=== PATIENT | male | born 1935 | race Caucasian/White ===

== ENCOUNTER 2017-11-07 16:22 | Inpatient (IN) | payer OTHER ==
--- NOTE | 2017-11-07 13:38 | R.PREADM ---
SCREENING DATE AND TIME 11/06/2017 16:25 (CDT) ANTICIPATED REHAB ADMISSION DATE 11/08/2017 REFERRING FACILITY [facility] REFERRAL DATE AND TIME 11/06/2017 16:25 (CDT) ACUTE ADMIT DATE 10/13/2017 Previous Rehabilitation(s): No. REFERRING PHYSICIAN [facility] RE[facility] FACILITY [facility] CLINICAL LIAISON Carla Carpenter PHYSICIAN REVIEWER Dr. Alex Ribeiro M.D. [facility]# [id number] [facility] [id number] NAME MARCE BRAND ADDRESS [address] [place] [address] [place] ZIP [phone] DATE OF 1935 AGE 82 SSN# [id number] GENDER male MARITAL STATUS RACE white ADMIT FROM 02 - [facility] PRE-HOSPITAL LIVING SETTING 01 - Home (private home/apt. board/care, assisted living, longterm, transitional living) HOME TYPE AND DETAILS Type of home: single family house # of levels in the residence: 1 # of steps within the residence: 0 # of steps to enter the residence: 0 PRE-HOSPITAL LIVING WITH Family/Relatives FAMILY SUPPORT Yes PRIMARY FAMILY CONTACT NAME Marry Brand PRIMARY FAMILY CONTACT PHONE PHONE PRIMARY FAMILY CONTACT ON ADM.? no IS PRIMARY FAMILY CONTACT AUTH. REP.? no 1ST EMERGENCY CONTACT Marry Brand 1ST CONTACT PHONE PHONE 1ST CONTACT ON ADM. no IS 1ST CONTACT AUTH. REP.? no PHONE 2ND CONTACT ON ADM.? no PATIENT EMPLOYMENT STATUS Retired (for age) PATIENT EMPLOYER No Employer PAYOR INFORMATION: 1ST PAYOR NAME MEDICARE 1ST PAYOR PHONE 1ST PAYOR INJURY/ILLNESS DUE TO ACCIDENT? No ANOTHER [employer] RESPONSIBLE? No PRIMARY REHAB/ACUTE DIAGNOSIS: Left periprosthetic distal femur fracture ONSET DATE 10/11/2017 REHAB IMPAIRMENT CATEGORY (GENNARO): 07 Fracture of LE (FracLE) does NOT meet 60% rule AFFECTED EXTREMITIES: LLE PRIMARY DIAGNOSIS-RELATED SURGERIES: ORIF Left distal femur COMORBID REHAB/ACUTE DIAGNOSES: - N/A GERD PArkinson's Disease Essential Hypertension Chronic post traumatic stress disorder CKD stage 3 Hyperlipidemia Adjustment disorder with depressed mood INTERVENTIONS: - GERD Altered diet Elevation of head of bed Medications Nausea/vomiting Nighttime food/fluid restrictions Nutrition RISK FOR COMPLICATIONS: - GERD Alteration in sleep Aspiration Dehydration Malnutrition Pain SUMMARY OF ACUTE HOSPITALIZATION: Pt. is a 82 yo Right-handed white male. On 10/11/2017 he was admitted to [facility] with diagnosis Left periprosthetic distal femur fr priya. His impairment category is Orthopaedic Disorders 08 - Femur (Shaft) Fracture (08.2). Pre-morbidly, Pt. was independent/mod-I in Transfers Control, Communication, Social Cognition, Self-C are, Locomotion, and Sphincter Control; and he had good Sphincter Control. Currently, he has deficits of Safety Awareness, Transfers Control, Communication, Social Cognition, B alance, Self-Care, Endurance, and Locomotion. Pt. is now referred to [facility] for acute in-patient rehabilitation in order to maximize patient's functional independence in activities of daily living, strength, ROM, and mobi lity. Patient has realistic goal of being discharged at assistance level 6-Cathy to reside at Home with Fam samantha/Relatives. PAST MEDICAL HISTORY Adjustment disorder with depressed mood CKD stage 3 Chronic post traumatic stress disorder Essential Hypertension GERD Hyperlipidemia PArkinson's Disease PAST SURGICAL HISTORY: Left knee TKA (1993) MEDICATION ALLERGIES: Penicillin, Hydrocodone, Ibuprofen, Sinemet 25/100 tablet ENVIRONMENTAL ALLERGIES: None Known - Substance Allergies None Known - Other Allergies None Known CODE STATUS: Full code WEIGHT/HEIGHT/BMI: WEIGHT 234.6 lbs HEIGHT 5' 9" BMI 34.6 DIET: - Diet Type Regular - Diet - Solid Texture Regular - Diet - Liquid Texture Regular - Tube Feed N/A SKIN DIAGRAM: Incision on Left upper leg; extent - small; stage - NS(Not Stageable). Treatment - Per Physician's Or ders. REVIEW OF SYSTEMS: - Gen Alert and awake Lying in bed No apparent distress Oriented to: person, time, and place - Vital Signs Temperature: 98.5 F SBP/DBP: 108/61 Pulse: 104 Resp: 18 Vital signs stable, afebrile - Skin Left thigh with surgical incision - CVS RRR VITAL SIGNS Temperature: 98.5 F SBP/DBP: 108/61 Pulse: 104 Resp: 18 Vital signs stable, afebrile CURRENT SPHINCTER CONTROL: Pre-hospital bladder status: continent # of bladder accidents in the last 7 days prior to screenin Pre-hospital bowel status: continent # of bowel accidents in the last 7 days prior to screenin Last Bowel Movement Date: DETAILED CURRENT FUNCTIONAL STATUS: - Bladder accident frequency: Ind - No accidents in the past 7 days - Bowel accident frequency: Ind - No accidents in the past 7 days - Walking score based on distance walked: 0(N/A) - Wheelchair score based on distance traveled: 2(0429ft) FUNCTIONAL STATUS: - Self-Care A. Eating Ind sup B. Grooming Ind Mauri C. Bathing Ind maxA D. Dressing - Upper Ind Mauri E. Dressing - Lower Ind maxA F. Toileting Ind Dep - Sphincter Control G: Bladder control Ind Ind H: Bowel control Ind Ind - Transfers Control I. Bed/Chair/Wheelchair Ind Dep J. Toilet Ind Dep K. Tub/Shower Ind ADNO - Locomotion L. Walk/Wheelchair (C) Ind Ind L. Walk/Wheelchair (W) Ind Ind M. Stairs Ind ADNO - Communication N. Comprehension (B) Ind Mauri O. Expression (B) Ind sup - Social Cognition P. Social Interaction Ind sup Q. Problem Solving Ind Mauri R. Memory Ind Mauri - Endurance Poor - Balance Poor - Safety Awareness Fair CURRENT FUNC. DEFICITS: Safety Awareness, Transfers Control, Communication, Social Cognition, Balance, Self-Care, Endurance, and Locomotion THERAPY NOTES FROM ACUTE CARE: Attached. SPECIAL NEEDS: - Safety Concerns Skin breakdown precautions needed due to skin breakdown risk PRECAUTIONS: - Weight Bearing Precaution NWB left LE - Fall Precaution Bed and chair alarm PATIENT NEEDS ACTIVE AND ONGOING THERAPEUTIC INTERVENTION OF MULTIPLE THERAPY DISCIPLINES, INCLUDING: - Occupational Therapy Evaluate and Treat. - Physical Therapy Evaluate and Treat. PATIENT NEEDS CLOSE MEDICAL SUPERVISION BY A REHABILITATION PHYSICIAN FOR: Bowel and Bladder Management Coordination of Treatment Team Medical and Co-Morbidity Management Pain Management Wound Care DVT Management PATIENT REQUIRES 24X7 REHAB NURSING FOR MEDICAL AND FUNCTIONAL MGT. OF THE FOLLOWING DEFICITS: ADL's Bowel and Bladder Management Cognition Communication Disease Management Medication Management Patient/Family Education Providing Safe Environment Skin Integrity Transfers Pain Management Ambulation PATIENT REQUIRES INTENSIVE, COORDINATED INTERDISCIPLINARY APPROACH TO REHAB: Arranging Home Equipment/Services Discharge Planning Family Intervention/Training Tie Layer/Case Management PATIENT REHAB POTENTIAL: Expected level of measurable improvement will be of a practical value to patient's functional capacit y or adaptations to impairments Has a viable Discharge Plan Medically appropriate; condition is sufficiently stable to participate in intensive rehab program Patient is able and expected to receive 3 hours of individualized therapy daily on at least 5 of ever y 7 days Patient's prognosis for significant practical improvement within a reasonable period of time appears Good DISCHARGE PLAN: - Estimated Length of Stay (days) 14. - Consensus on plan Discharge plan has been discussed with primary caregiver. Patient/Family is in agreement with the jose n. Primary caregiver is in agreement with the plan. - Patient/Family Goals Return home with assistance. - Planned Living Setting Upon Discharge Home, to live with Family/Relatives. RECOMMENDED CARE LEVEL: IRF RECOMMENDATION DETAILS: Recommended Admission to Comprehensive Rehabilitation Program to Increase Functional Beadle SCREENER'S COMPLETENESS CONFIRMATION: - Screening Confirmation The patient data collection on this preadmission screening form is finished PHYSICIANS REVIEW AND ADMISSION DETERMINATION Admit - Based on my review of the Pre-Admission Screening results, in my medical judgment and experie nce, I concur with the findings and recommend admission to [facility], as this patient requires an IRF level of care. SIGNATURE PANEL: Clinical Liaison - [electronically] signed by Carla Carpenter on 11/06/2017 at 16:58 (CDT) Physician Reviewer - [electronically] signed by Dr. Alex Ribeiro M.D. on 11/07/2017 at 12:39 (CDT )
[2017-11-07] MEDS ORDERED: FLUTICASONE 50MCG NASAL SPRAY NAS PRN (22:17)
[2017-11-08] MEDS: METOPROLOL TAR 25 MG TAB PO SCH ×2 (05:07→17:08)
[2017-11-08 06:24] LABS: Absolute Lymphocytes (CBC) 1.8 K/uL (0.7-4.9); Absolute Monocytes 0.9 K/uL (0.1-1.3); Basophils % 0.8 % (0-1.3); Eosinophils % 2.7 % (0-4.4); Hematocrit 34.1 % (39.6-49.0); Lymphocytes % 30.4 % (15.3-44.8); MCH 27.6 pg (27.0-35.0); MCV 86.9 fL (80-100); MPV 9.1 fL (7.6-11.3); Monocytes % 15.3 % (3.3-12.3); RBC Red Blood Cell Count 3.92 M/uL (4.33-5.43)
[2017-11-08] MEDS: ACETAMINOPHEN 325 MG TABLET PO PRN ×2 (06:33→11:46)
[2017-11-08 07:12] LABS: Blood Morphology Comment NOT SEEN (NOT SEEN); Platelet Estimate ADEQ; Urine White Blood Cell Casts OK
[2017-11-08 07:17] LABS: Albumin 2.8 g/dL (3.2-5.5); Magnesium 1.9 mg/dL (1.8-2.5); Potassium 4.4 mEq/L (3.6-5.0); Prealbumin 18.2 mg/dl (18-38)
[2017-11-08] MEDS: RANITIDINE 150 MG TABLET PO SCH ×2 (08:27→20:37)
[2017-11-08] MEDS: buPROPion HCl 100 MG TAB PO SCH ×2 (08:27→12:22)
[2017-11-08] MEDS: guaiFENesin 100 MG/5 ML UCUP PO PRN ×2 (11:44→22:05)
[2017-11-08] MEDS ORDERED: buPROPion HCl 100 MG TAB PO SCH (13:00)
--- NOTE | 2017-11-08 19:31 | FAST ---
ENCOUNTER DATE AND TIME: 11/08/2017 08:00 (CDT) NAME MARCE BRAND DATE OF : 1935 DATE OF ADMISSION: 11/07/2017 19:54 (CDT) PHONE: AGE: 82 SSN# [id number] GENDER: Male ENCOUNTER PHYSICIAN: Dr. Alex Ribeiro M.D. ADMISSION DIAGNOSIS: - Orthopaedic Disorders 08 - Femur (Shaft) Fracture (08.2) Left periprosthetic distal femur fracture. EATING: Activity did not occur on this shift EATING - SCORE: 0-UNK GROOMING: Activity did not occur on this shift GROOMING - SCORE: 0-UNK BATHING: Activity did not occur on this shift BATHING - SCORE: 0-UNK DRESSING - UPPER BODY: Activity did not occur on this shift Patient is not dressing in public clothing ARTICLES SCORE Total number of steps: 0 DRESSING - UPPER BODY - SCORE: 0-UNK DRESSING - LOWER BODY: Activity did not occur on this shift Patient is not dressing in public clothing ARTICLES SCORE Total number of steps: 0 DRESSING - LOWER BODY - SCORE: 0-UNK TOILETING: Activity did not occur on this shift TOILETING - SCORE: 0-UNK BLADDER MANAGEMENT: Activity did not occur on this shift BLADDER MANAGEMENT - SCORE: 7-IND BOWEL MANAGEMENT: Activity did not occur on this shift BOWEL MANAGEMENT - SCORE: 7-IND TRANSFERS: BED, CHAIR, WHEELCHAIR: Patient requires more than one helper and/or the use of a mechanical lift is utilized TRANSFERS: BED, CHAIR, WHEELCHAIR - SCORE: 1-DEP TRANSFERS: TOILET: Activity did not occur on this shift TRANSFERS: TOILET - SCORE: 0-UNK TRANSFERS: SHOWER: Activity did not occur on this shift TRANSFERS: SHOWER - SCORE: 0-UNK TRANSFERS: TUB: Activity did not occur on this shift TRANSFERS: TUB - SCORE: 0-UNK LOCOMOTION: WALK: Activity did not occur on this shift LOCOMOTION: WALK - SCORE: 0-UNK LOCOMOTION: WHEELCHAIR: LOCOMOTION: WHEELCHAIR - STEP 1: Does the patient need help to go 150 feet in a wheelchair? Yes. LOCOMOTION: WHEELCHAIR - STEP 2: How much assistance does the patient need from the helper? Only supervision, cuing, or coaxing LOCOMOTION: WHEELCHAIR - SCORE: 5-SUP LOCOMOTION: STAIRS: Activity did not occur on this shift LOCOMOTION: STAIRS - SCORE: 0-UNK COMPREHENSION: COMPREHENSION - SCORE: 0-UNK EXPRESSION EXPRESSION - SCORE: 0-UNK SOCIAL INTERACTION: SOCIAL INTERACTION - SCORE: 0-UNK PROBLEM SOLVING: PROBLEM SOLVING - SCORE: 0-UNK MEMORY: MEMORY - SCORE: 0-UNK SIGNATURE PANEL: The following modified sections: Transfers: Bed, Chair, Wheelchair - Score, Transfers: Toilet - Score , Locomotion: Walk - Score, Locomotion: Wheelchair - Score, Locomotion: Stairs - Score were [electron [email or web address]] signed by Anderson Saba, PT on Sat Nov 08 2017 18:32:42 T-0500 (Central Daylight Time)
[2017-11-08] MEDS: POLYVINYL ALCOHOL 1.4% 15 ML EACH EYE PRN (20:35)
[2017-11-08] MEDS: MELATONIN 3 MG TABLET PO PRN (20:37)
[2017-11-08] MEDS: NYSTATIN PWDR 100000 UNIT/GM TOP SCH (20:37)
[2017-11-08] MEDS: MIRTAZAPINE 15 MG TAB PO SCH (20:37)
[2017-11-08] MEDS: ATORVASTATIN 20 MG TAB PO SCH (20:37)
[2017-11-08 21:34] LABS: Urine Appearance CLEAR; Urine Bilirubin NEGATIVE (NEG); Urine Blood 3+ (NEG); Urine Color YELLOW; Urine Glucose NEGATIVE (NEG); Urine Protein NEGATIVE (NEG); Urine Specific Gravity 1.025 (1.005-1.030); Urine Urobilinogen 0.2 mg/dL (0.2-1.0); Urine pH 5.5 (5.0-7.0)
[2017-11-08 21:45] LABS: Urine Bacteria <20 /HPF (NONE SEEN); Urine RBC >50 /HPF (NONE SEEN)
[2017-11-08 21:46] LABS: Urine Culture Reflex Order NOT NEEDED
--- NOTE | 2017-11-09 04:43 | FAST ---
SHIFT START DATE/TIME: 11/08/2017 19:00 (CDT) SHIFT END DATE/TIME: 11/09/2017 07:00 (CDT) NAME MARCE BRAND DATE OF : 1935 DATE OF ADMISSION: 11/07/2017 19:54 (CDT) PHONE: AGE: 82 N# [id number] GENDER: Male ENCOUNTER PHYSICIAN: Dr. Alex Ribeiro M.D. ADMISSION DIAGNOSIS: - Orthopaedic Disorders 08 - Femur (Shaft) Fracture (08.2) Left periprosthetic distal femur fracture. EATING: EATING - STEP 1: Does the patient require assistance when eating? Yes. EATING - STEP 2: Does the patient require the assistance of a helper? Yes. EATING - STEP 3: Does the patient perform half or more of the eating tasks? Yes. EATING - STEP 4: Does the patient need only supervision, cuing, coaxing OR help to apply an orthosis OR help to cut fo od, open containers, pour liquids, or butter bread? No. EATING - SCORE: 4-MIN GROOMING: Wash, rinse, and dry face Wash, rinse, and dry hands GROOMING - STEP 1: Does the patient require assistance when grooming? Yes. GROOMING - STEP 2: Does the patient require the assistance of a helper? Yes. GROOMING - STEP 3: How much assistance does the patient require from the helper? More than incidental help GROOMING - STEP 4: How many grooming tasks does the patient perform WITHOUT the assistance of the helper? Half or more o f the grooming tasks GROOMING - SCORE: 3-MOD BATHING: Activity did not occur on this shift BATHING - SCORE: 0-UNK DRESSING - UPPER BODY: Patient is not dressing in public clothing ARTICLES SCORE Total number of steps: 0 DRESSING - UPPER BODY - SCORE: 0-UNK DRESSING - LOWER BODY: Patient is not dressing in public clothing ARTICLES SCORE Total number of steps: 0 DRESSING - LOWER BODY - SCORE: 0-UNK TOILETING: Activity did not occur on this shift TOILETING - SCORE: 0-UNK BLADDER MANAGEMENT: Colton removes incontinent device (Depends, pull ups, etc.); cleans the patient after accident / inco ntinent episode; and, applies new incontinent device. BLADDER MANAGEMENT - SCORE: 1-DEP BLADDER MANAGEMENT - FREQUENCY OF ACCIDENTS: BLADDER MANAGEMENT(FA) - STEP 1: How many accidents has the patient had during the current shift? 3 BOWEL MANAGEMENT: Colton removes incontinent device (depends, pull ups, etc.); cleans the patient after accident / inco ntinent episode; and, applies new device (depends, pull-ups, padding, etc.). BOWEL MANAGEMENT - SCORE: 1-DEP BOWEL MANAGEMENT - FREQUENCY OF ACCIDENTS: BOWEL MANAGEMENT(FA) - STEP 1: How many accidents has the patient had during the current shift? 2 TRANSFERS: BED, CHAIR, WHEELCHAIR: Activity did not occur on this shift TRANSFERS: BED, CHAIR, WHEELCHAIR - SCORE: 0-UNK TRANSFERS: TOILET: Activity did not occur on this shift TRANSFERS: TOILET - SCORE: 0-UNK TRANSFERS: SHOWER: Activity did not occur on this shift TRANSFERS: SHOWER - SCORE: 0-UNK TRANSFERS: TUB: Activity did not occur on this shift TRANSFERS: TUB - SCORE: 0-UNK LOCOMOTION: WALK: Activity did not occur on this shift LOCOMOTION: WALK - SCORE: 0-UNK LOCOMOTION: WHEELCHAIR: Activity did not occur on this shift LOCOMOTION: WHEELCHAIR - SCORE: 0-UNK COMPREHENSION: COMPREHENSION: TYPE: Both COMPREHENSION - STEP 1: Does the patient require help to understand complex and abstract ideas (such as current events, finan panda, discharge planning, medical issues, relationships, etc)? No. COMPREHENSION - STEP 2: Does the patient need extra time, require an assistive device (such as glasses, hearing aids, or an a ugmentative communication system), OR does s/he have mild difficulty expressing complex and abstract ideas (including mild dysarthria or mild word-finding problems)? Yes. COMPREHENSION - SCORE: 6-JM EXPRESSION EXPRESSION: TYPE: Both EXPRESSION - STEP 1: Does the patient require help expressing complex and abstract ideas (such as current events, finances , discharge planning, medical issues, relationships, etc)? No. EXPRESSION - STEP 2: Does the patient need extra time, require an assistive device (such as augmentive communication syste m or a communication board), OR does s/he have mild difficulty expressing complex and abstract ideas (including mild dysarthria or mild word-find problems)? Yes. EXPRESSION - SCORE: 6-JM SOCIAL INTERACTION: SOCIAL INTERACTION - STEP 1: Does the patient require a helper to interact with others in social and therapeutic situations? No. SOCIAL INTERACTION - STEP 2: Does the patient need extra time in social situations, OR does s/he interact with staff, other patien ts, and family members ONLY in structured environments, OR does s/he require medication for social in teraction? Yes, patient needs extra time SOCIAL INTERACTION - SCORE: 6-JM PROBLEM SOLVING: PROBLEM SOLVING - STEP 1: Does the patient need help to solve complex problems such as managing a checking account or confronti ng interpersonal problems? No. PROBLEM SOLVING - STEP 2: Does the patient require extra time to make decisions or solve problems, OR does s/he have slight dif ficulty reading, initiating, or self-correcting in unfamiliar situations? Yes, patient needs extra ti me. PROBLEM SOLVING - SCORE: 6-JM MEMORY: MEMORY - STEP 1: Does the patient need help to remember frequently encountered people, daily routines, and executing r equests? No. MEMORY - STEP 2: Does the patient have slight difficulty recognizing frequently encountered people, daily routines, or executing requests without the need for repetition or using self-initiated or environmental cues to remember? Yes. MEMORY - SCORE: 6-JM SIGNATURE PANEL: The following modified sections: Eating - Score, Grooming - Score, Bathing - Score, Dressing - Upper Body - Score, Dressing - Lower Body - Score, Toileting - Score, Bladder Management - Score, Bowel Man agement - Score, Transfers: Bed, Chair, Wheelchair - Score, Transfers: Toilet - Score, Transfers: Merline wer - Score, Transfers: Tub - Score, Locomotion: Walk - Score, Locomotion: Wheelchair - Score, Compre hension - Score, Expression - Score, Social Interaction - Score, Problem Solving - Score, Memory - Sc ore were [electronically] signed by Lala Calzada C.N.Josie on FriNov 09 2017 03:45:26 GMT-0500 ( Central Daylight Time)
[2017-11-09] MEDS: METOPROLOL TAR 25 MG TAB PO SCH ×2 (05:17→17:20)
[2017-11-09] MEDS: guaiFENesin 100 MG/5 ML UCUP PO PRN ×2 (07:04→19:54)
[2017-11-09] MEDS: RANITIDINE 150 MG TABLET PO SCH ×2 (07:04→19:53)
[2017-11-09] MEDS: ACETAMINOPHEN 325 MG TABLET PO PRN (07:04)
[2017-11-09] MEDS: NYSTATIN PWDR 100000 UNIT/GM TOP SCH ×2 (07:04→19:53)
[2017-11-09] MEDS: buPROPion HCl 100 MG TAB PO SCH ×2 (07:04→13:19)
[2017-11-09] MEDS: PRIMIDONE 50 MG TAB PO SCH (13:19)
--- NOTE | 2017-11-09 16:26 | FAST ---
SHIFT START DATE/TIME: 11/08/2017 07:00 (CDT) SHIFT END DATE/TIME: 11/08/2017 19:00 (CDT) NAME MARCE BRAND DATE OF : 1935 DATE OF ADMISSION: 11/07/2017 19:54 (CDT) PHONE: AGE: 82 N# [id number] GENDER: Male ENCOUNTER PHYSICIAN: Dr. Alex Ribeiro M.D. ADMISSION DIAGNOSIS: - Orthopaedic Disorders 08 - Femur (Shaft) Fracture (08.2) Left periprosthetic distal femur fracture. EATING: EATING - STEP 1: Does the patient require assistance when eating? Yes. EATING - STEP 2: Does the patient require the assistance of a helper? Yes. EATING - STEP 3: Does the patient perform half or more of the eating tasks? Yes. EATING - STEP 4: Does the patient need only supervision, cuing, coaxing OR help to apply an orthosis OR help to cut fo od, open containers, pour liquids, or butter bread? Yes. EATING - SCORE: 5-SUP GROOMING: Comb/brush hair Wash, rinse, and dry face Wash, rinse, and dry hands GROOMING - STEP 1: Does the patient require assistance when grooming? Yes. GROOMING - STEP 2: Does the patient require the assistance of a helper? Yes. GROOMING - STEP 3: How much assistance does the patient require from the helper? More than incidental help GROOMING - STEP 4: How many grooming tasks does the patient perform WITHOUT the assistance of the helper? Half or more o f the grooming tasks GROOMING - SCORE: 3-MOD BATHING: Activity did not occur on this shift BATHING - SCORE: 0-UNK DRESSING - UPPER BODY: T-shirt/pullover shirt (four steps) ARTICLES SCORE Total number of steps: 4 DRESSING - UPPER BODY - STEP 1: Does the patient require help when dressing above the waist? Yes. DRESSING - UPPER BODY - STEP 2: Does the patient require the assistance of a helper? Yes. DRESSING - UPPER BODY - STEP 3: Does the helper touch the patient while dressing? Yes. DRESSING - UPPER BODY - STEP 4: How many of the total steps does the patient complete on his/her own? 0 DRESSING - UPPER BODY - STEP 5: Does Patient require total assistance for dressing above the waist such as the helper holding clothin g and performing basically all the activities? Yes. DRESSING - UPPER BODY - SCORE: 1-DEP DRESSING - LOWER BODY: Elastic waist pants (three steps) Sock - Left foot (one step) Sock - Right foot (one step) Underwear (three steps) ARTICLES SCORE Total number of steps: 8 DRESSING - LOWER BODY - STEP 1: Does the patient require help when dressing below the waist? Yes. DRESSING - LOWER BODY - STEP 2: Does the patient require the assistance of a helper? Yes. DRESSING - LOWER BODY - STEP 3: Does the helper touch the patient while dressing? Yes. DRESSING - LOWER BODY - STEP 4: How many of the total steps does the patient complete on his/her own? 0 DRESSING - LOWER BODY - STEP 5: Does patient require total assistance for dressing below the waist such as the helper holding clothin g and performing basically all the activities? Yes. DRESSING - LOWER BODY - SCORE: 1-DEP TOILETING: Activity did not occur on this shift TOILETING - SCORE: 0-UNK BLADDER MANAGEMENT: [place] removes incontinent device (Depends, pull ups, etc.); cleans the patient after accident / inco ntinent episode; and, applies new incontinent device. BLADDER MANAGEMENT - SCORE: 1-DEP BLADDER MANAGEMENT - FREQUENCY OF ACCIDENTS: BLADDER MANAGEMENT(FA) - STEP 1: How many accidents has the patient had during the current shift? 2 BOWEL MANAGEMENT: Activity did not occur on this shift BOWEL MANAGEMENT - SCORE: 7-IND BOWEL MANAGEMENT - FREQUENCY OF ACCIDENTS: BOWEL MANAGEMENT(FA) - STEP 1: How many accidents has the patient had during the current shift? 0 TRANSFERS: BED, CHAIR, WHEELCHAIR: Patient requires more than one helper and/or the use of a mechanical lift is utilized TRANSFERS: BED, CHAIR, WHEELCHAIR - SCORE: 1-DEP TRANSFERS: TOILET: Activity did not occur on this shift TRANSFERS: TOILET - SCORE: 0-UNK TRANSFERS: SHOWER: Activity did not occur on this shift TRANSFERS: SHOWER - SCORE: 0-UNK TRANSFERS: TUB: Activity did not occur on this shift TRANSFERS: TUB - SCORE: 0-UNK LOCOMOTION: WALK: Activity did not occur on this shift LOCOMOTION: WALK - SCORE: 0-UNK LOCOMOTION: WHEELCHAIR: Activity did not occur on this shift LOCOMOTION: WHEELCHAIR - SCORE: 0-UNK COMPREHENSION: COMPREHENSION: TYPE: Both COMPREHENSION - STEP 1: Does the patient require help to understand complex and abstract ideas (such as current events, finan panda, discharge planning, medical issues, relationships, etc)? No. COMPREHENSION - STEP 2: Does the patient need extra time, require an assistive device (such as glasses, hearing aids, or an a ugmentative communication system), OR does s/he have mild difficulty expressing complex and abstract ideas (including mild dysarthria or mild word-finding problems)? Yes. COMPREHENSION - SCORE: 6-JM EXPRESSION EXPRESSION: TYPE: Both EXPRESSION - STEP 1: Does the patient require help expressing complex and abstract ideas (such as current events, finances , discharge planning, medical issues, relationships, etc)? No. EXPRESSION - STEP 2: Does the patient need extra time, require an assistive device (such as augmentive communication syste m or a communication board), OR does s/he have mild difficulty expressing complex and abstract ideas (including mild dysarthria or mild word-find problems)? Yes. EXPRESSION - SCORE: 6-JM SOCIAL INTERACTION: SOCIAL INTERACTION - STEP 1: Does the patient require a helper to interact with others in social and therapeutic situations? No. SOCIAL INTERACTION - STEP 2: Does the patient need extra time in social situations, OR does s/he interact with staff, other patien ts, and family members ONLY in structured environments, OR does s/he require medication for social in teraction? Yes, patient needs extra time SOCIAL INTERACTION - SCORE: 6-JM PROBLEM SOLVING: PROBLEM SOLVING - STEP 1: Does the patient need help to solve complex problems such as managing a checking account or confronti ng interpersonal problems? No. PROBLEM SOLVING - STEP 2: Does the patient require extra time to make decisions or solve problems, OR does s/he have slight dif ficulty reading, initiating, or self-correcting in unfamiliar situations? Yes, patient needs extra ti me. PROBLEM SOLVING - SCORE: 6-JM MEMORY: MEMORY - STEP 1: Does the patient need help to remember frequently encountered people, daily routines, and executing r equests? No. MEMORY - STEP 2: Does the patient have slight difficulty recognizing frequently encountered people, daily routines, or executing requests without the need for repetition or using self-initiated or environmental cues to remember? Yes. MEMORY - SCORE: 6-JM SIGNATURE PANEL: The following modified sections: Eating - Score, Grooming - Score, Bathing - Score, Dressing - Upper Body - Score, Dressing - Lower Body - Score, Toileting - Score, Bladder Management - Score, Bowel Man agement - Score, Transfers: Bed, Chair, Wheelchair - Score, Transfers: Toilet - Score, Transfers: Merline wer - Score, Transfers: Tub - Score, Locomotion: Walk - Score, Locomotion: Wheelchair - Score, Compre hension - Score, Expression - Score, Social Interaction - Score, Problem Solving - Score, Memory - Sc ore were [electronically] signed by Marysol Crocker C.N.A. on FriNov 09 2017 15:27:30 T-0500 (Cent[facility] [place] Daylight Time)
--- NOTE | 2017-11-09 16:40 | FAST ---
SHIFT START DATE/TIME: 11/09/2017 07:00 (CDT) SHIFT END DATE/TIME: 11/09/2017 19:00 (CDT) NAME MARCE BRAND DATE OF : 1935 DATE OF ADMISSION: 11/07/2017 19:54 (CDT) PHONE: AGE: 82 N# [id number] GENDER: Male ENCOUNTER PHYSICIAN: Dr. Alex Ribeiro M.D. ADMISSION DIAGNOSIS: - Orthopaedic Disorders 08 - Femur (Shaft) Fracture (08.2) Left periprosthetic distal femur fracture. EATING: EATING - STEP 1: Does the patient require assistance when eating? Yes. EATING - STEP 2: Does the patient require the assistance of a helper? Yes. EATING - STEP 3: Does the patient perform half or more of the eating tasks? Yes. EATING - STEP 4: Does the patient need only supervision, cuing, coaxing OR help to apply an orthosis OR help to cut fo od, open containers, pour liquids, or butter bread? Yes. EATING - SCORE: 5-SUP GROOMING: Comb/brush hair Wash, rinse, and dry hands GROOMING - STEP 1: Does the patient require assistance when grooming? Yes. GROOMING - STEP 2: Does the patient require the assistance of a helper? Yes. GROOMING - STEP 3: How much assistance does the patient require from the helper? More than incidental help GROOMING - STEP 4: How many grooming tasks does the patient perform WITHOUT the assistance of the helper? Half or more o f the grooming tasks GROOMING - SCORE: 3-MOD BATHING: Activity did not occur on this shift BATHING - SCORE: 0-UNK DRESSING - UPPER BODY: T-shirt/pullover shirt (four steps) ARTICLES SCORE Total number of steps: 4 DRESSING - UPPER BODY - STEP 1: Does the patient require help when dressing above the waist? Yes. DRESSING - UPPER BODY - STEP 2: Does the patient require the assistance of a helper? Yes. DRESSING - UPPER BODY - STEP 3: Does the helper touch the patient while dressing? Yes. DRESSING - UPPER BODY - STEP 4: How many of the total steps does the patient complete on his/her own? 0 DRESSING - UPPER BODY - STEP 5: Does Patient require total assistance for dressing above the waist such as the helper holding clothin g and performing basically all the activities? Yes. DRESSING - UPPER BODY - SCORE: 1-DEP DRESSING - LOWER BODY: Elastic waist pants (three steps) Sock - Left foot (one step) Sock - Right foot (one step) Underwear (three steps) ARTICLES SCORE Total number of steps: 8 DRESSING - LOWER BODY - STEP 1: Does the patient require help when dressing below the waist? Yes. DRESSING - LOWER BODY - STEP 2: Does the patient require the assistance of a helper? Yes. DRESSING - LOWER BODY - STEP 3: Does the helper touch the patient while dressing? Yes. DRESSING - LOWER BODY - STEP 4: How many of the total steps does the patient complete on his/her own? 0 DRESSING - LOWER BODY - STEP 5: Does patient require total assistance for dressing below the waist such as the helper holding clothin g and performing basically all the activities? Yes. DRESSING - LOWER BODY - SCORE: 1-DEP TOILETING: TOILETING - STEP 1: Does the patient require assistance with toileting? Yes. TOILETING - STEP 2: Does the patient require the assistance of a helper? Yes. TOILETING - STEP 3: How much assistance does the patient require from the helper? Hands-on assistance from the helper TOILETING - STEP 4: Of the 3 tasks: 1) Adjusting clothing prior to use, 2) Cleansing of perineal area, 3) Adjusting clot ezio after use; How many tasks does the patient perform WITHOUT assistance of the helper? No tasks; h elper performs all three tasks TOILETING - SCORE: 1-DEP BLADDER MANAGEMENT: [place] removes incontinent device (Depends, pull ups, etc.); cleans the patient after accident / inco ntinent episode; and, applies new incontinent device. BLADDER MANAGEMENT - SCORE: 1-DEP BLADDER MANAGEMENT - FREQUENCY OF ACCIDENTS: BLADDER MANAGEMENT(FA) - STEP 1: How many accidents has the patient had during the current shift? 3 BOWEL MANAGEMENT: [place] removes incontinent device (depends, pull ups, etc.); cleans the patient after accident / inco ntinent episode; and, applies new device (depends, pull-ups, padding, etc.). BOWEL MANAGEMENT - SCORE: 1-DEP BOWEL MANAGEMENT - FREQUENCY OF ACCIDENTS: BOWEL MANAGEMENT(FA) - STEP 1: How many accidents has the patient had during the current shift? 2 TRANSFERS: BED, CHAIR, WHEELCHAIR: Patient requires more than one helper and/or the use of a mechanical lift is utilized TRANSFERS: BED, CHAIR, WHEELCHAIR - SCORE: 1-DEP TRANSFERS: TOILET: Patient requires more than one helper and/or the use of a mechanical lift is utilized TRANSFERS: TOILET - SCORE: 1-DEP TRANSFERS: SHOWER: Activity did not occur on this shift TRANSFERS: SHOWER - SCORE: 0-UNK TRANSFERS: TUB: Activity did not occur on this shift TRANSFERS: TUB - SCORE: 0-UNK LOCOMOTION: WALK: Activity did not occur on this shift LOCOMOTION: WALK - SCORE: 0-UNK LOCOMOTION: WHEELCHAIR: LOCOMOTION: WHEELCHAIR - STEP 1: Does the patient need help to go 150 feet in a wheelchair? Yes. LOCOMOTION: WHEELCHAIR - STEP 2: How much assistance does the patient need from the helper? Only supervision, cuing, or coaxing LOCOMOTION: WHEELCHAIR - SCORE: 5-SUP COMPREHENSION: COMPREHENSION: TYPE: Both COMPREHENSION - STEP 1: Does the patient require help to understand complex and abstract ideas (such as current events, finan panda, discharge planning, medical issues, relationships, etc)? No. COMPREHENSION - STEP 2: Does the patient need extra time, require an assistive device (such as glasses, hearing aids, or an a ugmentative communication system), OR does s/he have mild difficulty expressing complex and abstract ideas (including mild dysarthria or mild word-finding problems)? Yes. COMPREHENSION - SCORE: 6-JM EXPRESSION EXPRESSION - STEP 1: Does the patient require help expressing complex and abstract ideas (such as current events, finances , discharge planning, medical issues, relationships, etc)? No. EXPRESSION - STEP 2: Does the patient need extra time, require an assistive device (such as augmentive communication syste m or a communication board), OR does s/he have mild difficulty expressing complex and abstract ideas (including mild dysarthria or mild word-find problems)? Yes. EXPRESSION - SCORE: 6-JM SOCIAL INTERACTION: SOCIAL INTERACTION - STEP 1: Does the patient require a helper to interact with others in social and therapeutic situations? No. SOCIAL INTERACTION - STEP 2: Does the patient need extra time in social situations, OR does s/he interact with staff, other patien ts, and family members ONLY in structured environments, OR does s/he require medication for social in teraction? No. SOCIAL INTERACTION - SCORE: 7-IND PROBLEM SOLVING: PROBLEM SOLVING - STEP 1: Does the patient need help to solve complex problems such as managing a checking account or confronti ng interpersonal problems? No. PROBLEM SOLVING - STEP 2: Does the patient require extra time to make decisions or solve problems, OR does s/he have slight dif ficulty reading, initiating, or self-correcting in unfamiliar situations? Yes, patient needs extra ti me. PROBLEM SOLVING - SCORE: 6-JM MEMORY: MEMORY - STEP 1: Does the patient need help to remember frequently encountered people, daily routines, and executing r equests? No. MEMORY - STEP 2: Does the patient have slight difficulty recognizing frequently encountered people, daily routines, or executing requests without the need for repetition or using self-initiated or environmental cues to remember? Yes. MEMORY - SCORE: 6-JM SIGNATURE PANEL: The following modified sections: Eating - Score, Grooming - Score, Bathing - Score, Dressing - Upper Body - Score, Dressing - Lower Body - Score, Toileting - Score, Bladder Management - Score, Bowel Man agement - Score, Transfers: Bed, Chair, Wheelchair - Score, Transfers: Toilet - Score, Transfers: Merline wer - Score, Transfers: Tub - Score, Locomotion: Walk - Score, Locomotion: Wheelchair - Score, Compre hension - Score, Expression - Score, Social Interaction - Score, Problem Solving - Score, Memory - Sc ore were [electronically] signed by Marysol Crocker C.N.A. on FriNov 09 2017 15:42:30 T-0500 (Cent[facility] Daylight Time)
[2017-11-09] MEDS: MELATONIN 3 MG TABLET PO PRN (19:54)
[2017-11-09] MEDS: MIRTAZAPINE 15 MG TAB PO SCH (20:00)
[2017-11-09] MEDS: ATORVASTATIN 20 MG TAB PO SCH (20:00)
--- NOTE | 2017-11-10 02:53 | FAST ---
SHIFT START DATE/TIME: 11/09/2017 19:00 (CDT) SHIFT END DATE/TIME: 11/10/2017 07:00 (CDT) NAME MARCE BRAND DATE OF : 1935 DATE OF ADMISSION: 11/07/2017 19:54 (CDT) PHONE: AGE: 82 N# [id number] GENDER: Male ENCOUNTER PHYSICIAN: Dr. Alex Ribeiro M.D. ADMISSION DIAGNOSIS: - Orthopaedic Disorders 08 - Femur (Shaft) Fracture (08.2) Left periprosthetic distal femur fracture. EATING: Activity did not occur on this shift EATING - SCORE: 0-UNK GROOMING: Activity did not occur on this shift GROOMING - SCORE: 0-UNK BATHING: Activity did not occur on this shift BATHING - SCORE: 0-UNK DRESSING - UPPER BODY: Patient is not dressing in public clothing ARTICLES SCORE Total number of steps: 0 DRESSING - UPPER BODY - SCORE: 0-UNK DRESSING - LOWER BODY: Patient is not dressing in public clothing ARTICLES SCORE Total number of steps: 0 DRESSING - LOWER BODY - SCORE: 0-UNK TOILETING: Activity did not occur on this shift TOILETING - SCORE: 0-UNK BLADDER MANAGEMENT: [place] removes incontinent device (Depends, pull ups, etc.); cleans the patient after accident / inco ntinent episode; and, applies new incontinent device. BLADDER MANAGEMENT - SCORE: 1-DEP BOWEL MANAGEMENT: [place] removes incontinent device (depends, pull ups, etc.); cleans the patient after accident / inco ntinent episode; and, applies new device (depends, pull-ups, padding, etc.). BOWEL MANAGEMENT - SCORE: 1-DEP TRANSFERS: BED, CHAIR, WHEELCHAIR: Activity did not occur on this shift TRANSFERS: BED, CHAIR, WHEELCHAIR - SCORE: 0-UNK TRANSFERS: TOILET: Activity did not occur on this shift TRANSFERS: TOILET - SCORE: 0-UNK TRANSFERS: SHOWER: Activity did not occur on this shift TRANSFERS: SHOWER - SCORE: 0-UNK TRANSFERS: TUB: Activity did not occur on this shift TRANSFERS: TUB - SCORE: 0-UNK LOCOMOTION: WALK: Activity did not occur on this shift LOCOMOTION: WALK - SCORE: 0-UNK LOCOMOTION: WHEELCHAIR: Activity did not occur on this shift LOCOMOTION: WHEELCHAIR - SCORE: 0-UNK COMPREHENSION: COMPREHENSION - STEP 1: Does the patient require help to understand complex and abstract ideas (such as current events, finan panda, discharge planning, medical issues, relationships, etc)? Yes. COMPREHENSION - STEP 2: Does the patient require help to understand questions or statements about basic needs or ideas (such as hunger, thirst, sleep, safety, daily schedule, room location, or discomfort) half or more of the t reena? No. COMPREHENSION - STEP 3: How often does the patient need help to understand directions and conversation about basic needs? Les s than 10% of the time COMPREHENSION - SCORE: 5-SUP EXPRESSION EXPRESSION - STEP 1: Does the patient require help expressing complex and abstract ideas (such as current events, finances , discharge planning, medical issues, relationships, etc)? No. EXPRESSION - STEP 2: Does the patient need extra time, require an assistive device (such as augmentive communication syste m or a communication board), OR does s/he have mild difficulty expressing complex and abstract ideas (including mild dysarthria or mild word-find problems)? Yes. EXPRESSION - SCORE: 6-JM SOCIAL INTERACTION: SOCIAL INTERACTION - STEP 1: Does the patient require a helper to interact with others in social and therapeutic situations? No. SOCIAL INTERACTION - STEP 2: Does the patient need extra time in social situations, OR does s/he interact with staff, other patien ts, and family members ONLY in structured environments, OR does s/he require medication for social in teraction? Yes, patient needs extra time SOCIAL INTERACTION - SCORE: 6-JM PROBLEM SOLVING: PROBLEM SOLVING - STEP 1: Does the patient need help to solve complex problems such as managing a checking account or confronti ng interpersonal problems? Yes. PROBLEM SOLVING - STEP 2: Does the patient solve basic routine problems half or more of the time? Yes. PROBLEM SOLVING - STEP 3: How often does the patient need help to solve basic routine problems? 10%-24% of the time PROBLEM SOLVING - SCORE: 4-MIN MEMORY: MEMORY - STEP 1: Does the patient need help to remember frequently encountered people, daily routines, and executing r equests? No. MEMORY - STEP 2: Does the patient have slight difficulty recognizing frequently encountered people, daily routines, or executing requests without the need for repetition or using self-initiated or environmental cues to remember? Yes. MEMORY - SCORE: 6-JM SIGNATURE PANEL: The following modified sections: Eating - Score, Grooming - Score, Dressing - Upper Body - Score, Jani ssing - Lower Body - Score, Toileting - Score, Bladder Management - Score, Bowel Management - Score, Transfers: Bed, Chair, Wheelchair - Score, Transfers: Toilet - Score, Transfers: Shower - Score, Hernandez sfers: Tub - Score, Locomotion: Walk - Score, Locomotion: Wheelchair - Score, Comprehension - Score, Expression - Score, Social Interaction - Score, Problem Solving - Score, Memory - Score were [electro nically] signed by Gretchen Velasco CNA on FriNov 10 2017 01:55:00 GMT-0500 (Central Daylight Time)
[2017-11-10] MEDS: METOPROLOL TAR 25 MG TAB PO SCH ×3 (05:01→17:22)
[2017-11-10] MEDS: RANITIDINE 150 MG TABLET PO SCH ×2 (08:22→21:22)
[2017-11-10] MEDS: PRIMIDONE 50 MG TAB PO SCH (08:22)
[2017-11-10] MEDS: buPROPion HCl 100 MG TAB PO SCH ×2 (08:23→14:00)
[2017-11-10] MEDS: NYSTATIN PWDR 100000 UNIT/GM TOP SCH ×2 (08:25→21:21)
--- NOTE | 2017-11-10 11:11 | PAPE ---
PATIENT: [facility] MR# [id number] REFERRING DOCTOR LORENZO MOLINA EVALUATION DATE AND TIME 11/10/2017 10:10 (CDT) NAME MARCE BRAND DATE OF 1935 AGE 82 PHONE N# [id number] GENDER male EVALUATING PHYSICIAN Dr. Alex Ribeiro M.D. ADMISSION DIAGNOSIS: Left periprosthetic distal femur fracture ONSET DATE 10/11/2017 SECONDARY/COMORBID DIAGNOSES TIERED: - N/A GERD PArkinson's Disease Essential Hypertension Chronic post traumatic stress disorder CKD stage 3 Hyperlipidemia Adjustment disorder with depressed mood POST-ADMISSION FUNCTIONAL/MEDICAL STATUS: - Bladder Same accident frequency: Ind - No accidents in the past 7 days - Bowel Same accident frequency: Ind - No accidents in the past 7 days - Walking Same score based on distance walked: 0(N/A) - Wheelchair Same score based on distance traveled: 2(9862ft) STATUS CHANGE EVALUATION: No change in Functional or Medical Status is identified compared with Pre-Admission screening. PATIENT NEEDS CLOSE MEDICAL SUPERVISION BY A REHABILITATION PHYSICIAN FOR: Bowel and Bladder Management Coordination of Treatment Team Medical and Co-Morbidity Management Pain Management Wound Care DVT Management PATIENT REQUIRES 24X7 REHAB NURSING FOR MEDICAL AND FUNCTIONAL MGT. OF THE FOLLOWING DEFICITS: ADL's Bowel and Bladder Management Cognition Communication Disease Management Medication Management Patient/Family Education Providing Safe Environment Skin Integrity Transfers Pain Management Ambulation PATIENT REQUIRES INTENSIVE, COORDINATED INTERDISCIPLINARY APPROACH TO REHAB: Arranging Home Equipment/Services Discharge Planning Family Intervention/Training Motor Assembler/Case Management LIST OF IDENTIFIED AND POTENTIAL PROBLEMS: Alteration in leisure activities Bladder, Incontinence Blood Pressure, Hypertension/hypotension Issues Bowel, Incontinence Infection, Actual or Potential Mobility Impaired Pain, Alteration in Comfort Self Care Deficit Skin Integrity, Actual or Potential Urinary Tract Infection (UTI), Actual or Potential RISK FOR COMPLICATIONS - GERD Alteration in sleep. Aspiration. Dehydration. Malnutrition. Pain. INTERVENTIONS - GERD Altered diet. Elevation of head of bed. Medications. Nausea/vomiting. Nighttime food/fluid restrictio ns. Nutrition. PATIENT COULD BE AT RISK FOR COMPLICATIONS FROM ADVERSE MEDICAL CONDITIONS DUE TO HIS/HER COMORBIDITI ES AND THE RIGORS OF THE INTENSIVE REHABILLITATION PROGRAM. METHODS OR INTERVENTIONS TO AVOID COMPLIC ATIONS INCLUDE: - Deep Vein Thrombosis (DVT) Prophylaxis therapy for prevention . Sequential Compression Device (SCD). TE D Hose. - Bleeding Assess lab values and manage abnormalities. Nursing to teach precautions for anti-coagulation therapy . Wound to be assessed every shift. - Infection Clinical staff to assess and manage the signs and symptoms of infection including fever, redness, war mth, etc. - Urinary Tract Infection - Falls Patient will be evaluated for Fall Precautions and will be placed on Fall Precautions as indicated pe r protocol. - Skin Breakdown Nursing will assess skin daily using assessment tool and will place on Skin Breakdown Precautions as indicated per protocol. - Pain Clinical staff may employ non-medication methods such as massage, distraction, decrease stimulus, etc . as needed. Clinical staff will assess patient's pain level every shift per protocol to assess and e nsure pain management effectiveness. Medications will be given and the pain level re-assessed. PRELIMINARY PLAN OF CARE: - Physical Therapy Patient needs Physical Therapy for a daily minimum of 1.5 hours at least 5 out of 7 days, to improve: Mobility, Strengthening, Transfers, Stretching, ROM, Endurance, Ability to manage stairs, Gait, and Balance. - Rehabilitation Nursing Patient requires 24x7 Rehabilitation Nursing for: Pain Issues, Identifying and preventing risk factor s, Monitoring and reporting current medical conditions, Assisting with ambulation and transfer, Rick ting with all ADL-s, Teaching patients about disease process and medications, Family teaching, Provid ing safe environment, Bowel and Bladder Issues, Skin Integrity, and Medication Management. Patient needs Motor Assembler and/or Case Management for: Discharge Planning, Arranging Home Equipmen t or Services, and Family Interventions. - Dietary and Nutrition Services Patient needs Dietary and Nutrition Services for: Adequate Nutrition, Nutritional Supplements, and Nu tritional Education. - Occupational Therapy Patient needs Occupational Therapy for a daily minimum of 1.5 hours at least 5 out of 7 days, to impr ove Activities of Daily Living, including: Eating, Grooming, Bathing, Dressing, Toileting, Toilet Tra nsfers, Community Reintegration, Higher functional activities, Adaptive Equipment, Splinting, Househo ld Tasks, and Other activities as determined. POTENTIAL FUNCTIONAL GOALS FOR PATIENT TO ACHIEVE BY DISCHARGE: - Safety Precaution Patient will remain free from falls or injury at time of discharge. - Bed Mobility Patient will perform bed mobility at 4-Mauri level of assistance. - Transfers Patient will complete transfers from bed to chair at 4-Mauri level of assistance. - Mobility Patient will ambulate 150 ft with 4-Mauri level of assistance with RW. PATIENT REHAB POTENTIAL Expected level of measurable improvement will be of a practical value to patient's functional capacit y or adaptations to impairments Has a viable Discharge Plan Medically appropriate; condition is sufficiently stable to participate in intensive rehab program Patient is able and expected to receive 3 hours of individualized therapy daily on at least 5 of ever y 7 days Patient's prognosis for significant practical improvement within a reasonable period of time appears Good DISCHARGE PLAN: - Estimated Length of Stay (days) 14. - Consensus on plan Discharge plan has been discussed with primary caregiver. Patient/Family is in agreement with the jose n. Primary caregiver is in agreement with the plan. - Patient/Family Goals Return home with assistance. - Planned Living Setting Upon Discharge Home, to live with Family/Relatives. CONCLUSION ON REHABILITATION NECESSITY: I have evaluated patient's pre-admission functional status and, comparing it to the patient's post-ad mission functional status now, I conclude that the pre-admission assessment was accurate. Patient's c ondition on admission supports the medical necessity of admission to IRF. It is safe to proceed with patient's therapy program. SIGNATURE PANEL: (CDT)
--- NOTE | 2017-11-10 11:11 | R.HP ---
FACILITY: [facility] ENCOUNTER DATE AND TIME: 11/10/2017 10:07 (CDT) MR#: [id number] NAME MARCE BRAND ADDRESS: [address] [place] [address] CITY: [place] [address] [id number] PHONE: DATE OF : 1935 AGE: 82 SSN# [id number] GENDER: Male DEXTERITY Right-handed MARITAL STATUS RACE White PRE-HOSPITAL LIVING SETTING 01 - Home (private home/apt. board/care, assisted living, alf, transitional living) PRE-HOSPITAL LIVING WITH Family/Relatives ENCOUNTER PHYSICIAN: Dr. Alex Ribeiro M.D. REFERRING DOCTOR: LORENZO MOLINA DATE OF ADMISSION: 11/07/2017 19:54 (CDT) REFERRING FACILITY [facility] HOME TYPE AND DETAILS: Type of home: single family house # of levels in the residence: 1 # of steps within the residence: 0 # of steps to enter the residence: 0 ADMISSION DIAGNOSIS: Left periprosthetic distal femur fracture ONSET DATE: 10/11/2017 PRIMARY DIAGNOSIS-RELATED SURGERIES: ORIF Left distal femur SECONDARY/COMORBID DIAGNOSES (TIERED): - N/A GERD PArkinson's Disease Essential Hypertension Chronic post traumatic stress disorder CKD stage 3 Hyperlipidemia Adjustment disorder with depressed mood HISTORY OF PRESENT ILLNESS (HPI): Pt. is a 82 yo Right-handed white male. On 10/11/2017 he was admitted to [facility] with diagnosis Left periprosthetic distal femur fr acture. His impairment category is Orthopaedic Disorders 08 - Femur (Shaft) Fracture (08.2). Pre-morbidly, Pt. was independent/mod-I in Transfers Control, Communication, Social Cognition, Self-C are, Locomotion, and Sphincter Control; and he had good Sphincter Control. Currently, he has deficits of Safety Awareness, Transfers Control, Communication, Social Cognition, B alance, Self-Care, Endurance, and Locomotion. Pt. is now referred to [facility] for acute in-patient rehabilitation in order to maximize patient's functional independence in activities of daily living, strength, ROM, and mobi lity. Patient has realistic goal of being discharged at assistance level 6-Cathy to reside at Home with Fam samantha/Relatives. MEDICATION ALLERGIES: Penicillin, Hydrocodone, Ibuprofen, Sinemet 25/100 tablet ENVIRONMENTAL ALLERGIES: None Known - Substance Allergies None Known - Other Allergies None Known PAST MEDICAL HISTORY: Adjustment disorder with depressed mood CKD stage 3 Chronic post traumatic stress disorder Essential Hypertension GERD Hyperlipidemia PArkinson's Disease PAST SURGICAL HISTORY: Left knee TKA (1993) FAMILY HISTORY: Family history is not contributory. SOCIAL HISTORY: - Home Living Family/Relatives REVIEW OF SYSTEMS: - Gen No Chills No Fatigue No Fever - Eyes No Double Vision No itchiness - ENMT No Difficulty Swallowing - CVS No Chest Discomfort No Chest Pain No Fatigue No Weight Gain - Resp No Cough No Shortness of Breath - GI Continent No Abdominal Pain No Constipation No Diarrhea - Continent No Kidney Pain No Painful Urination No Urinary Urgency - MSK No Joint Pain No Muscle Cramps No Stiffness - Skin No Itching No Rash No Suspicious Lesions - Neuro No Coordination Difficulty No Difficulty with Concentration No Memory Loss No Seizures No Weakness - Psych No Anxiety No Depression No HIV Exposure No Persistent Infections No Seasonal Allergies - Endo No Cold/Heat Intolerance No Excessive Hunger No Excessive Thirst No Excessive Urination PHYSICAL EXAM - Gen Alert and awake Lying in bed No apparent distress Oriented to: person, time, and place - Skin Left thigh with surgical incision Normacephalic - Eyes No abnormalities - ENMT No abnormalities - Neck No abnormalities - CVS RRR - Chest No abnormalities - Abd Soft - GI Non distended Deferred - No abnormalities - Ext Mild postoperative edema in the left lower extremity - MSK 4+/5 weakness in left lower extremity - Psych No abnormalities VITAL SIGNS Temperature: 98.5 F SBP/DBP: 120/75 Pulse: 84 Resp: 16 Vital signs stable, afebrile NURSING: - Shower allowing shower - Skin care per protocol PRECAUTIONS: - Weight Bearing Precaution NWB left LE - Fall Precaution Bed and chair alarm ACTIVITIES OOB only with supervision FUNCTIONAL STATUS: - Self-Care A. Eating Ind sup B. Grooming Ind Mauri C. Bathing Ind maxA D. Dressing - Upper Ind Mauri E. Dressing - Lower Ind maxA F. Toileting Ind Dep - Sphincter Control G: Bladder control Ind Ind H: Bowel control Ind Ind - Transfers Control I. Bed/Chair/Wheelchair Ind Dep J. Toilet Ind Dep K. Tub/Shower Ind ADNO - Locomotion L. Walk/Wheelchair (C) Ind Ind L. Walk/Wheelchair (W) Ind Ind M. Stairs Ind ADNO - Communication N. Comprehension (B) Ind Mauri O. Expression (B) Ind sup - Social Cognition P. Social Interaction Ind sup Q. Problem Solving Ind Mauri R. Memory Ind Mauri - Endurance Poor - Balance Poor - Safety Awareness Fair CURRENT FUNC. DEFICITS: Safety Awareness, Transfers Control, Communication, Social Cognition, Balance, Self-Care, Endurance, and Locomotion ASSESSMENT: Pt. is a 82 yo Right-handed white male.On 10/11/2017 he was admitted to [facility] with diagno sis Left periprosthetic distal femur fracture.His impairment category is Orthopaedic Disorders 08 - Femur (Shaft) Fracture (08.2).Pre-morbidly, Pt. was independent/mod-I in Transfers Control, Communica tion, Social Cognition, Self-Care, Locomotion, and Sphincter Control; and he had good Sphincter Contr ol.Currently, he has deficits of Safety Awareness, Transfers Control, Communication, Social Cognition , Balance, Self-Care, Endurance, and Locomotion.Pt. is now referred to [facility] for acute in-patient rehabilitation in order to maximize patient's functional independence in act ivities of daily living, strength, ROM, and mobility.- Rehab Goal Patient has realistic goal of being discharged at assistance level 6-Cathy to reside at Home with Fam samantha/Relatives. REHAB PLAN: - Physical Therapy Decreased range of motion - to improve, our physical therapists will perform initial evaluation of pt 's status upon admission and devise an individualized program for increasing patient's Range of Motio n. Gait dysfunction - to improve, our physical therapists will perform initial evaluation of pt's status upon admission and devise an individualized program for Gait Training, and Wheel Chair mobility Inability to transfer - to improve, our physical therapists will perform initial evaluation of pt's s tatus upon admission and devise an individualized program for Bed mobility Need for home safety evaluation - to improve, our physical therapists will perform initial evaluation of pt's status upon admission and devise an individualized program for Home Evaluation Need in caregiver upon discharge - to improve, our physical therapists will perform initial evaluatio n of pt's status upon admission and devise an individualized program for Caregiver Training New precaution - to improve, our physical therapists will perform initial evaluation of pt's status u reina admission and devise an individualized program for Patient precaution education Edema - to improve, our physical therapists will perform initial evaluation of pt's status upon admi ssion and devise an individualized program for Elevation Training, and Lymphedema Therapy Poor balance - to improve, our physical therapists will perform initial evaluation of pt's status upo n admission and devise an individualized program for Balance Training Poor endurance - to improve, our physical therapists will perform initial evaluation of pt's status u reina admission and devise an individualized program for Endurance Training Weakness - to improve, our physical therapists will perform initial evaluation of pt's status upon ad mission and devise an individualized program for Aquatic Therapy, Neuromuscular Reeducation, and Stre ngthening Achieving independence - to improve, our physical therapists will perform initial evaluation of pt's status upon admission and devise an individualized program for Community Reintegration Activities - Occupational Therapy ADL deficits - to improve, our occupation therapists will perform initial evaluation of pt's status u reina admission and devise an individualized program for Bathing, Bed mobility, Community Reintegration , Cooking, Dressing, Eating, Fine Motor Skills, Grooming, Homemaking, Kitchen Mobility, Laundry, Tammy ent Education, Safety Awareness, Splinting - Positioning, Transfers(Toilet, Tub, Shower), and Wheel C hair Management Cognitive deficits - to improve, our occupation therapists will perform initial evaluation of pt's st atus upon admission and devise an individualized program for Cognition - orientation Need for healthcare financial analyst - to improve, our occupation therapists will perform initial evaluation of pt's s tatus upon admission and devise an individualized program for Caregiver Training Weakness - to improve, our occupation therapists will perform initial evaluation of pt's status upon admission and devise an individualized program for Aquatic Therapy, Balance, Endurance, UE ROM, and U E strengthening MEDICAL PLAN: - Diet Type Start Regular - Diet - Liquid Texture Start Regular - Tube Feed Start N/A - Weight Bearing Precaution NWB left LE - Fall Precaution Bed and chair alarm - Skin care per protocol - Diet - Solid Texture Regular - Shower shower DISCHARGE PLAN: - Estimated Length of Stay (days) 14. - Consensus on plan Discharge plan has been discussed with primary caregiver. Patient/Family is in agreement with the jose n. Primary caregiver is in agreement with the plan. - Patient/Family Goals Return home with assistance. - Planned Living Setting Upon Discharge Home, to live with Family/Relatives. SIGNATURE PANEL: (CDT)
--- NOTE | 2017-11-10 11:18 | FAST ---
ENCOUNTER DATE AND TIME: 11/10/2017 08:00 (CDT) NAME MARCE BRAND DATE OF : 1935 DATE OF ADMISSION: 11/07/2017 19:54 (CDT) PHONE: AGE: 82 SSN# [id number] GENDER: Male ENCOUNTER PHYSICIAN: Dr. Alex Ribeiro M.D. ADMISSION DIAGNOSIS: - Orthopaedic Disorders 08 - Femur (Shaft) Fracture (08.2) Left periprosthetic distal femur fracture. EATING: Activity did not occur on this shift EATING - SCORE: 0-UNK GROOMING: Activity did not occur on this shift GROOMING - SCORE: 0-UNK BATHING: Activity did not occur on this shift BATHING - SCORE: 0-UNK DRESSING - UPPER BODY: Activity did not occur on this shift Patient is not dressing in public clothing ARTICLES SCORE Total number of steps: 0 DRESSING - UPPER BODY - SCORE: 0-UNK DRESSING - LOWER BODY: Activity did not occur on this shift Patient is not dressing in public clothing ARTICLES SCORE Total number of steps: 0 DRESSING - LOWER BODY - SCORE: 0-UNK TOILETING: Activity did not occur on this shift TOILETING - SCORE: 0-UNK BLADDER MANAGEMENT: Activity did not occur on this shift BLADDER MANAGEMENT - SCORE: 7-IND BOWEL MANAGEMENT: Activity did not occur on this shift BOWEL MANAGEMENT - SCORE: 7-IND TRANSFERS: BED, CHAIR, WHEELCHAIR: Patient requires more than one helper and/or the use of a mechanical lift is utilized TRANSFERS: BED, CHAIR, WHEELCHAIR - SCORE: 1-DEP TRANSFERS: TOILET: Activity did not occur on this shift TRANSFERS: TOILET - SCORE: 0-UNK TRANSFERS: SHOWER: Activity did not occur on this shift TRANSFERS: SHOWER - SCORE: 0-UNK TRANSFERS: TUB: Activity did not occur on this shift TRANSFERS: TUB - SCORE: 0-UNK LOCOMOTION: WALK: Activity did not occur on this shift LOCOMOTION: WALK - SCORE: 0-UNK LOCOMOTION: WHEELCHAIR: LOCOMOTION: WHEELCHAIR - STEP 1: Does the patient need help to go 150 feet in a wheelchair? Yes. LOCOMOTION: WHEELCHAIR - STEP 2: How much assistance does the patient need from the helper? Only supervision, cuing, or coaxing LOCOMOTION: WHEELCHAIR - SCORE: 5-SUP LOCOMOTION: STAIRS: Activity did not occur on this shift LOCOMOTION: STAIRS - SCORE: 0-UNK COMPREHENSION: COMPREHENSION - SCORE: 0-UNK EXPRESSION EXPRESSION - SCORE: 0-UNK SOCIAL INTERACTION: SOCIAL INTERACTION - SCORE: 0-UNK PROBLEM SOLVING: PROBLEM SOLVING - SCORE: 0-UNK MEMORY: MEMORY - SCORE: 0-UNK SIGNATURE PANEL: The following modified sections: Transfers: Bed, Chair, Wheelchair - Score, Transfers: Toilet - Score , Locomotion: Walk - Score, Locomotion: Wheelchair - Score, Locomotion: Stairs - Score were [electron [email or web address]] signed by Anderson Saba, PT on FriNov 10 2017 10:20:13 T-0500 (Central Daylight Time)
[2017-11-10] MEDS: ACETAMINOPHEN 325 MG TABLET PO PRN (11:42)
[2017-11-10] MEDS ORDERED: TRAMADOL HCL 50 MG TAB PO PRN (13:37)
--- NOTE | 2017-11-10 14:57 | RAD REPORT ---
EXAM DESCRIPTION: RAD - Chest Pa And Lat (2 Views) - 11/10/2017 2:50 pm CLINICAL HISTORY: Possible pneumonia. COMPARISON: None. FINDINGS: Mild infiltrate may be present in the far posterior left lung base which could be related to aspiration/developing pneumonia. Linear atelectasis is present in the left mid lung. The right heather g is grossly clear. The heart is normal in size.
--- NOTE | 2017-11-10 14:58 | RAD REPORT ---
EXAM DESCRIPTION: RAD - Barium Swallow Modified - 11/10/2017 2:50 pm CLINICAL HISTORY: Dysphagia COMPARISON: None. TECHNIQUE: The patient was given liquid, semi-solid and solid forms of barium. Lateral view fluorosc opic imaging was performed in conjunction with speech pathology service. FINDINGS: Laryngeal penetration cleared with thin via straw Mild to Moderate Pharyngeal residue on vallecular and pyriform w/ all consistencies Reduced Hyolaryngeal excursion Stasis in the esophagus
--- NOTE | 2017-11-10 16:39 | FAST ---
SHIFT START DATE/TIME: 11/10/2017 07:00 (CDT) SHIFT END DATE/TIME: 11/10/2017 19:00 (CDT) NAME MARCE BRAND DATE OF : 1935 DATE OF ADMISSION: 11/07/2017 19:54 (CDT) PHONE: AGE: 82 N# [id number] GENDER: Male ENCOUNTER PHYSICIAN: Dr. Alex Ribeiro M.D. ADMISSION DIAGNOSIS: - Orthopaedic Disorders 08 - Femur (Shaft) Fracture (08.2) Left periprosthetic distal femur fracture. EATING: EATING - STEP 1: Does the patient require assistance when eating? Yes. EATING - STEP 2: Does the patient require the assistance of a helper? No, patient only requires an assistive device, O R s/he takes more than reasonable time to eat, OR there is a safety concern, OR s/he requires modifie d food consistency EATING - SCORE: 6-JM GROOMING: Activity did not occur on this shift GROOMING - SCORE: 0-UNK BATHING: Activity did not occur on this shift BATHING - SCORE: 0-UNK DRESSING - UPPER BODY: Button down shirt or blouse - NOT tucked in (four steps) ARTICLES SCORE Total number of steps: 4 DRESSING - UPPER BODY - STEP 1: Does the patient require help when dressing above the waist? Yes. DRESSING - UPPER BODY - STEP 2: Does the patient require the assistance of a helper? Yes. DRESSING - UPPER BODY - STEP 3: Does the helper touch the patient while dressing? Yes. DRESSING - UPPER BODY - STEP 4: How many of the total steps does the patient complete on his/her own? 1 DRESSING - UPPER BODY - STEP 5: Does Patient require total assistance for dressing above the waist such as the helper holding clothin g and performing basically all the activities? Yes. DRESSING - UPPER BODY - SCORE: 1-DEP DRESSING - LOWER BODY: Sock - Left foot (one step) Sock - Right foot (one step) Underwear (three steps) Zippered pants (four steps) ARTICLES SCORE Total number of steps: 9 DRESSING - LOWER BODY - STEP 1: Does the patient require help when dressing below the waist? Yes. DRESSING - LOWER BODY - STEP 2: Does the patient require the assistance of a helper? Yes. DRESSING - LOWER BODY - STEP 3: Does the helper touch the patient while dressing? Yes. DRESSING - LOWER BODY - STEP 4: How many of the total steps does the patient complete on his/her own? 0 DRESSING - LOWER BODY - STEP 5: Does patient require total assistance for dressing below the waist such as the helper holding clothin g and performing basically all the activities? Yes. DRESSING - LOWER BODY - SCORE: 1-DEP TOILETING: TOILETING - STEP 1: Does the patient require assistance with toileting? Yes. TOILETING - STEP 2: Does the patient require the assistance of a helper? Yes. TOILETING - STEP 3: How much assistance does the patient require from the helper? Hands-on assistance from the helper TOILETING - STEP 4: Of the 3 tasks: 1) Adjusting clothing prior to use, 2) Cleansing of perineal area, 3) Adjusting clot ezio after use; How many tasks does the patient perform WITHOUT assistance of the helper? No tasks; h elper performs all three tasks TOILETING - SCORE: 1-DEP BLADDER MANAGEMENT: Patient requires assistance from two helpers when using bedpan. BLADDER MANAGEMENT - SCORE: 1-DEP BLADDER MANAGEMENT - FREQUENCY OF ACCIDENTS: BLADDER MANAGEMENT(FA) - STEP 1: How many accidents has the patient had during the current shift? 1 BOWEL MANAGEMENT: [place] removes incontinent device (depends, pull ups, etc.); cleans the patient after accident / inco ntinent episode; and, applies new device (depends, pull-ups, padding, etc.). BOWEL MANAGEMENT - SCORE: 1-DEP BOWEL MANAGEMENT - FREQUENCY OF ACCIDENTS: BOWEL MANAGEMENT(FA) - STEP 1: How many accidents has the patient had during the current shift? 2 TRANSFERS: BED, CHAIR, WHEELCHAIR: Patient requires more than one helper and/or the use of a mechanical lift is utilized TRANSFERS: BED, CHAIR, WHEELCHAIR - SCORE: 1-DEP TRANSFERS: TOILET: Patient requires more than one helper and/or the use of a mechanical lift is utilized TRANSFERS: TOILET - SCORE: 1-DEP TRANSFERS: SHOWER: Activity did not occur on this shift TRANSFERS: SHOWER - SCORE: 0-UNK TRANSFERS: TUB: Activity did not occur on this shift TRANSFERS: TUB - SCORE: 0-UNK LOCOMOTION: WALK: Activity did not occur on this shift LOCOMOTION: WALK - SCORE: 0-UNK LOCOMOTION: WHEELCHAIR: LOCOMOTION: WHEELCHAIR - STEP 1: Does the patient need help to go 150 feet in a wheelchair? Yes. LOCOMOTION: WHEELCHAIR - STEP 2: How much assistance does the patient need from the helper? Only incidental help such as around corner s or over thresholds LOCOMOTION: WHEELCHAIR - SCORE: 4-MIN COMPREHENSION: COMPREHENSION: TYPE: Both COMPREHENSION - STEP 1: Does the patient require help to understand complex and abstract ideas (such as current events, finan panda, discharge planning, medical issues, relationships, etc)? No. COMPREHENSION - STEP 2: Does the patient need extra time, require an assistive device (such as glasses, hearing aids, or an a ugmentative communication system), OR does s/he have mild difficulty expressing complex and abstract ideas (including mild dysarthria or mild word-finding problems)? Yes. COMPREHENSION - SCORE: 6-JM EXPRESSION EXPRESSION: TYPE: Both EXPRESSION - STEP 1: Does the patient require help expressing complex and abstract ideas (such as current events, finances , discharge planning, medical issues, relationships, etc)? No. EXPRESSION - STEP 2: Does the patient need extra time, require an assistive device (such as augmentive communication syste m or a communication board), OR does s/he have mild difficulty expressing complex and abstract ideas (including mild dysarthria or mild word-find problems)? Yes. EXPRESSION - SCORE: 6-JM SOCIAL INTERACTION: SOCIAL INTERACTION - STEP 1: Does the patient require a helper to interact with others in social and therapeutic situations? No. SOCIAL INTERACTION - STEP 2: Does the patient need extra time in social situations, OR does s/he interact with staff, other patien ts, and family members ONLY in structured environments, OR does s/he require medication for social in teraction? Yes, patient needs extra time SOCIAL INTERACTION - SCORE: 6-JM PROBLEM SOLVING: PROBLEM SOLVING - STEP 1: Does the patient need help to solve complex problems such as managing a checking account or confronti ng interpersonal problems? No. PROBLEM SOLVING - STEP 2: Does the patient require extra time to make decisions or solve problems, OR does s/he have slight dif ficulty reading, initiating, or self-correcting in unfamiliar situations? Yes, patient needs extra ti me. PROBLEM SOLVING - SCORE: 6-JM MEMORY: MEMORY - STEP 1: Does the patient need help to remember frequently encountered people, daily routines, and executing r equests? No. MEMORY - STEP 2: Does the patient have slight difficulty recognizing frequently encountered people, daily routines, or executing requests without the need for repetition or using self-initiated or environmental cues to remember? Yes. MEMORY - SCORE: 6-JM SIGNATURE PANEL: The following modified sections: Eating - Score, Grooming - Score, Bathing - Score, Dressing - Upper Body - Score, Dressing - Lower Body - Score, Toileting - Score, Bladder Management - Score, Bowel Man agement - Score, Transfers: Bed, Chair, Wheelchair - Score, Transfers: Toilet - Score, Transfers: Merline wer - Score, Transfers: Tub - Score, Locomotion: Walk - Score, Locomotion: Wheelchair - Score, Compre hension - Score, Expression - Score, Social Interaction - Score, Problem Solving - Score, Memory - Sc ore were [electronically] signed by Marysol Crocker C.N.A. on FriNov 10 2017 15:40:38 T-0500 (Centra l Daylight Time)
--- NOTE | 2017-11-10 17:22 | FAST ---
ENCOUNTER DATE AND TIME: 11/10/2017 08:00 (CDT) NAME MARCE BRAND DATE OF : 1935 DATE OF ADMISSION: 11/07/2017 19:54 (CDT) PHONE: AGE: 82 SSN# [id number] GENDER: Male ENCOUNTER PHYSICIAN: Dr. Alex Ribeiro M.D. ADMISSION DIAGNOSIS: - Orthopaedic Disorders 08 - Femur (Shaft) Fracture (08.2) Left periprosthetic distal femur fracture. EATING: Activity did not occur on this shift EATING - SCORE: 0-UNK GROOMING: Activity did not occur on this shift GROOMING - SCORE: 0-UNK BATHING: Activity did not occur on this shift BATHING - SCORE: 0-UNK DRESSING - UPPER BODY: Activity did not occur on this shift Patient is not dressing in public clothing ARTICLES SCORE Total number of steps: 0 DRESSING - UPPER BODY - SCORE: 0-UNK DRESSING - LOWER BODY: Activity did not occur on this shift Patient is not dressing in public clothing ARTICLES SCORE Total number of steps: 0 DRESSING - LOWER BODY - SCORE: 0-UNK TOILETING: Activity did not occur on this shift TOILETING - SCORE: 0-UNK BLADDER MANAGEMENT: Activity did not occur on this shift BLADDER MANAGEMENT - SCORE: 7-IND BOWEL MANAGEMENT: Activity did not occur on this shift BOWEL MANAGEMENT - SCORE: 7-IND TRANSFERS: BED, CHAIR, WHEELCHAIR: Activity did not occur on this shift TRANSFERS: BED, CHAIR, WHEELCHAIR - SCORE: 0-UNK TRANSFERS: TOILET: Activity did not occur on this shift TRANSFERS: TOILET - SCORE: 0-UNK TRANSFERS: SHOWER: Activity did not occur on this shift TRANSFERS: SHOWER - SCORE: 0-UNK TRANSFERS: TUB: Activity did not occur on this shift TRANSFERS: TUB - SCORE: 0-UNK LOCOMOTION: WALK: Activity did not occur on this shift LOCOMOTION: WALK - SCORE: 0-UNK LOCOMOTION: WHEELCHAIR: Activity did not occur on this shift LOCOMOTION: WHEELCHAIR - SCORE: 0-UNK LOCOMOTION: STAIRS: Activity did not occur on this shift LOCOMOTION: STAIRS - SCORE: 0-UNK COMPREHENSION: COMPREHENSION - STEP 1: Does the patient require help to understand complex and abstract ideas (such as current events, finan panda, discharge planning, medical issues, relationships, etc)? Yes. COMPREHENSION - STEP 2: Does the patient require help to understand questions or statements about basic needs or ideas (such as hunger, thirst, sleep, safety, daily schedule, room location, or discomfort) half or more of the t reena? No. COMPREHENSION - STEP 3: How often does the patient need help to understand directions and conversation about basic needs? Les s than 10% of the time COMPREHENSION - SCORE: 5-SUP EXPRESSION EXPRESSION - STEP 1: Does the patient require help expressing complex and abstract ideas (such as current events, finances , discharge planning, medical issues, relationships, etc)? Yes. EXPRESSION - STEP 2: Does the patient require help to express basic necessities or ideas (such as hunger, thirst, sleep, s afety, daily schedule, room location, or discomfort) half or more of the time? No. EXPRESSION - STEP 3: How often does the patient need help to express directions and conversation about basic needs? 10-24% of the time EXPRESSION - SCORE: 4-MIN SOCIAL INTERACTION: SOCIAL INTERACTION - STEP 1: Does the patient require a helper to interact with others in social and therapeutic situations? No. SOCIAL INTERACTION - STEP 2: Does the patient need extra time in social situations, OR does s/he interact with staff, other patien ts, and family members ONLY in structured environments, OR does s/he require medication for social in teraction? Yes, patient needs extra time SOCIAL INTERACTION - SCORE: 6-JM PROBLEM SOLVING: PROBLEM SOLVING - STEP 1: Does the patient need help to solve complex problems such as managing a checking account or confronti ng interpersonal problems? Yes. PROBLEM SOLVING - STEP 2: Does the patient solve basic routine problems half or more of the time? Yes. PROBLEM SOLVING - STEP 3: How often does the patient need help to solve basic routine problems? 10%-24% of the time PROBLEM SOLVING - SCORE: 4-MIN MEMORY: MEMORY - STEP 1: Does the patient need help to remember frequently encountered people, daily routines, and executing r equests? Yes. MEMORY - STEP 2: How often does the patient need help to remember frequently encountered people, daily routines, and e xecuting requests? More than 50% of the time MEMORY - STEP 3: Does the patient need help to remember all of the time OR does s/he not effectively recognize and rem ember? No. Patient does not need help all the time MEMORY - SCORE: 2-MAX SIGNATURE PANEL: The following modified sections: Comprehension - Score, Expression - Score, Social Interaction - Scor e, Problem Solving - Score, Memory - Score were [electronically] signed by ROBBIE Alfaro on Fri 16:23:59 GMT-0500 (Central Daylight Time)
[2017-11-10] MEDS ORDERED: GABAPENTIN 100 MG CAP PO SCH (20:00)
[2017-11-10] MEDS: APIXABAN 2.5 MG TABLET PO SCH (21:22)
[2017-11-10] MEDS: MELATONIN 3 MG TABLET PO PRN (21:22)
[2017-11-10] MEDS: MIRTAZAPINE 15 MG TAB PO SCH (21:22)
[2017-11-10] MEDS: ATORVASTATIN 20 MG TAB PO SCH (21:22)
--- NOTE | 2017-11-11 02:55 | FAST ---
SHIFT START DATE/TIME: 11/10/2017 19:00 (CDT) SHIFT END DATE/TIME: 11/11/2017 07:00 (CDT) NAME MARCE BRAND DATE OF : 1935 DATE OF ADMISSION: 11/07/2017 19:54 (CDT) PHONE: AGE: 82 SSN# [id number] GENDER: Male ENCOUNTER PHYSICIAN: Dr. Alex Ribeiro M.D. ADMISSION DIAGNOSIS: - Orthopaedic Disorders 08 - Femur (Shaft) Fracture (08.2) Left periprosthetic distal femur fracture. EATING: Activity did not occur on this shift EATING - SCORE: 0-UNK GROOMING: Activity did not occur on this shift GROOMING - SCORE: 0-UNK BATHING: Activity did not occur on this shift BATHING - SCORE: 0-UNK DRESSING - UPPER BODY: Patient is not dressing in public clothing ARTICLES SCORE Total number of steps: 0 DRESSING - UPPER BODY - SCORE: 0-UNK DRESSING - LOWER BODY: Patient is not dressing in public clothing ARTICLES SCORE Total number of steps: 0 DRESSING - LOWER BODY - SCORE: 0-UNK TOILETING: Activity did not occur on this shift TOILETING - SCORE: 0-UNK BLADDER MANAGEMENT: [place] removes incontinent device (Depends, pull ups, etc.); cleans the patient after accident / inco ntinent episode; and, applies new incontinent device. BLADDER MANAGEMENT - SCORE: 1-DEP BOWEL MANAGEMENT: Activity did not occur on this shift BOWEL MANAGEMENT - SCORE: 7-IND TRANSFERS: BED, CHAIR, WHEELCHAIR: Activity did not occur on this shift TRANSFERS: BED, CHAIR, WHEELCHAIR - SCORE: 0-UNK TRANSFERS: TOILET: Activity did not occur on this shift TRANSFERS: TOILET - SCORE: 0-UNK TRANSFERS: SHOWER: Activity did not occur on this shift TRANSFERS: SHOWER - SCORE: 0-UNK TRANSFERS: TUB: Activity did not occur on this shift TRANSFERS: TUB - SCORE: 0-UNK LOCOMOTION: WALK: Activity did not occur on this shift LOCOMOTION: WALK - SCORE: 0-UNK LOCOMOTION: WHEELCHAIR: Activity did not occur on this shift LOCOMOTION: WHEELCHAIR - SCORE: 0-UNK COMPREHENSION: COMPREHENSION - STEP 1: Does the patient require help to understand complex and abstract ideas (such as current events, finan panda, discharge planning, medical issues, relationships, etc)? Yes. COMPREHENSION - STEP 2: Does the patient require help to understand questions or statements about basic needs or ideas (such as hunger, thirst, sleep, safety, daily schedule, room location, or discomfort) half or more of the t reena? No. COMPREHENSION - STEP 3: How often does the patient need help to understand directions and conversation about basic needs? 10% - 24% of the time COMPREHENSION - SCORE: 4-MIN EXPRESSION EXPRESSION - STEP 1: Does the patient require help expressing complex and abstract ideas (such as current events, finances , discharge planning, medical issues, relationships, etc)? Yes. EXPRESSION - STEP 2: Does the patient require help to express basic necessities or ideas (such as hunger, thirst, sleep, s afety, daily schedule, room location, or discomfort) half or more of the time? No. EXPRESSION - STEP 3: How often does the patient need help to express directions and conversation about basic needs? 10-24% of the time EXPRESSION - SCORE: 4-MIN SOCIAL INTERACTION: SOCIAL INTERACTION - STEP 1: Does the patient require a helper to interact with others in social and therapeutic situations? No. SOCIAL INTERACTION - STEP 2: Does the patient need extra time in social situations, OR does s/he interact with staff, other patien ts, and family members ONLY in structured environments, OR does s/he require medication for social in teraction? Yes, patient needs extra time SOCIAL INTERACTION - SCORE: 6-JM PROBLEM SOLVING: PROBLEM SOLVING - STEP 1: Does the patient need help to solve complex problems such as managing a checking account or confronti ng interpersonal problems? Yes. PROBLEM SOLVING - STEP 2: Does the patient solve basic routine problems half or more of the time? Yes. PROBLEM SOLVING - STEP 3: How often does the patient need help to solve basic routine problems? 25%-49% of the time PROBLEM SOLVING - SCORE: 3-MOD MEMORY: MEMORY - STEP 1: Does the patient need help to remember frequently encountered people, daily routines, and executing r equests? Yes. MEMORY - STEP 2: How often does the patient need help to remember frequently encountered people, daily routines, and e xecuting requests? 25% - 49% of the time MEMORY - SCORE: 3-MOD SIGNATURE PANEL: The following modified sections: Eating - Score, Grooming - Score, Dressing - Upper Body - Score, Jani ssing - Lower Body - Score, Toileting - Score, Bladder Management - Score, Bowel Management - Score, Transfers: Bed, Chair, Wheelchair - Score, Transfers: Toilet - Score, Transfers: Shower - Score, Hernandez sfers: Tub - Score, Locomotion: Walk - Score, Locomotion: Wheelchair - Score, Comprehension - Score, Expression - Score, Social Interaction - Score, Problem Solving - Score, Memory - Score were [electro nically] signed by Gretchen Velasco CNA on FriNov 11 2017 01:57:00 GMT-0500 (Central Daylight Time)
[2017-11-11] MEDS: METOPROLOL TAR 25 MG TAB PO SCH ×2 (05:35→17:14)
[2017-11-11] MEDS: NYSTATIN PWDR 100000 UNIT/GM TOP SCH ×2 (08:00→21:09)
[2017-11-11] MEDS: VITAMIN D 5,000 UNIT CAP PO SCH (08:34)
[2017-11-11] MEDS: APIXABAN 2.5 MG TABLET PO SCH ×2 (08:34→21:08)
[2017-11-11] MEDS: RANITIDINE 150 MG TABLET PO SCH ×2 (08:35→21:08)
[2017-11-11] MEDS: PRIMIDONE 50 MG TAB PO SCH (08:35)
[2017-11-11] MEDS: buPROPion HCl 100 MG TAB PO SCH ×2 (08:35→14:13)
[2017-11-11] MEDS: CYANOCOBALAMIN 1,000 MCG TAB PO SCH (08:35)
[2017-11-11] MEDS: ACETAMINOPHEN 325 MG TABLET PO PRN ×2 (08:36→14:13)
--- NOTE | 2017-11-11 16:27 | FAST ---
ENCOUNTER DATE AND TIME: 11/11/2017 08:00 (CDT) NAME MARCE BRAND DATE OF : 1935 DATE OF ADMISSION: 11/07/2017 19:54 (CDT) PHONE: AGE: 82 SSN# [id number] GENDER: Male ENCOUNTER PHYSICIAN: Dr. Alex Ribeiro M.D. ADMISSION DIAGNOSIS: - Orthopaedic Disorders 08 - Femur (Shaft) Fracture (08.2) Left periprosthetic distal femur fracture. EATING: Activity did not occur on this shift EATING - SCORE: 0-UNK GROOMING: Activity did not occur on this shift GROOMING - SCORE: 0-UNK BATHING: Activity did not occur on this shift BATHING - SCORE: 0-UNK DRESSING - UPPER BODY: Activity did not occur on this shift Patient is not dressing in public clothing ARTICLES SCORE Total number of steps: 0 DRESSING - UPPER BODY - SCORE: 0-UNK DRESSING - LOWER BODY: Activity did not occur on this shift Patient is not dressing in public clothing ARTICLES SCORE Total number of steps: 0 DRESSING - LOWER BODY - SCORE: 0-UNK TOILETING: Activity did not occur on this shift TOILETING - SCORE: 0-UNK BLADDER MANAGEMENT: Activity did not occur on this shift BLADDER MANAGEMENT - SCORE: 7-IND BOWEL MANAGEMENT: Activity did not occur on this shift BOWEL MANAGEMENT - SCORE: 7-IND TRANSFERS: BED, CHAIR, WHEELCHAIR: Activity did not occur on this shift TRANSFERS: BED, CHAIR, WHEELCHAIR - SCORE: 0-UNK TRANSFERS: TOILET: Activity did not occur on this shift TRANSFERS: TOILET - SCORE: 0-UNK TRANSFERS: SHOWER: Activity did not occur on this shift TRANSFERS: SHOWER - SCORE: 0-UNK TRANSFERS: TUB: Activity did not occur on this shift TRANSFERS: TUB - SCORE: 0-UNK LOCOMOTION: WALK: Activity did not occur on this shift LOCOMOTION: WALK - SCORE: 0-UNK LOCOMOTION: WHEELCHAIR: Activity did not occur on this shift LOCOMOTION: WHEELCHAIR - SCORE: 0-UNK LOCOMOTION: STAIRS: Activity did not occur on this shift LOCOMOTION: STAIRS - SCORE: 0-UNK COMPREHENSION: COMPREHENSION - STEP 1: Does the patient require help to understand complex and abstract ideas (such as current events, finan panda, discharge planning, medical issues, relationships, etc)? Yes. COMPREHENSION - STEP 2: Does the patient require help to understand questions or statements about basic needs or ideas (such as hunger, thirst, sleep, safety, daily schedule, room location, or discomfort) half or more of the t reena? No. COMPREHENSION - STEP 3: How often does the patient need help to understand directions and conversation about basic needs? Les s than 10% of the time COMPREHENSION - SCORE: 5-SUP EXPRESSION EXPRESSION - STEP 1: Does the patient require help expressing complex and abstract ideas (such as current events, finances , discharge planning, medical issues, relationships, etc)? Yes. EXPRESSION - STEP 2: Does the patient require help to express basic necessities or ideas (such as hunger, thirst, sleep, s afety, daily schedule, room location, or discomfort) half or more of the time? No. EXPRESSION - STEP 3: How often does the patient need help to express directions and conversation about basic needs? Less t [place] 10% of the time EXPRESSION - SCORE: 5-SUP SOCIAL INTERACTION: SOCIAL INTERACTION - STEP 1: Does the patient require a helper to interact with others in social and therapeutic situations? No. SOCIAL INTERACTION - STEP 2: Does the patient need extra time in social situations, OR does s/he interact with staff, other patien ts, and family members ONLY in structured environments, OR does s/he require medication for social in teraction? Yes, patient needs extra time SOCIAL INTERACTION - SCORE: 6-JM PROBLEM SOLVING: PROBLEM SOLVING - STEP 1: Does the patient need help to solve complex problems such as managing a checking account or confronti ng interpersonal problems? Yes. PROBLEM SOLVING - STEP 2: Does the patient solve basic routine problems half or more of the time? Yes. PROBLEM SOLVING - STEP 3: How often does the patient need help to solve basic routine problems? 10%-24% of the time PROBLEM SOLVING - SCORE: 4-MIN MEMORY: MEMORY - STEP 1: Does the patient need help to remember frequently encountered people, daily routines, and executing r equests? Yes. MEMORY - STEP 2: How often does the patient need help to remember frequently encountered people, daily routines, and e xecuting requests? 25% - 49% of the time MEMORY - SCORE: 3-MOD SIGNATURE PANEL: The following modified sections: Comprehension - Score, Expression - Score, Social Interaction - Scor e, Problem Solving - Score, Memory - Score were [electronically] signed by ROBBIE Alfaro on Fri 15:28:29 GMT-0500 (Central Daylight Time)
--- NOTE | 2017-11-11 17:04 | FAST ---
ENCOUNTER DATE AND TIME: 11/11/2017 08:00 (CDT) NAME MARCE BRAND DATE OF : 1935 DATE OF ADMISSION: 11/07/2017 19:54 (CDT) PHONE: AGE: 82 SSN# [id number] GENDER: Male ENCOUNTER PHYSICIAN: Dr. Alex Ribeiro M.D. ADMISSION DIAGNOSIS: - Orthopaedic Disorders 08 - Femur (Shaft) Fracture (08.2) Left periprosthetic distal femur fracture. EATING: Activity did not occur on this shift EATING - SCORE: 0-UNK GROOMING: Activity did not occur on this shift GROOMING - SCORE: 0-UNK BATHING: Activity did not occur on this shift BATHING - SCORE: 0-UNK DRESSING - UPPER BODY: Activity did not occur on this shift Patient is not dressing in public clothing ARTICLES SCORE Total number of steps: 0 DRESSING - UPPER BODY - SCORE: 0-UNK DRESSING - LOWER BODY: Activity did not occur on this shift Patient is not dressing in public clothing ARTICLES SCORE Total number of steps: 0 DRESSING - LOWER BODY - SCORE: 0-UNK TOILETING: Activity did not occur on this shift TOILETING - SCORE: 0-UNK BLADDER MANAGEMENT: Activity did not occur on this shift BLADDER MANAGEMENT - SCORE: 7-IND BOWEL MANAGEMENT: Activity did not occur on this shift BOWEL MANAGEMENT - SCORE: 7-IND TRANSFERS: BED, CHAIR, WHEELCHAIR: Patient requires more than one helper and/or the use of a mechanical lift is utilized TRANSFERS: BED, CHAIR, WHEELCHAIR - SCORE: 1-DEP TRANSFERS: TOILET: Activity did not occur on this shift TRANSFERS: TOILET - SCORE: 0-UNK TRANSFERS: SHOWER: Activity did not occur on this shift TRANSFERS: SHOWER - SCORE: 0-UNK TRANSFERS: TUB: Activity did not occur on this shift TRANSFERS: TUB - SCORE: 0-UNK LOCOMOTION: WALK: Activity did not occur on this shift LOCOMOTION: WALK - SCORE: 0-UNK LOCOMOTION: WHEELCHAIR: LOCOMOTION: WHEELCHAIR - STEP 1: Does the patient need help to go 150 feet in a wheelchair? Yes. LOCOMOTION: WHEELCHAIR - STEP 2: How much assistance does the patient need from the helper? Only supervision, cuing, or coaxing LOCOMOTION: WHEELCHAIR - SCORE: 5-SUP LOCOMOTION: STAIRS: Activity did not occur on this shift LOCOMOTION: STAIRS - SCORE: 0-UNK COMPREHENSION: COMPREHENSION - SCORE: 0-UNK EXPRESSION EXPRESSION - SCORE: 0-UNK SOCIAL INTERACTION: SOCIAL INTERACTION - SCORE: 0-UNK PROBLEM SOLVING: PROBLEM SOLVING - SCORE: 0-UNK MEMORY: MEMORY - SCORE: 0-UNK SIGNATURE PANEL: The following modified sections: Transfers: Bed, Chair, Wheelchair - Score, Transfers: Toilet - Score , Locomotion: Walk - Score, Locomotion: Wheelchair - Score, Locomotion: Stairs - Score were [electron fabiano] signed by Anderson Saba, PT on FriNov 11 2017 16:06:27 T-0500 (Central Daylight Time)
--- NOTE | 2017-11-11 17:09 | FAST ---
SHIFT START DATE/TIME: 11/11/2017 07:00 (CDT) SHIFT END DATE/TIME: 11/11/2017 19:00 (CDT) NAME MARCE BRAND DATE OF : 1935 DATE OF ADMISSION: 11/07/2017 19:54 (CDT) PHONE: AGE: 82 N# [id number] GENDER: Male ENCOUNTER PHYSICIAN: Dr. Alex Ribeiro M.D. ADMISSION DIAGNOSIS: - Orthopaedic Disorders 08 - Femur (Shaft) Fracture (08.2) Left periprosthetic distal femur fracture. EATING: EATING - STEP 1: Does the patient require assistance when eating? Yes. EATING - STEP 2: Does the patient require the assistance of a helper? Yes. EATING - STEP 3: Does the patient perform half or more of the eating tasks? Yes. EATING - STEP 4: Does the patient need only supervision, cuing, coaxing OR help to apply an orthosis OR help to cut fo od, open containers, pour liquids, or butter bread? Yes. EATING - SCORE: 5-SUP GROOMING: Comb/brush hair Wash, rinse, and dry face Wash, rinse, and dry hands GROOMING - STEP 1: Does the patient require assistance when grooming? Yes. GROOMING - STEP 2: Does the patient require the assistance of a helper? Yes. GROOMING - STEP 3: How much assistance does the patient require from the helper? Only prior equipment preparation/set up from the helper GROOMING - SCORE: 5-SUP BATHING: Activity did not occur on this shift BATHING - SCORE: 0-UNK DRESSING - UPPER BODY: T-shirt/pullover shirt (four steps) ARTICLES SCORE Total number of steps: 4 DRESSING - UPPER BODY - STEP 1: Does the patient require help when dressing above the waist? Yes. DRESSING - UPPER BODY - STEP 2: Does the patient require the assistance of a helper? Yes. DRESSING - UPPER BODY - STEP 3: Does the helper touch the patient while dressing? Yes. DRESSING - UPPER BODY - STEP 4: How many of the total steps does the patient complete on his/her own? 2 DRESSING - UPPER BODY - SCORE: 3-MOD DRESSING - LOWER BODY: Elastic waist pants (three steps) Sock - Left foot (one step) Sock - Right foot (one step) Tied or buckled shoe - Right foot (two steps) Underwear (three steps) ARTICLES SCORE Total number of steps: 10 DRESSING - LOWER BODY - STEP 1: Does the patient require help when dressing below the waist? Yes. DRESSING - LOWER BODY - STEP 2: Does the patient require the assistance of a helper? Yes. DRESSING - LOWER BODY - STEP 3: Does the helper touch the patient while dressing? Yes. DRESSING - LOWER BODY - STEP 4: How many of the total steps does the patient complete on his/her own? 0 DRESSING - LOWER BODY - STEP 5: Does patient require total assistance for dressing below the waist such as the helper holding clothin g and performing basically all the activities? Yes. DRESSING - LOWER BODY - SCORE: 1-DEP TOILETING: TOILETING - STEP 1: Does the patient require assistance with toileting? Yes. TOILETING - STEP 2: Does the patient require the assistance of a helper? Yes. TOILETING - STEP 3: How much assistance does the patient require from the helper? Hands-on assistance from the helper TOILETING - STEP 4: Of the 3 tasks: 1) Adjusting clothing prior to use, 2) Cleansing of perineal area, 3) Adjusting clot ezio after use; How many tasks does the patient perform WITHOUT assistance of the helper? No tasks; h elper performs all three tasks TOILETING - SCORE: 1-DEP BLADDER MANAGEMENT: Patient requires assistance from two helpers when using bedpan. BLADDER MANAGEMENT - SCORE: 1-DEP BLADDER MANAGEMENT - FREQUENCY OF ACCIDENTS: BLADDER MANAGEMENT(FA) - STEP 1: How many accidents has the patient had during the current shift? 0 BOWEL MANAGEMENT: Patient requires assistance from two helpers when using bedpan for BM. BOWEL MANAGEMENT - SCORE: 1-DEP BOWEL MANAGEMENT - FREQUENCY OF ACCIDENTS: BOWEL MANAGEMENT(FA) - STEP 1: How many accidents has the patient had during the current shift? 0 TRANSFERS: BED, CHAIR, WHEELCHAIR: Patient requires more than one helper and/or the use of a mechanical lift is utilized TRANSFERS: BED, CHAIR, WHEELCHAIR - SCORE: 1-DEP TRANSFERS: TOILET: Patient requires more than one helper and/or the use of a mechanical lift is utilized TRANSFERS: TOILET - SCORE: 1-DEP TRANSFERS: SHOWER: Activity did not occur on this shift TRANSFERS: SHOWER - SCORE: 0-UNK TRANSFERS: TUB: Activity did not occur on this shift TRANSFERS: TUB - SCORE: 0-UNK LOCOMOTION: WALK: Activity did not occur on this shift LOCOMOTION: WALK - SCORE: 0-UNK LOCOMOTION: WHEELCHAIR: LOCOMOTION: WHEELCHAIR - STEP 1: Does the patient need help to go 150 feet in a wheelchair? Yes. LOCOMOTION: WHEELCHAIR - STEP 2: How much assistance does the patient need from the helper? Only supervision, cuing, or coaxing LOCOMOTION: WHEELCHAIR - SCORE: 5-SUP COMPREHENSION: COMPREHENSION: TYPE: Both COMPREHENSION - STEP 1: Does the patient require help to understand complex and abstract ideas (such as current events, finan panda, discharge planning, medical issues, relationships, etc)? No. COMPREHENSION - STEP 2: Does the patient need extra time, require an assistive device (such as glasses, hearing aids, or an a ugmentative communication system), OR does s/he have mild difficulty expressing complex and abstract ideas (including mild dysarthria or mild word-finding problems)? Yes. COMPREHENSION - SCORE: 6-JM EXPRESSION EXPRESSION: TYPE: Both EXPRESSION - STEP 1: Does the patient require help expressing complex and abstract ideas (such as current events, finances , discharge planning, medical issues, relationships, etc)? No. EXPRESSION - STEP 2: Does the patient need extra time, require an assistive device (such as augmentive communication syste m or a communication board), OR does s/he have mild difficulty expressing complex and abstract ideas (including mild dysarthria or mild word-find problems)? Yes. EXPRESSION - SCORE: 6-JM SOCIAL INTERACTION: SOCIAL INTERACTION - STEP 1: Does the patient require a helper to interact with others in social and therapeutic situations? No. SOCIAL INTERACTION - STEP 2: Does the patient need extra time in social situations, OR does s/he interact with staff, other patien ts, and family members ONLY in structured environments, OR does s/he require medication for social in teraction? Yes, patient needs extra time SOCIAL INTERACTION - SCORE: 6-JM PROBLEM SOLVING: PROBLEM SOLVING - STEP 1: Does the patient need help to solve complex problems such as managing a checking account or confronti ng interpersonal problems? No. PROBLEM SOLVING - STEP 2: Does the patient require extra time to make decisions or solve problems, OR does s/he have slight dif ficulty reading, initiating, or self-correcting in unfamiliar situations? Yes, patient needs extra ti me. PROBLEM SOLVING - SCORE: 6-JM MEMORY: MEMORY - STEP 1: Does the patient need help to remember frequently encountered people, daily routines, and executing r equests? No. MEMORY - STEP 2: Does the patient have slight difficulty recognizing frequently encountered people, daily routines, or executing requests without the need for repetition or using self-initiated or environmental cues to remember? Yes. MEMORY - SCORE: 6-JM SIGNATURE PANEL: The following modified sections: Eating - Score, Grooming - Score, Bathing - Score, Dressing - Upper Body - Score, Dressing - Lower Body - Score, Toileting - Score, Bladder Management - Score, Bowel Man agement - Score, Transfers: Bed, Chair, Wheelchair - Score, Transfers: Toilet - Score, Transfers: Merline wer - Score, Transfers: Tub - Score, Locomotion: Walk - Score, Locomotion: Wheelchair - Score, Compre hension - Score, Expression - Score, Social Interaction - Score, Problem Solving - Score, Memory - Sc ore were [electronically] signed by Rose Marie [email or web address] on FriNov 11 2017 16:11:10 T-0500 (Centra l Daylight Time)
--- NOTE | 2017-11-11 18:57 | R.PN ---
ENCOUNTER DATE AND TIME: 11/11/2017 17:56 (CDT) NAME MARCE BRAND DATE OF : 1935 DATE OF ADMISSION: 11/07/2017 19:54 (CDT) Left periprosthetic distal femur fractureCHIEF COMPLAINT: Left hip fracture SUBJECTIVE: Pt denied any Shortness of Breath. Pt denied any depression. Posterior propelled wheelchair 150' with physical therapist in tow. VITAL SIGNS Temperature: 97.2 F SBP/DBP: 127/70 Pulse: 87 Resp: 16 MEDICATION ALLERGIES: Penicillin, Hydrocodone, Ibuprofen, Sinemet 25/100 tablet ENVIRONMENTAL ALLERGIES: None Known - Substance Allergies None Known - Other Allergies None Known NURSING: - Shower allowing shower - Skin care per protocol PRECAUTIONS: - Weight Bearing Precaution NWB left LE - Fall Precaution Bed and chair alarm ACTIVITIES OOB only with supervision THERAPIES: - Occupational Therapy Evaluate and Treat. - Physical Therapy Evaluate and Treat. PHYSICAL EXAM - Gen Alert and awake Lying in bed No apparent distress Oriented to: person, time, and place - Skin Left thigh with surgical incision Normacephalic - Eyes No abnormalities - ENMT No abnormalities - Neck No abnormalities - CVS RRR - Chest No abnormalities - Abd Soft - GI Non distended Deferred - No abnormalities - Ext Mild postoperative edema in the left lower extremity - MSK 4+/5 weakness in left lower extremity - Psych No abnormalities ASSESSMENT: Pt. is a 82 yo Right-handed white male.On 10/11/2017 he was admitted to [facility] with diagno sis Left periprosthetic distal femur fracture.His impairment category is Orthopaedic Disorders 08 - Femur (Shaft) Fracture (08.2).Pre-morbidly, Pt. was independent/mod-I in Transfers Control, Communica tion, Social Cognition, Self-Care, Locomotion, and Sphincter Control; and he had good Sphincter Contr ol.Currently, he has deficits of Safety Awareness, Transfers Control, Communication, Social Cognition , Balance, Self-Care, Endurance, and Locomotion.Pt. is now referred to [facility] for acute in-patient rehabilitation in order to maximize patient's functional independence in act ivities of daily living, strength, ROM, and mobility.- Rehab Goal Patient has realistic goal of being discharged at assistance level 6-Cathy to reside at Home with Fam samantha/Relatives. MDM/PLAN: - Physical Therapy Decreased range of motion - to improve, our physical therapists will perform initial evaluation of p t's status upon admission and devise an individualized program for increasing patient's Range of Kenn on. Gait dysfunction - to improve, our physical therapists will perform initial evaluation of pt's statu s upon admission and devise an individualized program for Gait Training, and Wheel Chair mobility Inability to transfer - to improve, our physical therapists will perform initial evaluation of pt's status upon admission and devise an individualized program for Bed mobility Need for home safety evaluation - to improve, our physical therapists will perform initial evaluatio n of pt's status upon admission and devise an individualized program for Home Evaluation Need in caregiver upon discharge - to improve, our physical therapists will perform initial evaluati on of pt's status upon admission and devise an individualized program for Caregiver Training Edema - to improve, our physical therapists will perform initial evaluation of pt's status upon admis isidra and devise an individualized program for Elevation Training, and Lymphedema Therapy New precaution - to improve, our physical therapists will perform initial evaluation of pt's status upon admission and devise an individualized program for Patient precaution education Poor balance - to improve, our physical therapists will perform initial evaluation of pt's status up on admission and devise an individualized program for Balance Training Poor endurance - to improve, our physical therapists will perform initial evaluation of pt's status upon admission and devise an individualized program for Endurance Training Weakness - to improve, our physical therapists will perform initial evaluation of pt's status upon a dmission and devise an individualized program for Aquatic Therapy, Neuromuscular Reeducation, and Str engthening Achieving independence - to improve, our physical therapists will perform initial evaluation of pt's status upon admission and devise an individualized program for Community Reintegration Activities - Diet Type Continue Regular - Diet - Liquid Texture Continue Regular - Tube Feed Continue N/A - Weight Bearing Precaution NWB left LE - Fall Precaution Bed and chair alarm - Skin care per protocol - Diet - Solid Texture Continue Regular - Shower allowing shower - Occupational Therapy ADL deficits - to improve, our occupation therapists will perform initial evaluation of pt's status upon admission and devise an individualized program for Bathing, Bed mobility, Community Reintegratio n, Cooking, Dressing, Eating, Fine Motor Skills, Grooming, Homemaking, Kitchen Mobility, Laundry, Pat ient Education, Safety Awareness, Splinting - Positioning, Transfers(Toilet, Tub, Shower), and Wheel Chair Management Cognitive deficits - to improve, our occupation therapists will perform initial evaluation of pt's s tatus upon admission and devise an individualized program for Cognition - orientation Need for manager managed care - to improve, our occupation therapists will perform initial evaluation of pt's status upon admission and devise an individualized program for Caregiver Training Weakness - to improve, our occupation therapists will perform initial evaluation of pt's status upon admission and devise an individualized program for Aquatic Therapy, Balance, Endurance, UE ROM, and UE strengthening FUNCTIONAL STATUS: UPDATED AT WEEKLY TEAM CONFERENCE - Bladder Same accident frequency: 7-Ind - No accidents in the past 7 days - Bowel Same accident frequency: 7-Ind - No accidents in the past 7 days - Walking Same score based on distance walked: 0(N/A) - Wheelchair Same score based on distance traveled: 2(50-149ft) FUNCTIONAL STATUS: - Self-Care A. Eating sup B. Grooming Muari C. Bathing maxA D. Dressing - Upper Mauri E. Dressing - Lower maxA F. Toileting Dep - Sphincter Control G: Bladder control Ind H: Bowel control Ind - Transfers Control I. Bed/Chair/Wheelchair Dep J. Toilet Dep K. Tub/Shower ADNO - Locomotion L. Walk/Wheelchair (C) Ind L. Walk/Wheelchair (W) Ind M. Stairs ADNO - Communication N. Comprehension (B) Mauri O. Expression (B) sup - Social Cognition P. Social Interaction sup Q. Problem Solving Mauri R. Memory Mauri - Endurance Poor - Balance Poor - Safety Awareness Fair CURRENT FUNC. DEFICITS: Safety Awareness, Transfers Control, Communication, Social Cognition, Balance, Self-Care, Endurance, and Locomotion SIGNATURE PANEL: (CDT)
[2017-11-11] MEDS: MELATONIN 3 MG TABLET PO PRN (21:08)
[2017-11-11] MEDS: ATORVASTATIN 20 MG TAB PO SCH (21:08)
[2017-11-11] MEDS: MIRTAZAPINE 15 MG TAB PO SCH (21:08)
[2017-11-11] MEDS: ENSURE HIGH PROTEIN 237 ML CAN PO SCH (21:09)
[2017-11-11] MEDS: guaiFENesin 100 MG/5 ML UCUP PO PRN (21:26)
--- NOTE | 2017-11-12 04:46 | FAST ---
SHIFT START DATE/TIME: 11/11/2017 19:00 (CDT) SHIFT END DATE/TIME: 11/12/2017 07:00 (CDT) NAME MARCE BRAND DATE OF : 1935 DATE OF ADMISSION: 11/07/2017 19:54 (CDT) PHONE: AGE: 82 N# [id number] GENDER: Male ENCOUNTER PHYSICIAN: Dr. Alex Ribeiro M.D. ADMISSION DIAGNOSIS: - Orthopaedic Disorders 08 - Femur (Shaft) Fracture (08.2) Left periprosthetic distal femur fracture. EATING: EATING - STEP 1: Does the patient require assistance when eating? Yes. EATING - STEP 2: Does the patient require the assistance of a helper? Yes. EATING - STEP 3: Does the patient perform half or more of the eating tasks? Yes. EATING - STEP 4: Does the patient need only supervision, cuing, coaxing OR help to apply an orthosis OR help to cut fo od, open containers, pour liquids, or butter bread? Yes. EATING - SCORE: 5-SUP GROOMING: Activity did not occur on this shift GROOMING - SCORE: 0-UNK BATHING: Activity did not occur on this shift BATHING - SCORE: 0-UNK DRESSING - UPPER BODY: Patient is not dressing in public clothing ARTICLES SCORE Total number of steps: 0 DRESSING - UPPER BODY - SCORE: 0-UNK DRESSING - LOWER BODY: Patient is not dressing in public clothing ARTICLES SCORE Total number of steps: 0 DRESSING - LOWER BODY - SCORE: 0-UNK TOILETING: TOILETING - STEP 1: Does the patient require assistance with toileting? Yes. TOILETING - STEP 2: Does the patient require the assistance of a helper? Yes. TOILETING - STEP 3: How much assistance does the patient require from the helper? Hands-on assistance from the helper TOILETING - STEP 4: Of the 3 tasks: 1) Adjusting clothing prior to use, 2) Cleansing of perineal area, 3) Adjusting clot ezio after use; How many tasks does the patient perform WITHOUT assistance of the helper? No tasks; h elper performs all three tasks TOILETING - SCORE: 1-DEP BLADDER MANAGEMENT: BLADDER MANAGEMENT - STEP 1: Does the patient control the bladder completely and intentionally without equipment or devices or med ications, and is always continent? No. BLADDER MANAGEMENT - STEP 2: Does the patient require the assistance of a helper? Yes. BLADDER MANAGEMENT - STEP 3: How much assistance does the patient require from the helper? Patient requires contact assistance fro m the helper BLADDER MANAGEMENT - STEP 4: How much contact assistance does the patient require from the helper? Patient requires maximal assist ance, and only performs 25% to 49% of bladder management tasks BLADDER MANAGEMENT - SCORE: 2-MAX BLADDER MANAGEMENT - FREQUENCY OF ACCIDENTS: BLADDER MANAGEMENT(FA) - STEP 1: How many accidents has the patient had during the current shift? 2 BOWEL MANAGEMENT: [place] removes incontinent device (depends, pull ups, etc.); cleans the patient after accident / inco ntinent episode; and, applies new device (depends, pull-ups, padding, etc.). BOWEL MANAGEMENT - SCORE: 1-DEP BOWEL MANAGEMENT - FREQUENCY OF ACCIDENTS: BOWEL MANAGEMENT(FA) - STEP 1: How many accidents has the patient had during the current shift? 1 TRANSFERS: BED, CHAIR, WHEELCHAIR: Activity did not occur on this shift TRANSFERS: BED, CHAIR, WHEELCHAIR - SCORE: 0-UNK TRANSFERS: TOILET: Activity did not occur on this shift TRANSFERS: TOILET - SCORE: 0-UNK TRANSFERS: SHOWER: Activity did not occur on this shift TRANSFERS: SHOWER - SCORE: 0-UNK TRANSFERS: TUB: Activity did not occur on this shift TRANSFERS: TUB - SCORE: 0-UNK LOCOMOTION: WALK: Activity did not occur on this shift LOCOMOTION: WALK - SCORE: 0-UNK LOCOMOTION: WHEELCHAIR: Activity did not occur on this shift LOCOMOTION: WHEELCHAIR - SCORE: 0-UNK COMPREHENSION: COMPREHENSION: TYPE: Both COMPREHENSION - STEP 1: Does the patient require help to understand complex and abstract ideas (such as current events, finan panda, discharge planning, medical issues, relationships, etc)? No. COMPREHENSION - STEP 2: Does the patient need extra time, require an assistive device (such as glasses, hearing aids, or an a ugmentative communication system), OR does s/he have mild difficulty expressing complex and abstract ideas (including mild dysarthria or mild word-finding problems)? Yes. COMPREHENSION - SCORE: 6-JM EXPRESSION EXPRESSION: TYPE: Both EXPRESSION - STEP 1: Does the patient require help expressing complex and abstract ideas (such as current events, finances , discharge planning, medical issues, relationships, etc)? No. EXPRESSION - STEP 2: Does the patient need extra time, require an assistive device (such as augmentive communication syste m or a communication board), OR does s/he have mild difficulty expressing complex and abstract ideas (including mild dysarthria or mild word-find problems)? Yes. EXPRESSION - SCORE: 6-JM SOCIAL INTERACTION: SOCIAL INTERACTION - STEP 1: Does the patient require a helper to interact with others in social and therapeutic situations? No. SOCIAL INTERACTION - STEP 2: Does the patient need extra time in social situations, OR does s/he interact with staff, other patien ts, and family members ONLY in structured environments, OR does s/he require medication for social in teraction? Yes, patient needs extra time SOCIAL INTERACTION - SCORE: 6-JM PROBLEM SOLVING: PROBLEM SOLVING - STEP 1: Does the patient need help to solve complex problems such as managing a checking account or confronti ng interpersonal problems? No. PROBLEM SOLVING - STEP 2: Does the patient require extra time to make decisions or solve problems, OR does s/he have slight dif ficulty reading, initiating, or self-correcting in unfamiliar situations? Yes, patient needs extra ti me. PROBLEM SOLVING - SCORE: 6-JM MEMORY: MEMORY - STEP 1: Does the patient need help to remember frequently encountered people, daily routines, and executing r equests? No. MEMORY - STEP 2: Does the patient have slight difficulty recognizing frequently encountered people, daily routines, or executing requests without the need for repetition or using self-initiated or environmental cues to remember? Yes. MEMORY - SCORE: 6-JM SIGNATURE PANEL: The following modified sections: Eating - Score, Grooming - Score, Bathing - Score, Dressing - Upper Body - Score, Dressing - Lower Body - Score, Toileting - Score, Bladder Management - Score, Bowel Man agement - Score, Transfers: Bed, Chair, Wheelchair - Score, Transfers: Toilet - Score, Transfers: Merline wer - Score, Transfers: Tub - Score, Locomotion: Walk - Score, Locomotion: Wheelchair - Score, Compre hension - Score, Expression - Score, Social Interaction - Score, Problem Solving - Score, Memory - Sc ore were [electronically] signed by Lala Calzada [email or web address] on FriNov 12 2017 03:48:17 GMT-0500 ( Central Daylight Time)
[2017-11-12] MEDS: METOPROLOL TAR 25 MG TAB PO SCH ×2 (05:16→17:17)
[2017-11-12] MEDS: APIXABAN 2.5 MG TABLET PO SCH ×2 (08:00→19:39)
[2017-11-12] MEDS: ENSURE HIGH PROTEIN 237 ML CAN PO SCH ×2 (08:00→19:40)
[2017-11-12] MEDS: NYSTATIN PWDR 100000 UNIT/GM TOP SCH ×2 (08:00→19:40)
[2017-11-12] MEDS: buPROPion HCl 100 MG TAB PO SCH ×2 (09:16→13:04)
[2017-11-12] MEDS: PRIMIDONE 50 MG TAB PO SCH (09:16)
[2017-11-12] MEDS: CYANOCOBALAMIN 1,000 MCG TAB PO SCH (09:17)
[2017-11-12] MEDS: VITAMIN D 5,000 UNIT CAP PO SCH (09:17)
[2017-11-12] MEDS: RANITIDINE 150 MG TABLET PO SCH ×2 (09:17→19:39)
[2017-11-12] MEDS: CODEINE 30MG/APAP 300MG TAB PO PRN (09:17)
--- NOTE | 2017-11-12 15:34 | FAST ---
SHIFT START DATE/TIME: 11/12/2017 07:00 (CDT) SHIFT END DATE/TIME: 11/12/2017 19:00 (CDT) NAME MARCE BRAND DATE OF : 1935 DATE OF ADMISSION: 11/07/2017 19:54 (CDT) PHONE: AGE: 82 N# [id number] GENDER: Male ENCOUNTER PHYSICIAN: Dr. Alex Ribeiro M.D. ADMISSION DIAGNOSIS: - Orthopaedic Disorders 08 - Femur (Shaft) Fracture (08.2) Left periprosthetic distal femur fracture. EATING: EATING - STEP 1: Does the patient require assistance when eating? Yes. EATING - STEP 2: Does the patient require the assistance of a helper? Yes. EATING - STEP 3: Does the patient perform half or more of the eating tasks? Yes. EATING - STEP 4: Does the patient need only supervision, cuing, coaxing OR help to apply an orthosis OR help to cut fo od, open containers, pour liquids, or butter bread? Yes. EATING - SCORE: 5-SUP GROOMING: Activity did not occur on this shift GROOMING - SCORE: 0-UNK BATHING: Activity did not occur on this shift BATHING - SCORE: 0-UNK DRESSING - UPPER BODY: Button down shirt or blouse - NOT tucked in (four steps) ARTICLES SCORE Total number of steps: 4 DRESSING - UPPER BODY - STEP 1: Does the patient require help when dressing above the waist? Yes. DRESSING - UPPER BODY - STEP 2: Does the patient require the assistance of a helper? Yes. DRESSING - UPPER BODY - STEP 3: Does the helper touch the patient while dressing? Yes. DRESSING - UPPER BODY - STEP 4: How many of the total steps does the patient complete on his/her own? 2 DRESSING - UPPER BODY - SCORE: 3-MOD DRESSING - LOWER BODY: Elastic waist pants (three steps) Slip-on shoe - Left foot (one step) Slip-on shoe - Right foot (one step) Underwear (three steps) ARTICLES SCORE Total number of steps: 8 DRESSING - LOWER BODY - STEP 1: Does the patient require help when dressing below the waist? Yes. DRESSING - LOWER BODY - STEP 2: Does the patient require the assistance of a helper? Yes. DRESSING - LOWER BODY - STEP 3: Does the helper touch the patient while dressing? Yes. DRESSING - LOWER BODY - STEP 4: How many of the total steps does the patient complete on his/her own? 0 DRESSING - LOWER BODY - STEP 5: Does patient require total assistance for dressing below the waist such as the helper holding clothin g and performing basically all the activities? No. DRESSING - LOWER BODY - SCORE: 2-MAX TOILETING: TOILETING - STEP 1: Does the patient require assistance with toileting? Yes. TOILETING - STEP 2: Does the patient require the assistance of a helper? Yes. TOILETING - STEP 3: How much assistance does the patient require from the helper? Hands-on assistance from the helper TOILETING - STEP 4: Of the 3 tasks: 1) Adjusting clothing prior to use, 2) Cleansing of perineal area, 3) Adjusting clot ezio after use; How many tasks does the patient perform WITHOUT assistance of the helper? No tasks; h elper performs all three tasks TOILETING - SCORE: 1-DEP BLADDER MANAGEMENT: BLADDER MANAGEMENT - STEP 1: Does the patient control the bladder completely and intentionally without equipment or devices or med ications, and is always continent? No. BLADDER MANAGEMENT - STEP 2: Does the patient require the assistance of a helper? No, patient requires and independently uses an a ssistive device, such as a urinal, bedpan, bedside commode, catheter, absorbent pad, or collecting de vice BLADDER MANAGEMENT - SCORE: 6-JM BOWEL MANAGEMENT: Activity did not occur on this shift BOWEL MANAGEMENT - SCORE: 7-IND TRANSFERS: BED, CHAIR, WHEELCHAIR: Patient requires more than one helper and/or the use of a mechanical lift is utilized TRANSFERS: BED, CHAIR, WHEELCHAIR - SCORE: 1-DEP TRANSFERS: TOILET: Patient requires more than one helper and/or the use of a mechanical lift is utilized TRANSFERS: TOILET - SCORE: 1-DEP TRANSFERS: SHOWER: Activity did not occur on this shift TRANSFERS: SHOWER - SCORE: 0-UNK TRANSFERS: TUB: Activity did not occur on this shift TRANSFERS: TUB - SCORE: 0-UNK LOCOMOTION: WALK: Activity did not occur on this shift LOCOMOTION: WALK - SCORE: 0-UNK LOCOMOTION: WHEELCHAIR: Activity did not occur on this shift LOCOMOTION: WHEELCHAIR - SCORE: 0-UNK COMPREHENSION: COMPREHENSION - SCORE: 0-UNK EXPRESSION EXPRESSION - SCORE: 0-UNK SOCIAL INTERACTION: SOCIAL INTERACTION - SCORE: 0-UNK PROBLEM SOLVING: PROBLEM SOLVING - SCORE: 0-UNK MEMORY: MEMORY - SCORE: 0-UNK SIGNATURE PANEL: The following modified sections: Eating - Score, Grooming - Score, Bathing - Score, Dressing - Upper Body - Score, Toileting - Score, Bladder Management - Score, Bowel Management - Score, Transfers: Bed , Chair, Wheelchair - Score, Dressing - Lower Body - Score, Transfers: Toilet - Score, Transfers: Merline wer - Score, Transfers: Tub - Score, Locomotion: Walk - Score, Locomotion: Wheelchair - Score, Compre hension - Score, Expression - Score, Social Interaction - Score, Problem Solving - Score, Memory - Sc ore were [electronically] signed by Herman Mendes on FriNov 12 2017 14:35:38 [id number] (Central Daylight Time)
--- NOTE | 2017-11-12 15:58 | FAST ---
ENCOUNTER DATE AND TIME: 11/12/2017 08:00 (CDT) NAME MARCE BRAND DATE OF : 1935 DATE OF ADMISSION: 11/07/2017 19:54 (CDT) PHONE: AGE: 82 SSN# [id number] GENDER: Male ENCOUNTER PHYSICIAN: Dr. Alex Ribeiro M.D. ADMISSION DIAGNOSIS: - Orthopaedic Disorders 08 - Femur (Shaft) Fracture (08.2) Left periprosthetic distal femur fracture. EATING: Activity did not occur on this shift EATING - SCORE: 0-UNK GROOMING: Activity did not occur on this shift GROOMING - SCORE: 0-UNK BATHING: Activity did not occur on this shift BATHING - SCORE: 0-UNK DRESSING - UPPER BODY: Activity did not occur on this shift Patient is not dressing in public clothing ARTICLES SCORE Total number of steps: 0 DRESSING - UPPER BODY - SCORE: 0-UNK DRESSING - LOWER BODY: Activity did not occur on this shift Patient is not dressing in public clothing ARTICLES SCORE Total number of steps: 0 DRESSING - LOWER BODY - SCORE: 0-UNK TOILETING: Activity did not occur on this shift TOILETING - SCORE: 0-UNK BLADDER MANAGEMENT: Activity did not occur on this shift BLADDER MANAGEMENT - SCORE: 7-IND BOWEL MANAGEMENT: Activity did not occur on this shift BOWEL MANAGEMENT - SCORE: 7-IND TRANSFERS: BED, CHAIR, WHEELCHAIR: Activity did not occur on this shift TRANSFERS: BED, CHAIR, WHEELCHAIR - SCORE: 0-UNK TRANSFERS: TOILET: Activity did not occur on this shift TRANSFERS: TOILET - SCORE: 0-UNK TRANSFERS: SHOWER: Activity did not occur on this shift TRANSFERS: SHOWER - SCORE: 0-UNK TRANSFERS: TUB: Activity did not occur on this shift TRANSFERS: TUB - SCORE: 0-UNK LOCOMOTION: WALK: Activity did not occur on this shift LOCOMOTION: WALK - SCORE: 0-UNK LOCOMOTION: WHEELCHAIR: Activity did not occur on this shift LOCOMOTION: WHEELCHAIR - SCORE: 0-UNK LOCOMOTION: STAIRS: Activity did not occur on this shift LOCOMOTION: STAIRS - SCORE: 0-UNK COMPREHENSION: COMPREHENSION - STEP 1: Does the patient require help to understand complex and abstract ideas (such as current events, finan panda, discharge planning, medical issues, relationships, etc)? Yes. COMPREHENSION - STEP 2: Does the patient require help to understand questions or statements about basic needs or ideas (such as hunger, thirst, sleep, safety, daily schedule, room location, or discomfort) half or more of the t reena? No. COMPREHENSION - STEP 3: How often does the patient need help to understand directions and conversation about basic needs? Les s than 10% of the time COMPREHENSION - SCORE: 5-SUP EXPRESSION EXPRESSION - STEP 1: Does the patient require help expressing complex and abstract ideas (such as current events, finances , discharge planning, medical issues, relationships, etc)? No. EXPRESSION - STEP 2: Does the patient need extra time, require an assistive device (such as augmentive communication syste m or a communication board), OR does s/he have mild difficulty expressing complex and abstract ideas (including mild dysarthria or mild word-find problems)? Yes. EXPRESSION - SCORE: 6-JM SOCIAL INTERACTION: SOCIAL INTERACTION - STEP 1: Does the patient require a helper to interact with others in social and therapeutic situations? No. SOCIAL INTERACTION - STEP 2: Does the patient need extra time in social situations, OR does s/he interact with staff, other patien ts, and family members ONLY in structured environments, OR does s/he require medication for social in teraction? Yes, patient needs extra time SOCIAL INTERACTION - SCORE: 6-JM PROBLEM SOLVING: PROBLEM SOLVING - STEP 1: Does the patient need help to solve complex problems such as managing a checking account or confronti ng interpersonal problems? Yes. PROBLEM SOLVING - STEP 2: Does the patient solve basic routine problems half or more of the time? Yes. PROBLEM SOLVING - STEP 3: How often does the patient need help to solve basic routine problems? 10%-24% of the time PROBLEM SOLVING - SCORE: 4-MIN MEMORY: MEMORY - STEP 1: Does the patient need help to remember frequently encountered people, daily routines, and executing r equests? Yes. MEMORY - STEP 2: How often does the patient need help to remember frequently encountered people, daily routines, and e xecuting requests? 25% - 49% of the time MEMORY - SCORE: 3-MOD SIGNATURE PANEL: The following modified sections: Comprehension - Score, Expression - Score, Social Interaction - Scor e, Problem Solving - Score, Memory - Score were [electronically] signed by ST Brigette fri 14:59:31 [id number] (Central Daylight Time)
--- NOTE | 2017-11-12 17:53 | R.PN ---
ENCOUNTER DATE AND TIME: 11/12/2017 16:48 (CDT) NAME MARCE BRAND DATE OF : 1935 DATE OF ADMISSION: 11/07/2017 19:54 (CDT) Left periprosthetic distal femur fractureCHIEF COMPLAINT: Left hip fracture SUBJECTIVE: Pt denied any Shortness of Breath. Pt denied any depression. Posterior propelled wheelchair 150' with physical therapist in tow. VITAL SIGNS Temperature: 97.4 F SBP/DBP: 109/59 Pulse: 77 Resp: 16 MEDICATION ALLERGIES: Penicillin, Hydrocodone, Ibuprofen, Sinemet 25/100 tablet ENVIRONMENTAL ALLERGIES: None Known - Substance Allergies None Known - Other Allergies None Known NURSING: - Shower allowing shower - Skin care per protocol PRECAUTIONS: - Weight Bearing Precaution NWB left LE - Fall Precaution Bed and chair alarm ACTIVITIES OOB only with supervision THERAPIES: - Occupational Therapy Evaluate and Treat. - Physical Therapy Evaluate and Treat. PHYSICAL EXAM - Gen Alert and awake Lying in bed No apparent distress Oriented to: person, time, and place - Skin Left thigh with surgical incision Normacephalic - Eyes No abnormalities - ENMT No abnormalities - Neck No abnormalities - CVS RRR - Chest No abnormalities - Abd Soft - GI Non distended Deferred - No abnormalities - Ext Mild postoperative edema in the left lower extremity - MSK 4+/5 weakness in left lower extremity - Psych No abnormalities ASSESSMENT: Pt. is a 82 yo Right-handed white male.On 10/11/2017 he was admitted to [facility] with diagno sis Left periprosthetic distal femur fracture.His impairment category is Orthopaedic Disorders 08 - Femur (Shaft) Fracture (08.2).Pre-morbidly, Pt. was independent/mod-I in Transfers Control, Communica tion, Social Cognition, Self-Care, Locomotion, and Sphincter Control; and he had good Sphincter Contr ol.Currently, he has deficits of Safety Awareness, Transfers Control, Communication, Social Cognition , Balance, Self-Care, Endurance, and Locomotion.Pt. is now referred to [facility] for acute in-patient rehabilitation in order to maximize patient's functional independence in act ivities of daily living, strength, ROM, and mobility.- Rehab Goal Patient has realistic goal of being discharged at assistance level 6-Cathy to reside at Home with Fam samantha/Relatives. MDM/PLAN: - Physical Therapy Decreased range of motion - to improve, our physical therapists will perform initial evaluation of p t's status upon admission and devise an individualized program for increasing patient's Range of Kenn on. Gait dysfunction - to improve, our physical therapists will perform initial evaluation of pt's statu s upon admission and devise an individualized program for Gait Training, and Wheel Chair mobility Inability to transfer - to improve, our physical therapists will perform initial evaluation of pt's status upon admission and devise an individualized program for Bed mobility Need for home safety evaluation - to improve, our physical therapists will perform initial evaluatio n of pt's status upon admission and devise an individualized program for Home Evaluation Need in caregiver upon discharge - to improve, our physical therapists will perform initial evaluati on of pt's status upon admission and devise an individualized program for Caregiver Training Edema - to improve, our physical therapists will perform initial evaluation of pt's status upon admi ssion and devise an individualized program for Elevation Training, and Lymphedema Therapy New precaution - to improve, our physical therapists will perform initial evaluation of pt's status upon admission and devise an individualized program for Patient precaution education Poor balance - to improve, our physical therapists will perform initial evaluation of pt's status up on admission and devise an individualized program for Balance Training Poor endurance - to improve, our physical therapists will perform initial evaluation of pt's status upon admission and devise an individualized program for Endurance Training Weakness - to improve, our physical therapists will perform initial evaluation of pt's status upon a dmission and devise an individualized program for Aquatic Therapy, Neuromuscular Reeducation, and Str engthening Achieving independence - to improve, our physical therapists will perform initial evaluation of pt's status upon admission and devise an individualized program for Community Reintegration Activities - Diet Type Continue Regular - Diet - Liquid Texture Continue Regular - Tube Feed Continue N/A - Weight Bearing Precaution NWB left LE - Fall Precaution Bed and chair alarm - Skin care per protocol - Diet - Solid Texture Continue Regular - Shower allowing shower - Occupational Therapy ADL deficits - to improve, our occupation therapists will perform initial evaluation of pt's status upon admission and devise an individualized program for Bathing, Bed mobility, Community Reintegratio n, Cooking, Dressing, Eating, Fine Motor Skills, Grooming, Homemaking, Kitchen Mobility, Laundry, Pat ient Education, Safety Awareness, Splinting - Positioning, Transfers(Toilet, Tub, Shower), and Wheel Chair Management Cognitive deficits - to improve, our occupation therapists will perform initial evaluation of pt's s tatus upon admission and devise an individualized program for Cognition - orientation Need for career technical counselor - to improve, our occupation therapists will perform initial evaluation of pt's status upon admission and devise an individualized program for Caregiver Training Weakness - to improve, our occupation therapists will perform initial evaluation of pt's status upon admission and devise an individualized program for Aquatic Therapy, Balance, Endurance, UE ROM, and UE strengthening FUNCTIONAL STATUS: UPDATED AT WEEKLY TEAM CONFERENCE - Bladder Same accident frequency: 7-Ind - No accidents in the past 7 days - Bowel Same accident frequency: 7-Ind - No accidents in the past 7 days - Walking Same score based on distance walked: 0(N/A) - Wheelchair Same score based on distance traveled: 2(50-149ft) FUNCTIONAL STATUS: - Self-Care A. Eating sup B. Grooming Mauri C. Bathing maxA D. Dressing - Upper Mauri E. Dressing - Lower maxA F. Toileting Dep - Sphincter Control G: Bladder control Ind H: Bowel control Ind - Transfers Control I. Bed/Chair/Wheelchair Dep J. Toilet Dep K. Tub/Shower ADNO - Locomotion L. Walk/Wheelchair (C) Ind L. Walk/Wheelchair (W) Ind M. Stairs ADNO - Communication N. Comprehension (B) Mauri O. Expression (B) sup - Social Cognition P. Social Interaction sup Q. Problem Solving Mauri R. Memory Mauri - Endurance Poor - Balance Poor - Safety Awareness Fair CURRENT FUNC. DEFICITS: Safety Awareness, Transfers Control, Communication, Social Cognition, Balance, Self-Care, Endurance, and Locomotion SIGNATURE PANEL: (CDT)
--- NOTE | 2017-11-12 17:57 | FAST ---
ENCOUNTER DATE AND TIME: 11/12/2017 08:00 (CDT) NAME MARCE BRAND DATE OF : 1935 DATE OF ADMISSION: 11/07/2017 19:54 (CDT) PHONE: AGE: 82 SSN# [id number] GENDER: Male ENCOUNTER PHYSICIAN: Dr. Alex Ribeiro M.D. ADMISSION DIAGNOSIS: - Orthopaedic Disorders 08 - Femur (Shaft) Fracture (08.2) Left periprosthetic distal femur fracture. EATING: Activity did not occur on this shift EATING - SCORE: 0-UNK GROOMING: Activity did not occur on this shift GROOMING - SCORE: 0-UNK BATHING: Activity did not occur on this shift BATHING - SCORE: 0-UNK DRESSING - UPPER BODY: Activity did not occur on this shift Patient is not dressing in public clothing ARTICLES SCORE Total number of steps: 0 DRESSING - UPPER BODY - SCORE: 0-UNK DRESSING - LOWER BODY: Activity did not occur on this shift Patient is not dressing in public clothing ARTICLES SCORE Total number of steps: 0 DRESSING - LOWER BODY - SCORE: 0-UNK TOILETING: Activity did not occur on this shift TOILETING - SCORE: 0-UNK BLADDER MANAGEMENT: Activity did not occur on this shift BLADDER MANAGEMENT - SCORE: 7-IND BOWEL MANAGEMENT: Activity did not occur on this shift BOWEL MANAGEMENT - SCORE: 7-IND TRANSFERS: BED, CHAIR, WHEELCHAIR: TRANSFERS: BED, CHAIR, WHEELCHAIR - STEP 1: Does the patient require assistance with bed, chair, or wheelchair transfers? Yes. TRANSFERS: BED, CHAIR, WHEELCHAIR - STEP 2: Does the patient require the assistance of a helper? Yes. TRANSFERS: BED, CHAIR, WHEELCHAIR - STEP 3: How much assistance does the patient require from the helper? Lifting of the patient TRANSFERS: BED, CHAIR, WHEELCHAIR - STEP 4: Does the helper lift the patient ONLY up? ONLY down? Up AND Down? Up AND Down. TRANSFERS: BED, CHAIR, WHEELCHAIR - SCORE: 2-MAX TRANSFERS: TOILET: Activity did not occur on this shift TRANSFERS: TOILET - SCORE: 0-UNK TRANSFERS: SHOWER: Activity did not occur on this shift TRANSFERS: SHOWER - SCORE: 0-UNK TRANSFERS: TUB: Activity did not occur on this shift TRANSFERS: TUB - SCORE: 0-UNK LOCOMOTION: WALK: Activity did not occur on this shift LOCOMOTION: WALK - SCORE: 0-UNK LOCOMOTION: WHEELCHAIR: LOCOMOTION: WHEELCHAIR - STEP 1: Does the patient need help to go 150 feet in a wheelchair? Yes. LOCOMOTION: WHEELCHAIR - STEP 2: How much assistance does the patient need from the helper? Only supervision, cuing, or coaxing LOCOMOTION: WHEELCHAIR - SCORE: 5-SUP LOCOMOTION: STAIRS: Activity did not occur on this shift LOCOMOTION: STAIRS - SCORE: 0-UNK COMPREHENSION: COMPREHENSION - SCORE: 0-UNK EXPRESSION EXPRESSION - SCORE: 0-UNK SOCIAL INTERACTION: SOCIAL INTERACTION - SCORE: 0-UNK PROBLEM SOLVING: PROBLEM SOLVING - SCORE: 0-UNK MEMORY: MEMORY - SCORE: 0-UNK SIGNATURE PANEL: The following modified sections: Transfers: Bed, Chair, Wheelchair - Score, Transfers: Toilet - Score , Locomotion: Walk - Score, Locomotion: Wheelchair - Score, Locomotion: Stairs - Score were [electron icacatrina] signed by Anderson Saba PT on FriNov 12 2017 16:58:40 T-0500 (Central Daylight Time)
[2017-11-12] MEDS: CRANBERRY FRUIT EXTRACT 200 MG CAP PO SCH (19:39)
[2017-11-12] MEDS: MIRTAZAPINE 15 MG TAB PO SCH (20:06)
[2017-11-12] MEDS: ATORVASTATIN 20 MG TAB PO SCH (20:06)
[2017-11-12] MEDS: guaiFENesin 100 MG/5 ML UCUP PO PRN (20:06)
[2017-11-12] MEDS: MELATONIN 3 MG TABLET PO PRN (20:06)
--- NOTE | 2017-11-13 03:33 | FAST ---
SHIFT START DATE/TIME: 11/12/2017 19:00 (CDT) SHIFT END DATE/TIME: 11/13/2017 07:00 (CDT) NAME MARCE BRAND DATE OF : 1935 DATE OF ADMISSION: 11/07/2017 19:54 (CDT) PHONE: AGE: 82 N# [id number] GENDER: Male ENCOUNTER PHYSICIAN: Dr. Alex Ribeiro M.D. ADMISSION DIAGNOSIS: - Orthopaedic Disorders 08 - Femur (Shaft) Fracture (08.2) Left periprosthetic distal femur fracture. EATING: Activity did not occur on this shift EATING - SCORE: 0-UNK GROOMING: Activity did not occur on this shift GROOMING - SCORE: 0-UNK BATHING: Activity did not occur on this shift BATHING - SCORE: 0-UNK DRESSING - UPPER BODY: Patient is not dressing in public clothing ARTICLES SCORE Total number of steps: 0 DRESSING - UPPER BODY - SCORE: 0-UNK DRESSING - LOWER BODY: Patient is not dressing in public clothing ARTICLES SCORE Total number of steps: 0 DRESSING - LOWER BODY - SCORE: 0-UNK TOILETING: TOILETING - STEP 1: Does the patient require assistance with toileting? Yes. TOILETING - STEP 2: Does the patient require the assistance of a helper? Yes. TOILETING - STEP 3: How much assistance does the patient require from the helper? Hands-on assistance from the helper TOILETING - STEP 4: Of the 3 tasks: 1) Adjusting clothing prior to use, 2) Cleansing of perineal area, 3) Adjusting clot ezio after use; How many tasks does the patient perform WITHOUT assistance of the helper? No tasks; h gala performs all three tasks TOILETING - SCORE: 1-DEP BLADDER MANAGEMENT: BLADDER MANAGEMENT - STEP 1: Does the patient control the bladder completely and intentionally without equipment or devices or med ications, and is always continent? No. BLADDER MANAGEMENT - STEP 2: Does the patient require the assistance of a helper? Yes. BLADDER MANAGEMENT - STEP 3: How much assistance does the patient require from the helper? Patient requires contact assistance fro m the helper BLADDER MANAGEMENT - STEP 4: How much contact assistance does the patient require from the helper? Patient requires maximal assist ance, and only performs 25% to 49% of bladder management tasks BLADDER MANAGEMENT - SCORE: 2-MAX BLADDER MANAGEMENT - FREQUENCY OF ACCIDENTS: BLADDER MANAGEMENT(FA) - STEP 1: How many accidents has the patient had during the current shift? 1 BOWEL MANAGEMENT: Activity did not occur on this shift BOWEL MANAGEMENT - SCORE: 7-IND TRANSFERS: BED, CHAIR, WHEELCHAIR: Activity did not occur on this shift TRANSFERS: BED, CHAIR, WHEELCHAIR - SCORE: 0-UNK TRANSFERS: TOILET: Activity did not occur on this shift TRANSFERS: TOILET - SCORE: 0-UNK TRANSFERS: SHOWER: Activity did not occur on this shift TRANSFERS: SHOWER - SCORE: 0-UNK TRANSFERS: TUB: Activity did not occur on this shift TRANSFERS: TUB - SCORE: 0-UNK LOCOMOTION: WALK: Activity did not occur on this shift LOCOMOTION: WALK - SCORE: 0-UNK LOCOMOTION: WHEELCHAIR: Activity did not occur on this shift LOCOMOTION: WHEELCHAIR - SCORE: 0-UNK COMPREHENSION: COMPREHENSION: TYPE: Both COMPREHENSION - STEP 1: Does the patient require help to understand complex and abstract ideas (such as current events, finan panda, discharge planning, medical issues, relationships, etc)? No. COMPREHENSION - STEP 2: Does the patient need extra time, require an assistive device (such as glasses, hearing aids, or an a ugmentative communication system), OR does s/he have mild difficulty expressing complex and abstract ideas (including mild dysarthria or mild word-finding problems)? Yes. COMPREHENSION - SCORE: 6-JM EXPRESSION EXPRESSION: TYPE: Both EXPRESSION - STEP 1: Does the patient require help expressing complex and abstract ideas (such as current events, finances , discharge planning, medical issues, relationships, etc)? No. EXPRESSION - STEP 2: Does the patient need extra time, require an assistive device (such as augmentive communication syste m or a communication board), OR does s/he have mild difficulty expressing complex and abstract ideas (including mild dysarthria or mild word-find problems)? Yes. EXPRESSION - SCORE: 6-JM SOCIAL INTERACTION: SOCIAL INTERACTION - STEP 1: Does the patient require a helper to interact with others in social and therapeutic situations? No. SOCIAL INTERACTION - STEP 2: Does the patient need extra time in social situations, OR does s/he interact with staff, other patien ts, and family members ONLY in structured environments, OR does s/he require medication for social in teraction? Yes, patient needs extra time SOCIAL INTERACTION - SCORE: 6-JM PROBLEM SOLVING: PROBLEM SOLVING - STEP 1: Does the patient need help to solve complex problems such as managing a checking account or confronti ng interpersonal problems? No. PROBLEM SOLVING - STEP 2: Does the patient require extra time to make decisions or solve problems, OR does s/he have slight dif ficulty reading, initiating, or self-correcting in unfamiliar situations? Yes, patient needs extra ti me. PROBLEM SOLVING - SCORE: 6-MJ MEMORY: MEMORY - STEP 1: Does the patient need help to remember frequently encountered people, daily routines, and executing r equests? No. MEMORY - STEP 2: Does the patient have slight difficulty recognizing frequently encountered people, daily routines, or executing requests without the need for repetition or using self-initiated or environmental cues to remember? Yes. MEMORY - SCORE: 6-JM
[2017-11-13] MEDS: METOPROLOL TAR 25 MG TAB PO SCH ×2 (05:08→17:08)
[2017-11-13 06:29] LABS: Absolute Lymphocytes (CBC) 1.8 K/uL (0.7-4.9); Absolute Monocytes 0.9 K/uL (0.1-1.3); Absolute Neutrophil 2.3 K/uL (1.8-8.0); Basophils % 0.8 % (0-1.3); Eosinophils % 2.5 % (0-4.4); Hematocrit 32.5 % (39.6-49.0); Lymphocytes % 34.3 % (15.3-44.8); MCH 27.7 pg (27.0-35.0); MCV 86.8 fL (80-100); MPV 9.2 fL (7.6-11.3); Monocytes % 17.3 % (3.3-12.3); RBC Red Blood Cell Count 3.74 M/uL (4.33-5.43)
[2017-11-13 06:47] LABS: Albumin 2.7 g/dL (3.2-5.5); Potassium 4.2 mEq/L (3.6-5.0); Prealbumin 17.3 mg/dl (18-38)
[2017-11-13] MEDS: NYSTATIN PWDR 100000 UNIT/GM TOP SCH ×2 (08:00→20:05)
[2017-11-13] MEDS: ACETAMINOPHEN 325 MG TABLET PO PRN (08:48)
[2017-11-13] MEDS: APIXABAN 2.5 MG TABLET PO SCH ×2 (08:49→19:58)
[2017-11-13] MEDS: VITAMIN D 5,000 UNIT CAP PO SCH (08:49)
[2017-11-13] MEDS: CRANBERRY FRUIT EXTRACT 200 MG CAP PO SCH ×2 (08:49→19:58)
[2017-11-13] MEDS: buPROPion HCl 100 MG TAB PO SCH ×2 (08:49→12:46)
[2017-11-13] MEDS: CYANOCOBALAMIN 1,000 MCG TAB PO SCH (08:50)
[2017-11-13] MEDS: PRIMIDONE 50 MG TAB PO SCH (08:50)
[2017-11-13] MEDS: RANITIDINE 150 MG TABLET PO SCH ×2 (08:50→19:59)
[2017-11-13] MEDS: ENSURE HIGH PROTEIN 237 ML CAN PO SCH ×2 (08:51→19:58)
--- NOTE | 2017-11-13 11:37 | FAST ---
SHIFT START DATE/TIME: 11/13/2017 07:00 (CDT) SHIFT END DATE/TIME: 11/13/2017 19:00 (CDT) NAME MARCE BRAND DATE OF : 1935 DATE OF ADMISSION: 11/07/2017 19:54 (CDT) PHONE: AGE: 82 N# [id number] GENDER: Male ENCOUNTER PHYSICIAN: Dr. Alex Ribeiro M.D. ADMISSION DIAGNOSIS: - Orthopaedic Disorders 08 - Femur (Shaft) Fracture (08.2) Left periprosthetic distal femur fracture. EATING: EATING - STEP 1: Does the patient require assistance when eating? Yes. EATING - STEP 2: Does the patient require the assistance of a helper? Yes. EATING - STEP 3: Does the patient perform half or more of the eating tasks? Yes. EATING - STEP 4: Does the patient need only supervision, cuing, coaxing OR help to apply an orthosis OR help to cut fo od, open containers, pour liquids, or butter bread? Yes. EATING - SCORE: 5-SUP GROOMING: Activity did not occur on this shift GROOMING - SCORE: 0-UNK BATHING: Activity did not occur on this shift BATHING - SCORE: 0-UNK DRESSING - UPPER BODY: Button down shirt or blouse - NOT tucked in (four steps) ARTICLES SCORE Total number of steps: 4 DRESSING - UPPER BODY - STEP 1: Does the patient require help when dressing above the waist? Yes. DRESSING - UPPER BODY - STEP 2: Does the patient require the assistance of a helper? Yes. DRESSING - UPPER BODY - STEP 3: Does the helper touch the patient while dressing? Yes. DRESSING - UPPER BODY - STEP 4: How many of the total steps does the patient complete on his/her own? 0 DRESSING - UPPER BODY - STEP 5: Does Patient require total assistance for dressing above the waist such as the helper holding clothin g and performing basically all the activities? No. DRESSING - UPPER BODY - SCORE: 2-MAX DRESSING - LOWER BODY: Elastic waist pants (three steps) ARTICLES SCORE Total number of steps: 3 DRESSING - LOWER BODY - STEP 1: Does the patient require help when dressing below the waist? Yes. DRESSING - LOWER BODY - STEP 2: Does the patient require the assistance of a helper? Yes. DRESSING - LOWER BODY - STEP 3: Does the helper touch the patient while dressing? Yes. DRESSING - LOWER BODY - STEP 4: How many of the total steps does the patient complete on his/her own? 0 DRESSING - LOWER BODY - STEP 5: Does patient require total assistance for dressing below the waist such as the helper holding clothin g and performing basically all the activities? No. DRESSING - LOWER BODY - SCORE: 2-MAX TOILETING: TOILETING - STEP 1: Does the patient require assistance with toileting? Yes. TOILETING - STEP 2: Does the patient require the assistance of a helper? Yes. TOILETING - STEP 3: How much assistance does the patient require from the helper? Hands-on assistance from the helper TOILETING - STEP 4: Of the 3 tasks: 1) Adjusting clothing prior to use, 2) Cleansing of perineal area, 3) Adjusting clot ezio after use; How many tasks does the patient perform WITHOUT assistance of the helper? No tasks; h elper performs all three tasks TOILETING - SCORE: 1-DEP BLADDER MANAGEMENT: BLADDER MANAGEMENT - STEP 1: Does the patient control the bladder completely and intentionally without equipment or devices or med ications, and is always continent? No. BLADDER MANAGEMENT - STEP 2: Does the patient require the assistance of a helper? Yes. BLADDER MANAGEMENT - STEP 3: How much assistance does the patient require from the helper? Only set-up of equipment - such as plac ing it within reach of the patient or emptying a device - to maintain either satisfactory voiding pat tern or managing an external device, such as an absorbent pad, ileal device, or catheter BLADDER MANAGEMENT - SCORE: 5-SUP BOWEL MANAGEMENT: Activity did not occur on this shift BOWEL MANAGEMENT - SCORE: 7-IND TRANSFERS: BED, CHAIR, WHEELCHAIR: Patient requires more than one helper and/or the use of a mechanical lift is utilized TRANSFERS: BED, CHAIR, WHEELCHAIR - SCORE: 1-DEP TRANSFERS: TOILET: Patient requires more than one helper and/or the use of a mechanical lift is utilized TRANSFERS: TOILET - SCORE: 1-DEP TRANSFERS: SHOWER: Activity did not occur on this shift TRANSFERS: SHOWER - SCORE: 0-UNK TRANSFERS: TUB: Activity did not occur on this shift TRANSFERS: TUB - SCORE: 0-UNK LOCOMOTION: WALK: Activity did not occur on this shift LOCOMOTION: WALK - SCORE: 0-UNK LOCOMOTION: WHEELCHAIR: Activity did not occur on this shift LOCOMOTION: WHEELCHAIR - SCORE: 0-UNK COMPREHENSION: COMPREHENSION - SCORE: 0-UNK EXPRESSION EXPRESSION - SCORE: 0-UNK SOCIAL INTERACTION: SOCIAL INTERACTION - SCORE: 0-UNK PROBLEM SOLVING: PROBLEM SOLVING - SCORE: 0-UNK MEMORY: MEMORY - SCORE: 0-UNK SIGNATURE PANEL: The following modified sections: Eating - Score, Grooming - Score, Bathing - Score, Dressing - Upper Body - Score, Dressing - Lower Body - Score, Toileting - Score, Bladder Management - Score, Bowel Man agement - Score, Transfers: Bed, Chair, Wheelchair - Score, Transfers: Toilet - Score, Transfers: Merline wer - Score, Transfers: Tub - Score, Locomotion: Walk - Score, Locomotion: Wheelchair - Score, Compre hension - Score, Expression - Score, Social Interaction - Score, Problem Solving - Score, Memory - Sc ore were [electronically] signed by Herman Mendes on FriNov 13 2017 10:38:49 T-0500 (Central Daylight Time)
--- NOTE | 2017-11-13 16:38 | FAST ---
ENCOUNTER DATE AND TIME: 11/12/2017 08:00 (CDT) NAME MARCE BRAND DATE OF : 1935 DATE OF ADMISSION: 11/07/2017 19:54 (CDT) PHONE: AGE: 82 N# [id number] GENDER: Male ENCOUNTER PHYSICIAN: Dr. Alex Ribeiro M.D. ADMISSION DIAGNOSIS: - Orthopaedic Disorders 08 - Femur (Shaft) Fracture (08.2) Left periprosthetic distal femur fracture. EATING: Activity did not occur on this shift EATING - SCORE: 0-UNK GROOMING: Comb/brush hair Oral care Patient shaved Wash, rinse, and dry face Wash, rinse, and dry hands GROOMING - STEP 1: Does the patient require assistance when grooming? Yes. GROOMING - STEP 2: Does the patient require the assistance of a helper? Yes. GROOMING - STEP 3: How much assistance does the patient require from the helper? Incidental touching assistance from the helper while grooming GROOMING - SCORE: 4-MIN BATHING: Abdomen Buttocks Chest Left arm Left lower leg and foot Left upper leg Perineal area Right arm Right lower leg and foot Right upper leg BATHING - STEP 1: Does the patient require assistance when bathing? Yes. BATHING - STEP 2: Does the patient require the assistance of a helper? Yes. BATHING - STEP 3: How much assistance does the patient require from the helper? More than just incidental help BATHING - STEP 4: What percent of the body parts did the patient bathe WITHOUT the helper? None. All work was performed by the helper BATHING - SCORE: 1-DEP BATHING - COMMENTS: TWO PEOPLE NECESSARY TO ASSIST WITH DRYING BACK PERINEAL. PATIENT ABLE TO SCRUB X8 PARTS. DRESSING - UPPER BODY: Button down shirt or blouse - NOT tucked in (four steps) ARTICLES SCORE Total number of steps: 4 DRESSING - UPPER BODY - STEP 1: Does the patient require help when dressing above the waist? Yes. DRESSING - UPPER BODY - STEP 2: Does the patient require the assistance of a helper? Yes. DRESSING - UPPER BODY - STEP 3: Does the helper touch the patient while dressing? Yes. DRESSING - UPPER BODY - STEP 4: How many of the total steps does the patient complete on his/her own? 3 DRESSING - UPPER BODY - SCORE: 4-MIN DRESSING - LOWER BODY: Elastic waist pants (three steps) Sock - Left foot (one step) Sock - Right foot (one step) Underwear (three steps) ARTICLES SCORE Total number of steps: 8 DRESSING - LOWER BODY - STEP 1: Does the patient require help when dressing below the waist? Yes. DRESSING - LOWER BODY - STEP 2: Does the patient require the assistance of a helper? Yes. DRESSING - LOWER BODY - STEP 3: Does the helper touch the patient while dressing? Yes. DRESSING - LOWER BODY - STEP 4: How many of the total steps does the patient complete on his/her own? 3 DRESSING - LOWER BODY - STEP 5: Does patient require total assistance for dressing below the waist such as the helper holding clothin g and performing basically all the activities? Yes. DRESSING - LOWER BODY - SCORE: 1-DEP TOILETING: Activity did not occur on this shift TOILETING - SCORE: 0-UNK BLADDER MANAGEMENT: Activity did not occur on this shift BLADDER MANAGEMENT - SCORE: 7-IND BOWEL MANAGEMENT: Activity did not occur on this shift BOWEL MANAGEMENT - SCORE: 7-IND TRANSFERS: BED, CHAIR, WHEELCHAIR: Activity did not occur on this shift TRANSFERS: BED, CHAIR, WHEELCHAIR - SCORE: 0-UNK TRANSFERS: TOILET: Activity did not occur on this shift TRANSFERS: TOILET - SCORE: 0-UNK TRANSFERS: SHOWER: More than one helper is required for shower transfer TRANSFERS: SHOWER - SCORE: 1-DEP TRANSFERS: TUB: Activity did not occur on this shift TRANSFERS: TUB - SCORE: 0-UNK LOCOMOTION: WALK: Activity did not occur on this shift LOCOMOTION: WALK - SCORE: 0-UNK LOCOMOTION: WHEELCHAIR: Activity did not occur on this shift LOCOMOTION: WHEELCHAIR - SCORE: 0-UNK LOCOMOTION: STAIRS: Activity did not occur on this shift LOCOMOTION: STAIRS - SCORE: 0-UNK COMPREHENSION: COMPREHENSION: TYPE: Both COMPREHENSION - STEP 1: Does the patient require help to understand complex and abstract ideas (such as current events, finan panda, discharge planning, medical issues, relationships, etc)? No. COMPREHENSION - STEP 2: Does the patient need extra time, require an assistive device (such as glasses, hearing aids, or an a ugmentative communication system), OR does s/he have mild difficulty expressing complex and abstract ideas (including mild dysarthria or mild word-finding problems)? Yes. COMPREHENSION - SCORE: 6-JM EXPRESSION EXPRESSION: TYPE: Both EXPRESSION - STEP 1: Does the patient require help expressing complex and abstract ideas (such as current events, finances , discharge planning, medical issues, relationships, etc)? No. EXPRESSION - STEP 2: Does the patient need extra time, require an assistive device (such as augmentive communication syste m or a communication board), OR does s/he have mild difficulty expressing complex and abstract ideas (including mild dysarthria or mild word-find problems)? Yes. EXPRESSION - SCORE: 6-JM SOCIAL INTERACTION: SOCIAL INTERACTION - STEP 1: Does the patient require a helper to interact with others in social and therapeutic situations? No. SOCIAL INTERACTION - STEP 2: Does the patient need extra time in social situations, OR does s/he interact with staff, other patien ts, and family members ONLY in structured environments, OR does s/he require medication for social in teraction? Yes, patient needs extra time SOCIAL INTERACTION - SCORE: 6-JM PROBLEM SOLVING: PROBLEM SOLVING - STEP 1: Does the patient need help to solve complex problems such as managing a checking account or confronti ng interpersonal problems? Yes. PROBLEM SOLVING - STEP 2: Does the patient solve basic routine problems half or more of the time? Yes. PROBLEM SOLVING - STEP 3: How often does the patient need help to solve basic routine problems? 10%-24% of the time PROBLEM SOLVING - SCORE: 4-MIN MEMORY: MEMORY - STEP 1: Does the patient need help to remember frequently encountered people, daily routines, and executing r equests? Yes. MEMORY - STEP 2: How often does the patient need help to remember frequently encountered people, daily routines, and e xecuting requests? 10% - 24% of the time MEMORY - SCORE: 4-MIN SIGNATURE PANEL: The following modified sections: Eating - Score, Grooming - Score, Bathing - Score, Bathing - Comment s:, Dressing - Upper Body - Score, Dressing - Lower Body - Score, Toileting - Score, Transfers: Bed, Chair, Wheelchair - Score, Transfers: Toilet - Score, Transfers: Tub - Score, Transfers: Shower - Sco re, Comprehension - Score, Expression - Score, Social Interaction - Score, Problem Solving - Score, M becka - Score were [electronically] signed by Ruby Monroe OT on FriNov 13 2017 15:40:10 [id number] 0 (Central Daylight Time)
--- NOTE | 2017-11-13 18:28 | FAST ---
ENCOUNTER DATE AND TIME: 11/13/2017 08:00 (CDT) NAME MARCE BRAND DATE OF : 1935 DATE OF ADMISSION: 11/07/2017 19:54 (CDT) PHONE: AGE: 82 SSN# [id number] GENDER: Male ENCOUNTER PHYSICIAN: Dr. Alex Ribeiro M.D. ADMISSION DIAGNOSIS: - Orthopaedic Disorders 08 - Femur (Shaft) Fracture (08.2) Left periprosthetic distal femur fracture. EATING: Activity did not occur on this shift EATING - SCORE: 0-UNK GROOMING: Activity did not occur on this shift GROOMING - SCORE: 0-UNK BATHING: Activity did not occur on this shift BATHING - SCORE: 0-UNK DRESSING - UPPER BODY: Activity did not occur on this shift Patient is not dressing in public clothing ARTICLES SCORE Total number of steps: 0 DRESSING - UPPER BODY - SCORE: 0-UNK DRESSING - LOWER BODY: Activity did not occur on this shift Patient is not dressing in public clothing ARTICLES SCORE Total number of steps: 0 DRESSING - LOWER BODY - SCORE: 0-UNK TOILETING: Activity did not occur on this shift TOILETING - SCORE: 0-UNK BLADDER MANAGEMENT: Activity did not occur on this shift BLADDER MANAGEMENT - SCORE: 7-IND BOWEL MANAGEMENT: Activity did not occur on this shift BOWEL MANAGEMENT - SCORE: 7-IND TRANSFERS: BED, CHAIR, WHEELCHAIR: TRANSFERS: BED, CHAIR, WHEELCHAIR - STEP 1: Does the patient require assistance with bed, chair, or wheelchair transfers? Yes. TRANSFERS: BED, CHAIR, WHEELCHAIR - STEP 2: Does the patient require the assistance of a helper? Yes. TRANSFERS: BED, CHAIR, WHEELCHAIR - STEP 3: How much assistance does the patient require from the helper? Lifting of the patient TRANSFERS: BED, CHAIR, WHEELCHAIR - STEP 4: Does the helper lift the patient ONLY up? ONLY down? Up AND Down? ONLY up. TRANSFERS: BED, CHAIR, WHEELCHAIR - SCORE: 3-MOD TRANSFERS: TOILET: Activity did not occur on this shift TRANSFERS: TOILET - SCORE: 0-UNK TRANSFERS: SHOWER: Activity did not occur on this shift TRANSFERS: SHOWER - SCORE: 0-UNK TRANSFERS: TUB: Activity did not occur on this shift TRANSFERS: TUB - SCORE: 0-UNK LOCOMOTION: WALK: Activity did not occur on this shift LOCOMOTION: WALK - SCORE: 0-UNK LOCOMOTION: WHEELCHAIR: LOCOMOTION: WHEELCHAIR - STEP 1: Does the patient need help to go 150 feet in a wheelchair? Yes. LOCOMOTION: WHEELCHAIR - STEP 2: How much assistance does the patient need from the helper? Only supervision, cuing, or coaxing LOCOMOTION: WHEELCHAIR - SCORE: 5-SUP LOCOMOTION: STAIRS: Activity did not occur on this shift LOCOMOTION: STAIRS - SCORE: 0-UNK COMPREHENSION: COMPREHENSION - SCORE: 0-UNK EXPRESSION EXPRESSION - SCORE: 0-UNK SOCIAL INTERACTION: SOCIAL INTERACTION - SCORE: 0-UNK PROBLEM SOLVING: PROBLEM SOLVING - SCORE: 0-UNK MEMORY: MEMORY - SCORE: 0-UNK SIGNATURE PANEL: The following modified sections: Transfers: Bed, Chair, Wheelchair - Score, Transfers: Toilet - Score , Locomotion: Walk - Score, Locomotion: Wheelchair - Score, Locomotion: Stairs - Score were [electron icacatrina] signed by Anderson Saba PT on FriNov 13 2017 17:30:02 [facility]-0500 (Central Daylight Time)
[2017-11-13] MEDS: MELATONIN 3 MG TABLET PO PRN (19:57)
[2017-11-13] MEDS: MIRTAZAPINE 15 MG TAB PO SCH (20:00)
[2017-11-13] MEDS: ATORVASTATIN 20 MG TAB PO SCH (20:00)
--- NOTE | 2017-11-14 03:49 | FAST ---
SHIFT START DATE/TIME: 11/13/2017 19:00 (CDT) SHIFT END DATE/TIME: 11/14/2017 07:00 (CDT) NAME MARCE BRAND DATE OF : 1935 DATE OF ADMISSION: 11/07/2017 19:54 (CDT) PHONE: AGE: 82 N# [id number] GENDER: Male ENCOUNTER PHYSICIAN: Dr. Alex Ribeiro M.D. ADMISSION DIAGNOSIS: - Orthopaedic Disorders 08 - Femur (Shaft) Fracture (08.2) Left periprosthetic distal femur fracture. EATING: EATING - STEP 1: Does the patient require assistance when eating? Yes. EATING - STEP 2: Does the patient require the assistance of a helper? Yes. EATING - STEP 3: Does the patient perform half or more of the eating tasks? Yes. EATING - STEP 4: Does the patient need only supervision, cuing, coaxing OR help to apply an orthosis OR help to cut fo od, open containers, pour liquids, or butter bread? Yes. EATING - SCORE: 5-SUP GROOMING: Activity did not occur on this shift GROOMING - SCORE: 0-UNK BATHING: Activity did not occur on this shift BATHING - SCORE: 0-UNK DRESSING - UPPER BODY: Patient is not dressing in public clothing ARTICLES SCORE Total number of steps: 0 DRESSING - UPPER BODY - SCORE: 0-UNK DRESSING - LOWER BODY: Patient is not dressing in public clothing ARTICLES SCORE Total number of steps: 0 DRESSING - LOWER BODY - SCORE: 0-UNK TOILETING: Activity did not occur on this shift TOILETING - SCORE: 0-UNK BLADDER MANAGEMENT: Ermine removes incontinent device (Depends, pull ups, etc.); cleans the patient after accident / inco ntinent episode; and, applies new incontinent device. BLADDER MANAGEMENT - SCORE: 1-DEP BLADDER MANAGEMENT - FREQUENCY OF ACCIDENTS: BLADDER MANAGEMENT(FA) - STEP 1: How many accidents has the patient had during the current shift? 2 BOWEL MANAGEMENT: Activity did not occur on this shift BOWEL MANAGEMENT - SCORE: 7-IND TRANSFERS: BED, CHAIR, WHEELCHAIR: Activity did not occur on this shift TRANSFERS: BED, CHAIR, WHEELCHAIR - SCORE: 0-UNK TRANSFERS: TOILET: Activity did not occur on this shift TRANSFERS: TOILET - SCORE: 0-UNK TRANSFERS: SHOWER: Activity did not occur on this shift TRANSFERS: SHOWER - SCORE: 0-UNK TRANSFERS: TUB: Activity did not occur on this shift TRANSFERS: TUB - SCORE: 0-UNK LOCOMOTION: WALK: Activity did not occur on this shift LOCOMOTION: WALK - SCORE: 0-UNK LOCOMOTION: WHEELCHAIR: Activity did not occur on this shift LOCOMOTION: WHEELCHAIR - SCORE: 0-UNK COMPREHENSION: COMPREHENSION: TYPE: Both COMPREHENSION - STEP 1: Does the patient require help to understand complex and abstract ideas (such as current events, finan panda, discharge planning, medical issues, relationships, etc)? No. COMPREHENSION - STEP 2: Does the patient need extra time, require an assistive device (such as glasses, hearing aids, or an a ugmentative communication system), OR does s/he have mild difficulty expressing complex and abstract ideas (including mild dysarthria or mild word-finding problems)? Yes. COMPREHENSION - SCORE: 6-JM EXPRESSION EXPRESSION - STEP 1: Does the patient require help expressing complex and abstract ideas (such as current events, finances , discharge planning, medical issues, relationships, etc)? No. EXPRESSION - STEP 2: Does the patient need extra time, require an assistive device (such as augmentive communication syste m or a communication board), OR does s/he have mild difficulty expressing complex and abstract ideas (including mild dysarthria or mild word-find problems)? Yes. EXPRESSION - SCORE: 6-JM SOCIAL INTERACTION: SOCIAL INTERACTION - STEP 1: Does the patient require a helper to interact with others in social and therapeutic situations? No. SOCIAL INTERACTION - STEP 2: Does the patient need extra time in social situations, OR does s/he interact with staff, other patien ts, and family members ONLY in structured environments, OR does s/he require medication for social in teraction? Yes, patient needs extra time SOCIAL INTERACTION - SCORE: 6-JM PROBLEM SOLVING: PROBLEM SOLVING - STEP 1: Does the patient need help to solve complex problems such as managing a checking account or confronti ng interpersonal problems? No. PROBLEM SOLVING - STEP 2: Does the patient require extra time to make decisions or solve problems, OR does s/he have slight dif ficulty reading, initiating, or self-correcting in unfamiliar situations? Yes, patient needs extra ti me. PROBLEM SOLVING - SCORE: 6-JM MEMORY: MEMORY - STEP 1: Does the patient need help to remember frequently encountered people, daily routines, and executing r equests? No. MEMORY - STEP 2: Does the patient have slight difficulty recognizing frequently encountered people, daily routines, or executing requests without the need for repetition or using self-initiated or environmental cues to remember? Yes. MEMORY - SCORE: 6-JM SIGNATURE PANEL: The following modified sections: Eating - Score, Grooming - Score, Bathing - Score, Dressing - Upper Body - Score, Dressing - Lower Body - Score, Toileting - Score, Bladder Management - Score, Bowel Man agement - Score, Transfers: Bed, Chair, Wheelchair - Score, Transfers: Toilet - Score, Transfers: Merline wer - Score, Transfers: Tub - Score, Locomotion: Walk - Score, Locomotion: Wheelchair - Score, Compre hension - Score, Expression - Score, Social Interaction - Score, Problem Solving - Score, Memory - Sc ore were [electronically] signed by Lala Calzada C.N.AChiquita on FriNov 14 2017 02:50:48 T-0500 ( Central Daylight Time)
[2017-11-14] MEDS: METOPROLOL TAR 25 MG TAB PO SCH ×2 (05:13→17:31)
[2017-11-14] MEDS: ACETAMINOPHEN 325 MG TABLET PO PRN ×2 (06:28→12:17)
[2017-11-14] MEDS: VITAMIN D 5,000 UNIT CAP PO SCH (08:33)
[2017-11-14] MEDS: APIXABAN 2.5 MG TABLET PO SCH ×2 (08:33→20:31)
[2017-11-14] MEDS: buPROPion HCl 100 MG TAB PO SCH ×2 (08:33→12:22)
[2017-11-14] MEDS: CYANOCOBALAMIN 1,000 MCG TAB PO SCH (08:33)
[2017-11-14] MEDS: PRIMIDONE 50 MG TAB PO SCH (08:33)
[2017-11-14] MEDS: CRANBERRY FRUIT EXTRACT 200 MG CAP PO SCH ×2 (08:35→20:30)
[2017-11-14] MEDS: ENSURE HIGH PROTEIN 237 ML CAN PO SCH ×2 (08:35→20:31)
[2017-11-14] MEDS: RANITIDINE 150 MG TABLET PO SCH ×2 (08:35→20:30)
[2017-11-14] MEDS: NYSTATIN PWDR 100000 UNIT/GM TOP SCH ×2 (08:35→20:33)
--- NOTE | 2017-11-14 10:07 | P.RH.PN ---
Estimated Length of Stay: 16 Expected Discharge Date: 11/22/17 Discharge Disposition Plan: Home Family Support: Yes [facility] Goal: Mobility, Transfers, Self Care Vital Signs: Last Vital Signs Temp 98.4 F 11/14/17 06:51 Pulse 88 11/14/17 06:51 Resp 20 11/14/17 06:51 BP 112/66 11/14/17 06:51 Pulse Ox 98 11/14/17 06:51 Laboratory: Laboratory Last Values WBC 5.2 K/uL (4.3-10.9) 11/13/17 05:51 RBC 3.74 M/uL (4.33-5.43) L 11/13/17 05:51 Hgb 10.4 g/dL (13.6-17.9) L 11/13/17 05:51 Hct 32.5 % (39.6-49.0) L 11/13/17 05:51 MCV 86.8 fL (80-100) 11/13/17 05:51 MCH 27.7 pg (27.0-35.0) 11/13/17 05:51 MCHC 31.9 g/dL (32.0-36.0) L 11/13/17 05:51 RDW 15.7 % (12.1-15.2) H 11/13/17 05:51 Plt Count 240 K/uL (152-406) 11/13/17 05:51 MPV 9.2 fL (7.6-11.3) 11/13/17 05:51 Neutrophils % 45.1 % (41.7-73.7) 11/13/17 05:51 Lymphocytes % 34.3 % (15.3-44.8) 11/13/17 05:51 Monocytes % 17.3 % (3.3-12.3) H 11/13/17 05:51 Eosinophils % 2.5 % (0-4.4) 11/13/17 05:51 Basophils % 0.8 % (0-1.3) 11/13/17 05:51 Absolute Neutrophils 2.3 K/uL (1.8-8.0) 11/13/17 05:51 Absolute Lymphocytes 1.8 K/uL (0.7-4.9) 11/13/17 05:51 Absolute Monocytes 0.9 K/uL (0.1-1.3) 11/13/17 05:51 Absolute Eosinophils 0.1 K/uL (0-0.5) 11/13/17 05:51 Absolute Basophils 0.0 K/uL (0-0.5) 11/13/17 05:51 Morphology Comment Not seen (NOT SEEN) 11/08/17 05:50 Sodium 137 mEq/L (135-145) 11/13/17 05:51 Potassium 4.2 mEq/L (3.6-5.0) 11/13/17 05:51 Chloride 104 mEq/L (101-111) 11/13/17 05:51 Carbon Dioxide 30 mEq/L (21-31) 11/13/17 05:51 BUN 21 mg/dL (6-20) H 11/13/17 05:51 Creatinine 1.10 mg/dL (0.61-1.24) 11/13/17 05:51 Estimated GFR 64 mL/min (=/>90) L 11/13/17 05:51 Glucose 100 mg/dL (65-120) 11/13/17 05:51 Calcium 9.4 mg/dL (8.5-10.5) 11/13/17 05:51 Magnesium 1.9 mg/dL (1.8-2.5) 11/08/17 05:50 Albumin 2.7 g/dL (3.2-5.5) L 11/13/17 05:51 Prealbumin 17.3 mg/dl (18-38) L 11/13/17 05:51 Urine Color Yellow 11/08/17 21:00 Urine Appearance Clear 11/08/17 21:00 Urine pH 5.5 (5.0-7.0) 11/08/17 21:00 Ur Specific [place] 1.025 (1.005-1.030) 11/08/17 21:00 Urine Ketones Negative (NEG) 11/08/17 21:00 Urine Blood 3+ (NEG) H 11/08/17 21:00 Urine Nitrite Negative (NEG) 11/08/17 21:00 Urine Bilirubin Negative (NEG) 11/08/17 21:00 Urine Urobilinogen 0.2 mg/dL (0.2-1.0) 11/08/17 21:00 Ur Leukocyte Esterase 1+ (NEG) H 11/08/17 21:00 Urine RBC >50 /HPF (NONE SEEN) H 11/08/17 21:00 Urine WBC 5-10 /HPF (<5) H 11/08/17 21:00 Ur Squamous Epith Cells <5 /HPF (NONE SEEN) 11/08/17 21:00 Urine Bacteria <20 /HPF (NONE SEEN) 11/08/17 21:00 Urine Culture Reflexed Not needed 11/08/17 21:00 Urine Glucose Negative (NEG) 11/08/17 21:00 Urine Total Protein Negative (NEG) 11/08/17 21:00 Weight: 208 lb 12.8 oz Wound Present: No Closed Surgical Incision Present: Yes Negative Pressure Wound Therapy Present: No Physician Update: His CBC and basic metabolic panel are stable. He is not able to stand on his own. He uses a sliding board with minimum assitance. He will require a wheechair due to marked weakness and debility in the arms and legs. Pain Issues: tylenol #3 Q4H PRN PO Functional Improvement: pt demonstrated improved functional performance with transfers. pt is unable to maintain NWB on own in standing has has a particularly more difficult time with standng to RW. pt continues to require skilled PT services to further enhance his functional mobility. Speech Therapy Update: Pt. presents with significant deficits in memory and moderate deficits in safety awareness. Deficits in swallow funciton noted, however, patient is able to tolerate regular consistency solids and thin liquids. He requires moderate to maximum cuing to utilize dysphagia strategies and to recall independent practice provided. Written handouts and memory aids are effective when patient remembers to utilize them. Summary: Patient's care plan and shelter goals have been reviewed and revised as necessary. Please see the Rehabilitation Signature page for all necessary signatures.
--- NOTE | 2017-11-14 17:22 | RAD REPORT ---
EXAM DESCRIPTION: RAD - Femur Left - 11/14/2017 4:46 pm CLINICAL HISTORY: ORIF distal fracture of the femur COMPARISON: None. FINDINGS: No fracture or dislocation of the proximal femur. Minimal degenerative changes are present at the left hip joint. No AVN. No periarticular mass or hematoma. Total knee prosthesis is in place. There is additional surgical hardware in place fixing the distal f emur fracture. Hardware is in good position. No angulation deformity. No callus formation along the f racture plane at this time. No suspicious soft tissue finding. IMPRESSION: Distal femur fracture hardware in good position. Good anatomic alignment of the fracture fragments.
[2017-11-14] MEDS: MELATONIN 3 MG TABLET PO PRN (20:31)
[2017-11-14] MEDS: ATORVASTATIN 20 MG TAB PO SCH (20:31)
[2017-11-14] MEDS: MIRTAZAPINE 15 MG TAB PO SCH (20:31)
[2017-11-15] MEDS: METOPROLOL TAR 25 MG TAB PO SCH ×2 (05:12→17:28)
[2017-11-15] MEDS: CRANBERRY FRUIT EXTRACT 200 MG CAP PO SCH ×2 (08:19→21:36)
[2017-11-15] MEDS: RANITIDINE 150 MG TABLET PO SCH ×2 (08:19→21:37)
[2017-11-15] MEDS: CYANOCOBALAMIN 1,000 MCG TAB PO SCH (08:19)
[2017-11-15] MEDS: APIXABAN 2.5 MG TABLET PO SCH ×2 (08:19→21:36)
[2017-11-15] MEDS: VITAMIN D 5,000 UNIT CAP PO SCH (08:19)
[2017-11-15] MEDS: buPROPion HCl 100 MG TAB PO SCH ×2 (08:19→14:15)
[2017-11-15] MEDS: NYSTATIN PWDR 100000 UNIT/GM TOP SCH ×2 (08:19→20:00)
[2017-11-15] MEDS: PRIMIDONE 50 MG TAB PO SCH (08:20)
[2017-11-15] MEDS: ACETAMINOPHEN 325 MG TABLET PO PRN (08:20)
[2017-11-15] MEDS: ENSURE HIGH PROTEIN 237 ML CAN PO SCH ×2 (08:21→21:37)
[2017-11-15] MEDS: MIRTAZAPINE 15 MG TAB PO SCH (21:37)
[2017-11-15] MEDS: MELATONIN 3 MG TABLET PO PRN (21:37)
[2017-11-15] MEDS: ATORVASTATIN 20 MG TAB PO SCH (21:37)
[2017-11-16] MEDS: METOPROLOL TAR 25 MG TAB PO SCH ×2 (05:17→17:19)
[2017-11-16] MEDS: NYSTATIN PWDR 100000 UNIT/GM TOP SCH ×2 (08:00→20:00)
[2017-11-16] MEDS: CRANBERRY FRUIT EXTRACT 200 MG CAP PO SCH ×2 (08:38→20:18)
[2017-11-16] MEDS: VITAMIN D 5,000 UNIT CAP PO SCH (08:38)
[2017-11-16] MEDS: buPROPion HCl 100 MG TAB PO SCH ×2 (08:38→12:01)
[2017-11-16] MEDS: PRIMIDONE 50 MG TAB PO SCH (08:39)
[2017-11-16] MEDS: RANITIDINE 150 MG TABLET PO SCH ×2 (08:39→20:18)
[2017-11-16] MEDS: CYANOCOBALAMIN 1,000 MCG TAB PO SCH (08:39)
[2017-11-16] MEDS: APIXABAN 2.5 MG TABLET PO SCH ×2 (08:39→20:18)
[2017-11-16] MEDS: ENSURE HIGH PROTEIN 237 ML CAN PO SCH ×2 (08:40→20:20)
[2017-11-16] MEDS: ACETAMINOPHEN 325 MG TABLET PO PRN (08:40)
[2017-11-16] MEDS: ATORVASTATIN 20 MG TAB PO SCH (20:18)
[2017-11-16] MEDS: MIRTAZAPINE 15 MG TAB PO SCH (20:18)
[2017-11-16] MEDS: LORAZEPAM 0.5 MG TABLET PO PRN (20:18)
[2017-11-16] MEDS: POLYVINYL ALCOHOL 1.4% 15 ML EACH EYE PRN (20:19)
[2017-11-17] MEDS: METOPROLOL TAR 25 MG TAB PO SCH ×2 (05:22→16:59)
[2017-11-17] MEDS: ACETAMINOPHEN 325 MG TABLET PO PRN ×2 (06:35→12:53)
[2017-11-17] MEDS: RANITIDINE 150 MG TABLET PO SCH ×2 (08:35→20:08)
[2017-11-17] MEDS: VITAMIN D 5,000 UNIT CAP PO SCH (08:35)
[2017-11-17] MEDS: ENSURE HIGH PROTEIN 237 ML CAN PO SCH ×2 (08:35→20:07)
[2017-11-17] MEDS: buPROPion HCl 100 MG TAB PO SCH ×2 (08:35→12:53)
[2017-11-17] MEDS: APIXABAN 2.5 MG TABLET PO SCH ×2 (08:35→20:09)
[2017-11-17] MEDS: NYSTATIN PWDR 100000 UNIT/GM TOP SCH ×2 (08:35→20:00)
[2017-11-17] MEDS: CRANBERRY FRUIT EXTRACT 200 MG CAP PO SCH ×2 (08:35→20:08)
[2017-11-17] MEDS: PRIMIDONE 50 MG TAB PO SCH (08:35)
[2017-11-17] MEDS: CYANOCOBALAMIN 1,000 MCG TAB PO SCH (08:35)
[2017-11-17 15:08] VITALS: BMI 32.1
[2017-11-17] MEDS: MIRTAZAPINE 15 MG TAB PO SCH (20:09)
[2017-11-17] MEDS: LORAZEPAM 0.5 MG TABLET PO PRN (20:09)
[2017-11-17] MEDS: ATORVASTATIN 20 MG TAB PO SCH (20:09)
[2017-11-18] MEDS: METOPROLOL TAR 25 MG TAB PO SCH ×2 (05:13→17:26)
[2017-11-18] MEDS: CRANBERRY FRUIT EXTRACT 200 MG CAP PO SCH ×2 (08:00→20:16)
[2017-11-18] MEDS: NYSTATIN PWDR 100000 UNIT/GM TOP SCH ×2 (08:53→20:17)
[2017-11-18] MEDS: CYANOCOBALAMIN 1,000 MCG TAB PO SCH (08:53)
[2017-11-18] MEDS: PRIMIDONE 50 MG TAB PO SCH (08:54)
[2017-11-18] MEDS: buPROPion HCl 100 MG TAB PO SCH ×2 (08:54→14:24)
[2017-11-18] MEDS: APIXABAN 2.5 MG TABLET PO SCH ×2 (08:54→20:16)
[2017-11-18] MEDS: VITAMIN D 5,000 UNIT CAP PO SCH (08:54)
[2017-11-18] MEDS: RANITIDINE 150 MG TABLET PO SCH ×2 (08:54→20:16)
[2017-11-18] MEDS: ACETAMINOPHEN 325 MG TABLET PO PRN ×2 (08:55→14:24)
[2017-11-18] MEDS: ENSURE HIGH PROTEIN 237 ML CAN PO SCH ×2 (08:55→20:15)
--- NOTE | 2017-11-18 13:08 | CON ---
Date of Consultation: 11/16/2017 Reason For Consultation: History of ORIF of left distal femur. History Of Present Illness: Mr. Avalos is an 82-year-old male who underwent ORIF of a left peripros thetic distal femur fracture on around October 11, 2017. He was at the [place] for approximately 1 month po stoperatively and was then transferred to [facility] for further rehabilitation. He denies any pain at this time or fevers or chills. He has been nonweightbearing of his left lower ext remity. Review of Systems: As above, otherwise negative. Past Medical History: Parkinson's, hypertension, posttraumatic stress disorder, chronic kidney disea se, hyperlipidemia, and GERD. Allergies: TO OXYCODONE, IBUPROFEN, AND SINEMET. Past Surgical History: Left total knee arthroplasty in 1993. Family History: Reviewed, noncontributory. Physical Examination: General: No apparent distress. HEENT: Normocephalic, atraumatic. Neck: Supple. Cardiovascular: Brisk cap refill to all digits. Chest: Nonlabored breathing. Abdomen: Nondistended. Psychiatric: Responsive to exam. Musculoskeletal: Left lower extremity, no pain with range of motion of his left hip or knee. Incisi on is well healed with no surrounding erythema. No swelling noted. Neurovascular: Intact distally. Sensation grossly intact over the dorsal and plantar surface of his left foot. X-rays: X-rays of his left femur demonstrate status post ORIF of his left distal femur periprostheti c fracture. Overall, good alignment. No signs of hardware loosening or failure. Total knee arthrop lasty intact with no signs of loosening of those implants. Assessment And Plan: Mr. Avalos is an 82-year-old male just out for 1 month status post open reduct ion and internal fixation of his left distal femur fracture. We will continue with rehabilitation an d he will be nonweightbearing for approximately 8 weeks postoperatively. He will follow up [facility] 3 [facility]. CV/MODL Voice ID: [id number] Report ID: [id number]
[2017-11-18] MEDS: MELATONIN 3 MG TABLET PO PRN (20:16)
[2017-11-18] MEDS: ATORVASTATIN 20 MG TAB PO SCH (20:16)
[2017-11-18] MEDS: MIRTAZAPINE 15 MG TAB PO SCH (20:16)
[2017-11-19] MEDS: METOPROLOL TAR 25 MG TAB PO SCH ×2 (05:14→18:00)
[2017-11-19] MEDS: ACETAMINOPHEN 325 MG TABLET PO PRN ×3 (07:15→23:22)
[2017-11-19] MEDS: NYSTATIN PWDR 100000 UNIT/GM TOP SCH ×2 (08:00→20:00)
[2017-11-19] MEDS: CRANBERRY FRUIT EXTRACT 200 MG CAP PO SCH ×2 (09:01→21:00)
[2017-11-19] MEDS: CYANOCOBALAMIN 1,000 MCG TAB PO SCH (09:02)
[2017-11-19] MEDS: buPROPion HCl 100 MG TAB PO SCH ×2 (09:02→14:27)
[2017-11-19] MEDS: APIXABAN 2.5 MG TABLET PO SCH ×2 (09:03→21:00)
[2017-11-19] MEDS: RANITIDINE 150 MG TABLET PO SCH ×2 (09:03→21:00)
[2017-11-19] MEDS: VITAMIN D 5,000 UNIT CAP PO SCH (09:03)
[2017-11-19] MEDS: PRIMIDONE 50 MG TAB PO SCH (09:03)
[2017-11-19] MEDS: ENSURE HIGH PROTEIN 237 ML CAN PO SCH ×2 (09:05→21:00)
--- NOTE | 2017-11-19 16:23 | FAST ---
SHIFT START DATE/TIME: 11/19/2017 07:00 (CDT) SHIFT END DATE/TIME: 11/19/2017 19:00 (CDT) NAME MARCE BRAND DATE OF : 1935 DATE OF ADMISSION: 11/07/2017 19:54 (CDT) PHONE: AGE: 82 N# [id number] GENDER: Male ENCOUNTER PHYSICIAN: Dr. Alex Ribeiro M.D. ADMISSION DIAGNOSIS: - Orthopaedic Disorders 08 - Femur (Shaft) Fracture (08.2) Left periprosthetic distal femur fracture. EATING: EATING - STEP 1: Does the patient require assistance when eating? Yes. EATING - STEP 2: Does the patient require the assistance of a helper? No, patient only requires an assistive device, O R s/he takes more than reasonable time to eat, OR there is a safety concern, OR s/he requires modifie d food consistency EATING - SCORE: 6-JM GROOMING: GROOMING - STEP 1: Does the patient require assistance when grooming? Yes. GROOMING - STEP 2: Does the patient require the assistance of a helper? No. The patient only requires an assistive devic e, OR takes more than reasonable time to groom, OR there is a concern for safety as the patient groom s GROOMING - SCORE: 6-JM BATHING: Activity did not occur on this shift BATHING - SCORE: 0-UNK DRESSING - UPPER BODY: Button down shirt or blouse - NOT tucked in (four steps) ARTICLES SCORE Total number of steps: 4 DRESSING - UPPER BODY - STEP 1: Does the patient require help when dressing above the waist? Yes. DRESSING - UPPER BODY - STEP 2: Does the patient require the assistance of a helper? Yes. DRESSING - UPPER BODY - STEP 3: Does the helper touch the patient while dressing? Yes. DRESSING - UPPER BODY - STEP 4: How many of the total steps does the patient complete on his/her own? 2 DRESSING - UPPER BODY - SCORE: 3-MOD DRESSING - LOWER BODY: Elastic waist pants (three steps) Slip-on shoe - Right foot (one step) Sock - Left foot (one step) Tied or buckled shoe - Left foot (two steps) ARTICLES SCORE Total number of steps: 7 DRESSING - LOWER BODY - STEP 1: Does the patient require help when dressing below the waist? Yes. DRESSING - LOWER BODY - STEP 2: Does the patient require the assistance of a helper? Yes. DRESSING - LOWER BODY - STEP 3: Does the helper touch the patient while dressing? Yes. DRESSING - LOWER BODY - STEP 4: How many of the total steps does the patient complete on his/her own? 0 DRESSING - LOWER BODY - STEP 5: Does patient require total assistance for dressing below the waist such as the helper holding clothin g and performing basically all the activities? Yes. DRESSING - LOWER BODY - SCORE: 1-DEP TOILETING: TOILETING - STEP 1: Does the patient require assistance with toileting? Yes. TOILETING - STEP 2: Does the patient require the assistance of a helper? Yes. TOILETING - STEP 3: How much assistance does the patient require from the helper? Hands-on assistance from the helper TOILETING - STEP 4: Of the 3 tasks: 1) Adjusting clothing prior to use, 2) Cleansing of perineal area, 3) Adjusting clot ezio after use; How many tasks does the patient perform WITHOUT assistance of the helper? One task TOILETING - SCORE: 2-MAX BLADDER MANAGEMENT: BLADDER MANAGEMENT - STEP 1: Does the patient control the bladder completely and intentionally without equipment or devices or med ications, and is always continent? No. BLADDER MANAGEMENT - STEP 2: Does the patient require the assistance of a helper? Yes. BLADDER MANAGEMENT - STEP 3: How much assistance does the patient require from the helper? Only set-up of equipment - such as plac ing it within reach of the patient or emptying a device - to maintain either satisfactory voiding pat tern or managing an external device, such as an absorbent pad, ileal device, or catheter BLADDER MANAGEMENT - SCORE: 5-SUP BLADDER MANAGEMENT - FREQUENCY OF ACCIDENTS: BLADDER MANAGEMENT(FA) - STEP 1: How many accidents has the patient had during the current shift? 0 BOWEL MANAGEMENT: Activity did not occur on this shift BOWEL MANAGEMENT - SCORE: 7-IND BOWEL MANAGEMENT - FREQUENCY OF ACCIDENTS: BOWEL MANAGEMENT(FA) - STEP 1: How many accidents has the patient had during the current shift? 0 TRANSFERS: BED, CHAIR, WHEELCHAIR: Patient requires more than one helper and/or the use of a mechanical lift is utilized TRANSFERS: BED, CHAIR, WHEELCHAIR - SCORE: 1-DEP TRANSFERS: TOILET: Patient requires more than one helper and/or the use of a mechanical lift is utilized TRANSFERS: TOILET - SCORE: 1-DEP TRANSFERS: SHOWER: Activity did not occur on this shift TRANSFERS: SHOWER - SCORE: 0-UNK TRANSFERS: TUB: Activity did not occur on this shift TRANSFERS: TUB - SCORE: 0-UNK LOCOMOTION: WALK: Activity did not occur on this shift LOCOMOTION: WALK - SCORE: 0-UNK LOCOMOTION: WHEELCHAIR: LOCOMOTION: WHEELCHAIR - STEP 1: Does the patient need help to go 150 feet in a wheelchair? Yes. LOCOMOTION: WHEELCHAIR - STEP 2: How much assistance does the patient need from the helper? Only incidental help such as around corner s or over thresholds LOCOMOTION: WHEELCHAIR - SCORE: 4-MIN COMPREHENSION: COMPREHENSION: TYPE: Both COMPREHENSION - STEP 1: Does the patient require help to understand complex and abstract ideas (such as current events, finan panda, discharge planning, medical issues, relationships, etc)? No. COMPREHENSION - STEP 2: Does the patient need extra time, require an assistive device (such as glasses, hearing aids, or an a ugmentative communication system), OR does s/he have mild difficulty expressing complex and abstract ideas (including mild dysarthria or mild word-finding problems)? Yes. COMPREHENSION - SCORE: 6-JM EXPRESSION EXPRESSION: TYPE: Both EXPRESSION - STEP 1: Does the patient require help expressing complex and abstract ideas (such as current events, finances , discharge planning, medical issues, relationships, etc)? No. EXPRESSION - STEP 2: Does the patient need extra time, require an assistive device (such as augmentive communication syste m or a communication board), OR does s/he have mild difficulty expressing complex and abstract ideas (including mild dysarthria or mild word-find problems)? Yes. EXPRESSION - SCORE: 6-JM SOCIAL INTERACTION: SOCIAL INTERACTION - STEP 1: Does the patient require a helper to interact with others in social and therapeutic situations? No. SOCIAL INTERACTION - STEP 2: Does the patient need extra time in social situations, OR does s/he interact with staff, other patien ts, and family members ONLY in structured environments, OR does s/he require medication for social in teraction? Yes, patient needs extra time SOCIAL INTERACTION - SCORE: 6-JM PROBLEM SOLVING: PROBLEM SOLVING - STEP 1: Does the patient need help to solve complex problems such as managing a checking account or confronti ng interpersonal problems? No. PROBLEM SOLVING - STEP 2: Does the patient require extra time to make decisions or solve problems, OR does s/he have slight dif ficulty reading, initiating, or self-correcting in unfamiliar situations? Yes, patient needs extra ti me. PROBLEM SOLVING - SCORE: 6-JM MEMORY: MEMORY - STEP 1: Does the patient need help to remember frequently encountered people, daily routines, and executing r equests? No. MEMORY - STEP 2: Does the patient have slight difficulty recognizing frequently encountered people, daily routines, or executing requests without the need for repetition or using self-initiated or environmental cues to remember? Yes. MEMORY - SCORE: 6-JM SIGNATURE PANEL: The following modified sections: Eating - Score, Grooming - Score, Bathing - Score, Dressing - Upper Body - Score, Dressing - Lower Body - Score, Toileting - Score, Bladder Management - Score, Bowel Man agement - Score, Transfers: Bed, Chair, Wheelchair - Score, Transfers: Toilet - Score, Transfers: Merline wer - Score, Transfers: Tub - Score, Locomotion: Walk - Score, Locomotion: Wheelchair - Score, Compre hension - Score, Expression - Score, Social Interaction - Score, Problem Solving - Score, Memory - Sc ore were [electronically] signed by Marysol Crocker C.N.A. on FriNov 19 2017 15:23:01 T-0500 ([place] Daylight Time)
--- NOTE | 2017-11-19 16:24 | FAST ---
ENCOUNTER DATE AND TIME: 11/19/2017 08:00 (CDT) NAME MARCE BRAND DATE OF : 1935 DATE OF ADMISSION: 11/07/2017 19:54 (CDT) PHONE: AGE: 82 N# [id number] GENDER: Male ENCOUNTER PHYSICIAN: Dr. Alex Ribeiro M.D. ADMISSION DIAGNOSIS: - Orthopaedic Disorders 08 - Femur (Shaft) Fracture (08.2) Left periprosthetic distal femur fracture. EATING: EATING - STEP 1: Does the patient require assistance when eating? No. EATING - SCORE: 7-IND GROOMING: Comb/brush hair Oral care Wash, rinse, and dry face Wash, rinse, and dry hands GROOMING - STEP 1: Does the patient require assistance when grooming? No. GROOMING - SCORE: 7-IND BATHING: Abdomen Buttocks Chest Left arm Left lower leg and foot Left upper leg Perineal area Right arm Right lower leg and foot Right upper leg BATHING - STEP 1: Does the patient require assistance when bathing? Yes. BATHING - STEP 2: Does the patient require the assistance of a helper? Yes. BATHING - STEP 3: How much assistance does the patient require from the helper? Only incidental help such as placement of a wash cloth in his/her hand a few times as s/he bathes OR help to bathe just one or two areas of the body BATHING - SCORE: 4-MIN DRESSING - UPPER BODY: Button down shirt or blouse - NOT tucked in (four steps) ARTICLES SCORE Total number of steps: 4 DRESSING - UPPER BODY - STEP 1: Does the patient require help when dressing above the waist? Yes. DRESSING - UPPER BODY - STEP 2: Does the patient require the assistance of a helper? Yes. DRESSING - UPPER BODY - STEP 3: Does the helper touch the patient while dressing? No. DRESSING - UPPER BODY - SCORE: 5-SUP DRESSING - LOWER BODY: Sock - Left foot (one step) Tied or buckled shoe - Right foot (two steps) Underwear (three steps) Zippered pants (four steps) ARTICLES SCORE Total number of steps: 10 DRESSING - LOWER BODY - STEP 1: Does the patient require help when dressing below the waist? Yes. DRESSING - LOWER BODY - STEP 2: Does the patient require the assistance of a helper? Yes. DRESSING - LOWER BODY - STEP 3: Does the helper touch the patient while dressing? Yes. DRESSING - LOWER BODY - STEP 4: How many of the total steps does the patient complete on his/her own? 6 DRESSING - LOWER BODY - SCORE: 3-MOD TOILETING: Activity did not occur on this shift TOILETING - SCORE: 0-UNK BLADDER MANAGEMENT: Activity did not occur on this shift BLADDER MANAGEMENT - SCORE: 7-IND BOWEL MANAGEMENT: Activity did not occur on this shift BOWEL MANAGEMENT - SCORE: 7-IND TRANSFERS: BED, CHAIR, WHEELCHAIR: Activity did not occur on this shift TRANSFERS: BED, CHAIR, WHEELCHAIR - SCORE: 0-UNK TRANSFERS: TOILET: Activity did not occur on this shift TRANSFERS: TOILET - SCORE: 0-UNK TRANSFERS: SHOWER: TRANSFERS: SHOWER - STEP 1: Does the patient require assistance with shower transfers? Yes. TRANSFERS: SHOWER - STEP 2: Does the patient require the assistance of a helper? Yes. TRANSFERS: SHOWER - STEP 3: How much assistance does the patient require from the helper? More than incidental help TRANSFERS: SHOWER - STEP 4: How much more help does the patient require from the helper? Lifting the patient up AND down from the wheelchair onto the shower chair TRANSFERS: SHOWER - SCORE: 2-MAX TRANSFERS: TUB: Activity did not occur on this shift TRANSFERS: TUB - SCORE: 0-UNK LOCOMOTION: WALK: Activity did not occur on this shift LOCOMOTION: WALK - SCORE: 0-UNK LOCOMOTION: WHEELCHAIR: Activity did not occur on this shift LOCOMOTION: WHEELCHAIR - SCORE: 0-UNK LOCOMOTION: STAIRS: Activity did not occur on this shift LOCOMOTION: STAIRS - SCORE: 0-UNK COMPREHENSION: COMPREHENSION: TYPE: Both COMPREHENSION - STEP 1: Does the patient require help to understand complex and abstract ideas (such as current events, finan panda, discharge planning, medical issues, relationships, etc)? Yes. COMPREHENSION - STEP 2: Does the patient require help to understand questions or statements about basic needs or ideas (such as hunger, thirst, sleep, safety, daily schedule, room location, or discomfort) half or more of the t reena? No. COMPREHENSION - STEP 3: How often does the patient need help to understand directions and conversation about basic needs? Les s than 10% of the time COMPREHENSION - SCORE: 5-SUP EXPRESSION EXPRESSION: TYPE: Both EXPRESSION - STEP 1: Does the patient require help expressing complex and abstract ideas (such as current events, finances , discharge planning, medical issues, relationships, etc)? No. EXPRESSION - STEP 2: Does the patient need extra time, require an assistive device (such as augmentive communication syste m or a communication board), OR does s/he have mild difficulty expressing complex and abstract ideas (including mild dysarthria or mild word-find problems)? Yes. EXPRESSION - SCORE: 6-JM SOCIAL INTERACTION: SOCIAL INTERACTION - STEP 1: Does the patient require a helper to interact with others in social and therapeutic situations? No. SOCIAL INTERACTION - STEP 2: Does the patient need extra time in social situations, OR does s/he interact with staff, other patien ts, and family members ONLY in structured environments, OR does s/he require medication for social in teraction? Yes, patient needs extra time SOCIAL INTERACTION - SCORE: 6-JM PROBLEM SOLVING: PROBLEM SOLVING - STEP 1: Does the patient need help to solve complex problems such as managing a checking account or confronti ng interpersonal problems? Yes. PROBLEM SOLVING - STEP 2: Does the patient solve basic routine problems half or more of the time? Yes. PROBLEM SOLVING - STEP 3: How often does the patient need help to solve basic routine problems? Less than 10% of the time PROBLEM SOLVING - SCORE: 5-SUP MEMORY: MEMORY - STEP 1: Does the patient need help to remember frequently encountered people, daily routines, and executing r equests? No. MEMORY - STEP 2: Does the patient have slight difficulty recognizing frequently encountered people, daily routines, or executing requests without the need for repetition or using self-initiated or environmental cues to remember? Yes. MEMORY - SCORE: 6-JM SIGNATURE PANEL: The following modified sections: Eating - Score, Grooming - Score, Bathing - Score, Dressing - Upper Body - Score, Dressing - Lower Body - Score, Toileting - Score, Transfers: Bed, Chair, Wheelchair - S core, Transfers: Toilet - Score, Transfers: Tub - Score, Transfers: Shower - Score, Comprehension - S core, Expression - Score, Social Interaction - Score, Problem Solving - Score, Memory - Score were [e lectronically] signed by Ruby Monroe OT on FriNov 19 2017 15:23:20 GMT-0500 (Central Daylight T reena)
--- NOTE | 2017-11-19 16:32 | FAST ---
ENCOUNTER DATE AND TIME: 11/18/2017 08:00 (CDT) NAME MARCE BRAND DATE OF : 1935 DATE OF ADMISSION: 11/07/2017 19:54 (CDT) PHONE: AGE: 82 SSN# [id number] GENDER: Male ENCOUNTER PHYSICIAN: Dr. Alex Ribeiro M.D. ADMISSION DIAGNOSIS: - Orthopaedic Disorders 08 - Femur (Shaft) Fracture (08.2) Left periprosthetic distal femur fracture. EATING: Activity did not occur on this shift EATING - SCORE: 0-UNK GROOMING: Activity did not occur on this shift GROOMING - SCORE: 0-UNK BATHING: Activity did not occur on this shift BATHING - SCORE: 0-UNK DRESSING - UPPER BODY: Activity did not occur on this shift Patient is not dressing in public clothing ARTICLES SCORE Total number of steps: 0 DRESSING - UPPER BODY - SCORE: 0-UNK DRESSING - LOWER BODY: Activity did not occur on this shift Patient is not dressing in public clothing ARTICLES SCORE Total number of steps: 0 DRESSING - LOWER BODY - SCORE: 0-UNK TOILETING: Activity did not occur on this shift TOILETING - SCORE: 0-UNK BLADDER MANAGEMENT: Activity did not occur on this shift BLADDER MANAGEMENT - SCORE: 7-IND BOWEL MANAGEMENT: Activity did not occur on this shift BOWEL MANAGEMENT - SCORE: 7-IND TRANSFERS: BED, CHAIR, WHEELCHAIR: TRANSFERS: BED, CHAIR, WHEELCHAIR - STEP 1: Does the patient require assistance with bed, chair, or wheelchair transfers? Yes. TRANSFERS: BED, CHAIR, WHEELCHAIR - STEP 2: Does the patient require the assistance of a helper? Yes. TRANSFERS: BED, CHAIR, WHEELCHAIR - STEP 3: How much assistance does the patient require from the helper? Steadying/guiding assistance TRANSFERS: BED, CHAIR, WHEELCHAIR - SCORE: 4-MIN TRANSFERS: TOILET: Activity did not occur on this shift TRANSFERS: TOILET - SCORE: 0-UNK TRANSFERS: SHOWER: Activity did not occur on this shift TRANSFERS: SHOWER - SCORE: 0-UNK TRANSFERS: TUB: Activity did not occur on this shift TRANSFERS: TUB - SCORE: 0-UNK LOCOMOTION: WALK: Activity did not occur on this shift LOCOMOTION: WALK - SCORE: 0-UNK LOCOMOTION: WHEELCHAIR: LOCOMOTION: WHEELCHAIR - STEP 1: Does the patient need help to go 150 feet in a wheelchair? Yes. LOCOMOTION: WHEELCHAIR - STEP 2: How much assistance does the patient need from the helper? Only supervision, cuing, or coaxing LOCOMOTION: WHEELCHAIR - SCORE: 5-SUP LOCOMOTION: STAIRS: Activity did not occur on this shift LOCOMOTION: STAIRS - SCORE: 0-UNK COMPREHENSION: COMPREHENSION - SCORE: 0-UNK EXPRESSION EXPRESSION - SCORE: 0-UNK SOCIAL INTERACTION: SOCIAL INTERACTION - SCORE: 0-UNK PROBLEM SOLVING: PROBLEM SOLVING - SCORE: 0-UNK MEMORY: MEMORY - SCORE: 0-UNK SIGNATURE PANEL: The following modified sections: Transfers: Bed, Chair, Wheelchair - Score, Transfers: Toilet - Score , Locomotion: Walk - Score, Locomotion: Wheelchair - Score, Locomotion: Stairs - Score were [shankar mario] signed by Giovanny Ac PTA on FriNov 19 2017 15:31:48 GMT-0500 (Central Daylight Time)
--- NOTE | 2017-11-19 16:33 | FAST ---
ENCOUNTER DATE AND TIME: 11/19/2017 08:00 (CDT) NAME MARCE BRAND DATE OF : 1935 DATE OF ADMISSION: 11/07/2017 19:54 (CDT) PHONE: AGE: 82 SSN# [id number] GENDER: Male ENCOUNTER PHYSICIAN: Dr. Alex Ribeiro M.D. ADMISSION DIAGNOSIS: - Orthopaedic Disorders 08 - Femur (Shaft) Fracture (08.2) Left periprosthetic distal femur fracture. EATING: Activity did not occur on this shift EATING - SCORE: 0-UNK GROOMING: Activity did not occur on this shift GROOMING - SCORE: 0-UNK BATHING: Activity did not occur on this shift BATHING - SCORE: 0-UNK DRESSING - UPPER BODY: Activity did not occur on this shift Patient is not dressing in public clothing ARTICLES SCORE Total number of steps: 0 DRESSING - UPPER BODY - SCORE: 0-UNK DRESSING - LOWER BODY: Activity did not occur on this shift Patient is not dressing in public clothing ARTICLES SCORE Total number of steps: 0 DRESSING - LOWER BODY - SCORE: 0-UNK TOILETING: Activity did not occur on this shift TOILETING - SCORE: 0-UNK BLADDER MANAGEMENT: Activity did not occur on this shift BLADDER MANAGEMENT - SCORE: 7-IND BOWEL MANAGEMENT: Activity did not occur on this shift BOWEL MANAGEMENT - SCORE: 7-IND TRANSFERS: BED, CHAIR, WHEELCHAIR: TRANSFERS: BED, CHAIR, WHEELCHAIR - STEP 1: Does the patient require assistance with bed, chair, or wheelchair transfers? Yes. TRANSFERS: BED, CHAIR, WHEELCHAIR - STEP 2: Does the patient require the assistance of a helper? Yes. TRANSFERS: BED, CHAIR, WHEELCHAIR - STEP 3: How much assistance does the patient require from the helper? Steadying/guiding assistance TRANSFERS: BED, CHAIR, WHEELCHAIR - SCORE: 4-MIN TRANSFERS: TOILET: Activity did not occur on this shift TRANSFERS: TOILET - SCORE: 0-UNK TRANSFERS: SHOWER: Activity did not occur on this shift TRANSFERS: SHOWER - SCORE: 0-UNK TRANSFERS: TUB: Activity did not occur on this shift TRANSFERS: TUB - SCORE: 0-UNK LOCOMOTION: WALK: Activity did not occur on this shift LOCOMOTION: WALK - SCORE: 0-UNK LOCOMOTION: WHEELCHAIR: LOCOMOTION: WHEELCHAIR - STEP 1: Does the patient need help to go 150 feet in a wheelchair? Yes. LOCOMOTION: WHEELCHAIR - STEP 2: How much assistance does the patient need from the helper? Only supervision, cuing, or coaxing LOCOMOTION: WHEELCHAIR - SCORE: 5-SUP LOCOMOTION: STAIRS: Activity did not occur on this shift LOCOMOTION: STAIRS - SCORE: 0-UNK COMPREHENSION: COMPREHENSION - SCORE: 0-UNK EXPRESSION EXPRESSION - SCORE: 0-UNK SOCIAL INTERACTION: SOCIAL INTERACTION - SCORE: 0-UNK PROBLEM SOLVING: PROBLEM SOLVING - SCORE: 0-UNK MEMORY: MEMORY - SCORE: 0-UNK SIGNATURE PANEL: The following modified sections: Transfers: Bed, Chair, Wheelchair - Score, Transfers: Toilet - Score , Locomotion: Walk - Score, Locomotion: Wheelchair - Score, Locomotion: Stairs - Score were [shankar mario] signed by Giovanny Ac PTA on FriNov 19 2017 15:33:03 GMT-0500 (Central Daylight Time)
--- NOTE | 2017-11-19 17:20 | FAST ---
ENCOUNTER DATE AND TIME: 11/19/2017 08:00 (CDT) NAME MARCE BRAND DATE OF : 1935 DATE OF ADMISSION: 11/07/2017 19:54 (CDT) PHONE: AGE: 82 SSN# [id number] GENDER: Male ENCOUNTER PHYSICIAN: Dr. Alex Ribeiro M.D. ADMISSION DIAGNOSIS: - Orthopaedic Disorders 08 - Femur (Shaft) Fracture (08.2) Left periprosthetic distal femur fracture. EATING: Activity did not occur on this shift EATING - SCORE: 0-UNK GROOMING: Activity did not occur on this shift GROOMING - SCORE: 0-UNK BATHING: Activity did not occur on this shift BATHING - SCORE: 0-UNK DRESSING - UPPER BODY: Activity did not occur on this shift Patient is not dressing in public clothing ARTICLES SCORE Total number of steps: 0 DRESSING - UPPER BODY - SCORE: 0-UNK DRESSING - LOWER BODY: Activity did not occur on this shift Patient is not dressing in public clothing ARTICLES SCORE Total number of steps: 0 DRESSING - LOWER BODY - SCORE: 0-UNK TOILETING: Activity did not occur on this shift TOILETING - SCORE: 0-UNK BLADDER MANAGEMENT: Activity did not occur on this shift BLADDER MANAGEMENT - SCORE: 7-IND BOWEL MANAGEMENT: Activity did not occur on this shift BOWEL MANAGEMENT - SCORE: 7-IND TRANSFERS: BED, CHAIR, WHEELCHAIR: Activity did not occur on this shift TRANSFERS: BED, CHAIR, WHEELCHAIR - SCORE: 0-UNK TRANSFERS: TOILET: Activity did not occur on this shift TRANSFERS: TOILET - SCORE: 0-UNK TRANSFERS: SHOWER: Activity did not occur on this shift TRANSFERS: SHOWER - SCORE: 0-UNK TRANSFERS: TUB: Activity did not occur on this shift TRANSFERS: TUB - SCORE: 0-UNK LOCOMOTION: WALK: Activity did not occur on this shift LOCOMOTION: WALK - SCORE: 0-UNK LOCOMOTION: WHEELCHAIR: Activity did not occur on this shift LOCOMOTION: WHEELCHAIR - SCORE: 0-UNK LOCOMOTION: STAIRS: Activity did not occur on this shift LOCOMOTION: STAIRS - SCORE: 0-UNK COMPREHENSION: COMPREHENSION - STEP 1: Does the patient require help to understand complex and abstract ideas (such as current events, finan panda, discharge planning, medical issues, relationships, etc)? No. COMPREHENSION - STEP 2: Does the patient need extra time, require an assistive device (such as glasses, hearing aids, or an a ugmentative communication system), OR does s/he have mild difficulty expressing complex and abstract ideas (including mild dysarthria or mild word-finding problems)? Yes. COMPREHENSION - SCORE: 6-JM EXPRESSION EXPRESSION - STEP 1: Does the patient require help expressing complex and abstract ideas (such as current events, finances , discharge planning, medical issues, relationships, etc)? No. EXPRESSION - STEP 2: Does the patient need extra time, require an assistive device (such as augmentive communication syste m or a communication board), OR does s/he have mild difficulty expressing complex and abstract ideas (including mild dysarthria or mild word-find problems)? Yes. EXPRESSION - SCORE: 6-JM SOCIAL INTERACTION: SOCIAL INTERACTION - STEP 1: Does the patient require a helper to interact with others in social and therapeutic situations? No. SOCIAL INTERACTION - STEP 2: Does the patient need extra time in social situations, OR does s/he interact with staff, other patien ts, and family members ONLY in structured environments, OR does s/he require medication for social in teraction? Yes, patient needs extra time SOCIAL INTERACTION - SCORE: 6-JM PROBLEM SOLVING: PROBLEM SOLVING - STEP 1: Does the patient need help to solve complex problems such as managing a checking account or confronti ng interpersonal problems? Yes. PROBLEM SOLVING - STEP 2: Does the patient solve basic routine problems half or more of the time? Yes. PROBLEM SOLVING - STEP 3: How often does the patient need help to solve basic routine problems? 10%-24% of the time PROBLEM SOLVING - SCORE: 4-MIN MEMORY: MEMORY - STEP 1: Does the patient need help to remember frequently encountered people, daily routines, and executing r equests? Yes. MEMORY - STEP 2: How often does the patient need help to remember frequently encountered people, daily routines, and e xecuting requests? 25% - 49% of the time MEMORY - SCORE: 3-MOD SIGNATURE PANEL: The following modified sections: Comprehension - Score, Expression - Score, Social Interaction - Scor e, Problem Solving - Score, Memory - Score were [electronically] signed by ROBBIE Alfaro on Fri 16:20:11 GMT-0500 (Central Daylight Time)
--- NOTE | 2017-11-19 18:29 | R.PN ---
ENCOUNTER DATE AND TIME: 11/19/2017 17:28 (CDT) NAME MARCE BRAND DATE OF : 1935 DATE OF ADMISSION: 11/07/2017 19:54 (CDT) Left periprosthetic distal femur fractureCHIEF COMPLAINT: Left hip fracture SUBJECTIVE: Pt denied any Shortness of Breath. Pt denied any depression. Propelled wheelchair 150' with standby assistance. VITAL SIGNS Temperature: 97.4 F SBP/DBP: 108/64 Pulse: 81 Resp: 16 MEDICATION ALLERGIES: Penicillin, Hydrocodone, Ibuprofen, Sinemet 25/100 tablet ENVIRONMENTAL ALLERGIES: None Known - Substance Allergies None Known - Other Allergies None Known NURSING: - Shower allowing shower - Skin care per protocol PRECAUTIONS: - Weight Bearing Precaution NWB left LE - Fall Precaution Bed and chair alarm ACTIVITIES OOB only with supervision THERAPIES: - Occupational Therapy Evaluate and Treat. - Physical Therapy Evaluate and Treat. PHYSICAL EXAM - Gen Alert and awake Lying in bed No apparent distress Oriented to: person, time, and place - Skin Left thigh with surgical incision Normacephalic - Eyes No abnormalities - ENMT No abnormalities - Neck No abnormalities - CVS RRR - Chest No abnormalities - Abd Soft - GI Non distended Deferred - No abnormalities - Ext Mild postoperative edema in the left lower extremity - MSK 4+/5 weakness in left lower extremity - Psych No abnormalities ASSESSMENT: Pt. is a 82 yo Right-handed white male.On 10/11/2017 he was admitted to [facility] with diagno sis Left periprosthetic distal femur fracture.His impairment category is Orthopaedic Disorders 08 - Femur (Shaft) Fracture (08.2).Pre-morbidly, Pt. was independent/mod-I in Transfers Control, Communica tion, Social Cognition, Self-Care, Locomotion, and Sphincter Control; and he had good Sphincter Contr ol.Currently, he has deficits of Safety Awareness, Transfers Control, Communication, Social Cognition , Balance, Self-Care, Endurance, and Locomotion.Pt. is now referred to [facility] for acute in-patient rehabilitation in order to maximize patient's functional independence in act ivities of daily living, strength, ROM, and mobility.- Rehab Goal Patient has realistic goal of being discharged at assistance level 6-Cathy to reside at Home with Fam samantha/Relatives. MDM/PLAN: - Physical Therapy Decreased range of motion - to improve, our physical therapists will perform initial evaluation of p t's status upon admission and devise an individualized program for increasing patient's Range of Kenn on. Gait dysfunction - to improve, our physical therapists will perform initial evaluation of pt's statu s upon admission and devise an individualized program for Gait Training, and Wheel Chair mobility Inability to transfer - to improve, our physical therapists will perform initial evaluation of pt's status upon admission and devise an individualized program for Bed mobility Need for home safety evaluation - to improve, our physical therapists will perform initial evaluatio n of pt's status upon admission and devise an individualized program for Home Evaluation Need in caregiver upon discharge - to improve, our physical therapists will perform initial evaluati on of pt's status upon admission and devise an individualized program for Caregiver Training Edema - to improve, our physical therapists will perform initial evaluation of pt's status upon admi ssion and devise an individualized program for Elevation Training, and Lymphedema Therapy New precaution - to improve, our physical therapists will perform initial evaluation of pt's status upon admission and devise an individualized program for Patient precaution education Poor balance - to improve, our physical therapists will perform initial evaluation of pt's status up on admission and devise an individualized program for Balance Training Poor endurance - to improve, our physical therapists will perform initial evaluation of pt's status upon admission and devise an individualized program for Endurance Training Weakness - to improve, our physical therapists will perform initial evaluation of pt's status upon a dmission and devise an individualized program for Aquatic Therapy, Neuromuscular Reeducation, and Str engthening Achieving independence - to improve, our physical therapists will perform initial evaluation of pt's status upon admission and devise an individualized program for Community Reintegration Activities - Diet Type Continue Regular - Diet - Liquid Texture Continue Regular - Tube Feed Continue N/A - Weight Bearing Precaution NWB left LE - Fall Precaution Bed and chair alarm - Skin care per protocol - Diet - Solid Texture Continue Regular - Shower allowing shower - Occupational Therapy ADL deficits - to improve, our occupation therapists will perform initial evaluation of pt's status upon admission and devise an individualized program for Bathing, Bed mobility, Community Reintegratio n, Cooking, Dressing, Eating, Fine Motor Skills, Grooming, Homemaking, Kitchen Mobility, Laundry, Pat ient Education, Safety Awareness, Splinting - Positioning, Transfers(Toilet, Tub, Shower), and Wheel Chair Management Cognitive deficits - to improve, our occupation therapists will perform initial evaluation of pt's s tatus upon admission and devise an individualized program for Cognition - orientation Need for senior care assistant - to improve, our occupation therapists will perform initial evaluation of pt's status upon admission and devise an individualized program for Caregiver Training Weakness - to improve, our occupation therapists will perform initial evaluation of pt's status upon admission and devise an individualized program for Aquatic Therapy, Balance, Endurance, UE ROM, and UE strengthening FUNCTIONAL STATUS: UPDATED AT WEEKLY TEAM CONFERENCE - Bladder Same accident frequency: 7-Ind - No accidents in the past 7 days - Bowel Same accident frequency: 7-Ind - No accidents in the past 7 days - Walking Same score based on distance walked: 0(N/A) - Wheelchair Same score based on distance traveled: 2(50-149ft) FUNCTIONAL STATUS: - Self-Care A. Eating sup B. Grooming Mauri C. Bathing maxA D. Dressing - Upper Mauri E. Dressing - Lower maxA F. Toileting Dep - Sphincter Control G: Bladder control Ind H: Bowel control Ind - Transfers Control I. Bed/Chair/Wheelchair Dep J. Toilet Dep K. Tub/Shower ADNO - Locomotion L. Walk/Wheelchair (C) Ind L. Walk/Wheelchair (W) Ind M. Stairs ADNO - Communication N. Comprehension (B) Mauri O. Expression (B) sup - Social Cognition P. Social Interaction sup Q. Problem Solving Mauri R. Memory Mauri - Endurance Poor - Balance Poor - Safety Awareness Fair CURRENT FUNC. DEFICITS: Safety Awareness, Transfers Control, Communication, Social Cognition, Balance, Self-Care, Endurance, and Locomotion SIGNATURE PANEL: (CDT)
[2017-11-19] MEDS: ATORVASTATIN 20 MG TAB PO SCH (21:01)
[2017-11-19] MEDS: MELATONIN 3 MG TABLET PO PRN (21:01)
[2017-11-19] MEDS: MIRTAZAPINE 15 MG TAB PO SCH (21:01)
--- NOTE | 2017-11-20 03:28 | FAST ---
SHIFT START DATE/TIME: 11/19/2017 19:00 (CDT) SHIFT END DATE/TIME: 11/20/2017 07:00 (CDT) NAME MARCE BRAND DATE OF : 1935 DATE OF ADMISSION: 11/07/2017 19:54 (CDT) PHONE: AGE: 82 N# [id number] GENDER: Male ENCOUNTER PHYSICIAN: Dr. Alex Ribeiro M.D. ADMISSION DIAGNOSIS: - Orthopaedic Disorders 08 - Femur (Shaft) Fracture (08.2) Left periprosthetic distal femur fracture. EATING: Activity did not occur on this shift EATING - SCORE: 0-UNK GROOMING: Activity did not occur on this shift GROOMING - SCORE: 0-UNK BATHING: Activity did not occur on this shift BATHING - SCORE: 0-UNK DRESSING - UPPER BODY: Patient is not dressing in public clothing ARTICLES SCORE Total number of steps: 0 DRESSING - UPPER BODY - SCORE: 0-UNK DRESSING - LOWER BODY: Patient is not dressing in public clothing ARTICLES SCORE Total number of steps: 0 DRESSING - LOWER BODY - SCORE: 0-UNK TOILETING: TOILETING - STEP 1: Does the patient require assistance with toileting? Yes. TOILETING - STEP 2: Does the patient require the assistance of a helper? Yes. TOILETING - STEP 3: How much assistance does the patient require from the helper? Only supervision TOILETING - SCORE: 5-SUP BLADDER MANAGEMENT: BLADDER MANAGEMENT - STEP 1: Does the patient control the bladder completely and intentionally without equipment or devices or med ications, and is always continent? No. BLADDER MANAGEMENT - STEP 2: Does the patient require the assistance of a helper? Yes. BLADDER MANAGEMENT - STEP 3: How much assistance does the patient require from the helper? Only set-up of equipment - such as plac ing it within reach of the patient or emptying a device - to maintain either satisfactory voiding pat tern or managing an external device, such as an absorbent pad, ileal device, or catheter BLADDER MANAGEMENT - SCORE: 5-SUP BOWEL MANAGEMENT: Activity did not occur on this shift BOWEL MANAGEMENT - SCORE: 7-IND TRANSFERS: BED, CHAIR, WHEELCHAIR: Activity did not occur on this shift TRANSFERS: BED, CHAIR, WHEELCHAIR - SCORE: 0-UNK TRANSFERS: TOILET: Activity did not occur on this shift TRANSFERS: TOILET - SCORE: 0-UNK TRANSFERS: SHOWER: Activity did not occur on this shift TRANSFERS: SHOWER - SCORE: 0-UNK TRANSFERS: TUB: Activity did not occur on this shift TRANSFERS: TUB - SCORE: 0-UNK LOCOMOTION: WALK: Activity did not occur on this shift LOCOMOTION: WALK - SCORE: 0-UNK LOCOMOTION: WHEELCHAIR: Activity did not occur on this shift LOCOMOTION: WHEELCHAIR - SCORE: 0-UNK COMPREHENSION: COMPREHENSION: TYPE: Both COMPREHENSION - STEP 1: Does the patient require help to understand complex and abstract ideas (such as current events, finan panda, discharge planning, medical issues, relationships, etc)? No. COMPREHENSION - STEP 2: Does the patient need extra time, require an assistive device (such as glasses, hearing aids, or an a ugmentative communication system), OR does s/he have mild difficulty expressing complex and abstract ideas (including mild dysarthria or mild word-finding problems)? Yes. COMPREHENSION - SCORE: 6-JM EXPRESSION EXPRESSION: TYPE: Both EXPRESSION - STEP 1: Does the patient require help expressing complex and abstract ideas (such as current events, finances , discharge planning, medical issues, relationships, etc)? No. EXPRESSION - STEP 2: Does the patient need extra time, require an assistive device (such as augmentive communication syste m or a communication board), OR does s/he have mild difficulty expressing complex and abstract ideas (including mild dysarthria or mild word-find problems)? Yes. EXPRESSION - SCORE: 6-JM SOCIAL INTERACTION: SOCIAL INTERACTION - STEP 1: Does the patient require a helper to interact with others in social and therapeutic situations? No. SOCIAL INTERACTION - STEP 2: Does the patient need extra time in social situations, OR does s/he interact with staff, other patien ts, and family members ONLY in structured environments, OR does s/he require medication for social in teraction? Yes, patient requires medication for social interaction SOCIAL INTERACTION - SCORE: 6-JM PROBLEM SOLVING: PROBLEM SOLVING - STEP 1: Does the patient need help to solve complex problems such as managing a checking account or confronti ng interpersonal problems? No. PROBLEM SOLVING - STEP 2: Does the patient require extra time to make decisions or solve problems, OR does s/he have slight dif ficulty reading, initiating, or self-correcting in unfamiliar situations? Yes, patient needs extra ti me. PROBLEM SOLVING - SCORE: 6-JM MEMORY: MEMORY - STEP 1: Does the patient need help to remember frequently encountered people, daily routines, and executing r equests? No. MEMORY - STEP 2: Does the patient have slight difficulty recognizing frequently encountered people, daily routines, or executing requests without the need for repetition or using self-initiated or environmental cues to remember? Yes. MEMORY - SCORE: 6-JM
[2017-11-20] MEDS: METOPROLOL TAR 25 MG TAB PO SCH ×2 (05:15→17:13)
[2017-11-20 06:28] LABS: Absolute Lymphocytes (CBC) 1.6 K/uL (0.7-4.9); Absolute Monocytes 0.9 K/uL (0.1-1.3); Absolute Neutrophil 3.5 K/uL (1.8-8.0); Basophils % 0.6 % (0-1.3); Eosinophils % 2.3 % (0-4.4); Hematocrit 35.7 % (39.6-49.0); Lymphocytes % 26.1 % (15.3-44.8); MCH 27.5 pg (27.0-35.0); MCV 87.3 fL (80-100); MPV 9.2 fL (7.6-11.3); Monocytes % 14.2 % (3.3-12.3); RBC Red Blood Cell Count 4.09 M/uL (4.33-5.43)
[2017-11-20 06:58] LABS: Albumin 2.9 g/dL (3.2-5.5); Magnesium 1.9 mg/dL (1.8-2.5); Potassium 4.4 mEq/L (3.6-5.0); Prealbumin 17.4 mg/dl (18-38)
[2017-11-20] MEDS: NYSTATIN PWDR 100000 UNIT/GM TOP SCH ×2 (08:00→20:37)
[2017-11-20] MEDS: ACETAMINOPHEN 325 MG TABLET PO PRN (08:39)
[2017-11-20] MEDS: RANITIDINE 150 MG TABLET PO SCH ×2 (08:39→20:36)
[2017-11-20] MEDS: buPROPion HCl 100 MG TAB PO SCH ×2 (08:39→12:14)
[2017-11-20] MEDS: CYANOCOBALAMIN 1,000 MCG TAB PO SCH (08:40)
[2017-11-20] MEDS: APIXABAN 2.5 MG TABLET PO SCH ×2 (08:40→20:37)
[2017-11-20] MEDS: VITAMIN D 5,000 UNIT CAP PO SCH (08:40)
[2017-11-20] MEDS: PRIMIDONE 50 MG TAB PO SCH (08:40)
[2017-11-20] MEDS: CRANBERRY FRUIT EXTRACT 200 MG CAP PO SCH ×2 (08:40→20:36)
[2017-11-20] MEDS: ENSURE HIGH PROTEIN 237 ML CAN PO SCH ×2 (08:41→20:36)
--- NOTE | 2017-11-20 15:45 | FAST ---
ENCOUNTER DATE AND TIME: 11/20/2017 08:00 (CDT) NAME MARCE BRAND DATE OF : 1935 DATE OF ADMISSION: 11/07/2017 19:54 (CDT) PHONE: AGE: 82 SSN# [id number] GENDER: Male ENCOUNTER PHYSICIAN: Dr. Alex Ribeiro M.D. ADMISSION DIAGNOSIS: - Orthopaedic Disorders 08 - Femur (Shaft) Fracture (08.2) Left periprosthetic distal femur fracture. EATING: Activity did not occur on this shift EATING - SCORE: 0-UNK GROOMING: Activity did not occur on this shift GROOMING - SCORE: 0-UNK BATHING: Activity did not occur on this shift BATHING - SCORE: 0-UNK DRESSING - UPPER BODY: Activity did not occur on this shift Patient is not dressing in public clothing ARTICLES SCORE Total number of steps: 0 DRESSING - UPPER BODY - SCORE: 0-UNK DRESSING - LOWER BODY: Activity did not occur on this shift Patient is not dressing in public clothing ARTICLES SCORE Total number of steps: 0 DRESSING - LOWER BODY - SCORE: 0-UNK TOILETING: Activity did not occur on this shift TOILETING - SCORE: 0-UNK BLADDER MANAGEMENT: Activity did not occur on this shift BLADDER MANAGEMENT - SCORE: 7-IND BOWEL MANAGEMENT: Activity did not occur on this shift BOWEL MANAGEMENT - SCORE: 7-IND TRANSFERS: BED, CHAIR, WHEELCHAIR: Activity did not occur on this shift TRANSFERS: BED, CHAIR, WHEELCHAIR - SCORE: 0-UNK TRANSFERS: TOILET: Activity did not occur on this shift TRANSFERS: TOILET - SCORE: 0-UNK TRANSFERS: SHOWER: Activity did not occur on this shift TRANSFERS: SHOWER - SCORE: 0-UNK TRANSFERS: TUB: Activity did not occur on this shift TRANSFERS: TUB - SCORE: 0-UNK LOCOMOTION: WALK: Activity did not occur on this shift LOCOMOTION: WALK - SCORE: 0-UNK LOCOMOTION: WHEELCHAIR: Activity did not occur on this shift LOCOMOTION: WHEELCHAIR - SCORE: 0-UNK LOCOMOTION: STAIRS: Activity did not occur on this shift LOCOMOTION: STAIRS - SCORE: 0-UNK COMPREHENSION: COMPREHENSION - STEP 1: Does the patient require help to understand complex and abstract ideas (such as current events, finan panda, discharge planning, medical issues, relationships, etc)? No. COMPREHENSION - STEP 2: Does the patient need extra time, require an assistive device (such as glasses, hearing aids, or an a ugmentative communication system), OR does s/he have mild difficulty expressing complex and abstract ideas (including mild dysarthria or mild word-finding problems)? Yes. COMPREHENSION - SCORE: 6-JM EXPRESSION EXPRESSION - STEP 1: Does the patient require help expressing complex and abstract ideas (such as current events, finances , discharge planning, medical issues, relationships, etc)? No. EXPRESSION - STEP 2: Does the patient need extra time, require an assistive device (such as augmentive communication syste m or a communication board), OR does s/he have mild difficulty expressing complex and abstract ideas (including mild dysarthria or mild word-find problems)? Yes. EXPRESSION - SCORE: 6-JM SOCIAL INTERACTION: SOCIAL INTERACTION - STEP 1: Does the patient require a helper to interact with others in social and therapeutic situations? No. SOCIAL INTERACTION - STEP 2: Does the patient need extra time in social situations, OR does s/he interact with staff, other patien ts, and family members ONLY in structured environments, OR does s/he require medication for social in teraction? Yes, patient needs extra time SOCIAL INTERACTION - SCORE: 6-JM PROBLEM SOLVING: PROBLEM SOLVING - STEP 1: Does the patient need help to solve complex problems such as managing a checking account or confronti ng interpersonal problems? Yes. PROBLEM SOLVING - STEP 2: Does the patient solve basic routine problems half or more of the time? Yes. PROBLEM SOLVING - STEP 3: How often does the patient need help to solve basic routine problems? Less than 10% of the time PROBLEM SOLVING - SCORE: 5-SUP MEMORY: MEMORY - STEP 1: Does the patient need help to remember frequently encountered people, daily routines, and executing r equests? Yes. MEMORY - STEP 2: How often does the patient need help to remember frequently encountered people, daily routines, and e xecuting requests? 10% - 24% of the time MEMORY - SCORE: 4-MIN SIGNATURE PANEL: The following modified sections: Comprehension - Score, Expression - Score, Social Interaction - Scor e, Problem Solving - Score, Memory - Score were [electronically] signed by ROBBIE Alfaro on [facility] 2017 14:44:33 GMT-0500 (Central Daylight Time)
--- NOTE | 2017-11-20 16:06 | FAST ---
ENCOUNTER DATE AND TIME: 11/20/2017 08:00 (CDT) NAME MARCE BRAND DATE OF : 1935 DATE OF ADMISSION: 11/07/2017 19:54 (CDT) PHONE: AGE: 82 SSN# [id number] GENDER: Male ENCOUNTER PHYSICIAN: Dr. Alex Ribeiro M.D. ADMISSION DIAGNOSIS: - Orthopaedic Disorders 08 - Femur (Shaft) Fracture (08.2) Left periprosthetic distal femur fracture. EATING: Activity did not occur on this shift EATING - SCORE: 0-UNK GROOMING: Activity did not occur on this shift GROOMING - SCORE: 0-UNK BATHING: Activity did not occur on this shift BATHING - SCORE: 0-UNK DRESSING - UPPER BODY: Activity did not occur on this shift Patient is not dressing in public clothing ARTICLES SCORE Total number of steps: 0 DRESSING - UPPER BODY - SCORE: 0-UNK DRESSING - LOWER BODY: Activity did not occur on this shift Patient is not dressing in public clothing ARTICLES SCORE Total number of steps: 0 DRESSING - LOWER BODY - SCORE: 0-UNK TOILETING: Activity did not occur on this shift TOILETING - SCORE: 0-UNK BLADDER MANAGEMENT: Activity did not occur on this shift BLADDER MANAGEMENT - SCORE: 7-IND BOWEL MANAGEMENT: Activity did not occur on this shift BOWEL MANAGEMENT - SCORE: 7-IND TRANSFERS: BED, CHAIR, WHEELCHAIR: TRANSFERS: BED, CHAIR, WHEELCHAIR - STEP 1: Does the patient require assistance with bed, chair, or wheelchair transfers? Yes. TRANSFERS: BED, CHAIR, WHEELCHAIR - STEP 2: Does the patient require the assistance of a helper? Yes. TRANSFERS: BED, CHAIR, WHEELCHAIR - STEP 3: How much assistance does the patient require from the helper? Only supervision TRANSFERS: BED, CHAIR, WHEELCHAIR - SCORE: 5-SUP TRANSFERS: TOILET: Activity did not occur on this shift TRANSFERS: TOILET - SCORE: 0-UNK TRANSFERS: SHOWER: Activity did not occur on this shift TRANSFERS: SHOWER - SCORE: 0-UNK TRANSFERS: TUB: Activity did not occur on this shift TRANSFERS: TUB - SCORE: 0-UNK LOCOMOTION: WALK: Activity did not occur on this shift LOCOMOTION: WALK - SCORE: 0-UNK LOCOMOTION: WHEELCHAIR: Activity did not occur on this shift LOCOMOTION: WHEELCHAIR - SCORE: 0-UNK LOCOMOTION: STAIRS: Activity did not occur on this shift LOCOMOTION: STAIRS - SCORE: 0-UNK COMPREHENSION: COMPREHENSION - SCORE: 0-UNK EXPRESSION EXPRESSION - SCORE: 0-UNK SOCIAL INTERACTION: SOCIAL INTERACTION - SCORE: 0-UNK PROBLEM SOLVING: PROBLEM SOLVING - SCORE: 0-UNK MEMORY: MEMORY - SCORE: 0-UNK SIGNATURE PANEL: The following modified sections: Transfers: Bed, Chair, Wheelchair - Score, Transfers: Toilet - Score , Locomotion: Walk - Score, Locomotion: Wheelchair - Score, Locomotion: Stairs - Score were [electron ically] signed by Giovanny Ac PTA on FriNov 20 2017 15:05:26 GMT-0500 (Central Daylight Time)
--- NOTE | 2017-11-20 18:23 | R.PN ---
ENCOUNTER DATE AND TIME: 11/20/2017 17:21 (CDT) NAME MARCE BRAND DATE OF : 1935 DATE OF ADMISSION: 11/07/2017 19:54 (CDT) Left periprosthetic distal femur fractureCHIEF COMPLAINT: Left hip fracture SUBJECTIVE: Pt denied any Shortness of Breath. Pt denied any depression. Performed slide board transfers using bilateral upper and right lower extremity. Propelled wheelchair 150' with standby assistance. VITAL SIGNS Temperature: 97.5 F SBP/DBP: 117/65 Pulse: 72 Resp: 16 MEDICATION ALLERGIES: Penicillin, Hydrocodone, Ibuprofen, Sinemet 25/100 tablet ENVIRONMENTAL ALLERGIES: None Known - Substance Allergies None Known - Other Allergies None Known NURSING: - Shower allowing shower - Skin care per protocol PRECAUTIONS: - Weight Bearing Precaution NWB left LE - Fall Precaution Bed and chair alarm ACTIVITIES OOB only with supervision THERAPIES: - Occupational Therapy Evaluate and Treat. - Physical Therapy Evaluate and Treat. PHYSICAL EXAM - Gen Alert and awake Lying in bed No apparent distress Oriented to: person, time, and place - Skin Left thigh with surgical incision Normacephalic - Eyes No abnormalities - ENMT No abnormalities - Neck No abnormalities - CVS RRR - Chest No abnormalities - Abd Soft - GI Non distended Deferred - No abnormalities - Ext Mild postoperative edema in the left lower extremity - MSK 4+/5 weakness in left lower extremity - Psych No abnormalities ASSESSMENT: Pt. is a 82 yo Right-handed white male.On 10/11/2017 he was admitted to [facility] with diagno sis Left periprosthetic distal femur fracture.His impairment category is Orthopaedic Disorders 08 - Femur (Shaft) Fracture (08.2).Pre-morbidly, Pt. was independent/mod-I in Transfers Control, Communica tion, Social Cognition, Self-Care, Locomotion, and Sphincter Control; and he had good Sphincter Contr ol.Currently, he has deficits of Safety Awareness, Transfers Control, Communication, Social Cognition , Balance, Self-Care, Endurance, and Locomotion.Pt. is now referred to [facility] for acute in-patient rehabilitation in order to maximize patient's functional independence in act ivities of daily living, strength, ROM, and mobility.- Rehab Goal Patient has realistic goal of being discharged at assistance level 6-Cathy to reside at Home with Fam samantha/Relatives. MDM/PLAN: - Physical Therapy Decreased range of motion - to improve, our physical therapists will perform initial evaluation of p t's status upon admission and devise an individualized program for increasing patient's Range of Kenn on. Gait dysfunction - to improve, our physical therapists will perform initial evaluation of pt's statu s upon admission and devise an individualized program for Gait Training, and Wheel Chair mobility Inability to transfer - to improve, our physical therapists will perform initial evaluation of pt's status upon admission and devise an individualized program for Bed mobility Need for home safety evaluation - to improve, our physical therapists will perform initial evaluatio n of pt's status upon admission and devise an individualized program for Home Evaluation Need in caregiver upon discharge - to improve, our physical therapists will perform initial evaluati on of pt's status upon admission and devise an individualized program for Caregiver Training Edema - to improve, our physical therapists will perform initial evaluation of pt's status upon admi ssion and devise an individualized program for Elevation Training, and Lymphedema Therapy New precaution - to improve, our physical therapists will perform initial evaluation of pt's status upon admission and devise an individualized program for Patient precaution education Poor balance - to improve, our physical therapists will perform initial evaluation of pt's status up on admission and devise an individualized program for Balance Training Poor endurance - to improve, our physical therapists will perform initial evaluation of pt's status upon admission and devise an individualized program for Endurance Training Weakness - to improve, our physical therapists will perform initial evaluation of pt's status upon a dmission and devise an individualized program for Aquatic Therapy, Neuromuscular Reeducation, and Str engthening Achieving independence - to improve, our physical therapists will perform initial evaluation of pt's status upon admission and devise an individualized program for Community Reintegration Activities - Diet Type Continue Regular - Diet - Liquid Texture Continue Regular - Tube Feed Continue N/A - Weight Bearing Precaution NWB left LE - Fall Precaution Bed and chair alarm - Skin care per protocol - Diet - Solid Texture Continue Regular - Shower allowing shower - Occupational Therapy ADL deficits - to improve, our occupation therapists will perform initial evaluation of pt's status upon admission and devise an individualized program for Bathing, Bed mobility, Community Reintegratio n, Cooking, Dressing, Eating, Fine Motor Skills, Grooming, Homemaking, Kitchen Mobility, Laundry, Pat ient Education, Safety Awareness, Splinting - Positioning, Transfers(Toilet, Tub, Shower), and Wheel Chair Management Cognitive deficits - to improve, our occupation therapists will perform initial evaluation of pt's s tatus upon admission and devise an individualized program for Cognition - orientation Need for career development engineer - to improve, our occupation therapists will perform initial evaluation of pt's status upon admission and devise an individualized program for Caregiver Training Weakness - to improve, our occupation therapists will perform initial evaluation of pt's status upon admission and devise an individualized program for Aquatic Therapy, Balance, Endurance, UE ROM, and UE strengthening FUNCTIONAL STATUS: UPDATED AT WEEKLY TEAM CONFERENCE - Bladder Same accident frequency: 7-Ind - No accidents in the past 7 days - Bowel Same accident frequency: 7-Ind - No accidents in the past 7 days - Walking Same score based on distance walked: 0(N/A) - Wheelchair Same score based on distance traveled: 2(50-149ft) FUNCTIONAL STATUS: - Self-Care A. Eating sup B. Grooming Mauri C. Bathing maxA D. Dressing - Upper Mauri E. Dressing - Lower maxA F. Toileting Dep - Sphincter Control G: Bladder control Ind H: Bowel control Ind - Transfers Control I. Bed/Chair/Wheelchair Dep J. Toilet Dep K. Tub/Shower ADNO - Locomotion L. Walk/Wheelchair (C) Ind L. Walk/Wheelchair (W) Ind M. Stairs ADNO - Communication N. Comprehension (B) Mauri O. Expression (B) sup - Social Cognition P. Social Interaction sup Q. Problem Solving Mauri R. Memory Mauri - Endurance Poor - Balance Poor - Safety Awareness Fair CURRENT FUNC. DEFICITS: Safety Awareness, Transfers Control, Communication, Social Cognition, Balance, Self-Care, Endurance, and Locomotion SIGNATURE PANEL: (CDT)
[2017-11-20] MEDS: MIRTAZAPINE 15 MG TAB PO SCH (20:36)
[2017-11-20] MEDS: ATORVASTATIN 20 MG TAB PO SCH (20:36)
[2017-11-20] MEDS: MELATONIN 3 MG TABLET PO PRN (20:36)
[2017-11-20] MEDS: LORAZEPAM 0.5 MG TABLET PO PRN (21:29)
--- NOTE | 2017-11-21 04:34 | FAST ---
SHIFT START DATE/TIME: 11/20/2017 19:00 (CDT) SHIFT END DATE/TIME: 11/21/2017 07:00 (CDT) NAME MARCE BRAND DATE OF : 1935 DATE OF ADMISSION: 11/07/2017 19:54 (CDT) PHONE: AGE: 82 N# [id number] GENDER: Male ENCOUNTER PHYSICIAN: Dr. Alex Ribeiro M.D. ADMISSION DIAGNOSIS: - Orthopaedic Disorders 08 - Femur (Shaft) Fracture (08.2) Left periprosthetic distal femur fracture. EATING: EATING - STEP 1: Does the patient require assistance when eating? Yes. EATING - STEP 2: Does the patient require the assistance of a helper? Yes. EATING - STEP 3: Does the patient perform half or more of the eating tasks? Yes. EATING - STEP 4: Does the patient need only supervision, cuing, coaxing OR help to apply an orthosis OR help to cut fo od, open containers, pour liquids, or butter bread? Yes. EATING - SCORE: 5-SUP GROOMING: Activity did not occur on this shift GROOMING - SCORE: 0-UNK BATHING: Activity did not occur on this shift BATHING - SCORE: 0-UNK DRESSING - UPPER BODY: Patient is not dressing in public clothing ARTICLES SCORE Total number of steps: 0 DRESSING - UPPER BODY - SCORE: 0-UNK DRESSING - LOWER BODY: Patient is not dressing in public clothing ARTICLES SCORE Total number of steps: 0 DRESSING - LOWER BODY - SCORE: 0-UNK TOILETING: TOILETING - STEP 1: Does the patient require assistance with toileting? Yes. TOILETING - STEP 2: Does the patient require the assistance of a helper? Yes. TOILETING - STEP 3: How much assistance does the patient require from the helper? Hands-on assistance from the helper TOILETING - STEP 4: Of the 3 tasks: 1) Adjusting clothing prior to use, 2) Cleansing of perineal area, 3) Adjusting clot ezio after use; How many tasks does the patient perform WITHOUT assistance of the helper? Three tasks with steadying assistance from the helper TOILETING - SCORE: 4-MIN BLADDER MANAGEMENT: BLADDER MANAGEMENT - STEP 1: Does the patient control the bladder completely and intentionally without equipment or devices or med ications, and is always continent? No. BLADDER MANAGEMENT - STEP 2: Does the patient require the assistance of a helper? Yes. BLADDER MANAGEMENT - STEP 3: How much assistance does the patient require from the helper? Only set-up of equipment - such as plac ing it within reach of the patient or emptying a device - to maintain either satisfactory voiding pat tern or managing an external device, such as an absorbent pad, ileal device, or catheter BLADDER MANAGEMENT - SCORE: 5-SUP BLADDER MANAGEMENT - FREQUENCY OF ACCIDENTS: BLADDER MANAGEMENT(FA) - STEP 1: How many accidents has the patient had during the current shift? 2 BOWEL MANAGEMENT: Activity did not occur on this shift BOWEL MANAGEMENT - SCORE: 7-IND TRANSFERS: BED, CHAIR, WHEELCHAIR: Activity did not occur on this shift TRANSFERS: BED, CHAIR, WHEELCHAIR - SCORE: 0-UNK TRANSFERS: TOILET: Activity did not occur on this shift TRANSFERS: TOILET - SCORE: 0-UNK TRANSFERS: SHOWER: Activity did not occur on this shift TRANSFERS: SHOWER - SCORE: 0-UNK TRANSFERS: TUB: Activity did not occur on this shift TRANSFERS: TUB - SCORE: 0-UNK LOCOMOTION: WALK: Activity did not occur on this shift LOCOMOTION: WALK - SCORE: 0-UNK LOCOMOTION: WHEELCHAIR: Activity did not occur on this shift LOCOMOTION: WHEELCHAIR - SCORE: 0-UNK COMPREHENSION: COMPREHENSION: TYPE: Both COMPREHENSION - STEP 1: Does the patient require help to understand complex and abstract ideas (such as current events, finan panda, discharge planning, medical issues, relationships, etc)? Yes. COMPREHENSION - STEP 2: Does the patient require help to understand questions or statements about basic needs or ideas (such as hunger, thirst, sleep, safety, daily schedule, room location, or discomfort) half or more of the t reena? No. COMPREHENSION - STEP 3: How often does the patient need help to understand directions and conversation about basic needs? Les s than 10% of the time COMPREHENSION - SCORE: 5-SUP EXPRESSION EXPRESSION: TYPE: Both EXPRESSION - STEP 1: Does the patient require help expressing complex and abstract ideas (such as current events, finances , discharge planning, medical issues, relationships, etc)? No. EXPRESSION - STEP 2: Does the patient need extra time, require an assistive device (such as augmentive communication syste m or a communication board), OR does s/he have mild difficulty expressing complex and abstract ideas (including mild dysarthria or mild word-find problems)? Yes. EXPRESSION - SCORE: 6-JM SOCIAL INTERACTION: SOCIAL INTERACTION - STEP 1: Does the patient require a helper to interact with others in social and therapeutic situations? No. SOCIAL INTERACTION - STEP 2: Does the patient need extra time in social situations, OR does s/he interact with staff, other patien ts, and family members ONLY in structured environments, OR does s/he require medication for social in teraction? Yes, patient needs extra time SOCIAL INTERACTION - SCORE: 6-JM PROBLEM SOLVING: PROBLEM SOLVING - STEP 1: Does the patient need help to solve complex problems such as managing a checking account or confronti ng interpersonal problems? Yes. PROBLEM SOLVING - STEP 2: Does the patient solve basic routine problems half or more of the time? Yes. PROBLEM SOLVING - STEP 3: How often does the patient need help to solve basic routine problems? 10%-24% of the time PROBLEM SOLVING - SCORE: 4-MIN MEMORY: MEMORY - STEP 1: Does the patient need help to remember frequently encountered people, daily routines, and executing r equests? Yes. MEMORY - STEP 2: How often does the patient need help to remember frequently encountered people, daily routines, and e xecuting requests? 10% - 24% of the time MEMORY - SCORE: 4-MIN SIGNATURE PANEL: The following modified sections: Eating - Score, Grooming - Score, Bathing - Score, Dressing - Upper Body - Score, Dressing - Lower Body - Score, Toileting - Score, Bladder Management - Score, Bowel Man agement - Score, Transfers: Bed, Chair, Wheelchair - Score, Transfers: Toilet - Score, Transfers: Merline wer - Score, Transfers: Tub - Score, Locomotion: Walk - Score, Locomotion: Wheelchair - Score, Compre hension - Score, Expression - Score, Social Interaction - Score, Problem Solving - Score, Memory - Sc ore were [electronically] signed by Rose Marie AnthonyNKg on FriNov 21 2017 03:34:28 T-0500 ( Central Daylight Time)
[2017-11-21] MEDS: METOPROLOL TAR 25 MG TAB PO SCH ×2 (05:15→17:08)
[2017-11-21] MEDS: CODEINE 30MG/APAP 300MG TAB PO PRN ×2 (06:36→20:27)
[2017-11-21] MEDS: NYSTATIN PWDR 100000 UNIT/GM TOP SCH ×2 (08:00→20:00)
[2017-11-21] MEDS: CRANBERRY FRUIT EXTRACT 200 MG CAP PO SCH ×2 (08:17→20:16)
[2017-11-21] MEDS: APIXABAN 2.5 MG TABLET PO SCH ×2 (08:17→20:16)
[2017-11-21] MEDS: CYANOCOBALAMIN 1,000 MCG TAB PO SCH (08:18)
[2017-11-21] MEDS: RANITIDINE 150 MG TABLET PO SCH ×2 (08:18→20:16)
[2017-11-21] MEDS: PRIMIDONE 50 MG TAB PO SCH (08:18)
[2017-11-21] MEDS: VITAMIN D 5,000 UNIT CAP PO SCH (08:19)
[2017-11-21] MEDS: ENSURE HIGH PROTEIN 237 ML CAN PO SCH ×2 (08:19→20:17)
[2017-11-21] MEDS: buPROPion HCl 100 MG TAB PO SCH ×2 (08:19→12:18)
--- NOTE | 2017-11-21 10:20 | P.RH.PN ---
Estimated Length of Stay: 18 Expected Discharge Date: 12/04/17 Discharge Disposition Plan: [facility] Facility Family Support: Yes Halfway Goal: Mobility, Transfers, Self Care Vital Signs: Last Vital Signs Temp 97.3 F 11/21/17 09:41 Pulse 93 H 11/21/17 09:41 Resp 16 11/21/17 09:41 BP 108/66 11/21/17 09:41 Pulse Ox 94 11/21/17 09:41 Laboratory: Laboratory Last Values WBC 6.2 K/uL (4.3-10.9) D 11/20/17 06:10 RBC 4.09 M/uL (4.33-5.43) L 11/20/17 06:10 Hgb 11.2 g/dL (13.6-17.9) L 11/20/17 06:10 Hct 35.7 % (39.6-49.0) L 11/20/17 06:10 MCV 87.3 fL (80-100) 11/20/17 06:10 MCH 27.5 pg (27.0-35.0) 11/20/17 06:10 MCHC 31.5 g/dL (32.0-36.0) L 11/20/17 06:10 RDW 16.0 % (12.1-15.2) H 11/20/17 06:10 Plt Count 212 K/uL (152-406) 11/20/17 06:10 MPV 9.2 fL (7.6-11.3) 11/20/17 06:10 Neutrophils % 56.8 % (41.7-73.7) 11/20/17 06:10 Lymphocytes % 26.1 % (15.3-44.8) 11/20/17 06:10 Monocytes % 14.2 % (3.3-12.3) H 11/20/17 06:10 Eosinophils % 2.3 % (0-4.4) 11/20/17 06:10 Basophils % 0.6 % (0-1.3) 11/20/17 06:10 Absolute Neutrophils 3.5 K/uL (1.8-8.0) 11/20/17 06:10 Absolute Lymphocytes 1.6 K/uL (0.7-4.9) 11/20/17 06:10 Absolute Monocytes 0.9 K/uL (0.1-1.3) 11/20/17 06:10 Absolute Eosinophils 0.1 K/uL (0-0.5) 11/20/17 06:10 Absolute Basophils 0.0 K/uL (0-0.5) 11/20/17 06:10 Morphology Comment Not seen (NOT SEEN) 11/08/17 05:50 Sodium 140 mEq/L (135-145) 11/20/17 06:10 Potassium 4.4 mEq/L (3.6-5.0) 11/20/17 06:10 Chloride 105 mEq/L (101-111) 11/20/17 06:10 Carbon Dioxide 30 mEq/L (21-31) 11/20/17 06:10 BUN 23 mg/dL (6-20) H 11/20/17 06:10 Creatinine 1.08 mg/dL (0.61-1.24) 11/20/17 06:10 Estimated GFR 66 mL/min (=/>90) L 11/20/17 06:10 Glucose 107 mg/dL (65-120) 11/20/17 06:10 Calcium 9.5 mg/dL (8.5-10.5) 11/20/17 06:10 Magnesium 1.9 mg/dL (1.8-2.5) 11/20/17 06:10 Albumin 2.9 g/dL (3.2-5.5) L 11/20/17 06:10 Prealbumin 17.4 mg/dl (18-38) L 11/20/17 06:10 Urine Color Yellow 11/08/17 21:00 Urine Appearance Clear 11/08/17 21:00 Urine pH 5.5 (5.0-7.0) 11/08/17 21:00 Ur Specific Mon[place] 1.025 (1.005-1.030) 11/08/17 21:00 Urine Ketones Negative (NEG) 11/08/17 21:00 Urine Blood 3+ (NEG) H 11/08/17 21:00 Urine Nitrite Negative (NEG) 11/08/17 21:00 Urine Bilirubin Negative (NEG) 11/08/17 21:00 Urine Urobilinogen 0.2 mg/dL (0.2-1.0) 11/08/17 21:00 Ur Leukocyte Esterase 1+ (NEG) H 05/19/18 21:00 Urine RBC >50 /HPF (NONE SEEN) H 11/08/17 21:00 Urine WBC 5-10 /HPF (<5) H 11/08/17 21:00 Ur Squamous Epith Cells <5 /HPF (NONE SEEN) 11/08/17 21:00 Urine Bacteria <20 /HPF (NONE SEEN) 11/08/17 21:00 Urine Culture Reflexed Not needed 11/08/17 21:00 Urine Glucose Negative (NEG) 11/08/17 21:00 Urine Total Protein Negative (NEG) 11/08/17 21:00 Weight: 217 lb 12.8 oz Wound Present: No Closed Surgical Incision Present: Yes Negative Pressure Wound Therapy Present: No Physician Update: His blood work is essentially within normal limits except for mildly lowHgb of 11.2. He is doing fairly well with therapy requiring moderate up to maximum assistance to perform activities of daily living. His strength and endurance is improving and he is motivated. However, he will likely required correction at discharge due to his nonweight bearing status of the left lower extremity. Pain Issues: tylenol #3 Q4H PRN PO Functional Improvement: Patient has continued to show improvement w/ slide board transfer. Educated patient's daughter on proper technique and guarding for slide board transfer. Patient presents w/ good overall attitude toward therapy and shows good safety awareness. Functional Improvement Occupational Therapy: PATIENT VERY PARTICIPATORY, AND HAS DEMONSTRATED GOOD IMPROVEMENT, HOWEVER, CONTINUES TO REQUIRE MAX ASSIST FOR FUNCTIONAL TRF, AND LB DRESSING. Speech Therapy Update: Pt. has made significant progress toward all goals. Minimal cuing is required at the initiation of meals to utilize dysphagia strategies at Mod I. Pt. verbally recalls non-weight bearing status independently. Pt. performs swallowing exercises daily outside of therapy sessions with minimal cuing from family and or written memory aids. At discharge , Pt. will continue to need external memory aids via family/staff cuing and/or written aids to facilitate safety awareness, and safety during swallowing. 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 Please see the Rehabilitation Signature page for all necessary signatures.
--- NOTE | 2017-11-21 16:14 | FAST ---
ENCOUNTER DATE AND TIME: 11/21/2017 08:00 (CDT) NAME MARCE BRAND DATE OF : 1935 DATE OF ADMISSION: 11/07/2017 19:54 (CDT) PHONE: AGE: 82 SSN# [id number] GENDER: Male ENCOUNTER PHYSICIAN: Dr. Alex Ribeiro M.D. ADMISSION DIAGNOSIS: - Orthopaedic Disorders 08 - Femur (Shaft) Fracture (08.2) Left periprosthetic distal femur fracture. EATING: Activity did not occur on this shift EATING - SCORE: 0-UNK GROOMING: Activity did not occur on this shift GROOMING - SCORE: 0-UNK BATHING: Activity did not occur on this shift BATHING - SCORE: 0-UNK DRESSING - UPPER BODY: Activity did not occur on this shift Patient is not dressing in public clothing ARTICLES SCORE Total number of steps: 0 DRESSING - UPPER BODY - SCORE: 0-UNK DRESSING - LOWER BODY: Activity did not occur on this shift Patient is not dressing in public clothing ARTICLES SCORE Total number of steps: 0 DRESSING - LOWER BODY - SCORE: 0-UNK TOILETING: Activity did not occur on this shift TOILETING - SCORE: 0-UNK BLADDER MANAGEMENT: Activity did not occur on this shift BLADDER MANAGEMENT - SCORE: 7-IND BOWEL MANAGEMENT: Activity did not occur on this shift BOWEL MANAGEMENT - SCORE: 7-IND TRANSFERS: BED, CHAIR, WHEELCHAIR: Activity did not occur on this shift TRANSFERS: BED, CHAIR, WHEELCHAIR - SCORE: 0-UNK TRANSFERS: TOILET: Activity did not occur on this shift TRANSFERS: TOILET - SCORE: 0-UNK TRANSFERS: SHOWER: Activity did not occur on this shift TRANSFERS: SHOWER - SCORE: 0-UNK TRANSFERS: TUB: Activity did not occur on this shift TRANSFERS: TUB - SCORE: 0-UNK LOCOMOTION: WALK: Activity did not occur on this shift LOCOMOTION: WALK - SCORE: 0-UNK LOCOMOTION: WHEELCHAIR: LOCOMOTION: WHEELCHAIR - STEP 1: Does the patient need help to go 150 feet in a wheelchair? Yes. LOCOMOTION: WHEELCHAIR - STEP 2: How much assistance does the patient need from the helper? Only supervision, cuing, or coaxing LOCOMOTION: WHEELCHAIR - SCORE: 5-SUP LOCOMOTION: STAIRS: Activity did not occur on this shift LOCOMOTION: STAIRS - SCORE: 0-UNK COMPREHENSION: COMPREHENSION - SCORE: 0-UNK EXPRESSION EXPRESSION - SCORE: 0-UNK SOCIAL INTERACTION: SOCIAL INTERACTION - SCORE: 0-UNK PROBLEM SOLVING: PROBLEM SOLVING - SCORE: 0-UNK MEMORY: MEMORY - SCORE: 0-UNK SIGNATURE PANEL: The following modified sections: Transfers: Bed, Chair, Wheelchair - Score, Transfers: Toilet - Score , Locomotion: Walk - Score, Locomotion: Wheelchair - Score, Locomotion: Stairs - Score were [electron ically] signed by Giovanny Ac PTA on FriNov 21 2017 15:14:34 GMT-0500 (Central Daylight Time)
--- NOTE | 2017-11-21 17:10 | FAST ---
SHIFT START DATE/TIME: 11/21/2017 07:00 (CDT) SHIFT END DATE/TIME: 11/21/2017 19:00 (CDT) NAME MARCE BRAND DATE OF : 1935 DATE OF ADMISSION: 11/07/2017 19:54 (CDT) PHONE: AGE: 82 N# [id number] GENDER: Male ENCOUNTER PHYSICIAN: Dr. Alex Ribeiro M.D. ADMISSION DIAGNOSIS: - Orthopaedic Disorders 08 - Femur (Shaft) Fracture (08.2) Left periprosthetic distal femur fracture. EATING: EATING - STEP 1: Does the patient require assistance when eating? Yes. EATING - STEP 2: Does the patient require the assistance of a helper? Yes. EATING - STEP 3: Does the patient perform half or more of the eating tasks? Yes. EATING - STEP 4: Does the patient need only supervision, cuing, coaxing OR help to apply an orthosis OR help to cut fo od, open containers, pour liquids, or butter bread? Yes. EATING - SCORE: 5-SUP GROOMING: Comb/brush hair Oral care Wash, rinse, and dry face Wash, rinse, and dry hands GROOMING - STEP 1: Does the patient require assistance when grooming? Yes. GROOMING - STEP 2: Does the patient require the assistance of a helper? Yes. GROOMING - STEP 3: How much assistance does the patient require from the helper? Cuing, coaxing, instructions, or encour agement for completion of grooming GROOMING - SCORE: 5-SUP BATHING: Activity did not occur on this shift BATHING - SCORE: 0-UNK DRESSING - UPPER BODY: Activity did not occur on this shift ARTICLES SCORE Total number of steps: 0 DRESSING - UPPER BODY - SCORE: 0-UNK DRESSING - LOWER BODY: Activity did not occur on this shift ARTICLES SCORE Total number of steps: 0 DRESSING - LOWER BODY - SCORE: 0-UNK TOILETING: TOILETING - STEP 1: Does the patient require assistance with toileting? Yes. TOILETING - STEP 2: Does the patient require the assistance of a helper? Yes. TOILETING - STEP 3: How much assistance does the patient require from the helper? Hands-on assistance from the helper TOILETING - STEP 4: Of the 3 tasks: 1) Adjusting clothing prior to use, 2) Cleansing of perineal area, 3) Adjusting clot ezio after use; How many tasks does the patient perform WITHOUT assistance of the helper? Two tasks TOILETING - SCORE: 3-MOD BLADDER MANAGEMENT: BLADDER MANAGEMENT - STEP 1: Does the patient control the bladder completely and intentionally without equipment or devices or med ications, and is always continent? No. BLADDER MANAGEMENT - STEP 2: Does the patient require the assistance of a helper? No, patient requires and independently uses an a ssistive device, such as a urinal, bedpan, bedside commode, catheter, absorbent pad, or collecting de vice BLADDER MANAGEMENT - SCORE: 6-JM BOWEL MANAGEMENT: BOWEL MANAGEMENT - STEP 1: Does the patient control bowels completely and intentionally without equipment devices or medications AND is always continent? No. BOWEL MANAGEMENT - STEP 2: Does the patient require the assistance of a helper? No, patient requires and manages independently a n assistive device such as a bedpan, bedside commode, absorbent pad, incontinent device, or collectin g device BOWEL MANAGEMENT - SCORE: 6-JM TRANSFERS: BED, CHAIR, WHEELCHAIR: TRANSFERS: BED, CHAIR, WHEELCHAIR - STEP 1: Does the patient require assistance with bed, chair, or wheelchair transfers? Yes. TRANSFERS: BED, CHAIR, WHEELCHAIR - STEP 2: Does the patient require the assistance of a helper? Yes. TRANSFERS: BED, CHAIR, WHEELCHAIR - STEP 3: How much assistance does the patient require from the helper? Only supervision TRANSFERS: BED, CHAIR, WHEELCHAIR - SCORE: 5-SUP TRANSFERS: TOILET: TRANSFERS: TOILET - STEP 1: Does the patient require assistance with toilet transfers? Yes. TRANSFERS: TOILET - STEP 2: Does the patient require the assistance of a helper? Yes. TRANSFERS: TOILET - STEP 3: How much assistance does the patient require from the helper? Only supervision, cuing, coaxing, OR he lp to set out transfer equipment or to lock brakes and/or lift foot rests TRANSFERS: TOILET - SCORE: 5-SUP TRANSFERS: SHOWER: Activity did not occur on this shift TRANSFERS: SHOWER - SCORE: 0-UNK TRANSFERS: TUB: Activity did not occur on this shift TRANSFERS: TUB - SCORE: 0-UNK LOCOMOTION: WALK: Activity did not occur on this shift LOCOMOTION: WALK - SCORE: 0-UNK LOCOMOTION: WHEELCHAIR: Activity did not occur on this shift LOCOMOTION: WHEELCHAIR - SCORE: 0-UNK COMPREHENSION: COMPREHENSION - SCORE: 0-UNK EXPRESSION EXPRESSION - SCORE: 0-UNK SOCIAL INTERACTION: SOCIAL INTERACTION - SCORE: 0-UNK PROBLEM SOLVING: PROBLEM SOLVING - SCORE: 0-UNK MEMORY: MEMORY - SCORE: 0-UNK SIGNATURE PANEL: The following modified sections: Eating - Score, Grooming - Score, Bathing - Score, Dressing - Upper Body - Score, Dressing - Lower Body - Score, Toileting - Score, Bladder Management - Score, Bowel Man agement - Score, Transfers: Bed, Chair, Wheelchair - Score, Transfers: Toilet - Score, Transfers: Merline wer - Score, Transfers: Tub - Score, Locomotion: Walk - Score, Locomotion: Wheelchair - Score, Compre hension - Score, Expression - Score, Social Interaction - Score, Problem Solving - Score, Memory - Sc ore were [electronically] signed by Herman Mendes on FriNov 21 2017 16:09:39 GMT-[id number] (Central Daylight Time)
--- NOTE | 2017-11-21 17:56 | FAST ---
ENCOUNTER DATE AND TIME: 11/21/2017 08:00 (CDT) NAME MARCE BRAND DATE OF : 1935 DATE OF ADMISSION: 11/07/2017 19:54 (CDT) PHONE: AGE: 82 SSN# [id number] GENDER: Male ENCOUNTER PHYSICIAN: Dr. Alex Ribeiro M.D. ADMISSION DIAGNOSIS: - Orthopaedic Disorders 08 - Femur (Shaft) Fracture (08.2) Left periprosthetic distal femur fracture. EATING: Activity did not occur on this shift EATING - SCORE: 0-UNK GROOMING: Activity did not occur on this shift GROOMING - SCORE: 0-UNK BATHING: Activity did not occur on this shift BATHING - SCORE: 0-UNK DRESSING - UPPER BODY: Activity did not occur on this shift Patient is not dressing in public clothing ARTICLES SCORE Total number of steps: 0 DRESSING - UPPER BODY - SCORE: 0-UNK DRESSING - LOWER BODY: Activity did not occur on this shift Patient is not dressing in public clothing ARTICLES SCORE Total number of steps: 0 DRESSING - LOWER BODY - SCORE: 0-UNK TOILETING: Activity did not occur on this shift TOILETING - SCORE: 0-UNK BLADDER MANAGEMENT: Activity did not occur on this shift BLADDER MANAGEMENT - SCORE: 7-IND BOWEL MANAGEMENT: Activity did not occur on this shift BOWEL MANAGEMENT - SCORE: 7-IND TRANSFERS: BED, CHAIR, WHEELCHAIR: Activity did not occur on this shift TRANSFERS: BED, CHAIR, WHEELCHAIR - SCORE: 0-UNK TRANSFERS: TOILET: Activity did not occur on this shift TRANSFERS: TOILET - SCORE: 0-UNK TRANSFERS: SHOWER: Activity did not occur on this shift TRANSFERS: SHOWER - SCORE: 0-UNK TRANSFERS: TUB: Activity did not occur on this shift TRANSFERS: TUB - SCORE: 0-UNK LOCOMOTION: WALK: Activity did not occur on this shift LOCOMOTION: WALK - SCORE: 0-UNK LOCOMOTION: WHEELCHAIR: Activity did not occur on this shift LOCOMOTION: WHEELCHAIR - SCORE: 0-UNK LOCOMOTION: STAIRS: Activity did not occur on this shift LOCOMOTION: STAIRS - SCORE: 0-UNK COMPREHENSION: COMPREHENSION - STEP 1: Does the patient require help to understand complex and abstract ideas (such as current events, finan panda, discharge planning, medical issues, relationships, etc)? No. COMPREHENSION - STEP 2: Does the patient need extra time, require an assistive device (such as glasses, hearing aids, or an a ugmentative communication system), OR does s/he have mild difficulty expressing complex and abstract ideas (including mild dysarthria or mild word-finding problems)? Yes. COMPREHENSION - SCORE: 6-JM EXPRESSION EXPRESSION - STEP 1: Does the patient require help expressing complex and abstract ideas (such as current events, finances , discharge planning, medical issues, relationships, etc)? No. EXPRESSION - STEP 2: Does the patient need extra time, require an assistive device (such as augmentive communication syste m or a communication board), OR does s/he have mild difficulty expressing complex and abstract ideas (including mild dysarthria or mild word-find problems)? Yes. EXPRESSION - SCORE: 6-JM SOCIAL INTERACTION: SOCIAL INTERACTION - STEP 1: Does the patient require a helper to interact with others in social and therapeutic situations? No. SOCIAL INTERACTION - STEP 2: Does the patient need extra time in social situations, OR does s/he interact with staff, other patien ts, and family members ONLY in structured environments, OR does s/he require medication for social in teraction? Yes, patient needs extra time SOCIAL INTERACTION - SCORE: 6-JM PROBLEM SOLVING: PROBLEM SOLVING - STEP 1: Does the patient need help to solve complex problems such as managing a checking account or confronti ng interpersonal problems? Yes. PROBLEM SOLVING - STEP 2: Does the patient solve basic routine problems half or more of the time? Yes. PROBLEM SOLVING - STEP 3: How often does the patient need help to solve basic routine problems? Less than 10% of the time PROBLEM SOLVING - SCORE: 5-SUP MEMORY: MEMORY - STEP 1: Does the patient need help to remember frequently encountered people, daily routines, and executing r equests? Yes. MEMORY - STEP 2: How often does the patient need help to remember frequently encountered people, daily routines, and e xecuting requests? Less than 10% of the time MEMORY - SCORE: 5-SUP SIGNATURE PANEL: The following modified sections: Comprehension - Score, Expression - Score, Social Interaction - Scor e, Problem Solving - Score, Memory - Score were [electronically] signed by ROBBIE Alfaro on Fri 16:56:32 GMT-0500 (Central Daylight Time)
[2017-11-21] MEDS: MIRTAZAPINE 15 MG TAB PO SCH (20:16)
[2017-11-21] MEDS: ATORVASTATIN 20 MG TAB PO SCH (20:16)
[2017-11-21] MEDS: MELATONIN 3 MG TABLET PO PRN (22:21)
[2017-11-21] MEDS: ACETAMINOPHEN 325 MG TABLET PO PRN (22:21)
--- NOTE | 2017-11-22 03:32 | FAST ---
SHIFT START DATE/TIME: 11/21/2017 19:00 (CDT) SHIFT END DATE/TIME: 11/22/2017 07:00 (CDT) NAME MARCE BRAND DATE OF : 1935 DATE OF ADMISSION: 11/07/2017 19:54 (CDT) PHONE: AGE: 82 N# [id number] GENDER: Male ENCOUNTER PHYSICIAN: Dr. Alex Ribeiro M.D. ADMISSION DIAGNOSIS: - Orthopaedic Disorders 08 - Femur (Shaft) Fracture (08.2) Left periprosthetic distal femur fracture. EATING: Activity did not occur on this shift EATING - SCORE: 0-UNK GROOMING: Wash, rinse, and dry face Wash, rinse, and dry hands GROOMING - STEP 1: Does the patient require assistance when grooming? Yes. GROOMING - STEP 2: Does the patient require the assistance of a helper? Yes. GROOMING - STEP 3: How much assistance does the patient require from the helper? Cuing, coaxing, instructions, or encour agement for completion of grooming GROOMING - SCORE: 5-SUP BATHING: Activity did not occur on this shift BATHING - SCORE: 0-UNK DRESSING - UPPER BODY: Patient is not dressing in public clothing ARTICLES SCORE Total number of steps: 0 DRESSING - UPPER BODY - SCORE: 0-UNK DRESSING - LOWER BODY: Patient is not dressing in public clothing ARTICLES SCORE Total number of steps: 0 DRESSING - LOWER BODY - SCORE: 0-UNK TOILETING: TOILETING - STEP 1: Does the patient require assistance with toileting? Yes. TOILETING - STEP 2: Does the patient require the assistance of a helper? Yes. TOILETING - STEP 3: How much assistance does the patient require from the helper? Hands-on assistance from the helper TOILETING - STEP 4: Of the 3 tasks: 1) Adjusting clothing prior to use, 2) Cleansing of perineal area, 3) Adjusting clot ezio after use; How many tasks does the patient perform WITHOUT assistance of the helper? Three tasks with steadying assistance from the helper TOILETING - SCORE: 4-MIN BLADDER MANAGEMENT: BLADDER MANAGEMENT - STEP 1: Does the patient control the bladder completely and intentionally without equipment or devices or med ications, and is always continent? No. BLADDER MANAGEMENT - STEP 2: Does the patient require the assistance of a helper? Yes. BLADDER MANAGEMENT - STEP 3: How much assistance does the patient require from the helper? Only set-up of equipment - such as plac ing it within reach of the patient or emptying a device - to maintain either satisfactory voiding pat tern or managing an external device, such as an absorbent pad, ileal device, or catheter BLADDER MANAGEMENT - SCORE: 5-SUP BOWEL MANAGEMENT: BOWEL MANAGEMENT - STEP 1: Does the patient control bowels completely and intentionally without equipment devices or medications AND is always continent? No. BOWEL MANAGEMENT - STEP 2: Does the patient require the assistance of a helper? Yes. BOWEL MANAGEMENT - STEP 3: How much assistance does the patient require from the helper? Patient requires maximal assistance - p erforms 25% to 49 % of bowel management tasks BOWEL MANAGEMENT - SCORE: 2-MAX TRANSFERS: BED, CHAIR, WHEELCHAIR: TRANSFERS: BED, CHAIR, WHEELCHAIR - STEP 1: Does the patient require assistance with bed, chair, or wheelchair transfers? Yes. TRANSFERS: BED, CHAIR, WHEELCHAIR - STEP 2: Does the patient require the assistance of a helper? Yes. TRANSFERS: BED, CHAIR, WHEELCHAIR - STEP 3: How much assistance does the patient require from the helper? Lifting of the legs TRANSFERS: BED, CHAIR, WHEELCHAIR - STEP 4: How many legs does the patient require the helper to lift? both legs TRANSFERS: BED, CHAIR, WHEELCHAIR - SCORE: 3-MOD TRANSFERS: TOILET: TRANSFERS: TOILET - STEP 1: Does the patient require assistance with toilet transfers? Yes. TRANSFERS: TOILET - STEP 2: Does the patient require the assistance of a helper? Yes. TRANSFERS: TOILET - STEP 3: How much assistance does the patient require from the helper? Patient performs less than half of the transferring tasks TRANSFERS: TOILET - STEP 4: Does the patient require total assistance for the toilet transfer such as the helper doing basically all the lifting? No. TRANSFERS: TOILET - SCORE: 2-MAX TRANSFERS: SHOWER: Activity did not occur on this shift TRANSFERS: SHOWER - SCORE: 0-UNK TRANSFERS: TUB: Activity did not occur on this shift TRANSFERS: TUB - SCORE: 0-UNK LOCOMOTION: WALK: Activity did not occur on this shift LOCOMOTION: WALK - SCORE: 0-UNK LOCOMOTION: WHEELCHAIR: Activity did not occur on this shift LOCOMOTION: WHEELCHAIR - SCORE: 0-UNK COMPREHENSION: COMPREHENSION: TYPE: Both COMPREHENSION - STEP 1: Does the patient require help to understand complex and abstract ideas (such as current events, finan panda, discharge planning, medical issues, relationships, etc)? No. COMPREHENSION - STEP 2: Does the patient need extra time, require an assistive device (such as glasses, hearing aids, or an a ugmentative communication system), OR does s/he have mild difficulty expressing complex and abstract ideas (including mild dysarthria or mild word-finding problems)? Yes. COMPREHENSION - SCORE: 6-JM EXPRESSION EXPRESSION: TYPE: Both EXPRESSION - STEP 1: Does the patient require help expressing complex and abstract ideas (such as current events, finances , discharge planning, medical issues, relationships, etc)? No. EXPRESSION - STEP 2: Does the patient need extra time, require an assistive device (such as augmentive communication syste m or a communication board), OR does s/he have mild difficulty expressing complex and abstract ideas (including mild dysarthria or mild word-find problems)? Yes. EXPRESSION - SCORE: 6-JM SOCIAL INTERACTION: SOCIAL INTERACTION - STEP 1: Does the patient require a helper to interact with others in social and therapeutic situations? No. SOCIAL INTERACTION - STEP 2: Does the patient need extra time in social situations, OR does s/he interact with staff, other patien ts, and family members ONLY in structured environments, OR does s/he require medication for social in teraction? Yes, patient requires medication for social interaction SOCIAL INTERACTION - SCORE: 6-JM PROBLEM SOLVING: PROBLEM SOLVING - STEP 1: Does the patient need help to solve complex problems such as managing a checking account or confronti ng interpersonal problems? No. PROBLEM SOLVING - STEP 2: Does the patient require extra time to make decisions or solve problems, OR does s/he have slight dif ficulty reading, initiating, or self-correcting in unfamiliar situations? Yes, patient needs extra ti me. PROBLEM SOLVING - SCORE: 6-JM MEMORY: MEMORY - STEP 1: Does the patient need help to remember frequently encountered people, daily routines, and executing r equests? No. MEMORY - STEP 2: Does the patient have slight difficulty recognizing frequently encountered people, daily routines, or executing requests without the need for repetition or using self-initiated or environmental cues to remember? Yes. MEMORY - SCORE: 6-JM
[2017-11-22] MEDS: METOPROLOL TAR 25 MG TAB PO SCH ×2 (05:09→17:00)
[2017-11-22] MEDS: CODEINE 30MG/APAP 300MG TAB PO PRN (08:00)
[2017-11-22] MEDS: buPROPion HCl 100 MG TAB PO SCH ×2 (08:00→13:28)
[2017-11-22] MEDS: VITAMIN D 5,000 UNIT CAP PO SCH (08:00)
[2017-11-22] MEDS: CRANBERRY FRUIT EXTRACT 200 MG CAP PO SCH ×2 (08:00→19:27)
[2017-11-22] MEDS: PRIMIDONE 50 MG TAB PO SCH (08:00)
[2017-11-22] MEDS: NYSTATIN PWDR 100000 UNIT/GM TOP SCH ×2 (08:00→19:28)
[2017-11-22] MEDS: CYANOCOBALAMIN 1,000 MCG TAB PO SCH (08:00)
[2017-11-22] MEDS: ENSURE HIGH PROTEIN 237 ML CAN PO SCH ×2 (08:01→19:27)
[2017-11-22] MEDS: APIXABAN 2.5 MG TABLET PO SCH ×2 (08:01→19:27)
[2017-11-22] MEDS: RANITIDINE 150 MG TABLET PO SCH ×2 (08:01→19:27)
--- NOTE | 2017-11-22 12:51 | FAST ---
ENCOUNTER DATE AND TIME: 11/22/2017 08:00 (CDT) NAME MARCE BRAND DATE OF : 1935 DATE OF ADMISSION: 11/07/2017 19:54 (CDT) PHONE: AGE: 82 SSN# [id number] GENDER: Male ENCOUNTER PHYSICIAN: Dr. Alex Ribeior M.D. ADMISSION DIAGNOSIS: - Orthopaedic Disorders 08 - Femur (Shaft) Fracture (08.2) Left periprosthetic distal femur fracture. EATING: Activity did not occur on this shift EATING - SCORE: 0-UNK GROOMING: Activity did not occur on this shift GROOMING - SCORE: 0-UNK BATHING: Activity did not occur on this shift BATHING - SCORE: 0-UNK DRESSING - UPPER BODY: Activity did not occur on this shift Patient is not dressing in public clothing ARTICLES SCORE Total number of steps: 0 DRESSING - UPPER BODY - SCORE: 0-UNK DRESSING - LOWER BODY: Activity did not occur on this shift Patient is not dressing in public clothing ARTICLES SCORE Total number of steps: 0 DRESSING - LOWER BODY - SCORE: 0-UNK TOILETING: Activity did not occur on this shift TOILETING - SCORE: 0-UNK BLADDER MANAGEMENT: Activity did not occur on this shift BLADDER MANAGEMENT - SCORE: 7-IND BOWEL MANAGEMENT: Activity did not occur on this shift BOWEL MANAGEMENT - SCORE: 7-IND TRANSFERS: BED, CHAIR, WHEELCHAIR: Activity did not occur on this shift TRANSFERS: BED, CHAIR, WHEELCHAIR - SCORE: 0-UNK TRANSFERS: TOILET: Activity did not occur on this shift TRANSFERS: TOILET - SCORE: 0-UNK TRANSFERS: SHOWER: Activity did not occur on this shift TRANSFERS: SHOWER - SCORE: 0-UNK TRANSFERS: TUB: Activity did not occur on this shift TRANSFERS: TUB - SCORE: 0-UNK LOCOMOTION: WALK: Activity did not occur on this shift LOCOMOTION: WALK - SCORE: 0-UNK LOCOMOTION: WHEELCHAIR: Activity did not occur on this shift LOCOMOTION: WHEELCHAIR - SCORE: 0-UNK LOCOMOTION: STAIRS: Activity did not occur on this shift LOCOMOTION: STAIRS - SCORE: 0-UNK COMPREHENSION: COMPREHENSION - SCORE: 0-UNK EXPRESSION EXPRESSION - SCORE: 0-UNK SOCIAL INTERACTION: SOCIAL INTERACTION - SCORE: 0-UNK PROBLEM SOLVING: PROBLEM SOLVING - SCORE: 0-UNK MEMORY: MEMORY - SCORE: 0-UNK SIGNATURE PANEL: The following modified sections: Transfers: Bed, Chair, Wheelchair - Score, Transfers: Toilet - Score , Locomotion: Walk - Score, Locomotion: Wheelchair - Score, Locomotion: Stairs - Score were [electron [email or web address]] signed by Xiao Ac PTA on Sat Nov 22 2017 11:51:36 GMT-0500 (Central Daylight Time)
--- NOTE | 2017-11-22 13:32 | FAST ---
ENCOUNTER DATE AND TIME: 11/22/2017 08:00 (CDT) NAME MARCE BRAND DATE OF : 1935 DATE OF ADMISSION: 11/07/2017 19:54 (CDT) PHONE: AGE: 82 N# [id number] GENDER: Male ENCOUNTER PHYSICIAN: Dr. Alex Ribeiro M.D. ADMISSION DIAGNOSIS: - Orthopaedic Disorders 08 - Femur (Shaft) Fracture (08.2) Left periprosthetic distal femur fracture. EATING: Activity did not occur on this shift EATING - SCORE: 0-UNK GROOMING: Comb/brush hair GROOMING - STEP 1: Does the patient require assistance when grooming? Yes. GROOMING - STEP 2: Does the patient require the assistance of a helper? Yes. GROOMING - STEP 3: How much assistance does the patient require from the helper? Only prior equipment preparation/set up from the helper GROOMING - SCORE: 5-SUP BATHING: Activity did not occur on this shift BATHING - SCORE: 0-UNK DRESSING - UPPER BODY: Button down shirt or blouse - NOT tucked in (four steps) ARTICLES SCORE Total number of steps: 4 DRESSING - UPPER BODY - STEP 1: Does the patient require help when dressing above the waist? Yes. DRESSING - UPPER BODY - STEP 2: Does the patient require the assistance of a helper? Yes. DRESSING - UPPER BODY - STEP 3: Does the helper touch the patient while dressing? No. DRESSING - UPPER BODY - SCORE: 5-SUP DRESSING - UPPER BODY - COMMENTS: Set up assist DRESSING - LOWER BODY: Elastic waist pants (three steps) ARTICLES SCORE Total number of steps: 3 DRESSING - LOWER BODY - STEP 1: Does the patient require help when dressing below the waist? Yes. DRESSING - LOWER BODY - STEP 2: Does the patient require the assistance of a helper? Yes. DRESSING - LOWER BODY - STEP 3: Does the helper touch the patient while dressing? Yes. DRESSING - LOWER BODY - STEP 4: How many of the total steps does the patient complete on his/her own? 2 DRESSING - LOWER BODY - SCORE: 3-MOD TOILETING: Activity did not occur on this shift TOILETING - SCORE: 0-UNK BLADDER MANAGEMENT: Activity did not occur on this shift BLADDER MANAGEMENT - SCORE: 7-IND BOWEL MANAGEMENT: Activity did not occur on this shift BOWEL MANAGEMENT - SCORE: 7-IND TRANSFERS: BED, CHAIR, WHEELCHAIR: Activity did not occur on this shift TRANSFERS: BED, CHAIR, WHEELCHAIR - SCORE: 0-UNK TRANSFERS: TOILET: Activity did not occur on this shift TRANSFERS: TOILET - SCORE: 0-UNK TRANSFERS: SHOWER: Activity did not occur on this shift TRANSFERS: SHOWER - SCORE: 0-UNK TRANSFERS: TUB: Activity did not occur on this shift TRANSFERS: TUB - SCORE: 0-UNK LOCOMOTION: WALK: Activity did not occur on this shift LOCOMOTION: WALK - SCORE: 0-UNK LOCOMOTION: WHEELCHAIR: Activity did not occur on this shift LOCOMOTION: WHEELCHAIR - SCORE: 0-UNK LOCOMOTION: STAIRS: Activity did not occur on this shift LOCOMOTION: STAIRS - SCORE: 0-UNK COMPREHENSION: COMPREHENSION: TYPE: Both COMPREHENSION - STEP 1: Does the patient require help to understand complex and abstract ideas (such as current events, finan panda, discharge planning, medical issues, relationships, etc)? No. COMPREHENSION - STEP 2: Does the patient need extra time, require an assistive device (such as glasses, hearing aids, or an a ugmentative communication system), OR does s/he have mild difficulty expressing complex and abstract ideas (including mild dysarthria or mild word-finding problems)? Yes. COMPREHENSION - SCORE: 6-JM EXPRESSION EXPRESSION: TYPE: Vocal EXPRESSION - STEP 1: Does the patient require help expressing complex and abstract ideas (such as current events, finances , discharge planning, medical issues, relationships, etc)? No. EXPRESSION - STEP 2: Does the patient need extra time, require an assistive device (such as augmentive communication syste m or a communication board), OR does s/he have mild difficulty expressing complex and abstract ideas (including mild dysarthria or mild word-find problems)? Yes. EXPRESSION - SCORE: 6-JM SOCIAL INTERACTION: SOCIAL INTERACTION - STEP 1: Does the patient require a helper to interact with others in social and therapeutic situations? No. SOCIAL INTERACTION - STEP 2: Does the patient need extra time in social situations, OR does s/he interact with staff, other patien ts, and family members ONLY in structured environments, OR does s/he require medication for social in teraction? No. SOCIAL INTERACTION - SCORE: 7-IND PROBLEM SOLVING: PROBLEM SOLVING - STEP 1: Does the patient need help to solve complex problems such as managing a checking account or confronti ng interpersonal problems? Yes. PROBLEM SOLVING - STEP 2: Does the patient solve basic routine problems half or more of the time? Yes. PROBLEM SOLVING - STEP 3: How often does the patient need help to solve basic routine problems? Less than 10% of the time PROBLEM SOLVING - SCORE: 5-SUP MEMORY: MEMORY - STEP 1: Does the patient need help to remember frequently encountered people, daily routines, and executing r equests? Yes. MEMORY - STEP 2: How often does the patient need help to remember frequently encountered people, daily routines, and e xecuting requests? Less than 10% of the time MEMORY - SCORE: 5-SUP SIGNATURE PANEL: The following modified sections: Eating - Score, Grooming - Score, Bathing - Score, Dressing - Upper Body - Score, Dressing - Upper Body - Comments:, Dressing - Lower Body - Score, Toileting - Score, Tr ansfers: Bed, Chair, Wheelchair - Score, Transfers: Toilet - Score, Transfers: Shower - Score, Transf ers: Tub - Score, Comprehension - Score, Expression - Score, Social Interaction - Score, Problem Solv ing - Score, Memory - Score were [electronically] signed by Madyson Bingham OT on FriNov 22 2017 12: 31:39 GMT-0500 (Central Daylight Time)
--- NOTE | 2017-11-22 17:24 | FAST ---
SHIFT START DATE/TIME: 11/22/2017 07:00 (CDT) SHIFT END DATE/TIME: 11/22/2017 19:00 (CDT) NAME MARCE BRAND DATE OF : 1935 DATE OF ADMISSION: 11/07/2017 19:54 (CDT) PHONE: AGE: 82 N# [id number] GENDER: Male ENCOUNTER PHYSICIAN: Dr. Alex Ribeiro M.D. ADMISSION DIAGNOSIS: - Orthopaedic Disorders 08 - Femur (Shaft) Fracture (08.2) Left periprosthetic distal femur fracture. EATING: EATING - STEP 1: Does the patient require assistance when eating? Yes. EATING - STEP 2: Does the patient require the assistance of a helper? Yes. EATING - STEP 3: Does the patient perform half or more of the eating tasks? Yes. EATING - STEP 4: Does the patient need only supervision, cuing, coaxing OR help to apply an orthosis OR help to cut fo od, open containers, pour liquids, or butter bread? Yes. EATING - SCORE: 5-SUP GROOMING: Activity did not occur on this shift GROOMING - SCORE: 0-UNK BATHING: Activity did not occur on this shift BATHING - SCORE: 0-UNK DRESSING - UPPER BODY: Activity did not occur on this shift ARTICLES SCORE Total number of steps: 0 DRESSING - UPPER BODY - SCORE: 0-UNK DRESSING - UPPER BODY - COMMENTS: DRESSED WITH OT DRESSING - LOWER BODY: Activity did not occur on this shift ARTICLES SCORE Total number of steps: 0 DRESSING - LOWER BODY - SCORE: 0-UNK TOILETING: TOILETING - STEP 1: Does the patient require assistance with toileting? Yes. TOILETING - STEP 2: Does the patient require the assistance of a helper? Yes. TOILETING - STEP 3: How much assistance does the patient require from the helper? Hands-on assistance from the helper TOILETING - STEP 4: Of the 3 tasks: 1) Adjusting clothing prior to use, 2) Cleansing of perineal area, 3) Adjusting clot ezio after use; How many tasks does the patient perform WITHOUT assistance of the helper? One task TOILETING - SCORE: 2-MAX BLADDER MANAGEMENT: BLADDER MANAGEMENT - STEP 1: Does the patient control the bladder completely and intentionally without equipment or devices or med ications, and is always continent? No. BLADDER MANAGEMENT - STEP 2: Does the patient require the assistance of a helper? Yes. BLADDER MANAGEMENT - STEP 3: How much assistance does the patient require from the helper? Only set-up of equipment - such as plac ing it within reach of the patient or emptying a device - to maintain either satisfactory voiding pat tern or managing an external device, such as an absorbent pad, ileal device, or catheter BLADDER MANAGEMENT - SCORE: 5-SUP BOWEL MANAGEMENT: Activity did not occur on this shift BOWEL MANAGEMENT - SCORE: 7-IND TRANSFERS: BED, CHAIR, WHEELCHAIR: TRANSFERS: BED, CHAIR, WHEELCHAIR - STEP 1: Does the patient require assistance with bed, chair, or wheelchair transfers? Yes. TRANSFERS: BED, CHAIR, WHEELCHAIR - STEP 2: Does the patient require the assistance of a helper? Yes. TRANSFERS: BED, CHAIR, WHEELCHAIR - STEP 3: How much assistance does the patient require from the helper? Lifting of the patient TRANSFERS: BED, CHAIR, WHEELCHAIR - STEP 4: Does the helper lift the patient ONLY up? ONLY down? Up AND Down? Up AND Down. TRANSFERS: BED, CHAIR, WHEELCHAIR - SCORE: 2-MAX TRANSFERS: TOILET: TRANSFERS: TOILET - STEP 1: Does the patient require assistance with toilet transfers? Yes. TRANSFERS: TOILET - STEP 2: Does the patient require the assistance of a helper? Yes. TRANSFERS: TOILET - STEP 3: How much assistance does the patient require from the helper? Patient performs less than half of the transferring tasks TRANSFERS: TOILET - STEP 4: Does the patient require total assistance for the toilet transfer such as the helper doing basically all the lifting? No. TRANSFERS: TOILET - SCORE: 2-MAX TRANSFERS: SHOWER: Activity did not occur on this shift TRANSFERS: SHOWER - SCORE: 0-UNK TRANSFERS: TUB: Activity did not occur on this shift TRANSFERS: TUB - SCORE: 0-UNK LOCOMOTION: WALK: Activity did not occur on this shift LOCOMOTION: WALK - SCORE: 0-UNK LOCOMOTION: WHEELCHAIR: Activity did not occur on this shift LOCOMOTION: WHEELCHAIR - SCORE: 0-UNK COMPREHENSION: COMPREHENSION - SCORE: 0-UNK EXPRESSION EXPRESSION - SCORE: 0-UNK SOCIAL INTERACTION: SOCIAL INTERACTION - SCORE: 0-UNK PROBLEM SOLVING: PROBLEM SOLVING - SCORE: 0-UNK MEMORY: MEMORY - SCORE: 0-UNK SIGNATURE PANEL: The following modified sections: Eating - Score, Grooming - Score, Bathing - Score, Dressing - Upper Body - Score, Dressing - Upper Body - Comments:, Dressing - Lower Body - Score, Toileting - Score, Bl adder Management - Score, Bowel Management - Score, Transfers: Bed, Chair, Wheelchair - Score, Transf ers: Toilet - Score, Transfers: Shower - Score, Transfers: Tub - Score, Locomotion: Walk - Score, Loc omotion: Wheelchair - Score, Comprehension - Score, Expression - Score, Social Interaction - Score, P roblem Solving - Score, Memory - Score were [electronically] signed by Herman Mendes on Sat Nov 22 2017 16:24:20 GMT-0500 (Central Daylight Time)
[2017-11-22] MEDS: MELATONIN 3 MG TABLET PO PRN (19:27)
[2017-11-22] MEDS: ATORVASTATIN 20 MG TAB PO SCH (20:00)
[2017-11-22] MEDS: MIRTAZAPINE 15 MG TAB PO SCH (20:00)
--- NOTE | 2017-11-23 03:30 | FAST ---
SHIFT START DATE/TIME: 11/22/2017 19:00 (CDT) SHIFT END DATE/TIME: 11/23/2017 07:00 (CDT) NAME MARCE BRAND DATE OF : 1935 DATE OF ADMISSION: 11/07/2017 19:54 (CDT) PHONE: AGE: 82 N# [id number] GENDER: Male ENCOUNTER PHYSICIAN: Dr. Alex Ribeiro M.D. ADMISSION DIAGNOSIS: - Orthopaedic Disorders 08 - Femur (Shaft) Fracture (08.2) Left periprosthetic distal femur fracture. EATING: Activity did not occur on this shift EATING - SCORE: 0-UNK GROOMING: Wash, rinse, and dry hands GROOMING - STEP 1: Does the patient require assistance when grooming? Yes. GROOMING - STEP 2: Does the patient require the assistance of a helper? Yes. GROOMING - STEP 3: How much assistance does the patient require from the helper? Cuing, coaxing, instructions, or encour agement for completion of grooming GROOMING - SCORE: 5-SUP BATHING: Activity did not occur on this shift BATHING - SCORE: 0-UNK DRESSING - UPPER BODY: Patient is not dressing in public clothing ARTICLES SCORE Total number of steps: 0 DRESSING - UPPER BODY - SCORE: 0-UNK DRESSING - LOWER BODY: Patient is not dressing in public clothing ARTICLES SCORE Total number of steps: 0 DRESSING - LOWER BODY - SCORE: 0-UNK TOILETING: TOILETING - STEP 1: Does the patient require assistance with toileting? Yes. TOILETING - STEP 2: Does the patient require the assistance of a helper? Yes. TOILETING - STEP 3: How much assistance does the patient require from the helper? Hands-on assistance from the helper TOILETING - STEP 4: Of the 3 tasks: 1) Adjusting clothing prior to use, 2) Cleansing of perineal area, 3) Adjusting clot ezio after use; How many tasks does the patient perform WITHOUT assistance of the helper? Three tasks with steadying assistance from the helper TOILETING - SCORE: 4-MIN BLADDER MANAGEMENT: BLADDER MANAGEMENT - STEP 1: Does the patient control the bladder completely and intentionally without equipment or devices or med ications, and is always continent? No. BLADDER MANAGEMENT - STEP 2: Does the patient require the assistance of a helper? Yes. BLADDER MANAGEMENT - STEP 3: How much assistance does the patient require from the helper? Patient requires contact assistance fro m the helper BLADDER MANAGEMENT - STEP 4: How much contact assistance does the patient require from the helper? Patient requires minimal assist ance to maintain an external device - by positioning, and the patient performs 75% or more of bladder management tasks, while the helper provides less than 25% of the assistance to position patient on / off bedpan BLADDER MANAGEMENT - SCORE: 4-MIN BOWEL MANAGEMENT: BOWEL MANAGEMENT - STEP 1: Does the patient control bowels completely and intentionally without equipment devices or medications AND is always continent? No. BOWEL MANAGEMENT - STEP 2: Does the patient require the assistance of a helper? Yes. BOWEL MANAGEMENT - STEP 3: How much assistance does the patient require from the helper? Patient requires maximal assistance - p erforms 25% to 49 % of bowel management tasks BOWEL MANAGEMENT - SCORE: 2-MAX TRANSFERS: BED, CHAIR, WHEELCHAIR: TRANSFERS: BED, CHAIR, WHEELCHAIR - STEP 1: Does the patient require assistance with bed, chair, or wheelchair transfers? Yes. TRANSFERS: BED, CHAIR, WHEELCHAIR - STEP 2: Does the patient require the assistance of a helper? Yes. TRANSFERS: BED, CHAIR, WHEELCHAIR - STEP 3: How much assistance does the patient require from the helper? Lifting of the legs TRANSFERS: BED, CHAIR, WHEELCHAIR - STEP 4: How many legs does the patient require the helper to lift? both legs TRANSFERS: BED, CHAIR, WHEELCHAIR - SCORE: 3-MOD TRANSFERS: TOILET: TRANSFERS: TOILET - STEP 1: Does the patient require assistance with toilet transfers? Yes. TRANSFERS: TOILET - STEP 2: Does the patient require the assistance of a helper? Yes. TRANSFERS: TOILET - STEP 3: How much assistance does the patient require from the helper? Patient performs less than half of the transferring tasks TRANSFERS: TOILET - STEP 4: Does the patient require total assistance for the toilet transfer such as the helper doing basically all the lifting? No. TRANSFERS: TOILET - SCORE: 2-MAX TRANSFERS: SHOWER: Activity did not occur on this shift TRANSFERS: SHOWER - SCORE: 0-UNK TRANSFERS: TUB: Activity did not occur on this shift TRANSFERS: TUB - SCORE: 0-UNK LOCOMOTION: WALK: Activity did not occur on this shift LOCOMOTION: WALK - SCORE: 0-UNK LOCOMOTION: WHEELCHAIR: Activity did not occur on this shift LOCOMOTION: WHEELCHAIR - SCORE: 0-UNK COMPREHENSION: COMPREHENSION: TYPE: Both COMPREHENSION - STEP 1: Does the patient require help to understand complex and abstract ideas (such as current events, finan panda, discharge planning, medical issues, relationships, etc)? No. COMPREHENSION - STEP 2: Does the patient need extra time, require an assistive device (such as glasses, hearing aids, or an a ugmentative communication system), OR does s/he have mild difficulty expressing complex and abstract ideas (including mild dysarthria or mild word-finding problems)? Yes. COMPREHENSION - SCORE: 6-JM EXPRESSION EXPRESSION: TYPE: Both EXPRESSION - STEP 1: Does the patient require help expressing complex and abstract ideas (such as current events, finances , discharge planning, medical issues, relationships, etc)? No. EXPRESSION - STEP 2: Does the patient need extra time, require an assistive device (such as augmentive communication syste m or a communication board), OR does s/he have mild difficulty expressing complex and abstract ideas (including mild dysarthria or mild word-find problems)? Yes. EXPRESSION - SCORE: 6-JM SOCIAL INTERACTION: SOCIAL INTERACTION - STEP 1: Does the patient require a helper to interact with others in social and therapeutic situations? No. SOCIAL INTERACTION - STEP 2: Does the patient need extra time in social situations, OR does s/he interact with staff, other patien ts, and family members ONLY in structured environments, OR does s/he require medication for social in teraction? Yes, patient requires medication for social interaction SOCIAL INTERACTION - SCORE: 6-JM PROBLEM SOLVING: PROBLEM SOLVING - STEP 1: Does the patient need help to solve complex problems such as managing a checking account or confronti ng interpersonal problems? No. PROBLEM SOLVING - STEP 2: Does the patient require extra time to make decisions or solve problems, OR does s/he have slight dif ficulty reading, initiating, or self-correcting in unfamiliar situations? Yes, patient needs extra ti me. PROBLEM SOLVING - SCORE: 6-JM MEMORY: MEMORY - STEP 1: Does the patient need help to remember frequently encountered people, daily routines, and executing r equests? No. MEMORY - STEP 2: Does the patient have slight difficulty recognizing frequently encountered people, daily routines, or executing requests without the need for repetition or using self-initiated or environmental cues to remember? Yes. MEMORY - SCORE: 6-JM
[2017-11-23] MEDS: METOPROLOL TAR 25 MG TAB PO SCH ×2 (05:03→17:03)
[2017-11-23] MEDS: APIXABAN 2.5 MG TABLET PO SCH ×2 (07:55→19:50)
[2017-11-23] MEDS: CRANBERRY FRUIT EXTRACT 200 MG CAP PO SCH ×2 (07:55→19:50)
[2017-11-23] MEDS: RANITIDINE 150 MG TABLET PO SCH ×2 (07:56→19:50)
[2017-11-23] MEDS: CYANOCOBALAMIN 1,000 MCG TAB PO SCH (07:56)
[2017-11-23] MEDS: buPROPion HCl 100 MG TAB PO SCH ×2 (07:56→13:02)
[2017-11-23] MEDS: PRIMIDONE 50 MG TAB PO SCH (07:56)
[2017-11-23] MEDS: VITAMIN D 5,000 UNIT CAP PO SCH (07:56)
[2017-11-23] MEDS: CODEINE 30MG/APAP 300MG TAB PO PRN (07:56)
[2017-11-23] MEDS: NYSTATIN PWDR 100000 UNIT/GM TOP SCH ×2 (07:57→19:49)
[2017-11-23] MEDS: ENSURE HIGH PROTEIN 237 ML CAN PO SCH ×2 (07:57→19:00)
--- NOTE | 2017-11-23 12:58 | FAST ---
SHIFT START DATE/TIME: 11/23/2017 07:00 (CDT) SHIFT END DATE/TIME: 11/23/2017 19:00 (CDT) NAME MARCE BRAND DATE OF : 1935 DATE OF ADMISSION: 11/07/2017 19:54 (CDT) PHONE: AGE: 82 N# [id number] GENDER: Male ENCOUNTER PHYSICIAN: Dr. Alex Ribeiro M.D. ADMISSION DIAGNOSIS: - Orthopaedic Disorders 08 - Femur (Shaft) Fracture (08.2) Left periprosthetic distal femur fracture. EATING: EATING - STEP 1: Does the patient require assistance when eating? Yes. EATING - STEP 2: Does the patient require the assistance of a helper? Yes. EATING - STEP 3: Does the patient perform half or more of the eating tasks? Yes. EATING - STEP 4: Does the patient need only supervision, cuing, coaxing OR help to apply an orthosis OR help to cut fo od, open containers, pour liquids, or butter bread? Yes. EATING - SCORE: 5-SUP GROOMING: Oral care Patient shaved Wash, rinse, and dry face Wash, rinse, and dry hands GROOMING - STEP 1: Does the patient require assistance when grooming? Yes. GROOMING - STEP 2: Does the patient require the assistance of a helper? Yes. GROOMING - STEP 3: How much assistance does the patient require from the helper? Cuing, coaxing, instructions, or encour agement for completion of grooming GROOMING - SCORE: 5-SUP BATHING: Activity did not occur on this shift BATHING - SCORE: 0-UNK DRESSING - UPPER BODY: Button down shirt or blouse - NOT tucked in (four steps) ARTICLES SCORE Total number of steps: 4 DRESSING - UPPER BODY - STEP 1: Does the patient require help when dressing above the waist? Yes. DRESSING - UPPER BODY - STEP 2: Does the patient require the assistance of a helper? Yes. DRESSING - UPPER BODY - STEP 3: Does the helper touch the patient while dressing? Yes. DRESSING - UPPER BODY - STEP 4: How many of the total steps does the patient complete on his/her own? 1 DRESSING - UPPER BODY - STEP 5: Does Patient require total assistance for dressing above the waist such as the helper holding clothin g and performing basically all the activities? No. DRESSING - UPPER BODY - SCORE: 2-MAX DRESSING - LOWER BODY: Elastic waist pants (three steps) Sock - Left foot (one step) Sock - Right foot (one step) ARTICLES SCORE Total number of steps: 5 DRESSING - LOWER BODY - STEP 1: Does the patient require help when dressing below the waist? Yes. DRESSING - LOWER BODY - STEP 2: Does the patient require the assistance of a helper? Yes. DRESSING - LOWER BODY - STEP 3: Does the helper touch the patient while dressing? Yes. DRESSING - LOWER BODY - STEP 4: How many of the total steps does the patient complete on his/her own? 0 DRESSING - LOWER BODY - STEP 5: Does patient require total assistance for dressing below the waist such as the helper holding clothin g and performing basically all the activities? No. DRESSING - LOWER BODY - SCORE: 2-MAX TOILETING: TOILETING - STEP 1: Does the patient require assistance with toileting? Yes. TOILETING - STEP 2: Does the patient require the assistance of a helper? Yes. TOILETING - STEP 3: How much assistance does the patient require from the helper? Hands-on assistance from the helper TOILETING - STEP 4: Of the 3 tasks: 1) Adjusting clothing prior to use, 2) Cleansing of perineal area, 3) Adjusting clot ezio after use; How many tasks does the patient perform WITHOUT assistance of the helper? No tasks; kashmir cedeño performs all three tasks TOILETING - SCORE: 1-DEP BLADDER MANAGEMENT: BLADDER MANAGEMENT - STEP 1: Does the patient control the bladder completely and intentionally without equipment or devices or med ications, and is always continent? No. BLADDER MANAGEMENT - STEP 2: Does the patient require the assistance of a helper? No, patient requires and independently uses an a ssistive device, such as a urinal, bedpan, bedside commode, catheter, absorbent pad, or collecting de vice BLADDER MANAGEMENT - SCORE: 6-JM BOWEL MANAGEMENT: BOWEL MANAGEMENT - STEP 1: Does the patient control bowels completely and intentionally without equipment devices or medications AND is always continent? No. BOWEL MANAGEMENT - STEP 2: Does the patient require the assistance of a helper? No, patient requires and manages independently a n assistive device such as a bedpan, bedside commode, absorbent pad, incontinent device, or collectin g device BOWEL MANAGEMENT - SCORE: 6-JM TRANSFERS: BED, CHAIR, WHEELCHAIR: Patient requires more than one helper and/or the use of a mechanical lift is utilized TRANSFERS: BED, CHAIR, WHEELCHAIR - SCORE: 1-DEP TRANSFERS: TOILET: Patient requires more than one helper and/or the use of a mechanical lift is utilized TRANSFERS: TOILET - SCORE: 1-DEP TRANSFERS: SHOWER: Activity did not occur on this shift TRANSFERS: SHOWER - SCORE: 0-UNK TRANSFERS: TUB: Activity did not occur on this shift TRANSFERS: TUB - SCORE: 0-UNK LOCOMOTION: WALK: Activity did not occur on this shift LOCOMOTION: WALK - SCORE: 0-UNK LOCOMOTION: WHEELCHAIR: Activity did not occur on this shift LOCOMOTION: WHEELCHAIR - SCORE: 0-UNK COMPREHENSION: COMPREHENSION - SCORE: 0-UNK EXPRESSION EXPRESSION - SCORE: 0-UNK SOCIAL INTERACTION: SOCIAL INTERACTION - SCORE: 0-UNK PROBLEM SOLVING: PROBLEM SOLVING - SCORE: 0-UNK MEMORY: MEMORY - SCORE: 0-UNK SIGNATURE PANEL: The following modified sections: Eating - Score, Grooming - Score, Bathing - Score, Dressing - Upper Body - Score, Dressing - Lower Body - Score, Toileting - Score, Bladder Management - Score, Bowel Man agement - Score, Transfers: Bed, Chair, Wheelchair - Score, Transfers: Toilet - Score, Transfers: Merline wer - Score, Transfers: Tub - Score, Locomotion: Walk - Score, Locomotion: Wheelchair - Score, Compre hension - Score, Expression - Score, Social Interaction - Score, Problem Solving - Score, Memory - Sc ore were [electronically] signed by Herman Mendes on FriNov 23 2017 11:57:43 GMT-0500 (Central Daylight Time)
[2017-11-23] MEDS ORDERED: LOPERAMIDE HCL 2 MG CAPSULE PO PRN (19:02)
[2017-11-23] MEDS: MELATONIN 3 MG TABLET PO PRN (19:51)
[2017-11-23] MEDS: ATORVASTATIN 20 MG TAB PO SCH (20:00)
[2017-11-23] MEDS: MIRTAZAPINE 15 MG TAB PO SCH (20:00)
--- NOTE | 2017-11-24 03:20 | FAST ---
SHIFT START DATE/TIME: 11/23/2017 19:00 (CDT) SHIFT END DATE/TIME: 11/24/2017 07:00 (CDT) NAME MARCE BRAND DATE OF : 1935 DATE OF ADMISSION: 11/07/2017 19:54 (CDT) PHONE: AGE: 82 N# [id number] GENDER: Male ENCOUNTER PHYSICIAN: Dr. Alex Ribeiro M.D. ADMISSION DIAGNOSIS: - Orthopaedic Disorders 08 - Femur (Shaft) Fracture (08.2) Left periprosthetic distal femur fracture. EATING: Activity did not occur on this shift EATING - SCORE: 0-UNK GROOMING: Activity did not occur on this shift GROOMING - SCORE: 0-UNK BATHING: Activity did not occur on this shift BATHING - SCORE: 0-UNK DRESSING - UPPER BODY: Activity did not occur on this shift ARTICLES SCORE Total number of steps: 0 DRESSING - UPPER BODY - SCORE: 0-UNK DRESSING - LOWER BODY: Activity did not occur on this shift ARTICLES SCORE Total number of steps: 0 DRESSING - LOWER BODY - SCORE: 0-UNK TOILETING: TOILETING - STEP 1: Does the patient require assistance with toileting? Yes. TOILETING - STEP 2: Does the patient require the assistance of a helper? Yes. TOILETING - STEP 3: How much assistance does the patient require from the helper? Hands-on assistance from the helper TOILETING - STEP 4: Of the 3 tasks: 1) Adjusting clothing prior to use, 2) Cleansing of perineal area, 3) Adjusting clot ezio after use; How many tasks does the patient perform WITHOUT assistance of the helper? No tasks; kashmir cedeño performs all three tasks TOILETING - SCORE: 1-DEP BLADDER MANAGEMENT: BLADDER MANAGEMENT - STEP 1: Does the patient control the bladder completely and intentionally without equipment or devices or med ications, and is always continent? No. BLADDER MANAGEMENT - STEP 2: Does the patient require the assistance of a helper? Yes. BLADDER MANAGEMENT - STEP 3: How much assistance does the patient require from the helper? Only set-up of equipment - such as plac ing it within reach of the patient or emptying a device - to maintain either satisfactory voiding pat tern or managing an external device, such as an absorbent pad, ileal device, or catheter BLADDER MANAGEMENT - SCORE: 5-SUP BOWEL MANAGEMENT: BOWEL MANAGEMENT - STEP 1: Does the patient control bowels completely and intentionally without equipment devices or medications AND is always continent? No. BOWEL MANAGEMENT - STEP 2: Does the patient require the assistance of a helper? Yes. BOWEL MANAGEMENT - STEP 3: How much assistance does the patient require from the helper? Patient requires maximal assistance - p erforms 25% to 49 % of bowel management tasks BOWEL MANAGEMENT - SCORE: 2-MAX TRANSFERS: BED, CHAIR, WHEELCHAIR: TRANSFERS: BED, CHAIR, WHEELCHAIR - STEP 1: Does the patient require assistance with bed, chair, or wheelchair transfers? Yes. TRANSFERS: BED, CHAIR, WHEELCHAIR - STEP 2: Does the patient require the assistance of a helper? Yes. TRANSFERS: BED, CHAIR, WHEELCHAIR - STEP 3: How much assistance does the patient require from the helper? Lifting of the patient TRANSFERS: BED, CHAIR, WHEELCHAIR - STEP 4: Does the helper lift the patient ONLY up? ONLY down? Up AND Down? Patient needs help with all lifting TRANSFERS: BED, CHAIR, WHEELCHAIR - SCORE: 1-DEP TRANSFERS: TOILET: TRANSFERS: TOILET - STEP 1: Does the patient require assistance with toilet transfers? Yes. TRANSFERS: TOILET - STEP 2: Does the patient require the assistance of a helper? Yes. TRANSFERS: TOILET - STEP 3: How much assistance does the patient require from the helper? Patient performs less than half of the transferring tasks TRANSFERS: TOILET - STEP 4: Does the patient require total assistance for the toilet transfer such as the helper doing basically all the lifting? Yes. TRANSFERS: TOILET - SCORE: 1-DEP TRANSFERS: SHOWER: Activity did not occur on this shift TRANSFERS: SHOWER - SCORE: 0-UNK TRANSFERS: TUB: Activity did not occur on this shift TRANSFERS: TUB - SCORE: 0-UNK LOCOMOTION: WALK: Activity did not occur on this shift LOCOMOTION: WALK - SCORE: 0-UNK LOCOMOTION: WHEELCHAIR: Activity did not occur on this shift LOCOMOTION: WHEELCHAIR - SCORE: 0-UNK COMPREHENSION: COMPREHENSION - STEP 1: Does the patient require help to understand complex and abstract ideas (such as current events, finan panda, discharge planning, medical issues, relationships, etc)? Yes. COMPREHENSION - STEP 2: Does the patient require help to understand questions or statements about basic needs or ideas (such as hunger, thirst, sleep, safety, daily schedule, room location, or discomfort) half or more of the t reena? No. COMPREHENSION - STEP 3: How often does the patient need help to understand directions and conversation about basic needs? Les s than 10% of the time COMPREHENSION - SCORE: 5-SUP EXPRESSION EXPRESSION - STEP 1: Does the patient require help expressing complex and abstract ideas (such as current events, finances , discharge planning, medical issues, relationships, etc)? Yes. EXPRESSION - STEP 2: Does the patient require help to express basic necessities or ideas (such as hunger, thirst, sleep, s afety, daily schedule, room location, or discomfort) half or more of the time? No. EXPRESSION - STEP 3: How often does the patient need help to express directions and conversation about basic needs? Less t [place] 10% of the time EXPRESSION - SCORE: 5-SUP SOCIAL INTERACTION: SOCIAL INTERACTION - STEP 1: Does the patient require a helper to interact with others in social and therapeutic situations? Yes. SOCIAL INTERACTION - STEP 2: Does the patient interact appropriately half or more of the time? Yes. SOCIAL INTERACTION - STEP 3: How often does the patient need help to interact appropriately? Less than 10% of the time SOCIAL INTERACTION - SCORE: 5-SUP PROBLEM SOLVING: PROBLEM SOLVING - STEP 1: Does the patient need help to solve complex problems such as managing a checking account or confronti ng interpersonal problems? Yes. PROBLEM SOLVING - STEP 2: Does the patient solve basic routine problems half or more of the time? Yes. PROBLEM SOLVING - STEP 3: How often does the patient need help to solve basic routine problems? Less than 10% of the time PROBLEM SOLVING - SCORE: 5-SUP MEMORY: MEMORY - STEP 1: Does the patient need help to remember frequently encountered people, daily routines, and executing r equests? Yes. MEMORY - STEP 2: How often does the patient need help to remember frequently encountered people, daily routines, and e xecuting requests? Less than 10% of the time MEMORY - SCORE: 5-SUP SIGNATURE PANEL: The following modified sections: Eating - Score, Grooming - Score, Bathing - Score, Dressing - Upper Body - Score, Dressing - Lower Body - Score, Toileting - Score, Bladder Management - Score, Bowel Man agement - Score, Transfers: Bed, Chair, Wheelchair - Score, Transfers: Toilet - Score, Transfers: Merline wer - Score, Transfers: Tub - Score, Locomotion: Walk - Score, Locomotion: Wheelchair - Score, Compre hension - Score, Expression - Score, Social Interaction - Score, Problem Solving - Score, Memory - Sc ore were [electronically] signed by Rina Lawson RN on FriNov 24 2017 02:20:26 T-0500 [facility]
[2017-11-24] MEDS: METOPROLOL TAR 25 MG TAB PO SCH ×2 (05:00→17:26)
[2017-11-24] MEDS: NYSTATIN PWDR 100000 UNIT/GM TOP SCH ×2 (08:00→20:00)
[2017-11-24] MEDS: VITAMIN D 5,000 UNIT CAP PO SCH (08:34)
[2017-11-24] MEDS: RANITIDINE 150 MG TABLET PO SCH ×2 (08:35→20:12)
[2017-11-24] MEDS: CYANOCOBALAMIN 1,000 MCG TAB PO SCH (08:35)
[2017-11-24] MEDS: CRANBERRY FRUIT EXTRACT 200 MG CAP PO SCH ×2 (08:35→20:12)
[2017-11-24] MEDS: buPROPion HCl 100 MG TAB PO SCH ×2 (08:35→12:10)
[2017-11-24] MEDS: APIXABAN 2.5 MG TABLET PO SCH ×2 (08:36→20:12)
[2017-11-24] MEDS: ACETAMINOPHEN 325 MG TABLET PO PRN (08:36)
[2017-11-24] MEDS: PRIMIDONE 50 MG TAB PO SCH (08:36)
[2017-11-24] MEDS: ENSURE HIGH PROTEIN 237 ML CAN PO SCH ×2 (08:37→20:20)
--- NOTE | 2017-11-24 16:41 | FAST ---
SHIFT START DATE/TIME: 11/24/2017 07:00 (CDT) SHIFT END DATE/TIME: 11/24/2017 19:00 (CDT) NAME MARCE BRAND DATE OF : 1935 DATE OF ADMISSION: 11/07/2017 19:54 (CDT) PHONE: AGE: 82 N# [id number] GENDER: Male ENCOUNTER PHYSICIAN: Dr. Alex Ribeiro M.D. ADMISSION DIAGNOSIS: - Orthopaedic Disorders 08 - Femur (Shaft) Fracture (08.2) Left periprosthetic distal femur fracture. EATING: EATING - STEP 1: Does the patient require assistance when eating? Yes. EATING - STEP 2: Does the patient require the assistance of a helper? No, patient only requires an assistive device, O R s/he takes more than reasonable time to eat, OR there is a safety concern, OR s/he requires modifie d food consistency EATING - SCORE: 6-JM GROOMING: Comb/brush hair Wash, rinse, and dry face Wash, rinse, and dry hands GROOMING - STEP 1: Does the patient require assistance when grooming? Yes. GROOMING - STEP 2: Does the patient require the assistance of a helper? No. The patient only requires an assistive devic e, OR takes more than reasonable time to groom, OR there is a concern for safety as the patient groom s GROOMING - SCORE: 6-JM BATHING: Activity did not occur on this shift BATHING - SCORE: 0-UNK DRESSING - UPPER BODY: Button down shirt or blouse - NOT tucked in (four steps) ARTICLES SCORE Total number of steps: 4 DRESSING - UPPER BODY - STEP 1: Does the patient require help when dressing above the waist? Yes. DRESSING - UPPER BODY - STEP 2: Does the patient require the assistance of a helper? Yes. DRESSING - UPPER BODY - STEP 3: Does the helper touch the patient while dressing? Yes. DRESSING - UPPER BODY - STEP 4: How many of the total steps does the patient complete on his/her own? 2 DRESSING - UPPER BODY - SCORE: 3-MOD DRESSING - LOWER BODY: Elastic waist pants (three steps) Sock - Left foot (one step) Sock - Right foot (one step) Tied or buckled shoe - Right foot (two steps) Underwear (three steps) ARTICLES SCORE Total number of steps: 10 DRESSING - LOWER BODY - STEP 1: Does the patient require help when dressing below the waist? Yes. DRESSING - LOWER BODY - STEP 2: Does the patient require the assistance of a helper? Yes. DRESSING - LOWER BODY - STEP 3: Does the helper touch the patient while dressing? Yes. DRESSING - LOWER BODY - STEP 4: How many of the total steps does the patient complete on his/her own? 0 DRESSING - LOWER BODY - STEP 5: Does patient require total assistance for dressing below the waist such as the helper holding clothin g and performing basically all the activities? Yes. DRESSING - LOWER BODY - SCORE: 1-DEP TOILETING: TOILETING - STEP 1: Does the patient require assistance with toileting? Yes. TOILETING - STEP 2: Does the patient require the assistance of a helper? Yes. TOILETING - STEP 3: How much assistance does the patient require from the helper? Hands-on assistance from the helper TOILETING - STEP 4: Of the 3 tasks: 1) Adjusting clothing prior to use, 2) Cleansing of perineal area, 3) Adjusting clot ezio after use; How many tasks does the patient perform WITHOUT assistance of the helper? One task TOILETING - SCORE: 2-MAX BLADDER MANAGEMENT: BLADDER MANAGEMENT - STEP 1: Does the patient control the bladder completely and intentionally without equipment or devices or med ications, and is always continent? No. BLADDER MANAGEMENT - STEP 2: Does the patient require the assistance of a helper? Yes. BLADDER MANAGEMENT - STEP 3: How much assistance does the patient require from the helper? Only set-up of equipment - such as plac ing it within reach of the patient or emptying a device - to maintain either satisfactory voiding pat tern or managing an external device, such as an absorbent pad, ileal device, or catheter BLADDER MANAGEMENT - SCORE: 5-SUP BLADDER MANAGEMENT - FREQUENCY OF ACCIDENTS: BLADDER MANAGEMENT(FA) - STEP 1: How many accidents has the patient had during the current shift? 0 BOWEL MANAGEMENT: BOWEL MANAGEMENT - STEP 1: Does the patient control bowels completely and intentionally without equipment devices or medications AND is always continent? No. BOWEL MANAGEMENT - STEP 2: Does the patient require the assistance of a helper? Yes. BOWEL MANAGEMENT - STEP 3: How much assistance does the patient require from the helper? Patient requires maximal assistance - p erforms 25% to 49 % of bowel management tasks BOWEL MANAGEMENT - SCORE: 2-MAX BOWEL MANAGEMENT - FREQUENCY OF ACCIDENTS: BOWEL MANAGEMENT(FA) - STEP 1: How many accidents has the patient had during the current shift? 0 TRANSFERS: BED, CHAIR, WHEELCHAIR: Patient requires more than one helper and/or the use of a mechanical lift is utilized TRANSFERS: BED, CHAIR, WHEELCHAIR - SCORE: 1-DEP TRANSFERS: TOILET: Patient requires more than one helper and/or the use of a mechanical lift is utilized TRANSFERS: TOILET - SCORE: 1-DEP TRANSFERS: SHOWER: Activity did not occur on this shift TRANSFERS: SHOWER - SCORE: 0-UNK TRANSFERS: TUB: Activity did not occur on this shift TRANSFERS: TUB - SCORE: 0-UNK LOCOMOTION: WALK: Activity did not occur on this shift LOCOMOTION: WALK - SCORE: 0-UNK LOCOMOTION: WHEELCHAIR: LOCOMOTION: WHEELCHAIR - STEP 1: Does the patient need help to go 150 feet in a wheelchair? Yes. LOCOMOTION: WHEELCHAIR - STEP 2: How much assistance does the patient need from the helper? Only supervision, cuing, or coaxing LOCOMOTION: WHEELCHAIR - SCORE: 5-SUP COMPREHENSION: COMPREHENSION: TYPE: Both COMPREHENSION - STEP 1: Does the patient require help to understand complex and abstract ideas (such as current events, finan panda, discharge planning, medical issues, relationships, etc)? No. COMPREHENSION - STEP 2: Does the patient need extra time, require an assistive device (such as glasses, hearing aids, or an a ugmentative communication system), OR does s/he have mild difficulty expressing complex and abstract ideas (including mild dysarthria or mild word-finding problems)? Yes. COMPREHENSION - SCORE: 6-JM EXPRESSION EXPRESSION: TYPE: Both EXPRESSION - STEP 1: Does the patient require help expressing complex and abstract ideas (such as current events, finances , discharge planning, medical issues, relationships, etc)? No. EXPRESSION - STEP 2: Does the patient need extra time, require an assistive device (such as augmentive communication syste m or a communication board), OR does s/he have mild difficulty expressing complex and abstract ideas (including mild dysarthria or mild word-find problems)? Yes. EXPRESSION - SCORE: 6-JM SOCIAL INTERACTION: SOCIAL INTERACTION - STEP 1: Does the patient require a helper to interact with others in social and therapeutic situations? No. SOCIAL INTERACTION - STEP 2: Does the patient need extra time in social situations, OR does s/he interact with staff, other patien ts, and family members ONLY in structured environments, OR does s/he require medication for social in teraction? Yes, patient needs extra time SOCIAL INTERACTION - SCORE: 6-JM PROBLEM SOLVING: PROBLEM SOLVING - STEP 1: Does the patient need help to solve complex problems such as managing a checking account or confronti ng interpersonal problems? No. PROBLEM SOLVING - STEP 2: Does the patient require extra time to make decisions or solve problems, OR does s/he have slight dif ficulty reading, initiating, or self-correcting in unfamiliar situations? Yes, patient needs extra ti me. PROBLEM SOLVING - SCORE: 6-JM MEMORY: MEMORY - STEP 1: Does the patient need help to remember frequently encountered people, daily routines, and executing r equests? No. MEMORY - STEP 2: Does the patient have slight difficulty recognizing frequently encountered people, daily routines, or executing requests without the need for repetition or using self-initiated or environmental cues to remember? Yes. MEMORY - SCORE: 6-JM SIGNATURE PANEL: The following modified sections: Eating - Score, Grooming - Score, Bathing - Score, Dressing - Upper Body - Score, Dressing - Lower Body - Score, Toileting - Score, Bladder Management - Score, Bowel Man agement - Score, Transfers: Bed, Chair, Wheelchair - Score, Transfers: Toilet - Score, Transfers: Merline wer - Score, Transfers: Tub - Score, Locomotion: Walk - Score, Locomotion: Wheelchair - Score, Compre hension - Score, Expression - Score, Social Interaction - Score, Problem Solving - Score, Memory - Sc ore were [electronically] signed by Rose Marie HuangNKg on FriNov 24 2017 15:41:22 GMT-0500 (Centra l Daylight Time)
--- NOTE | 2017-11-24 18:23 | FAST ---
ENCOUNTER DATE AND TIME: 11/24/2017 08:00 (CDT) NAME MARCE BRAND DATE OF : 1935 DATE OF ADMISSION: 11/07/2017 19:54 (CDT) PHONE: AGE: 82 SSN# [id number] GENDER: Male ENCOUNTER PHYSICIAN: Dr. Alex Ribeiro M.D. ADMISSION DIAGNOSIS: - Orthopaedic Disorders 08 - Femur (Shaft) Fracture (08.2) Left periprosthetic distal femur fracture. EATING: Activity did not occur on this shift EATING - SCORE: 0-UNK GROOMING: Activity did not occur on this shift GROOMING - SCORE: 0-UNK BATHING: Activity did not occur on this shift BATHING - SCORE: 0-UNK DRESSING - UPPER BODY: Activity did not occur on this shift Patient is not dressing in public clothing ARTICLES SCORE Total number of steps: 0 DRESSING - UPPER BODY - SCORE: 0-UNK DRESSING - LOWER BODY: Activity did not occur on this shift Patient is not dressing in public clothing ARTICLES SCORE Total number of steps: 0 DRESSING - LOWER BODY - SCORE: 0-UNK TOILETING: Activity did not occur on this shift TOILETING - SCORE: 0-UNK BLADDER MANAGEMENT: Activity did not occur on this shift BLADDER MANAGEMENT - SCORE: 7-IND BOWEL MANAGEMENT: Activity did not occur on this shift BOWEL MANAGEMENT - SCORE: 7-IND TRANSFERS: BED, CHAIR, WHEELCHAIR: Activity did not occur on this shift TRANSFERS: BED, CHAIR, WHEELCHAIR - SCORE: 0-UNK TRANSFERS: TOILET: Activity did not occur on this shift TRANSFERS: TOILET - SCORE: 0-UNK TRANSFERS: SHOWER: Activity did not occur on this shift TRANSFERS: SHOWER - SCORE: 0-UNK TRANSFERS: TUB: Activity did not occur on this shift TRANSFERS: TUB - SCORE: 0-UNK LOCOMOTION: WALK: Activity did not occur on this shift LOCOMOTION: WALK - SCORE: 0-UNK LOCOMOTION: WHEELCHAIR: Activity did not occur on this shift LOCOMOTION: WHEELCHAIR - SCORE: 0-UNK LOCOMOTION: STAIRS: Activity did not occur on this shift LOCOMOTION: STAIRS - SCORE: 0-UNK COMPREHENSION: COMPREHENSION - STEP 1: Does the patient require help to understand complex and abstract ideas (such as current events, finan panda, discharge planning, medical issues, relationships, etc)? No. COMPREHENSION - STEP 2: Does the patient need extra time, require an assistive device (such as glasses, hearing aids, or an a ugmentative communication system), OR does s/he have mild difficulty expressing complex and abstract ideas (including mild dysarthria or mild word-finding problems)? Yes. COMPREHENSION - SCORE: 6-JM EXPRESSION EXPRESSION - STEP 1: Does the patient require help expressing complex and abstract ideas (such as current events, finances , discharge planning, medical issues, relationships, etc)? No. EXPRESSION - STEP 2: Does the patient need extra time, require an assistive device (such as augmentive communication syste m or a communication board), OR does s/he have mild difficulty expressing complex and abstract ideas (including mild dysarthria or mild word-find problems)? Yes. EXPRESSION - SCORE: 6-JM SOCIAL INTERACTION: SOCIAL INTERACTION - STEP 1: Does the patient require a helper to interact with others in social and therapeutic situations? No. SOCIAL INTERACTION - STEP 2: Does the patient need extra time in social situations, OR does s/he interact with staff, other patien ts, and family members ONLY in structured environments, OR does s/he require medication for social in teraction? Yes, patient needs extra time SOCIAL INTERACTION - SCORE: 6-JM PROBLEM SOLVING: PROBLEM SOLVING - STEP 1: Does the patient need help to solve complex problems such as managing a checking account or confronti ng interpersonal problems? No. PROBLEM SOLVING - STEP 2: Does the patient require extra time to make decisions or solve problems, OR does s/he have slight dif ficulty reading, initiating, or self-correcting in unfamiliar situations? Yes, patient has slight dif ficulty reading, initiating, or self-correcting in unfamiliar situations. PROBLEM SOLVING - SCORE: 6-JM MEMORY: MEMORY - STEP 1: Does the patient need help to remember frequently encountered people, daily routines, and executing r equests? Yes. MEMORY - STEP 2: How often does the patient need help to remember frequently encountered people, daily routines, and e xecuting requests? Less than 10% of the time MEMORY - SCORE: 5-SUP SIGNATURE PANEL: The following modified sections: Comprehension - Score, Expression - Score, Social Interaction - Scor e, Problem Solving - Score, Memory - Score were [electronically] signed by ROBBIE Alfaro on Fri 17:23:13 T-0500 (Central Daylight Time)
--- NOTE | 2017-11-24 19:12 | R.PN ---
ENCOUNTER DATE AND TIME: 11/24/2017 18:10 (CDT) NAME MARCE BRAND DATE OF : 1935 DATE OF ADMISSION: 11/07/2017 19:54 (CDT) Left periprosthetic distal femur fractureCHIEF COMPLAINT: Left hip fracture SUBJECTIVE: Pt denied any Shortness of Breath. Pt denied any depression. Performed slide board transfers using bilateral upper and right lower extremity. Propelled wheelchair 150' with standby assistance. VITAL SIGNS Temperature: 97.2 F SBP/DBP: 110/64 Pulse: 90 Resp: 16 MEDICATION ALLERGIES: Penicillin, Hydrocodone, Ibuprofen, Sinemet 25/100 tablet ENVIRONMENTAL ALLERGIES: None Known - Substance Allergies None Known - Other Allergies None Known NURSING: - Shower allowing shower - Skin care per protocol PRECAUTIONS: - Weight Bearing Precaution NWB left LE - Fall Precaution Bed and chair alarm ACTIVITIES OOB only with supervision THERAPIES: - Occupational Therapy Evaluate and Treat. - Physical Therapy Evaluate and Treat. PHYSICAL EXAM - Gen Alert and awake Lying in bed No apparent distress Oriented to: person, time, and place - Skin Left thigh with surgical incision Normacephalic - Eyes No abnormalities - ENMT No abnormalities - Neck No abnormalities - CVS RRR - Chest No abnormalities - Abd Soft - GI Non distended Deferred - No abnormalities - Ext Mild postoperative edema in the left lower extremity - MSK 4+/5 weakness in left lower extremity - Psych No abnormalities ASSESSMENT: Pt. is a 82 yo Right-handed white male.On 10/11/2017 he was admitted to [facility] with diagno sis Left periprosthetic distal femur fracture.His impairment category is Orthopaedic Disorders 08 - Femur (Shaft) Fracture (08.2).Pre-morbidly, Pt. was independent/mod-I in Transfers Control, Communica tion, Social Cognition, Self-Care, Locomotion, and Sphincter Control; and he had good Sphincter Contr ol.Currently, he has deficits of Safety Awareness, Transfers Control, Communication, Social Cognition , Balance, Self-Care, Endurance, and Locomotion.Pt. is now referred to [facility] for acute in-patient rehabilitation in order to maximize patient's functional independence in act ivities of daily living, strength, ROM, and mobility.- Rehab Goal Patient has realistic goal of being discharged at assistance level 6-Cathy to reside at Home with Fam samantha/Relatives. MDM/PLAN: - Physical Therapy Decreased range of motion - to improve, our physical therapists will perform initial evaluation of p t's status upon admission and devise an individualized program for increasing patient's Range of Kenn on. Gait dysfunction - to improve, our physical therapists will perform initial evaluation of pt's statu s upon admission and devise an individualized program for Gait Training, and Wheel Chair mobility Inability to transfer - to improve, our physical therapists will perform initial evaluation of pt's status upon admission and devise an individualized program for Bed mobility Need for home safety evaluation - to improve, our physical therapists will perform initial evaluatio n of pt's status upon admission and devise an individualized program for Home Evaluation Need in caregiver upon discharge - to improve, our physical therapists will perform initial evaluati on of pt's status upon admission and devise an individualized program for Caregiver Training Edema - to improve, our physical therapists will perform initial evaluation of pt's status upon admi ssion and devise an individualized program for Elevation Training, and Lymphedema Therapy New precaution - to improve, our physical therapists will perform initial evaluation of pt's status upon admission and devise an individualized program for Patient precaution education Poor balance - to improve, our physical therapists will perform initial evaluation of pt's status up on admission and devise an individualized program for Balance Training Poor endurance - to improve, our physical therapists will perform initial evaluation of pt's status upon admission and devise an individualized program for Endurance Training Weakness - to improve, our physical therapists will perform initial evaluation of pt's status upon a dmission and devise an individualized program for Aquatic Therapy, Neuromuscular Reeducation, and Str engthening Achieving independence - to improve, our physical therapists will perform initial evaluation of pt's status upon admission and devise an individualized program for Community Reintegration Activities - Diet Type Continue Regular - Diet - Liquid Texture Continue Regular - Tube Feed Continue N/A - Weight Bearing Precaution NWB left LE - Fall Precaution Bed and chair alarm - Skin care per protocol - Diet - Solid Texture Continue Regular - Shower allowing shower - Occupational Therapy ADL deficits - to improve, our occupation therapists will perform initial evaluation of pt's status upon admission and devise an individualized program for Bathing, Bed mobility, Community Reintegratio n, Cooking, Dressing, Eating, Fine Motor Skills, Grooming, Homemaking, Kitchen Mobility, Laundry, Pat ient Education, Safety Awareness, Splinting - Positioning, Transfers(Toilet, Tub, Shower), and Wheel Chair Management Cognitive deficits - to improve, our occupation therapists will perform initial evaluation of pt's s tatus upon admission and devise an individualized program for Cognition - orientation Need for critical care educator - to improve, our occupation therapists will perform initial evaluation of pt's status upon admission and devise an individualized program for Caregiver Training Weakness - to improve, our occupation therapists will perform initial evaluation of pt's status upon admission and devise an individualized program for Aquatic Therapy, Balance, Endurance, UE ROM, and UE strengthening FUNCTIONAL STATUS: UPDATED AT WEEKLY TEAM CONFERENCE - Bladder Same accident frequency: 7-Ind - No accidents in the past 7 days - Bowel Same accident frequency: 7-Ind - No accidents in the past 7 days - Walking Same score based on distance walked: 0(N/A) - Wheelchair Same score based on distance traveled: 2(50-149ft) FUNCTIONAL STATUS: - Self-Care A. Eating sup B. Grooming Mauri C. Bathing maxA D. Dressing - Upper Mauri E. Dressing - Lower maxA F. Toileting Dep - Sphincter Control G: Bladder control Ind H: Bowel control Ind - Transfers Control I. Bed/Chair/Wheelchair Dep J. Toilet Dep K. Tub/Shower ADNO - Locomotion L. Walk/Wheelchair (C) Ind L. Walk/Wheelchair (W) Ind M. Stairs ADNO - Communication N. Comprehension (B) Mauri O. Expression (B) sup - Social Cognition P. Social Interaction sup Q. Problem Solving Mauri R. Memory Mauri - Endurance Poor - Balance Poor - Safety Awareness Fair CURRENT FUNC. DEFICITS: Safety Awareness, Transfers Control, Communication, Social Cognition, Balance, Self-Care, Endurance, and Locomotion SIGNATURE PANEL: (CDT)
[2017-11-24] MEDS: MIRTAZAPINE 15 MG TAB PO SCH (20:12)
[2017-11-24] MEDS: ATORVASTATIN 20 MG TAB PO SCH (20:12)
--- NOTE | 2017-11-25 03:30 | FAST ---
SHIFT START DATE/TIME: 11/24/2017 19:00 (CDT) SHIFT END DATE/TIME: 11/25/2017 07:00 (CDT) NAME MARCE BRAND DATE OF : 1935 DATE OF ADMISSION: 11/07/2017 19:54 (CDT) PHONE: AGE: 82 N# [id number] GENDER: Male ENCOUNTER PHYSICIAN: Dr. Alex Ribeiro M.D. ADMISSION DIAGNOSIS: - Orthopaedic Disorders 08 - Femur (Shaft) Fracture (08.2) Left periprosthetic distal femur fracture. EATING: Activity did not occur on this shift EATING - SCORE: 0-UNK GROOMING: Wash, rinse, and dry face Wash, rinse, and dry hands GROOMING - STEP 1: Does the patient require assistance when grooming? Yes. GROOMING - STEP 2: Does the patient require the assistance of a helper? Yes. GROOMING - STEP 3: How much assistance does the patient require from the helper? Cuing, coaxing, instructions, or encour agement for completion of grooming GROOMING - SCORE: 5-SUP BATHING: Activity did not occur on this shift BATHING - SCORE: 0-UNK DRESSING - UPPER BODY: Patient is not dressing in public clothing ARTICLES SCORE Total number of steps: 0 DRESSING - UPPER BODY - SCORE: 0-UNK DRESSING - LOWER BODY: Patient is not dressing in public clothing ARTICLES SCORE Total number of steps: 0 DRESSING - LOWER BODY - SCORE: 0-UNK TOILETING: TOILETING - STEP 1: Does the patient require assistance with toileting? Yes. TOILETING - STEP 2: Does the patient require the assistance of a helper? Yes. TOILETING - STEP 3: How much assistance does the patient require from the helper? Hands-on assistance from the helper TOILETING - STEP 4: Of the 3 tasks: 1) Adjusting clothing prior to use, 2) Cleansing of perineal area, 3) Adjusting clot ezio after use; How many tasks does the patient perform WITHOUT assistance of the helper? Three tasks with steadying assistance from the helper TOILETING - SCORE: 4-MIN BLADDER MANAGEMENT: BLADDER MANAGEMENT - STEP 1: Does the patient control the bladder completely and intentionally without equipment or devices or med ications, and is always continent? No. BLADDER MANAGEMENT - STEP 2: Does the patient require the assistance of a helper? Yes. BLADDER MANAGEMENT - STEP 3: How much assistance does the patient require from the helper? Only set-up of equipment - such as plac ing it within reach of the patient or emptying a device - to maintain either satisfactory voiding pat tern or managing an external device, such as an absorbent pad, ileal device, or catheter BLADDER MANAGEMENT - SCORE: 5-SUP BOWEL MANAGEMENT: BOWEL MANAGEMENT - STEP 1: Does the patient control bowels completely and intentionally without equipment devices or medications AND is always continent? No. BOWEL MANAGEMENT - STEP 2: Does the patient require the assistance of a helper? Yes. BOWEL MANAGEMENT - STEP 3: How much assistance does the patient require from the helper? Patient requires moderate assistance - performs 50% to 74% of bowel management tasks BOWEL MANAGEMENT - SCORE: 3-MOD TRANSFERS: BED, CHAIR, WHEELCHAIR: Patient requires more than one helper and/or the use of a mechanical lift is utilized TRANSFERS: BED, CHAIR, WHEELCHAIR - SCORE: 1-DEP TRANSFERS: TOILET: Patient requires more than one helper and/or the use of a mechanical lift is utilized TRANSFERS: TOILET - SCORE: 1-DEP TRANSFERS: SHOWER: Activity did not occur on this shift TRANSFERS: SHOWER - SCORE: 0-UNK TRANSFERS: TUB: Activity did not occur on this shift TRANSFERS: TUB - SCORE: 0-UNK LOCOMOTION: WALK: Activity did not occur on this shift LOCOMOTION: WALK - SCORE: 0-UNK LOCOMOTION: WHEELCHAIR: Activity did not occur on this shift LOCOMOTION: WHEELCHAIR - SCORE: 0-UNK COMPREHENSION: COMPREHENSION: TYPE: Both COMPREHENSION - STEP 1: Does the patient require help to understand complex and abstract ideas (such as current events, finan panda, discharge planning, medical issues, relationships, etc)? No. COMPREHENSION - STEP 2: Does the patient need extra time, require an assistive device (such as glasses, hearing aids, or an a ugmentative communication system), OR does s/he have mild difficulty expressing complex and abstract ideas (including mild dysarthria or mild word-finding problems)? Yes. COMPREHENSION - SCORE: 6-JM EXPRESSION EXPRESSION: TYPE: Both EXPRESSION - STEP 1: Does the patient require help expressing complex and abstract ideas (such as current events, finances , discharge planning, medical issues, relationships, etc)? No. EXPRESSION - STEP 2: Does the patient need extra time, require an assistive device (such as augmentive communication syste m or a communication board), OR does s/he have mild difficulty expressing complex and abstract ideas (including mild dysarthria or mild word-find problems)? Yes. EXPRESSION - SCORE: 6-JM SOCIAL INTERACTION: SOCIAL INTERACTION - STEP 1: Does the patient require a helper to interact with others in social and therapeutic situations? No. SOCIAL INTERACTION - STEP 2: Does the patient need extra time in social situations, OR does s/he interact with staff, other patien ts, and family members ONLY in structured environments, OR does s/he require medication for social in teraction? Yes, patient requires medication for social interaction SOCIAL INTERACTION - SCORE: 6-JM PROBLEM SOLVING: PROBLEM SOLVING - STEP 1: Does the patient need help to solve complex problems such as managing a checking account or confronti ng interpersonal problems? No. PROBLEM SOLVING - STEP 2: Does the patient require extra time to make decisions or solve problems, OR does s/he have slight dif ficulty reading, initiating, or self-correcting in unfamiliar situations? Yes, patient needs extra ti me. PROBLEM SOLVING - SCORE: 6-JM MEMORY: MEMORY - STEP 1: Does the patient need help to remember frequently encountered people, daily routines, and executing r equests? No. MEMORY - STEP 2: Does the patient have slight difficulty recognizing frequently encountered people, daily routines, or executing requests without the need for repetition or using self-initiated or environmental cues to remember? Yes. MEMORY - SCORE: 6-JM
[2017-11-25] MEDS: METOPROLOL TAR 25 MG TAB PO SCH (05:16)
[2017-11-25 07:29] VITALS: BP 119/59; TEMP 96
[2017-11-25] MEDS: RANITIDINE 150 MG TABLET PO SCH (08:00)
[2017-11-25] MEDS: VITAMIN D 5,000 UNIT CAP PO SCH (08:00)
[2017-11-25] MEDS: APIXABAN 2.5 MG TABLET PO SCH (08:00)
[2017-11-25] MEDS: CRANBERRY FRUIT EXTRACT 200 MG CAP PO SCH (08:00)
[2017-11-25] MEDS: buPROPion HCl 100 MG TAB PO SCH ×2 (08:00→12:15)
[2017-11-25] MEDS: NYSTATIN PWDR 100000 UNIT/GM TOP SCH (08:00)
[2017-11-25] MEDS: PRIMIDONE 50 MG TAB PO SCH (08:01)
[2017-11-25] MEDS: CYANOCOBALAMIN 1,000 MCG TAB PO SCH (08:01)
[2017-11-25] MEDS: ENSURE HIGH PROTEIN 237 ML CAN PO SCH (08:02)
[2017-11-25] MEDS: ACETAMINOPHEN 325 MG TABLET PO PRN (08:02)
--- NOTE | 2017-11-25 14:52 | FAST ---
SHIFT START DATE/TIME: 11/25/2017 07:00 (CDT) SHIFT END DATE/TIME: 11/25/2017 19:00 (CDT) NAME MARCE BRAND DATE OF : 1935 DATE OF ADMISSION: 11/07/2017 19:54 (CDT) PHONE: AGE: 82 N# [id number] GENDER: Male ENCOUNTER PHYSICIAN: Dr. Alex Ribeiro M.D. ADMISSION DIAGNOSIS: - Orthopaedic Disorders 08 - Femur (Shaft) Fracture (08.2) Left periprosthetic distal femur fracture. EATING: EATING - STEP 1: Does the patient require assistance when eating? Yes. EATING - STEP 2: Does the patient require the assistance of a helper? Yes. EATING - STEP 3: Does the patient perform half or more of the eating tasks? Yes. EATING - STEP 4: Does the patient need only supervision, cuing, coaxing OR help to apply an orthosis OR help to cut fo od, open containers, pour liquids, or butter bread? Yes. EATING - SCORE: 5-SUP GROOMING: Comb/brush hair Oral care Patient shaved Wash, rinse, and dry face Wash, rinse, and dry hands GROOMING - STEP 1: Does the patient require assistance when grooming? Yes. GROOMING - STEP 2: Does the patient require the assistance of a helper? Yes. GROOMING - STEP 3: How much assistance does the patient require from the helper? Cuing, coaxing, instructions, or encour agement for completion of grooming GROOMING - SCORE: 5-SUP BATHING: Activity did not occur on this shift BATHING - SCORE: 0-UNK DRESSING - UPPER BODY: Button down shirt or blouse - TUCKED IN (five steps) ARTICLES SCORE Total number of steps: 5 DRESSING - UPPER BODY - STEP 1: Does the patient require help when dressing above the waist? Yes. DRESSING - UPPER BODY - STEP 2: Does the patient require the assistance of a helper? Yes. DRESSING - UPPER BODY - STEP 3: Does the helper touch the patient while dressing? Yes. DRESSING - UPPER BODY - STEP 4: How many of the total steps does the patient complete on his/her own? 1 DRESSING - UPPER BODY - STEP 5: Does Patient require total assistance for dressing above the waist such as the helper holding clothin g and performing basically all the activities? Yes. DRESSING - UPPER BODY - SCORE: 1-DEP DRESSING - LOWER BODY: Elastic waist pants (three steps) Tied or buckled shoe - Left foot (two steps) Underwear (three steps) ARTICLES SCORE Total number of steps: 8 DRESSING - LOWER BODY - STEP 1: Does the patient require help when dressing below the waist? Yes. DRESSING - LOWER BODY - STEP 2: Does the patient require the assistance of a helper? Yes. DRESSING - LOWER BODY - STEP 3: Does the helper touch the patient while dressing? Yes. DRESSING - LOWER BODY - STEP 4: How many of the total steps does the patient complete on his/her own? 0 DRESSING - LOWER BODY - STEP 5: Does patient require total assistance for dressing below the waist such as the helper holding clothin g and performing basically all the activities? No. DRESSING - LOWER BODY - SCORE: 2-MAX TOILETING: TOILETING - STEP 1: Does the patient require assistance with toileting? Yes. TOILETING - STEP 2: Does the patient require the assistance of a helper? Yes. TOILETING - STEP 3: How much assistance does the patient require from the helper? Hands-on assistance from the helper TOILETING - STEP 4: Of the 3 tasks: 1) Adjusting clothing prior to use, 2) Cleansing of perineal area, 3) Adjusting clot ezio after use; How many tasks does the patient perform WITHOUT assistance of the helper? No tasks; kashmir cedeño performs all three tasks TOILETING - SCORE: 1-DEP BLADDER MANAGEMENT: BLADDER MANAGEMENT - STEP 1: Does the patient control the bladder completely and intentionally without equipment or devices or med ications, and is always continent? No. BLADDER MANAGEMENT - STEP 2: Does the patient require the assistance of a helper? Yes. BLADDER MANAGEMENT - STEP 3: How much assistance does the patient require from the helper? Only set-up of equipment - such as plac ing it within reach of the patient or emptying a device - to maintain either satisfactory voiding pat tern or managing an external device, such as an absorbent pad, ileal device, or catheter BLADDER MANAGEMENT - SCORE: 5-SUP BLADDER MANAGEMENT - FREQUENCY OF ACCIDENTS: BLADDER MANAGEMENT(FA) - STEP 1: How many accidents has the patient had during the current shift? 0 BOWEL MANAGEMENT: Activity did not occur on this shift BOWEL MANAGEMENT - SCORE: 7-IND BOWEL MANAGEMENT - FREQUENCY OF ACCIDENTS: BOWEL MANAGEMENT(FA) - STEP 1: How many accidents has the patient had during the current shift? 0 TRANSFERS: BED, CHAIR, WHEELCHAIR: Patient requires more than one helper and/or the use of a mechanical lift is utilized TRANSFERS: BED, CHAIR, WHEELCHAIR - SCORE: 1-DEP TRANSFERS: TOILET: Patient requires more than one helper and/or the use of a mechanical lift is utilized TRANSFERS: TOILET - SCORE: 1-DEP TRANSFERS: SHOWER: Activity did not occur on this shift TRANSFERS: SHOWER - SCORE: 0-UNK TRANSFERS: TUB: Activity did not occur on this shift TRANSFERS: TUB - SCORE: 0-UNK LOCOMOTION: WALK: Activity did not occur on this shift LOCOMOTION: WALK - SCORE: 0-UNK LOCOMOTION: WHEELCHAIR: LOCOMOTION: WHEELCHAIR - STEP 1: Does the patient need help to go 150 feet in a wheelchair? Yes. LOCOMOTION: WHEELCHAIR - STEP 2: How much assistance does the patient need from the helper? Only supervision, cuing, or coaxing LOCOMOTION: WHEELCHAIR - SCORE: 5-SUP COMPREHENSION: COMPREHENSION: TYPE: Both COMPREHENSION - STEP 1: Does the patient require help to understand complex and abstract ideas (such as current events, finan panda, discharge planning, medical issues, relationships, etc)? No. COMPREHENSION - STEP 2: Does the patient need extra time, require an assistive device (such as glasses, hearing aids, or an a ugmentative communication system), OR does s/he have mild difficulty expressing complex and abstract ideas (including mild dysarthria or mild word-finding problems)? Yes. COMPREHENSION - SCORE: 6-JM EXPRESSION EXPRESSION: TYPE: Both EXPRESSION - STEP 1: Does the patient require help expressing complex and abstract ideas (such as current events, finances , discharge planning, medical issues, relationships, etc)? No. EXPRESSION - STEP 2: Does the patient need extra time, require an assistive device (such as augmentive communication syste m or a communication board), OR does s/he have mild difficulty expressing complex and abstract ideas (including mild dysarthria or mild word-find problems)? Yes. EXPRESSION - SCORE: 6-JM SOCIAL INTERACTION: SOCIAL INTERACTION - STEP 1: Does the patient require a helper to interact with others in social and therapeutic situations? No. SOCIAL INTERACTION - STEP 2: Does the patient need extra time in social situations, OR does s/he interact with staff, other patien ts, and family members ONLY in structured environments, OR does s/he require medication for social in teraction? Yes, patient needs extra time SOCIAL INTERACTION - SCORE: 6-JM PROBLEM SOLVING: PROBLEM SOLVING - STEP 1: Does the patient need help to solve complex problems such as managing a checking account or confronti ng interpersonal problems? No. PROBLEM SOLVING - STEP 2: Does the patient require extra time to make decisions or solve problems, OR does s/he have slight dif ficulty reading, initiating, or self-correcting in unfamiliar situations? Yes, patient needs extra ti me. PROBLEM SOLVING - SCORE: 6-JM MEMORY: MEMORY - STEP 1: Does the patient need help to remember frequently encountered people, daily routines, and executing r equests? No. MEMORY - STEP 2: Does the patient have slight difficulty recognizing frequently encountered people, daily routines, or executing requests without the need for repetition or using self-initiated or environmental cues to remember? Yes. MEMORY - SCORE: 6-JM SIGNATURE PANEL: The following modified sections: Eating - Score, Grooming - Score, Bathing - Score, Dressing - Upper Body - Score, Dressing - Lower Body - Score, Toileting - Score, Bladder Management - Score, Bowel Man agement - Score, Transfers: Bed, Chair, Wheelchair - Score, Transfers: Toilet - Score, Transfers: Merline wer - Score, Transfers: Tub - Score, Locomotion: Walk - Score, Locomotion: Wheelchair - Score, Compre hension - Score, Expression - Score, Social Interaction - Score, Problem Solving - Score, Memory - Sc ore were [electronically] signed by Marysol Crocker C.N.A. on FriNov 25 2017 13:51:40 T-0500 (Cent[facility] Daylight Time)
--- NOTE | 2017-11-25 17:21 | FAST ---
ENCOUNTER DATE AND TIME: 11/25/2017 08:00 (CDT) NAME MARCE BRAND DATE OF : 1935 DATE OF ADMISSION: 11/07/2017 19:54 (CDT) PHONE: AGE: 82 N# [id number] GENDER: Male ENCOUNTER PHYSICIAN: Dr. Alex Ribeiro M.D. ADMISSION DIAGNOSIS: - Orthopaedic Disorders 08 - Femur (Shaft) Fracture (08.2) Left periprosthetic distal femur fracture. EATING: EATING - STEP 1: Does the patient require assistance when eating? No. EATING - SCORE: 7-IND GROOMING: GROOMING - STEP 1: Does the patient require assistance when grooming? No. GROOMING - SCORE: 7-IND BATHING: Abdomen Buttocks Chest Left arm Left lower leg and foot Left upper leg Perineal area Right arm Right lower leg and foot Right upper leg BATHING - STEP 1: Does the patient require assistance when bathing? Yes. BATHING - STEP 2: Does the patient require the assistance of a helper? Yes. BATHING - STEP 3: How much assistance does the patient require from the helper? Only incidental help such as placement of a wash cloth in his/her hand a few times as s/he bathes OR help to bathe just one or two areas of the body BATHING - SCORE: 4-MIN DRESSING - UPPER BODY: T-shirt/pullover shirt (four steps) ARTICLES SCORE Total number of steps: 4 DRESSING - UPPER BODY - STEP 1: Does the patient require help when dressing above the waist? Yes. DRESSING - UPPER BODY - STEP 2: Does the patient require the assistance of a helper? No. Patient only requires an assistive device, s uch as a button hook, velcro, or lens matcher. OR s/he takes more than reasonable time as s/he dresses the upper body. OR there is a concern for safety when s/he dresses the upper body DRESSING - UPPER BODY - SCORE: 6-JM DRESSING - LOWER BODY: Elastic waist pants (three steps) Slip-on shoe - Left foot (one step) Sock - Left foot (one step) Sock - Right foot (one step) Underwear (three steps) ARTICLES SCORE Total number of steps: 9 DRESSING - LOWER BODY - STEP 1: Does the patient require help when dressing below the waist? Yes. DRESSING - LOWER BODY - STEP 2: Does the patient require the assistance of a helper? Yes. DRESSING - LOWER BODY - STEP 3: Does the helper touch the patient while dressing? Yes. DRESSING - LOWER BODY - STEP 4: How many of the total steps does the patient complete on his/her own? 5 DRESSING - LOWER BODY - SCORE: 3-MOD TOILETING: Activity did not occur on this shift TOILETING - SCORE: 0-UNK BLADDER MANAGEMENT: Activity did not occur on this shift BLADDER MANAGEMENT - SCORE: 7-IND BOWEL MANAGEMENT: Activity did not occur on this shift BOWEL MANAGEMENT - SCORE: 7-IND TRANSFERS: BED, CHAIR, WHEELCHAIR: Activity did not occur on this shift TRANSFERS: BED, CHAIR, WHEELCHAIR - SCORE: 0-UNK TRANSFERS: TOILET: Activity did not occur on this shift TRANSFERS: TOILET - SCORE: 0-UNK TRANSFERS: SHOWER: TRANSFERS: SHOWER - STEP 1: Does the patient require assistance with shower transfers? Yes. TRANSFERS: SHOWER - STEP 2: Does the patient require the assistance of a helper? Yes. TRANSFERS: SHOWER - STEP 3: How much assistance does the patient require from the helper? Only incidental help such as contact gu arding or steadying during shower transfers, or help to lift one leg into the shower TRANSFERS: SHOWER - SCORE: 4-MIN TRANSFERS: TUB: Activity did not occur on this shift TRANSFERS: TUB - SCORE: 0-UNK LOCOMOTION: WALK: Activity did not occur on this shift LOCOMOTION: WALK - SCORE: 0-UNK LOCOMOTION: WHEELCHAIR: Activity did not occur on this shift LOCOMOTION: WHEELCHAIR - SCORE: 0-UNK LOCOMOTION: STAIRS: Activity did not occur on this shift LOCOMOTION: STAIRS - SCORE: 0-UNK COMPREHENSION: COMPREHENSION: TYPE: Both COMPREHENSION - STEP 1: Does the patient require help to understand complex and abstract ideas (such as current events, finan panda, discharge planning, medical issues, relationships, etc)? No. COMPREHENSION - STEP 2: Does the patient need extra time, require an assistive device (such as glasses, hearing aids, or an a ugmentative communication system), OR does s/he have mild difficulty expressing complex and abstract ideas (including mild dysarthria or mild word-finding problems)? Yes. COMPREHENSION - SCORE: 6-JM EXPRESSION EXPRESSION: TYPE: Both EXPRESSION - STEP 1: Does the patient require help expressing complex and abstract ideas (such as current events, finances , discharge planning, medical issues, relationships, etc)? No. EXPRESSION - STEP 2: Does the patient need extra time, require an assistive device (such as augmentive communication syste m or a communication board), OR does s/he have mild difficulty expressing complex and abstract ideas (including mild dysarthria or mild word-find problems)? No. EXPRESSION - SCORE: 7-IND SOCIAL INTERACTION: SOCIAL INTERACTION - STEP 1: Does the patient require a helper to interact with others in social and therapeutic situations? No. SOCIAL INTERACTION - STEP 2: Does the patient need extra time in social situations, OR does s/he interact with staff, other patien ts, and family members ONLY in structured environments, OR does s/he require medication for social in teraction? Yes, patient requires medication for social interaction SOCIAL INTERACTION - SCORE: 6-JM PROBLEM SOLVING: PROBLEM SOLVING - STEP 1: Does the patient need help to solve complex problems such as managing a checking account or confronti ng interpersonal problems? No. PROBLEM SOLVING - STEP 2: Does the patient require extra time to make decisions or solve problems, OR does s/he have slight dif ficulty reading, initiating, or self-correcting in unfamiliar situations? Yes, patient needs extra ti me. PROBLEM SOLVING - SCORE: 6-JM MEMORY: MEMORY - STEP 1: Does the patient need help to remember frequently encountered people, daily routines, and executing r equests? Yes. MEMORY - STEP 2: How often does the patient need help to remember frequently encountered people, daily routines, and e xecuting requests? Less than 10% of the time MEMORY - SCORE: 5-SUP SIGNATURE PANEL: The following modified sections: Eating - Score, Grooming - Score, Bathing - Score, Dressing - Upper Body - Score, Dressing - Lower Body - Score, Toileting - Score, Transfers: Bed, Chair, Wheelchair - S core, Transfers: Toilet - Score, Transfers: Tub - Score, Transfers: Shower - Score, Comprehension - S core, Expression - Score, Social Interaction - Score, Problem Solving - Score, Memory - Score were [e lectronically] signed by Ruby Monroe OT on FriNov 25 2017 16:21:[address] [facility]-0500 (Central Daylight T reena)
--- NOTE | 2017-11-26 15:46 | FAST ---
ENCOUNTER DATE AND TIME: 11/24/2017 08:00 (CDT) NAME MARCE BRAND DATE OF : 1935 DATE OF ADMISSION: 11/07/2017 19:54 (CDT) PHONE: AGE: 82 SSN# [id number] GENDER: Male ENCOUNTER PHYSICIAN: Dr. Alex Ribeiro M.D. ADMISSION DIAGNOSIS: - Orthopaedic Disorders 08 - Femur (Shaft) Fracture (08.2) Left periprosthetic distal femur fracture. EATING: Activity did not occur on this shift EATING - SCORE: 0-UNK GROOMING: Activity did not occur on this shift GROOMING - SCORE: 0-UNK BATHING: Activity did not occur on this shift BATHING - SCORE: 0-UNK DRESSING - UPPER BODY: Activity did not occur on this shift Patient is not dressing in public clothing ARTICLES SCORE Total number of steps: 0 DRESSING - UPPER BODY - SCORE: 0-UNK DRESSING - LOWER BODY: Activity did not occur on this shift Patient is not dressing in public clothing ARTICLES SCORE Total number of steps: 0 DRESSING - LOWER BODY - SCORE: 0-UNK TOILETING: Activity did not occur on this shift TOILETING - SCORE: 0-UNK BLADDER MANAGEMENT: Activity did not occur on this shift BLADDER MANAGEMENT - SCORE: 7-IND BOWEL MANAGEMENT: Activity did not occur on this shift BOWEL MANAGEMENT - SCORE: 7-IND TRANSFERS: BED, CHAIR, WHEELCHAIR: Activity did not occur on this shift TRANSFERS: BED, CHAIR, WHEELCHAIR - SCORE: 0-UNK TRANSFERS: TOILET: Activity did not occur on this shift TRANSFERS: TOILET - SCORE: 0-UNK TRANSFERS: SHOWER: Activity did not occur on this shift TRANSFERS: SHOWER - SCORE: 0-UNK TRANSFERS: TUB: Activity did not occur on this shift TRANSFERS: TUB - SCORE: 0-UNK LOCOMOTION: WALK: Activity did not occur on this shift LOCOMOTION: WALK - SCORE: 0-UNK LOCOMOTION: WHEELCHAIR: LOCOMOTION: WHEELCHAIR - STEP 1: Does the patient need help to go 150 feet in a wheelchair? Yes. LOCOMOTION: WHEELCHAIR - STEP 2: How much assistance does the patient need from the helper? Only supervision, cuing, or coaxing LOCOMOTION: WHEELCHAIR - SCORE: 5-SUP LOCOMOTION: STAIRS: Activity did not occur on this shift LOCOMOTION: STAIRS - SCORE: 0-UNK COMPREHENSION: COMPREHENSION - SCORE: 0-UNK EXPRESSION EXPRESSION - SCORE: 0-UNK SOCIAL INTERACTION: SOCIAL INTERACTION - SCORE: 0-UNK PROBLEM SOLVING: PROBLEM SOLVING - SCORE: 0-UNK MEMORY: MEMORY - SCORE: 0-UNK SIGNATURE PANEL: The following modified sections: Transfers: Bed, Chair, Wheelchair - Score, Transfers: Toilet - Score , Locomotion: Walk - Score, Locomotion: Wheelchair - Score, Locomotion: Stairs - Score were [electron ically] signed by Giovanny Ac PTA on FriNov 26 2017 14:46:50 GMT-0500 (Central Daylight Time)
--- NOTE | 2017-11-26 15:48 | FAST ---
ENCOUNTER DATE AND TIME: 11/25/2017 08:00 (CDT) NAME MARCE BRAND DATE OF : 1935 DATE OF ADMISSION: 11/07/2017 19:54 (CDT) PHONE: AGE: 82 SSN# [id number] GENDER: Male ENCOUNTER PHYSICIAN: Dr. Alex Ribeiro M.D. ADMISSION DIAGNOSIS: - Orthopaedic Disorders 08 - Femur (Shaft) Fracture (08.2) Left periprosthetic distal femur fracture. EATING: Activity did not occur on this shift EATING - SCORE: 0-UNK GROOMING: Activity did not occur on this shift GROOMING - SCORE: 0-UNK BATHING: Activity did not occur on this shift BATHING - SCORE: 0-UNK DRESSING - UPPER BODY: Activity did not occur on this shift Patient is not dressing in public clothing ARTICLES SCORE Total number of steps: 0 DRESSING - UPPER BODY - SCORE: 0-UNK DRESSING - LOWER BODY: Activity did not occur on this shift Patient is not dressing in public clothing ARTICLES SCORE Total number of steps: 0 DRESSING - LOWER BODY - SCORE: 0-UNK TOILETING: Activity did not occur on this shift TOILETING - SCORE: 0-UNK BLADDER MANAGEMENT: Activity did not occur on this shift BLADDER MANAGEMENT - SCORE: 7-IND BOWEL MANAGEMENT: Activity did not occur on this shift BOWEL MANAGEMENT - SCORE: 7-IND TRANSFERS: BED, CHAIR, WHEELCHAIR: TRANSFERS: BED, CHAIR, WHEELCHAIR - STEP 1: Does the patient require assistance with bed, chair, or wheelchair transfers? Yes. TRANSFERS: BED, CHAIR, WHEELCHAIR - STEP 2: Does the patient require the assistance of a helper? Yes. TRANSFERS: BED, CHAIR, WHEELCHAIR - STEP 3: How much assistance does the patient require from the helper? Only supervision TRANSFERS: BED, CHAIR, WHEELCHAIR - SCORE: 5-SUP TRANSFERS: TOILET: Activity did not occur on this shift TRANSFERS: TOILET - SCORE: 0-UNK TRANSFERS: SHOWER: Activity did not occur on this shift TRANSFERS: SHOWER - SCORE: 0-UNK TRANSFERS: TUB: Activity did not occur on this shift TRANSFERS: TUB - SCORE: 0-UNK LOCOMOTION: WALK: Activity did not occur on this shift LOCOMOTION: WALK - SCORE: 0-UNK LOCOMOTION: WHEELCHAIR: Activity did not occur on this shift LOCOMOTION: WHEELCHAIR - SCORE: 0-UNK LOCOMOTION: STAIRS: Activity did not occur on this shift LOCOMOTION: STAIRS - SCORE: 0-UNK COMPREHENSION: COMPREHENSION - SCORE: 0-UNK EXPRESSION EXPRESSION - SCORE: 0-UNK SOCIAL INTERACTION: SOCIAL INTERACTION - SCORE: 0-UNK PROBLEM SOLVING: PROBLEM SOLVING - SCORE: 0-UNK MEMORY: MEMORY - SCORE: 0-UNK SIGNATURE PANEL: The following modified sections: Transfers: Bed, Chair, Wheelchair - Score, Transfers: Toilet - Score , Locomotion: Walk - Score, Locomotion: Wheelchair - Score, Locomotion: Stairs - Score were [electron ically] signed by Giovanny Ac PTA on FriNov 26 2017 14:48:29 GMT-0500 (Central Daylight Time)
--- NOTE | 2017-12-29 19:02 | R.DS ---
FACILITY [facility] MR# [id number] NAME MARCE BRAND [address]ESS [address] [place] [address] PHONE DATE OF 1935 AGE 82 SSN# [id number] GENDER Male DEXTERITY Right-handed MARITAL STATUS RACE White ENCOUNTER PHYSICIAN Dr. Alex Ribeiro M.D. REFERRING DOCTOR LORENZO MOLINA REFERRING FACILITY [facility] DISCHARGE DIAGNOSIS: - Orthopaedic Disorders 08 - Femur (Shaft) Fracture (08.2) Left periprosthetic distal femur fracture. DISCHARGE COMORBIDITIES: - N/A GERD PArkinson's Disease Essential Hypertension Chronic post traumatic stress disorder CKD stage 3 Hyperlipidemia Adjustment disorder with depressed mood DATE OF ADMISSION 11/07/2017 19:54 (CDT) MEDICATION ALLERGIES: Penicillin, Hydrocodone, Ibuprofen, Sinemet 25/100 tablet ENVIRONMENTAL ALLERGIES: None Known - Substance Allergies None Known - Other Allergies None Known NURSING: - Shower allowing shower - Skin care per protocol PRECAUTIONS: - Weight Bearing Precaution NWB left LE - Fall Precaution Bed and chair alarm ACTIVITIES OOB only with supervision THERAPIES: - Occupational Therapy Evaluate and Treat - Physical Therapy Evaluate and Treat HISTORY OF PRESENT ILLNESS: Pt. is a 82 yo Right-handed white male.On 10/11/2017 he was admitted to [facility] with diagno sis Left periprosthetic distal femur fracture.His impairment category is Orthopaedic Disorders 08 - Femur (Shaft) Fracture (08.2).Pre-morbidly, Pt. was independent/mod-I in Sphincter Control and Locomo tion; and he had good Sphincter Control.Currently, he has deficits of Safety Awareness, Transfers Con trol, Communication, Social Cognition, Balance, Self-Care, Endurance, and Locomotion.Pt. is now refer red to [facility] for acute in-patient rehabilitation in order to maximize pat ient's functional independence in activities of daily living, strength, ROM, and mobility.- Rehab Goa l Patient has realistic goal of being discharged at assistance level 6-Cathy to reside at Home with Fam samantha/Relatives. HOSPITAL COURSE: On 11/11/2017 the following precautions were removed for the patient: Fall Precaution - Bed and marylin r alarm. On 11/06/2017 the following precautions were added for the patient: Fall Precaution - Bed and chair a larm. On 11/10/2017 the following precautions were added for the patient: Fall Precaution - Bed and chair alarm. On 11/12/2017 the following precautions were added for the patient: Fall Precaution - Bed and chair alarm. The following precautions were removed for the patient: Fall Precaution - Bed and chair alarm, and F all Precaution - Bed and chair alarm. On 11/06/2017 the following precautions were added for the patient: Weight Bearing Precaution - NWB l eft LE. On 11/10/2017 the following precautions were added for the patient: Weight Bearing Precaution - NWB left LE. On 11/11/2017 the following precautions were removed for the patient: Weight Bearing Precaution - NW B left LE. On 11/12/2017 the following precautions were added for the patient: Weight Bearing Precaution - NWB left LE. DIET - LIQUID TEXTURE: On 11/06/2017 Pt was upgraded to Regular Diet - Liquid Texture. DIET - SOLID TEXTURE: On 11/06/2017 Pt was upgraded to Regular Diet - Solid Texture. DIET TYPE: On 11/06/2017 Pt was upgraded to Regular Diet Type. FALL PRECAUTION: TUBE FEED: On 11/06/2017 Pt was changed to N/A Tube Feed. WEIGHT BEARING PRECAUTION: DISCHARGE PHYSICAL EXAM - Gen Alert and awake Lying in bed No apparent distress Oriented to: person, time, and place - Skin Left thigh with surgical incision Normacephalic - Eyes No abnormalities - ENMT No abnormalities - Neck No abnormalities - CVS RRR - Chest No abnormalities - Abd Soft - GI Non distended Deferred - No abnormalities - Ext Mild postoperative edema in the left lower extremity - MSK 4+/5 weakness in left lower extremity - Psych No abnormalities FUNCTIONAL STATUS: - Self-Care A. Eating 5-sup 7-Ind B. Grooming 4-Mauri 7-Ind C. Bathing 2-maxA 2-maxA D. Dressing - Upper 4-Mauri 6-Cathy E. Dressing - Lower 2-maxA 3-modA F. Toileting 1-Dep 2-maxA - Sphincter Control G: Bladder control 7-Ind 7-Ind H: Bowel control 7-Ind 7-Ind - Transfers Control I. Bed/Chair/Wheelchair 1-Dep 5-sup J. Toilet 1-Dep 5-sup K. Tub/Shower 0-ADNO 5-sup - Locomotion L. Walk/Wheelchair (C) 7-Ind 7-Ind L. Walk/Wheelchair (W) 7-Ind 7-Ind M. Stairs 0-ADNO 0-ADNO - Communication N. Comprehension (B) 4-Mauri 4-Mauri O. Expression (B) 5-sup 5-sup - Social Cognition P. Social Interaction 5-sup 5-sup Q. Problem Solving 4-Mauri 4-Mauri R. Memory 4-Mauri 4-Mauri - Endurance Poor - Balance Poor - Safety Awareness Fair DISCHARGE INSTRUCTIONS: - N/A Eliquis 2.5 mg twice daily. DISCHARGE PLAN, FOLLOW UP CARE PROVISIONS: - Estimated Length of Stay (days) 14. - Consensus on plan Discharge plan has been discussed with primary caregiver. Patient/Family is in agreement with the jose n. Primary caregiver is in agreement with the plan. - Patient/Family Goals Return home with assistance. - Planned Living Setting Upon Discharge Home, to live with Family/Relatives. SIGNATURE PANEL: (CDT)
== END 2017-11-25 14:30 | DRG 561 ==
LOC: 5TH 19:54
PROVIDERS: ADMIT Psychiatry & Neurology Neurology with Special Qualifications in Child Neurology; ATTEND Psychiatry & Neurology Neurology with Special Qualifications in Child Neurology
DX: M97.8XXD Periprosthetic fracture around other internal prosthetic joint, subsequent encounter (principal); I12.9 Hypertensive chronic kidney disease with stage 1 through stage 4 chronic kidney disease, or unspecified chronic kidney disease; N18.3 Chronic kidney disease, stage 3 (moderate); F43.10 Post-traumatic stress disorder, unspecified; K21.9 Gastro-esophageal reflux disease without esophagitis; E78.5 Hyperlipidemia, unspecified; G20 Parkinson's disease
CPT/HCPCS: 36415; 71046; 74230; 80048; 81001; 82040; 83735; 84134; 85025; 87077; 87086; 87088; 87186; 97542

== ENCOUNTER 2019-04-09 17:37 | Emergency (ER) | payer OTHER ==
--- NOTE | 2019-04-09 18:19 | RAD REPORT ---
EXAM DESCRIPTION: CT - Head Brain Wo Cont - 04/09/2019 6:13 pm CLINICAL HISTORY: CONFUSED Headache, drowsiness COMPARISON: No comparisons TECHNIQUE: All CT scans are performed using dose optimization technique as appropriate and may inclu de automated exposure control or mA/KV adjustment according to patient size. FINDINGS: No intracranial hemorrhage, hydrocephalus or extra-axial fluid collection.Moderate general ized brain atrophy.No areas of brain edema or evidence of midline shift. The paranasal sinuses and mastoids are clear. The calvarium is intact. IMPRESSION: No acute intracranial abnormality.
--- NOTE | 2019-04-09 18:59 | RAD REPORT ---
EXAM DESCRIPTION: RAD - Chest Single View - 04/09/2019 6:52 pm CLINICAL HISTORY: MALAISE Chest pain. COMPARISON: Chest Pa And Lat (2 Views) dated 11/10/2017 FINDINGS: Portable technique limits examination quality. Moderate to large left pleural effusion is noted. Right lung is grossly clear. Cardiac size is not we ll assessed. No displaced fractures.
--- NOTE | 2019-04-09 19:00 | RAD REPORT ---
EXAM DESCRIPTION: RAD - Hip Left 2 View - 04/09/2019 6:52 pm CLINICAL HISTORY: PAIN COMPARISON: No comparisons FINDINGS: Subcapital fracture is present of the proximal left femur with varus angulation. No disloc ation.
--- NOTE | 2019-04-09 19:05 | EDPHYS ---
Physician Documentation [facility] Name: Amando Avalos Age: 83 yrs Sex: Male : 1935 Arrival Date: 04/09/2019 Time: 17:41 Bed 8 Private MD: ED Physician Vito Brandt HPI: 04/09 18:48 This 83 yrs old Male presents to ER via EMS with complaints of Hip Injury. gs 18:48 The patient or guardian reports an injury, pain. The complaints affect the left hip. gs Onset: The symptoms/episode began/occurred 1 month(s) ago. Severity of symptoms: At their worst the symptoms were severe, in the emergency department the symptoms are unchanged. HAS BEEN UNABLE TO WALK SINCE AT REHAB FINALLY GOT CT TODAY SHOWED FRACTURE. Historical: - Allergies: 17:44 PENICILLINS; hb 17:44 carbidopa; hb 17:44 Levodopa; hb 17:44 hydrocodone; hb 17:44 Ibuprofen; hb - Home Meds: 17:48 omeprazole 20 mg Oral cpDR 1 cap 2 times per day [Active]; bupropion HCl 300 mg Oral hb Tb24 1 tab once daily [Active]; aspirin 81 mg Oral TbEC 1 tab once daily [Active]; ranitidine HCl 150 mg Oral tab 1 tab once daily [Active]; mirtazapine 30 mg Oral tab 1 tab once daily [Active]; pramipexole 0.25 mg oral tab 1 tab [Active]; acetaminophen-codeine 300-30 mg Oral tab [Active]; - Immunization history:: Adult Immunizations up to date. - Social history:: Smoking status: Patient/guardian denies using tobacco. - Ebola Screening: : No symptoms or risks identified at this time. ROS: 18:48 All other systems are negative. gs Exam: 18:48 Head/Face: Normocephalic, atraumatic. Eyes: Pupils equal round and reactive to light, gs extra-ocular motions intact. Lids and lashes normal. Conjunctiva and sclera are non-icteric and not injected. Cornea within normal limits. Periorbital areas with no swelling, redness, or edema. ENT: Nares patent. No nasal discharge, no septal abnormalities noted. Tympanic membranes are normal and external auditory canals are clear. Oropharynx with no redness, swelling, or masses, exudates, or evidence of obstruction, uvula midline. Mucous membranes moist. Neck: Trachea midline, no thyromegaly or masses palpated, and no cervical lymphadenopathy. Supple, full range of motion without nuchal rigidity, or vertebral point tenderness. No Meningismus. Chest/axilla: Normal chest wall appearance and motion. Nontender with no deformity. No lesions are appreciated. 18:48 Respiratory: Lungs have equal breath sounds bilaterally, clear to auscultation and percussion. No rales, rhonchi or wheezes noted. No increased work of breathing, no retractions or nasal flaring. Abdomen/GI: Soft, non-tender, with normal bowel sounds. No distension or tympany. No guarding or rebound. No evidence of tenderness throughout. Back: No spinal tenderness. No costovertebral tenderness. Full range of motion. Skin: Warm, dry with normal turgor. Normal color with no rashes, no lesions, and no evidence of cellulitis. Neuro: Awake and alert, GCS 15, oriented to person, place, time, and situation. Cranial nerves II-XII grossly intact. Motor strength 5/5 in all extremities. Sensory grossly intact. Cerebellar exam normal. Normal gait. 18:48 Constitutional: The patient appears alert, awake. 18:48 Cardiovascular: Rate: bradycardic, Edema: 2+ edema to level of left midcalf and right midcalf. 18:48 Musculoskeletal/extremity: Extremities: Perfusion: the patient is normally perfused throughout, Joints: the left hip displays tenderness. Vital Signs: 17:47 BP 98 / 68; Pulse 49; Resp 18; Temp 97.3; Pulse Ox 100% on R/A; Weight 79.38 kg; ph 19:20 BP 112 / 80; Pulse 98; Resp 18; Pulse Ox 97% on R/A; ea 20:40 BP 104 / 86; Pulse 98; Resp 18; Pulse Ox 96% ; ea MDM: 17:49 Patient medically screened. gs 18:48 Differential diagnosis: hip fracture, intertrochanteric fracture, femoral neck gs fracture. Data reviewed: vital signs, nurses notes. Response to treatment: the patient's symptoms have mildly improved after treatment. Physician consultation: Tom Mosley MD and will see patient. 19:00 ED course: DR MOSLEY DOESN'T WANT TO OPERATE ON PT DUE TO FEMORAL PLATE. gs 19:04 Counseling: I had a detailed discussion with the patient and/or guardian regarding: the gs historical points, exam findings, and any diagnostic results supporting the discharge/admit diagnosis, radiology results, the need to transfer to another facility. 04/09 17:53 Order name: Basic Metabolic Panel [facility] 04/09 17:53 Order name: CBC with Diff; Complete Time: 19:25 [facility] 04/09 17:53 Order name: PT-INR kdr 04/09 17:53 Order name: XRAY Chest (1 view); Complete Time: 19:11 [facility] 04/09 17:53 Order name: CT Head Brain wo Cont; Complete Time: 18:41 [facility] 04/09 17:53 Order name: Hip Left 2 View XRAY; Complete Time: 19:11 [facility] 04/09 17:53 Order name: EKG; Complete Time: 17:54 [facility] 04/09 17:53 Order name: Cardiac monitoring; Complete Time: 19:03 [facility] 04/09 17:53 Order name: EKG - Nurse/Tech; Complete Time: 19:19 [facility] 04/09 17:53 Order name: IV Saline Lock; Complete Time: 19:03 [facility] 04/09 17:53 Order name: Labs collected and sent; Complete Time: 19:03 [facility] 04/09 17:53 Order name: O2 Per Protocol; Complete Time: 19:03 [facility] 04/09 17:53 Order name: O2 Sat Monitoring; Complete Time: 19:03 kdr Administered Medications: 19:02 Drug: NS 0.9% 500 ml Route: IV; Rate: bolus; Site: right forearm; hb 19:19 Follow up: Response: No adverse reaction; IV Status: Completed infusion; IV Intake: ea 500ml 19:19 Drug: NS 0.9% 1000 ml Route: IV; Rate: 125 ml/hr; Site: right antecubital; ea 20:42 Follow up: IV Status: Infusion continued upon transfer ea Disposition: 04/09/19 19:04 Transfer ordered to [facility]. Diagnosis is Displaced fracture of base of neck of left femur. - Reason for transfer: Higher level of care. - Accepting physician is TBD. - Condition is Stable. - Problem is new. - Symptoms have improved. Signatures: Dispatcher [employer] EDVito Nair MD MD cha Rittger, Kevin, MD MD kdr Baxter, Heather, RN RN Karla Kitchen RN RN Sp Garcia MD MD gs Corrections: (The following items were deleted from the chart) 20:53 19:04 04/09/2019 19:04 Transfer ordered to [facility]. Diagnosis is ea Displaced fracture of base of neck of left femur. Reason for transfer: Higher level of care. Accepting physician is TBD. Condition is Stable. Problem is new. Symptoms have improved. gs
--- NOTE | 2019-04-09 19:05 | ER ---
Nurse's Notes [facility] Name: Amando Avalos Age: 83 yrs Sex: Male : 1935 Arrival Date: 04/09/2019 Time: 17:41 Bed 8 Private MD: Diagnosis: Displaced fracture of base of neck of left femur Presentation: 04/09 17:42 Presenting complaint: EMS states: Pt sent from [place] by Dr Nagel for L hip fracture. ph Transition of care: patient was not received from another setting of care. Onset of symptoms was April 09, 2019. Risk Assessment: Do you want to hurt yourself or someone else? Patient reports no desire to harm self or others. Initial Sepsis Screen: Does the patient meet any 2 criteria? No. Patient's initial sepsis screen is negative. Does the patient have a suspected source of infection? No. Patient's initial sepsis screen is negative. 17:42 Method Of Arrival: EMS: [facility] ph 17:42 Acuity: KAREN 3 ph Historical: - Allergies: 17:44 PENICILLINS; hb 17:44 carbidopa; hb 17:44 Levodopa; hb 17:44 hydrocodone; hb 17:44 Ibuprofen; hb - Home Meds: 17:48 omeprazole 20 mg Oral cpDR 1 cap 2 times per day [Active]; bupropion HCl 300 mg Oral hb Tb24 1 tab once daily [Active]; aspirin 81 mg Oral TbEC 1 tab once daily [Active]; ranitidine HCl 150 mg Oral tab 1 tab once daily [Active]; mirtazapine 30 mg Oral tab 1 tab once daily [Active]; pramipexole 0.25 mg oral tab 1 tab [Active]; acetaminophen-codeine 300-30 mg Oral tab [Active]; - Immunization history:: Adult Immunizations up to date. - Social history:: Smoking status: Patient/guardian denies using tobacco. - Ebola Screening: : No symptoms or risks identified at this time. Screenin:48 Abuse screen: Denies threats or abuse. Denies injuries from another. Nutritional hb screening: No deficits noted. Tuberculosis screening: No symptoms or risk factors identified. Fall Risk Total Acosta Fall Scale indicates High Risk Score (45 or more points). Fall prevention measures have been instituted. Side Rails Up X 2 Frequent Obs/Assessments Occuring As available patient and family educated on Fall Prevention Program and Strategies. Assessment: 17:45 General: Appears in no apparent distress. Behavior is calm, cooperative. Pain: Pain hb currently is 8 out of 10 on a pain scale. Neuro: Level of Consciousness is awake, alert, obeys commands, Oriented to person, place, time, situation. Cardiovascular: Capillary refill < 3 seconds Patient's skin is warm and dry. Respiratory: Airway is patent Respiratory effort is even, unlabored, Respiratory pattern is regular, symmetrical. GI: No signs and/or symptoms were reported involving the gastrointestinal system. : No signs and/or symptoms were reported regarding the genitourinary system. EENT: No signs and/or symptoms were reported regarding the EENT system. Derm: Skin is pink, warm \T\ dry. Musculoskeletal: left hip pain. 18:55 Reassessment: Patient appears in no apparent distress at this time. Patient and/or hb family updated on plan of care and expected duration. Pain level reassessed. 19:15 General: Appears uncomfortable, Behavior is cooperative, appropriate for age. Pain: ea Complains of pain in left leg. Neuro: Level of Consciousness is awake, alert, obeys commands, Oriented to person, place, time, situation. Cardiovascular: Patient's skin is warm and dry. Respiratory: Airway is patent Respiratory effort is even, unlabored, Respiratory pattern is regular, symmetrical. Derm: Skin is pink, warm \T\ dry. 20:03 Reassessment: Report called to Shahid CRUZ at [facility]. ea 20:40 Reassessment: Patient and/or family updated on plan of care and expected duration. Pain ea level reassessed. Report given to [facility]. 20:41 Reassessment: Patient and/or family updated on plan of care and expected duration. Pain ea level reassessed. Pt alert and oriented to self and place. Respirations even and unlabored, chest expansions even and symmetrical. No s/s of pain or discomfort noted at this time. 20:48 Reassessment: Patient and/or family updated on plan of care and expected duration. Pain ea level reassessed. Pt alert and oriented to self and place, respirations even and unlabored, chest expansions even and symmetrical no s/s of pain or discomfort noted at this time. [facility] at facility for transfer. Pt left via stretcher per EMS, tolerating well. Vital Signs: 17:47 BP 98 / 68; Pulse 49; Resp 18; Temp 97.3; Pulse Ox 100% on R/A; Weight 79.38 kg; ph 19:20 BP 112 / 80; Pulse 98; Resp 18; Pulse Ox 97% on R/A; ea 20:40 BP 104 / 86; Pulse 98; Resp 18; Pulse Ox 96% ; ea ED Course: 17:41 Patient arrived in ED. ph 17:45 Sp Cole MD is Attending Physician. gs 17:46 Triage completed. ph 17:48 Arm band placed on. hb 17:50 Patient has correct armband on for positive identification. Bed in low position. Call hb light in reach. Side rails up X2. 18:14 CT Head Brain wo Cont In Process Unspecified. EDMS 18:52 XRAY Chest (1 view) In Process Unspecified. EDMS 18:52 Hip Left 2 View XRAY In Process Unspecified. EDMS 19:01 Inserted saline lock: 22 gauge in right forearm, using aseptic technique. Blood hb collected. 19:19 Karla Fernandez, RN is Primary Nurse. ea 19:25 Attending Physician role handed off by Sp Cole MD [facility] 19:25 Vito Brandt MD is Attending Physician. [facility] 20:41 No provider procedures requiring assistance completed. Patient transferred, IV remains ea in place. Administered Medications: 19:02 Drug: NS 0.9% 500 ml Route: IV; Rate: bolus; Site: right forearm; hb 19:19 Follow up: Response: No adverse reaction; IV Status: Completed infusion; IV Intake: ea 500ml 19:19 Drug: NS 0.9% 1000 ml Route: IV; Rate: 125 ml/hr; Site: right antecubital; ea 20:42 Follow up: IV Status: Infusion continued upon transfer ea Intake: 19:19 IV: 500ml; Total: 500ml. ea Outcome: 19:04 ER care complete, transfer ordered by . 20:00 Instructed on the need for transfer. ea 20:48 Transferred by ground EMS to [facility], Transfer form completed. ea 20:48 Condition: stable 20:53 Patient left the ED. ea Signatures: Dispatcher [employer] EDVito Nair MD MD cha Hall, Patricia, RN RN ph Rosy Ross, RN RN hb Karla Fernandez RN RN Sp Garcia MD MD gs
[2019-04-09 19:15] LABS: Absolute Lymphocytes (CBC) 1.6 K/uL (0.7-4.9); Basophils % 0.7 % (0-1.3); Hematocrit 35.6 % (39.6-49.0); Lymphocytes % 19.4 % (15.3-44.8)
[2019-04-09 19:26] LABS: Potassium 4.6 mmol/L (3.5-5.1)
[2019-04-09 20:03] LABS: Protime INR 1.04
[2019-04-09 21:13] VITALS: TEMP 97.3
[2019-04-09 21:16] VITALS: BP 104/86; O2SAT 96
--- NOTE | 2019-04-10 07:17 | EKG ---
Test Date: 2019-04-09 Test Time: 19:13:10 [employer] Hand[employer] Supervisor: NICHOLAS MEASUREMENT RESULTS: Intervals: Rate: 100 NC: 132 QRSD: 76 QT: 344 QTc: 443 Preston: P: 6 NC: 132 QRS: 43 T: -9 INTERPRETIVE STATEMENTS: Normal sinus rhythm Low voltage QRS Nonspecific T wave abnormality Abnormal ECG Compared to ECG 08/29/2006 11:09:06 Low QRS voltage now present T-wave abnormality now present Electronically Signed On 04-10-19 07:17:10 CDT by Jayesh Leblanc
== END 2019-04-09 20:53 | disposition short-term general hospital (02) ==
LOC: ER 17:37
DX: S72.042A Displaced fracture of base of neck of left femur, initial encounter for closed fracture (principal); X58.XXXA Exposure to other specified factors, initial encounter; Y93.9 Activity, unspecified; Y92.9 Unspecified place or not applicable; Z88.0 Allergy status to penicillin; Z88.6 Allergy status to analgesic agent
CPT/HCPCS: 36415; 70450; 71045; 80048; 85025; 85610; 93005; 96360; 96361; 99285

== ENCOUNTER 2019-04-20 10:28 | Inpatient (IN) | payer OTHER ==
--- NOTE | 2019-04-20 14:02 | R.PREADM ---
SCREENING DATE AND TIME 04/20/2019 12:45 (CDT) ANTICIPATED REHAB ADMISSION DATE 04/22/[address] [facility] REFERRAL DATE AND TIME 04/20/2019 12:45 (CDT) ACUTE ADMIT DATE 04/09/2019 Previous Rehabilitation(s): No. REFERRING PHYSICIAN Daily De Jesus REHAB FACILITY [facility] CLINICAL LIAISON Carla Carpenter PHYSICIAN REVIEWER Dr. Alex Ribeiro M.D. MR# [id number] [id number] NAME MARCE BRAND ADDRESS [address] [place] [address] [address] [address] DATE OF 1935 AGE 84 SSN# [id number] GENDER male MARITAL STATUS Unknown RACE white ADMIT FROM 02 - [facility] PRE-HOSPITAL LIVING SETTING 01 - Home (private home/apt. board/care, assisted living, shelter, transitional living) HOME TYPE AND DETAILS Type of home: 0 # of steps to enter the residence: 0 # of steps within the residence: 0 # of levels in the residence: 1 PRE-HOSPITAL LIVING WITH Family/Relatives FAMILY SUPPORT Yes PRIMARY FAMILY CONTACT NAME Milka Dave PRIMARY FAMILY CONTACT PHONE PHONE PRIMARY FAMILY CONTACT ON ADM.? no IS PRIMARY FAMILY CONTACT AUTH. REP.? no 1ST EMERGENCY CONTACT Milka Dave 1ST CONTACT PHONE PHONE 1ST CONTACT ON ADM. no IS 1ST CONTACT AUTH. REP.? no PHONE 2ND CONTACT ON ADM.? no PATIENT EMPLOYMENT STATUS Retired (for age) PATIENT EMPLOYER No Employer PAYOR INFORMATION: 1ST PAYOR NAME MEDICARE 1ST PAYOR PHONE 1ST PAYOR INJURY/ILLNESS DUE TO ACCIDENT? No ANOTHER REPUBLICAN RESPONSIBLE? 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 is a 84 yo Right-handed white male. On 04/09/[address] to [facility] and underwent emergency surgery for Unspecified int racapsular fracture of left femur, initial encounter for closed fracture (S72.012A) (Unilateral Hip F racture) by Daily De Jesus. Pre-morbidly, Pt. was independent/mod-I in Locomotion and Self-Care; and he had good Safety Awareness and Sphincter Control. Currently, he has deficits of Endurance, Locomotion, Balance, Self-Care, Safety Awareness, Ambulation , pain limiting function, Safety Awareness and Self-Care, and Social Cognition. Pt. is now referred to [facility] for acute in-patient rehabilitation in order to maximize patient's functional independence in activities of daily living, strength, ROM, and mobi lity. Patient has realistic goal of being discharged at assistance level 6-Cathy to reside at Home with Fam samantha/Relatives. 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 Treatment - Per Physician's Orders. REVIEW OF SYSTEMS: - Gen Alert and awake Lying in bed No apparent distress Oriented to: person, time, and place - Vital Signs Vital signs stable, afebrile - CVS RRR VITAL SIGNS Temperature: 97.3 F SBP/DBP: 117/56 Pulse: 100 Resp: 18 Vital signs stable, afebrile MEDICATIONS/TREATMENT: Other- See attached MAR (Medication Administration Record). CURRENT SPHINCTER CONTROL: Pre-hospital bladder status: continent # of bladder accidents in the last 7 days prior to screenin Pre-hospital bowel status: continent # of bowel accidents in the last 7 days prior to screenin Last Bowel Movement Date: 04/20/2019 DETAILED CURRENT FUNCTIONAL STATUS: - Bladder accident frequency: Ind - No accidents in the past 7 days - Bowel accident frequency: Ind - No accidents in the past 7 days - Walking score based on distance walked: 1(<=50ft) - Wheelchair score based on distance traveled: 1(<=50ft) QI SCORES: - Self-Care A. Eating 05-Setup or clean-up assistance B. Oral hygiene 05-Setup or clean-up assistance C. Toileting hygiene 03-Partial/moderate assistance E. Shower/bathe self 01-Dependent F. Upper body dressing 04-Supervision or touching assistance G. Lower body dressing 01-Dependent H. Putting on/taking off footwear 88-Not attempted due to medical condition or safety concerns - Mobility A. Roll left and right 02-Substantial/maximal assistance B. Sit to lying 02-Substantial/maximal assistance C. Lying to sitting on side of bed 02-Substantial/maximal assistance D. Sit to stand 02-Substantial/maximal assistance E. Chair/eao-fm-dkzcl transfer 02-Substantial/maximal assistance F. Toilet transfer 02-Substantial/maximal assistance G. Car transfer 88-Not attempted due to medical condition or safety concerns I. Walk 10 feet 01-Dependent J. Walk 50 feet with two turns 88-Not attempted due to medical condition or safety concerns K. Walk 150 feet 88-Not attempted due to medical condition or safety concerns L. Walking 10 feet on uneven surfaces 88-Not attempted due to medical condition or safety concerns M. 1 step (curb) 88-Not attempted due to medical condition or safety concerns N. 4 steps 02-Substantial/maximal assistance O. 12 steps 88-Not attempted due to medical condition or safety concerns P. Picking up object 88-Not attempted due to medical condition or safety concerns R. Wheel 50 feet with two turns 88-Not attempted due to medical condition or safety concerns S. Wheel 150 feet 88-Not attempted due to medical condition or safety concerns - Bladder and Bowel Bladder continence 0-Always continent Bowel continence 0-Always continent CURRENT FUNC. DEFICITS: Endurance, Locomotion, Balance, Self-Care, Safety Awareness, Ambulation, pain limiting function, Safe ty Awareness and Self-Care, and Social Cognition THERAPY NOTES FROM ACUTE CARE: Attached. SPECIAL NEEDS: - Safety Concerns Skin breakdown precautions needed due to skin breakdown risk PRECAUTIONS: - Posterior Hip Precaution No adduction across midline No external rotation No hip flexion >90 degrees No internal rotation No wheel chair propulsion - Weight Bearing Precaution WBAT left LE PATIENT NEEDS ACTIVE AND ONGOING THERAPEUTIC INTERVENTION OF MULTIPLE THERAPY DISCIPLINES, INCLUDING: - Dietary and Nutrition Adequate Nutrition. Nutritional Education. Nutritional Supplements. PATIENT NEEDS CLOSE MEDICAL SUPERVISION BY A REHABILITATION PHYSICIAN FOR: Coordination of Treatment Team Medical and Co-Morbidity Management Post-Op Complications Wound Care PATIENT REQUIRES 24X7 REHAB NURSING FOR MEDICAL AND FUNCTIONAL MGT. OF THE FOLLOWING DEFICITS: Disease Management Medication Management Patient/Family Education Providing Safe Environment Skin Integrity PATIENT REQUIRES INTENSIVE, COORDINATED INTERDISCIPLINARY APPROACH TO REHAB: Arranging Home Equipment/Services Discharge Planning Family Intervention/Training Coil Former/Case Management PATIENT REHAB POTENTIAL: Adam BRAND is able and expected to receive 3 hours of individualized therapy daily on at least 5 of e very 7 days Adam BRAND's prognosis for significant practical improvement within a reasonable period of time appea rs Good Expected level of measurable improvement will be of a practical value to Adam BRAND's functional [place] or adaptations to impairments Has a viable Discharge Plan Medically appropriate; condition is sufficiently stable to participate in intensive rehab program DISCHARGE PLAN: - Estimated Length of Stay (days) 14. - Consensus on plan Discharge plan has been discussed with primary caregiver. Patient/Family is in agreement with the jose n. Primary caregiver is in agreement with the plan. - Patient/Family Goals Return home with assistance. - Planned Living Setting Upon Discharge Home, to live with Family/Relatives. RECOMMENDED CARE LEVEL: IRF RECOMMENDATION DETAILS: Recommended Admission to Comprehensive Rehabilitation Program to Increase Functional [place] SCREENER'S COMPLETENESS CONFIRMATION: - Screening Confirmation The patient data collection on this preadmission screening form is finished PHYSICIANS REVIEW AND ADMISSION DETERMINATION Admit - Based on my review of the Pre-Admission Screening results, in my medical judgment and experie nce, I concur with the findings and recommend admission to [facility], as this patient requires an IRF level of care. SIGNATURE PANEL: Clinical Liaison - [electronically] signed by Arlet Patel on 04/20/2019 at 13:20 (CDT) Clinical Liaison - [electronically] signed by Carla Carpenter on 04/20/2019 at 13:51 (CDT) Physician Reviewer - [electronically] signed by Dr. Alex Ribeiro M.D. on 04/20/2019 at 14:02 (CDT )
[2019-04-20] MEDS: METOPROLOL XL 25 MG TAB PO SCH (20:00)
[2019-04-20] MEDS: MIRTAZAPINE 15 MG TAB PO SCH (20:36)
[2019-04-20] MEDS: APIXABAN 2.5 MG TABLET PO SCH (20:36)
[2019-04-21 04:34] LABS: Urine Appearance CLEAR; Urine Bilirubin NEGATIVE (NEG); Urine Blood NEGATIVE (NEG); Urine Color YELLOW; Urine Glucose NEGATIVE (NEG); Urine Protein NEGATIVE (NEG); Urine Specific Gravity 1.025 (1.005-1.030); Urine pH 6.5 (5.0-7.0)
[2019-04-21 05:39] LABS: Urine Bacteria <20 /HPF (NONE SEEN); Urine Culture Reflex Order NOT NEEDED; Urine RBC NONE SEEN /HPF (NONE SEEN)
[2019-04-21 06:10] LABS: Absolute Lymphocytes (CBC) 1.5 K/uL (0.7-4.9); Basophils % 0.8 % (0-1.3); Hematocrit 29.2 % (39.6-49.0); Lymphocytes % 16.9 % (15.3-44.8); MPV 8.5 fL (7.6-11.3); RBC Red Blood Cell Count 3.44 M/uL (4.33-5.43)
[2019-04-21 06:33] LABS: Potassium 3.8 mmol/L (3.5-5.1); Prealbumin 10.9 mg/dL (20-40)
[2019-04-21] MEDS ORDERED: FUROSEMIDE 40 MG TABLET PO SCH (08:00)
[2019-04-21] MEDS: buPROPion HCl 100 MG TAB PO SCH (08:57)
[2019-04-21] MEDS: METOPROLOL XL 25 MG TAB PO SCH ×3 (08:57→20:20)
[2019-04-21] MEDS: PRAMIPEXOLE 0.25 MG TAB PO SCH (08:57)
[2019-04-21] MEDS: TAMSULOSIN 0.4 MG SR CAP PO SCH (08:58)
[2019-04-21] MEDS: PANTOPRAZOLE 40MG TABLET PO SCH ×2 (08:58→17:27)
[2019-04-21] MEDS: ASPIRIN EC 81 MG TAB PO SCH (08:58)
[2019-04-21] MEDS: TRAMADOL HCL 50 MG TAB PO PRN ×2 (08:59→13:06)
[2019-04-21] MEDS: APIXABAN 2.5 MG TABLET PO SCH ×2 (08:59→20:19)
--- NOTE | 2019-04-21 15:15 | FAST ---
ENCOUNTER DATE AND TIME: 04/21/2019 08:00 (CDT) NAME MARCE BRAND DATE OF : 1935 DATE OF ADMISSION: 04/20/2019 17:25 (CDT) PHONE: AGE: 84 SSN# [id number] GENDER: Male ENCOUNTER PHYSICIAN: Dr. Alex Ribeiro M.D. ADMISSION DIAGNOSIS: - Orthopaedic Disorders 08 - Unilateral Hip Fracture (08.11) Unspecified intracapsular fracture of left femur, initial encounter for closed fracture (S72.012A). EATING: Not assessed/no information CODE: - ORAL HYGIENE: ORAL HYGIENE - STEP 1: Does the patient complete the activity by him/herself with no assistance (physical, verbal/nonverbal cueing, setup/clean-up)? Yes. 1. [id number] ADMISSION PERFORMANCE: Independent CODE: 06 TOILETING HYGIENE: TOILETING HYGIENE - STEP 1: Does the patient complete the activity by him/herself with no assistance (physical, verbal/nonverbal cueing, setup/clean-up)? No. TOILETING HYGIENE - STEP 2: Does the patient need only setup/clean-up assistance from one helper? No. TOILETING HYGIENE - STEP 3: Does the patient need only verbal/nonverbal cueing or touching/steadying/contact guard assistance fro m one helper? No. TOILETING HYGIENE - STEP 4: Does the patient need physical assistance - for example lifting or trunk support from one helper - wi th the helper providing less than half of the effort? No. TOILETING HYGIENE - STEP 5: Does the patient need physical assistance - for example lifting or trunk support from one helper - wi th the helper providing more than half of the effort? No. TOILETING HYGIENE - STEP 6: Does the helper provide all of the effort? OR Is the assistance of two or more helpers required to co mplete the activity? Yes. 1. [id number] ADMISSION PERFORMANCE: Dependent CODE: 01 BATHING: SHOWER/BATHE SELF - STEP 1: Does the patient complete the activity by him/herself with no assistance (physical, verbal/nonverbal cueing, setup/clean-up)? No. SHOWER/BATHE SELF - STEP 2: Does the patient need only setup/clean-up assistance from one helper? No. SHOWER/BATHE SELF - STEP 3: Does the patient need only verbal/nonverbal cueing or touching/steadying/contact guard assistance fro m one helper? No. SHOWER/BATHE SELF - STEP 4: Does the patient need physical assistance - for example lifting or trunk support from one helper - wi th the helper providing less than half of the effort? No. SHOWER/BATHE SELF - STEP 5: Does the patient need physical assistance - for example lifting or trunk support from one helper - wi th the helper providing more than half of the effort? Yes. 1. [id number] ADMISSION PERFORMANCE: Substantial/maximal assistance CODE: 02 DRESSING - UPPER BODY: Not attempted due to environmental limitations (e.g., lack of equipment, weather constraints) CODE: 10 DRESSING - LOWER BODY: DRESSING - LOWER BODY - STEP 1: Does the patient complete the activity by him/herself with no assistance (physical, verbal/nonverbal cueing, setup/clean-up)? No. DRESSING - LOWER BODY - STEP 2: Does the patient need only setup/clean-up assistance from one helper? No. DRESSING - LOWER BODY - STEP 3: Does the patient need only verbal/nonverbal cueing or touching/steadying/contact guard assistance fro m one helper? No. DRESSING - LOWER BODY - STEP 4: Does the patient need physical assistance - for example lifting or trunk support from one helper - wi th the helper providing less than half of the effort? No. DRESSING - LOWER BODY - STEP 5: Does the patient need physical assistance - for example lifting or trunk support from one helper - wi th the helper providing more than half of the effort? Yes. 1. [id number] ADMISSION PERFORMANCE: Substantial/maximal assistance CODE: 02 PUTTING ON/TAKING OFF FOOTWEAR: FOOTWEAR - STEP 1: Does the patient complete the activity by him/herself with no assistance (physical, verbal/nonverbal cueing, setup/clean-up)? No. FOOTWEAR - STEP 2: Does the patient need only setup/clean-up assistance from one helper? No. FOOTWEAR - STEP 3: Does the patient need only verbal/nonverbal cueing or touching/steadying/contact guard assistance fro m one helper? No. FOOTWEAR - STEP 4: Does the patient need physical assistance - for example lifting or trunk support from one helper - wi th the helper providing less than half of the effort? No. FOOTWEAR - STEP 5: Does the patient need physical assistance - for example lifting or trunk support from one helper - wi th the helper providing more than half of the effort? No. FOOTWEAR - STEP 6: Does the helper provide all of the effort? OR Is the assistance of two or more helpers required to co mplete the activity? Yes. 1. [id number] ADMISSION PERFORMANCE: Dependent CODE: 01 DOES THE PATIENT USE A WHEELCHAIR/SCOOTER? CODE: EXPR INDICATE THE TYPE OF WHEELCHAIR/SCOOTER USED: CODE: EXPR INDICATE THE TYPE OF WHEELCHAIR/SCOOTER USED: CODE: EXPR BLADDER AND BOWEL: CODE: EXPR CODE: EXPR SIGNATURE PANEL: The following modified sections: 1. [id number] Admission Performance, 1. [id number] Admission Performance, 1. [id number] Admission Performance, 1. [id number] Admission Performance, 1. [id number] Admission Performance, 1. [id number] Admission Performance were [electronically] signed by Ruby Monroe OT on FriApr 21 2 019 15:14:46 T-0500 (Central Daylight Time)
--- NOTE | 2019-04-21 16:18 | FAST ---
ENCOUNTER DATE AND TIME: 04/21/2019 08:00 (CDT) NAME MARCE BRAND DATE OF : 1935 DATE OF ADMISSION: 04/20/2019 17:25 (CDT) PHONE: AGE: 84 SSN# [id number] GENDER: Male ENCOUNTER PHYSICIAN: Dr. Alex Ribeiro M.D. ADMISSION DIAGNOSIS: - Orthopaedic Disorders 08 - Unilateral Hip Fracture (08.11) Unspecified intracapsular fracture of left femur, initial encounter for closed fracture (S72.012A). ROLL LEFT AND RIGHT: ROLL LEFT AND RIGHT - STEP 1: Does the patient complete the activity by him/herself with no assistance (physical, verbal/nonverbal cueing, setup/clean-up)? No. ROLL LEFT AND RIGHT - STEP 2: Does the patient need only setup/clean-up assistance from one helper? No. ROLL LEFT AND RIGHT - STEP 3: Does the patient need only verbal/nonverbal cueing or touching/steadying/contact guard assistance fro m one helper? No. ROLL LEFT AND RIGHT - STEP 4: Does the patient need physical assistance - for example lifting or trunk support from one helper - wi th the helper providing less than half of the effort? Yes. 1. [id number] ADMISSION PERFORMANCE: Partial/moderate assistance CODE: 03 SIT TO LYING: SIT TO LYING - STEP 1: Does the patient complete the activity by him/herself with no assistance (physical, verbal/nonverbal cueing, setup/clean-up)? No. SIT TO LYING - STEP 2: Does the patient need only setup/clean-up assistance from one helper? No. SIT TO LYING - STEP 3: Does the patient need only verbal/nonverbal cueing or touching/steadying/contact guard assistance fro m one helper? No. SIT TO LYING - STEP 4: Does the patient need physical assistance - for example lifting or trunk support from one helper - wi th the helper providing less than half of the effort? Yes. 1. [id number] ADMISSION PERFORMANCE: Partial/moderate assistance CODE: 03 LYING TO SITTING: LYING TO SITTING ON SIDE OF BED - STEP 1: Does the patient complete the activity by him/herself with no assistance (physical, verbal/nonverbal cueing, setup/clean-up)? No. LYING TO SITTING ON SIDE OF BED - STEP 2: Does the patient need only setup/clean-up assistance from one helper? No. LYING TO SITTING ON SIDE OF BED - STEP 3: Does the patient need only verbal/nonverbal cueing or touching/steadying/contact guard assistance fro m one helper? No. LYING TO SITTING ON SIDE OF BED - STEP 4: Does the patient need physical assistance - for example lifting or trunk support from one helper - wi th the helper providing less than half of the effort? Yes. 1. [id number] ADMISSION PERFORMANCE: Partial/moderate assistance CODE: 03 SIT TO STAND: SIT TO STAND - STEP 1: Does the patient complete the activity by him/herself with no assistance (physical, verbal/nonverbal cueing, setup/clean-up)? No. SIT TO STAND - STEP 2: Does the patient need only setup/clean-up assistance from one helper? No. SIT TO STAND - STEP 3: Does the patient need only verbal/nonverbal cueing or touching/steadying/contact guard assistance fro m one helper? No. SIT TO STAND - STEP 4: Does the patient need physical assistance - for example lifting or trunk support from one helper - wi th the helper providing less than half of the effort? Yes. 1. [id number] ADMISSION PERFORMANCE: Partial/moderate assistance CODE: 03 TRANSFERS: BED, CHAIR: CHAIR/[id number] TRANSFER - STEP 1: Does the patient complete the activity by him/herself with no assistance (physical, verbal/nonverbal cueing, setup/clean-up)? No. CHAIR/KYE-CB-GAHAL TRANSFER - STEP 2: Does the patient need only setup/clean-up assistance from one helper? No. CHAIR/[id number]-[id number] TRANSFER - STEP 3: Does the patient need only verbal/nonverbal cueing or touching/steadying/contact guard assistance fro m one helper? No. CHAIR/[id number]-OMXHO TRANSFER - STEP 4: Does the patient need physical assistance - for example lifting or trunk support from one helper - wi th the helper providing less than half of the effort? Yes. 1. [id number] ADMISSION PERFORMANCE: Partial/moderate assistance CODE: 03 TRANSFER TOILET: TOILET TRANSFER - STEP 1: Does the patient complete the activity by him/herself with no assistance (physical, verbal/nonverbal cueing, setup/clean-up)? No. TOILET TRANSFER - STEP 2: Does the patient need only setup/clean-up assistance from one helper? No. TOILET TRANSFER - STEP 3: Does the patient need only verbal/nonverbal cueing or touching/steadying/contact guard assistance fro m one helper? No. TOILET TRANSFER - STEP 4: Does the patient need physical assistance - for example lifting or trunk support from one helper - wi th the helper providing less than half of the effort? Yes. 1. [id number] ADMISSION PERFORMANCE: Partial/moderate assistance CODE: 03 TRANSFERS: CAR: Not attempted due to environmental limitations (e.g., lack of equipment, weather constraints) CODE: 10 WALK 10 FEET: WALK 10 FEET - STEP 1: Does the patient complete the activity by him/herself with no assistance (physical, verbal/nonverbal cueing, setup/clean-up)? No. WALK 10 FEET - STEP 2: Does the patient need only setup/clean-up assistance from one helper? No. WALK 10 FEET - STEP 3: Does the patient need only verbal/nonverbal cueing or touching/steadying/contact guard assistance fro m one helper? No. WALK 10 FEET - STEP 4: Does the patient need physical assistance - for example lifting or trunk support from one helper - wi th the helper providing less than half of the effort? Yes. 1. [id number] ADMISSION PERFORMANCE: Partial/moderate assistance CODE: 03 WALK 50 FEET: Not attempted due to medical condition or safety concerns CODE: 88 WALK 150 FEET: Not attempted due to medical condition or safety concerns CODE: 88 WALK 10 FEET UNEVEN: Not attempted due to medical condition or safety concerns CODE: 88 1 STEP (CURB): Not attempted due to medical condition or safety concerns CODE: 88 PICKING UP OBJECT: Not attempted due to medical condition or safety concerns CODE: 88 DOES THE PATIENT USE A WHEELCHAIR/SCOOTER? Q1. DOES THE PATIENT USE A WHEELCHAIR/SCOOTER?: Yes CODE: 1 WHEEL 50 FEET WITH TWO TURNS: Not attempted due to medical condition or safety concerns CODE: 88 INDICATE THE TYPE OF WHEELCHAIR/SCOOTER USED: CODE: EXPR WHEEL 150 FEET: Not attempted due to medical condition or safety concerns CODE: 88 INDICATE THE TYPE OF WHEELCHAIR/SCOOTER USED: CODE: EXPR BLADDER AND BOWEL: CODE: EXPR CODE: EXPR SIGNATURE PANEL: The following modified sections: 1. [id number] Admission Performance, 1. [id number] Admission Performance, 1. [id number] Admission Performance, 1. [id number] Admission Performance, 1. [id number] Admission Performance, 1. QC0260R Admission Performance, 1. GL0313D Admission Performance, 1. [id number] Admission Performance , Q1. Does the patient use a wheelchair/scooter?, Code were [electronically] signed by Anderson kasper, PT on FriApr 21 2019 16:17:55 T-0500 (Central Daylight Time)
--- NOTE | 2019-04-21 18:35 | R.HP ---
FACILITY: [facility] ENCOUNTER DATE AND TIME: 04/21/2019 18:28 (CDT) MR#: [id number] NAME MARCE BRAND ADDRESS: [address] [place] [address] RO[address] [facility] CITY: [facility] [address] PHONE: DATE OF : 1935 AGE: 84 SSN# [id number] GENDER: Male DEXTERITY Right-handed MARITAL STATUS Unknown RACE White PRE-HOSPITAL LIVING SETTING 01 - Home (private home/apt. board/care, assisted living, halfway, transitional living) PRE-HOSPITAL LIVING WITH Family/Relatives ENCOUNTER PHYSICIAN: Dr. Alex Ribeiro M.D. REFERRING DOCTOR: Daily De Jesus DATE OF ADMISSION: 04/20/2019 17:25 (CDT) REFERRING FACILITY [facility] HOME TYPE AND DETAILS: Type of home: 0 # of steps to enter the residence: 0 # of steps within the residence: 0 # of levels in the residence: 1 ADMISSION DIAGNOSIS: Unspecified intracapsular fracture of left femur, initial encounter for closed fracture (S72.012A) ONSET DATE: 04/09/2019 PRIMARY DIAGNOSIS-RELATED SURGERIES: Emergency Unilateral Hip Fracture - performed by Daily De Jesus on 04/09/2019 SECONDARY/COMORBID DIAGNOSES (TIERED): - Tier 3 Pleural effusion, not elsewhere classified (J90) - Non-Tiered 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 is a 84 yo Right-handed white male. On 04/09/2019 he was admitted to [facility] and underwent emergency surgery for Unspecified int racapsular fracture of left femur, initial encounter for closed fracture (S72.012A) (Unilateral Hip F racture) by Daily De Jesus. Pre-morbidly, Pt. was independent/mod-I in Locomotion and Self-Care; and he had good Safety Awareness and Sphincter Control. Currently, he has deficits of Endurance, Locomotion, Balance, Self-Care, Safety Awareness, Ambulation , pain limiting function, Safety Awareness and Self-Care, and Social Cognition. Pt. is now referred to [facility] for acute in-patient rehabilitation in order to maximize patient's functional independence in activities of daily living, strength, ROM, and mobi lity. Patient has realistic goal of being discharged at assistance level 6-Cathy to reside at Home with Fam samantha/Relatives. 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 SOCIAL HISTORY: - Home Living Family/Relatives REVIEW OF SYSTEMS: - Gen No Chills Fatigue No Fever - Eyes No Double Vision No itchiness - ENMT No Difficulty Swallowing - CVS No Chest Discomfort No Chest Pain Fatigue No Weight Gain - Resp No Cough No Shortness of Breath - GI Continent No Abdominal Pain Constipation No Diarrhea - Continent No Kidney Pain No Painful Urination No Urinary Urgency - MSK No Joint Pain Muscle Cramps Stiffness - Skin No Itching No Rash No Suspicious Lesions - Neuro Coordination Difficulty No Difficulty with Concentration No Memory Loss No Seizures Weakness - Psych No Anxiety No Depression No HIV Exposure No Persistent Infections No Seasonal Allergies - Endo No Cold/Heat Intolerance No Excessive Hunger No Excessive Thirst No Excessive Urination PHYSICAL EXAM - Gen Alert and awake Lying in bed No apparent distress Oriented to: person, time, and place - Skin No breakdown Normacephalic - Eyes No abnormalities - ENMT No abnormalities - Neck No abnormalities - CVS RRR - Chest No abnormalities - Abd + bowel sounds - GI Soft Deferred - No abnormalities - Ext Left hip surgical site has good hemostasis. - MSK 4+/5 weakness in left lower extremity - Neuro 4/5 strength left lower extremity. - Psych No abnormalities VITAL SIGNS Temperature: 97.3 F SBP/DBP: 117/56 Pulse: 100 Resp: 18 NURSING: - Shower allowing shower - Skin care per protocol PRECAUTIONS: - Posterior Hip Precaution No adduction across midline No external rotation No hip flexion >90 degrees No internal rotation No wheel chair propulsion - Weight Bearing Precaution WBAT left LE ACTIVITIES OOB only with supervision FUNCTIONAL STATUS: - Self-Care A. Eating Ind Ind B. Grooming Ind sup C. Bathing Ind modA D. Dressing - Upper Ind modA E. Dressing - Lower Ind modA F. Toileting Ind modA - Sphincter Control G. Bladder control Ind sup H. Bowel control Ind sup - Transfers Control I. Bed/Chair/Wheelchair Ind modA J. Toilet Ind modA K. Tub/Shower Ind modA - Locomotion L. Walk/Wheelchair (W) Ind modA M. Stairs Ind maxA - Communication N. Comprehension (A) Ind Ind O. Expression (B) Ind Ind - Social Cognition P. Social Interaction Ind sup Q. Problem Solving Ind sup R. Memory Ind sup - Endurance Good - Balance Good - Safety Awareness Good QI SCORES: - Self-Care A. Eating 05-Setup or clean-up assistance B. Oral hygiene 05-Setup or clean-up assistance C. Toileting hygiene 03-Partial/moderate assistance E. Shower/bathe self 01-Dependent F. Upper body dressing 04-Supervision or touching assistance G. Lower body dressing 01-Dependent H. Putting on/taking off footwear 88-Not attempted due to medical condition or safety concerns - Mobility A. Roll left and right 02-Substantial/maximal assistance B. Sit to lying 02-Substantial/maximal assistance C. Lying to sitting on side of bed 02-Substantial/maximal assistance D. Sit to stand 02-Substantial/maximal assistance E. Chair/spz-pr-livbq transfer 02-Substantial/maximal assistance F. Toilet transfer 02-Substantial/maximal assistance G. Car transfer 88-Not attempted due to medical condition or safety concerns I. Walk 10 feet 01-Dependent J. Walk 50 feet with two turns 88-Not attempted due to medical condition or safety concerns K. Walk 150 feet 88-Not attempted due to medical condition or safety concerns L. Walking 10 feet on uneven surfaces 88-Not attempted due to medical condition or safety concerns M. 1 step (curb) 88-Not attempted due to medical condition or safety concerns N. 4 steps 02-Substantial/maximal assistance O. 12 steps 88-Not attempted due to medical condition or safety concerns P. Picking up object 88-Not attempted due to medical condition or safety concerns R. Wheel 50 feet with two turns 88-Not attempted due to medical condition or safety concerns S. Wheel 150 feet 88-Not attempted due to medical condition or safety concerns - Bladder and Bowel Bladder continence 0-Always continent Bowel continence 0-Always continent CURRENT FUNC. DEFICITS: Endurance, Locomotion, Balance, Self-Care, Safety Awareness, Ambulation, pain limiting function, Safe ty Awareness and Self-Care, and Social Cognition MEDICATIONS: - Other See attached MAR (Medication Administration Record) ASSESSMENT: Pt. is a 84 yo Right-handed white male.On 04/09/2019 he was admitted to [facility] emergency surgery for Unspecified intracapsular fracture of left femur, initial encounter for close d fracture (S72.012A) (Unilateral Hip Fracture) by Daily De Jesus.Pre-morbidly, Pt. was independent/ mod-I in Locomotion and Self-Care; and he had good Safety Awareness and Sphincter Control.Currently, he has deficits of Endurance, Locomotion, Balance, Self-Care, Safety Awareness, Ambulation, pain limi ting function, Safety Awareness and Self-Care, and Social Cognition.Pt. is now referred to [facility] for acute in-patient rehabilitation in order to maximize patient's functional independence in activities of daily living, strength, ROM, and mobility.- Rehab Goal Patient has realistic goal of being discharged at assistance level 6-Cathy to reside at Home with Fam samantha/Relatives. - Physical Therapy Decreased range of motion - to improve, our physical therapists will perform initial evaluation of pt 's status upon admission and devise an individualized program for increasing patient's Range of Motio n. Gait dysfunction - to improve, our physical therapists will perform initial evaluation of pt's status upon admission and devise an individualized program for Gait Training, and Wheel Chair mobility Need for home safety evaluation - to improve, our physical therapists will perform initial evaluation of pt's status upon admission and devise an individualized program for Home Evaluation Need in caregiver upon discharge - to improve, our physical therapists will perform initial evaluatio n of pt's status upon admission and devise an individualized program for Caregiver Training New precaution - to improve, our physical therapists will perform initial evaluation of pt's status u reina admission and devise an individualized program for Patient precaution education Poor balance - to improve, our physical therapists will perform initial evaluation of pt's status upo n admission and devise an individualized program for Balance Training Poor endurance - to improve, our physical therapists will perform initial evaluation of pt's status u reina admission and devise an individualized program for Endurance Training Weakness - to improve, our physical therapists will perform initial evaluation of pt's status upon ad mission and devise an individualized program for Aquatic Therapy, Neuromuscular Reeducation, and Stre ngthening Achieving independence - to improve, our physical therapists will perform initial evaluation of pt's status upon admission and devise an individualized program for Community Reintegration Activities - Occupational Therapy ADL deficits - to improve, our occupation therapists will perform initial evaluation of pt's status u reina admission and devise an individualized program for Bathing, Bed mobility, Community Reintegration , Cooking, Dressing, Eating, Fine Motor Skills, Grooming, Homemaking, Kitchen Mobility, Laundry, Tammy ent Education, Safety Awareness, Splinting - Positioning, Transfers(Toilet, Tub, Shower), and Wheel C hair Management Cognitive deficits - to improve, our occupation therapists will perform initial evaluation of pt's st atus upon admission and devise an individualized program for Cognition - orientation Need for hospice patient care secretary - to improve, our occupation therapists will perform initial evaluation of pt's s tatus upon admission and devise an individualized program for Caregiver Training Weakness - to improve, our occupation therapists will perform initial evaluation of pt's status upon admission and devise an individualized program for Aquatic Therapy, Balance, Endurance, UE ROM, and U E strengthening MEDICAL PLAN: - Anterior Hip Precaution No abduction No active extension No adduction across midline No external rotation No hip flexion >90 degrees No internal rotation - Diet - Liquid Texture Start Regular - Tube Feed Start N/A - Diet Type Start Regular - Posterior Hip Precaution No adduction across midline No external rotation No hip flexion >90 degrees No internal rotation No wheel chair propulsion - Weight Bearing Precaution WBAT left LE - Skin care per protocol - Other See attached MAR (Medication Administration Record) - Diet - Solid Texture Regular - Shower shower DISCHARGE PLAN: - Estimated Length of Stay (days) 14. - Consensus on plan Discharge plan has been discussed with primary caregiver. Patient/Family is in agreement with the jose n. Primary caregiver is in agreement with the plan. - Patient/Family Goals Return home with assistance. - Planned Living Setting Upon Discharge Home, to live with Family/Relatives. SIGNATURE PANEL: (CDT)
--- NOTE | 2019-04-21 18:36 | PAPE ---
PATIENT: [facility] MR# [id number] REFERRING DOCTOR Daily De Jesus EVALUATION DATE AND TIME 04/21/2019 18:35 (CDT) NAME MARCE BRAND DATE OF 1935 AGE 84 PHONE SSN# [id number] GENDER male EVALUATING PHYSICIAN Dr. Alex Ribeiro M.D. 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) Chronic kidney disease, stage 3 (moderate) (N18.3) Personal history of other diseases of the circulatory system (Z86.79) Parkinson's disease (G20) Essential (primary) hypertension (I10) POST-ADMISSION FUNCTIONAL/MEDICAL STATUS: - Bladder Same accident frequency: Ind - No accidents in the past 7 days - Bowel Same accident frequency: Ind - No accidents in the past 7 days - Walking Same score based on distance walked: 1(<=50ft) - Wheelchair Same score based on distance traveled: 1(<=50ft) STATUS CHANGE EVALUATION: No change in Functional or Medical Status is identified compared with Pre-Admission screening. PATIENT NEEDS CLOSE MEDICAL SUPERVISION BY A REHABILITATION PHYSICIAN FOR: Coordination of Treatment Team Medical and Co-Morbidity Management Post-Op Complications Wound Care PATIENT REQUIRES 24X7 REHAB NURSING FOR MEDICAL AND FUNCTIONAL MGT. OF THE FOLLOWING DEFICITS: Disease Management Medication Management Patient/Family Education Providing Safe Environment Skin Integrity PATIENT REQUIRES INTENSIVE, COORDINATED INTERDISCIPLINARY APPROACH TO REHAB: Arranging Home Equipment/Services Discharge Planning Family Intervention/Training Maintenance Department Technician/Case Management LIST OF IDENTIFIED AND POTENTIAL PROBLEMS: Alteration in leisure activities Bladder, Incontinence Blood Pressure, Hypertension/hypotension Issues Bowel, Incontinence Infection, Actual or Potential Mobility Impaired Pain, Alteration in Comfort Self Care Deficit Skin Integrity, Actual or Potential Urinary Tract Infection (UTI), Actual or Potential PATIENT COULD BE AT RISK FOR COMPLICATIONS FROM ADVERSE MEDICAL CONDITIONS DUE TO HIS/HER COMORBIDITI ES AND THE RIGORS OF THE INTENSIVE REHABILLITATION PROGRAM. METHODS OR INTERVENTIONS TO AVOID COMPLIC ATIONS INCLUDE: - Bleeding Assess lab values and manage abnormalities. Nursing to teach precautions for anti-coagulation therapy . Wound to be assessed every shift. - Infection Clinical staff to assess and manage the signs and symptoms of infection including fever, redness, war mth, etc. - Urinary Tract Infection - Falls Patient will be evaluated for Fall Precautions and will be placed on Fall Precautions as indicated pe r protocol. - Skin Breakdown Nursing will assess skin daily using assessment tool and will place on Skin Breakdown Precautions as indicated per protocol. - Pain Clinical staff may employ non-medication methods such as massage, distraction, decrease stimulus, etc . as needed. Clinical staff will assess patient's pain level every shift per protocol to assess and e nsure pain management effectiveness. Medications will be given and the pain level re-assessed. PRELIMINARY PLAN OF CARE: - Physical Therapy Patient needs Physical Therapy for a daily minimum of 1.5 hours at least 5 out of 7 days, to improve: Mobility, Strengthening, Transfers, Stretching, ROM, Endurance, Ability to manage stairs, Gait, and Balance. - Speech Therapy Patient needs Speech Therapy for a daily minimum of 0.5 hours at least 5 out of 7 days, to improve: S wallowing, Cognition, Language Skills, and Compensatory Strategies. - Rehabilitation Nursing Patient requires 24x7 Rehabilitation Nursing for: Pain Issues, Identifying and preventing risk factor s, Monitoring and reporting current medical conditions, Assisting with ambulation and transfer, Rick ting with all ADL-s, Teaching patients about disease process and medications, Family teaching, Provid ing safe environment, Bowel and Bladder Issues, Skin Integrity, and Medication Management. Patient needs Maintenance Department Technician and/or Case Management for: Discharge Planning, Arranging Home Equipmen t or Services, and Family Interventions. - Dietary and Nutrition Services Patient needs Dietary and Nutrition Services for: Adequate Nutrition, Nutritional Supplements, and Nu tritional Education. - Occupational Therapy Patient needs Occupational Therapy for a daily minimum of 1.5 hours at least 5 out of 7 days, to impr ove Activities of Daily Living, including: Eating, Grooming, Bathing, Dressing, Toileting, Toilet Tra nsfers, Community Reintegration, Higher functional activities, Adaptive Equipment, Splinting, Househo ld Tasks, and Other activities as determined. QI SCORES: - Self-Care A. Eating 05-Setup or clean-up assistance B. Oral hygiene 05-Setup or clean-up assistance C. Toileting hygiene 03-Partial/moderate assistance E. Shower/bathe self 01-Dependent F. Upper body dressing 04-Supervision or touching assistance G. Lower body dressing 01-Dependent H. Putting on/taking off footwear 88-Not attempted due to medical condition or safety concerns - Mobility A. Roll left and right 02-Substantial/maximal assistance B. Sit to lying 02-Substantial/maximal assistance C. Lying to sitting on side of bed 02-Substantial/maximal assistance D. Sit to stand 02-Substantial/maximal assistance E. Chair/kwi-pc-yyjmd transfer 02-Substantial/maximal assistance F. Toilet transfer 02-Substantial/maximal assistance G. Car transfer 88-Not attempted due to medical condition or safety concerns I. Walk 10 feet 01-Dependent J. Walk 50 feet with two turns 88-Not attempted due to medical condition or safety concerns K. Walk 150 feet 88-Not attempted due to medical condition or safety concerns L. Walking 10 feet on uneven surfaces 88-Not attempted due to medical condition or safety concerns M. 1 step (curb) 88-Not attempted due to medical condition or safety concerns N. 4 steps 02-Substantial/maximal assistance O. 12 steps 88-Not attempted due to medical condition or safety concerns P. Picking up object 88-Not attempted due to medical condition or safety concerns R. Wheel 50 feet with two turns 88-Not attempted due to medical condition or safety concerns S. Wheel 150 feet 88-Not attempted due to medical condition or safety concerns - Bladder and Bowel Bladder continence 0-Always continent Bowel continence 0-Always continent POTENTIAL FUNCTIONAL GOALS FOR PATIENT TO ACHIEVE BY DISCHARGE: - Safety Precaution Patient will remain free from falls or injury at time of discharge. - Bed Mobility Patient will perform bed mobility at 4-Mauri level of assistance. - Transfers Patient will complete transfers from bed to chair at 4-Mauri level of assistance. - Mobility Patient will ambulate 150 ft with 4-Mauri level of assistance with RW. PATIENT REHAB POTENTIAL AnaChiquita BRAND is able and expected to receive 3 hours of individualized therapy daily on at least 5 of e very 7 days Adam BRAND's prognosis for significant practical improvement within a reasonable period of time appea rs Good Expected level of measurable improvement will be of a practical value to Adam BRAND's functional capa city or adaptations to impairments Has a viable Discharge Plan Medically appropriate; condition is sufficiently stable to participate in intensive rehab program DISCHARGE PLAN: - Estimated Length of Stay (days) 14. - Consensus on plan Discharge plan has been discussed with primary caregiver. Patient/Family is in agreement with the jose n. Primary caregiver is in agreement with the plan. - Patient/Family Goals Return home with assistance. - Planned Living Setting Upon Discharge Home, to live with Family/Relatives. CONCLUSION ON REHABILITATION NECESSITY: I have evaluated patient's pre-admission functional status and, comparing it to the patient's post-ad mission functional status now, I conclude that the pre-admission assessment was accurate. Patient's c ondition on admission supports the medical necessity of admission to IR[facility]. It is safe to proceed with patient's therapy program. SIGNATURE PANEL: (CDT)
[2019-04-21] MEDS: MIRTAZAPINE 15 MG TAB PO SCH (20:19)
[2019-04-21] MEDS: ACETAMINOPHEN 325 MG TABLET PO PRN (20:19)
[2019-04-21] MEDS: ENSURE HIGH PROTEIN 237 ML CAN PO SCH (20:20)
[2019-04-21] MEDS: JUVEN PACKET PO SCH (20:20)
[2019-04-22] MEDS: FUROSEMIDE 20 MG TABLET PO SCH ×2 (08:00→13:28)
[2019-04-22] MEDS: METOPROLOL XL 25 MG TAB PO SCH ×3 (08:00→18:00)
[2019-04-22] MEDS: buPROPion HCl 100 MG TAB PO SCH (08:47)
[2019-04-22] MEDS: PRAMIPEXOLE 0.25 MG TAB PO SCH (08:48)
[2019-04-22] MEDS: ASPIRIN EC 81 MG TAB PO SCH (08:48)
[2019-04-22] MEDS: TAMSULOSIN 0.4 MG SR CAP PO SCH (08:48)
[2019-04-22] MEDS: APIXABAN 2.5 MG TABLET PO SCH ×2 (08:48→19:04)
[2019-04-22] MEDS: PANTOPRAZOLE 40MG TABLET PO SCH ×2 (08:48→17:40)
[2019-04-22] MEDS: TRAMADOL HCL 50 MG TAB PO PRN (08:49)
[2019-04-22] MEDS: JUVEN PACKET PO SCH ×2 (08:51→19:04)
[2019-04-22] MEDS: ENSURE HIGH PROTEIN 237 ML CAN PO SCH ×2 (08:51→19:04)
--- NOTE | 2019-04-22 14:10 | FAST ---
ENCOUNTER DATE AND TIME: 04/22/2019 08:00 (CDT) NAME MARCE BRAND DATE OF : 1935 DATE OF ADMISSION: 04/20/2019 17:25 (CDT) PHONE: AGE: 84 SSN# [id number] GENDER: Male ENCOUNTER PHYSICIAN: Dr. Alex Ribeiro M.D. ADMISSION DIAGNOSIS: - Orthopaedic Disorders 08 - Unilateral Hip Fracture (08.11) Unspecified intracapsular fracture of left femur, initial encounter for closed fracture (S72.012A). ROLL LEFT AND RIGHT: ROLL LEFT AND RIGHT - STEP 1: Does the patient complete the activity by him/herself with no assistance (physical, verbal/nonverbal cueing, setup/clean-up)? No. ROLL LEFT AND RIGHT - STEP 2: Does the patient need only setup/clean-up assistance from one helper? No. ROLL LEFT AND RIGHT - STEP 3: Does the patient need only verbal/nonverbal cueing or touching/steadying/contact guard assistance fro m one helper? No. ROLL LEFT AND RIGHT - STEP 4: Does the patient need physical assistance - for example lifting or trunk support from one helper - wi th the helper providing less than half of the effort? Yes. 1. [id number] ADMISSION PERFORMANCE: Partial/moderate assistance CODE: 03 SIT TO LYING: SIT TO LYING - STEP 1: Does the patient complete the activity by him/herself with no assistance (physical, verbal/nonverbal cueing, setup/clean-up)? No. SIT TO LYING - STEP 2: Does the patient need only setup/clean-up assistance from one helper? No. SIT TO LYING - STEP 3: Does the patient need only verbal/nonverbal cueing or touching/steadying/contact guard assistance fro m one helper? No. SIT TO LYING - STEP 4: Does the patient need physical assistance - for example lifting or trunk support from one helper - wi th the helper providing less than half of the effort? Yes. 1. [id number] ADMISSION PERFORMANCE: Partial/moderate assistance CODE: 03 LYING TO SITTING: LYING TO SITTING ON SIDE OF BED - STEP 1: Does the patient complete the activity by him/herself with no assistance (physical, verbal/nonverbal cueing, setup/clean-up)? No. LYING TO SITTING ON SIDE OF BED - STEP 2: Does the patient need only setup/clean-up assistance from one helper? No. LYING TO SITTING ON SIDE OF BED - STEP 3: Does the patient need only verbal/nonverbal cueing or touching/steadying/contact guard assistance fro m one helper? No. LYING TO SITTING ON SIDE OF BED - STEP 4: Does the patient need physical assistance - for example lifting or trunk support from one helper - wi th the helper providing less than half of the effort? Yes. 1. [id number] ADMISSION PERFORMANCE: Partial/moderate assistance CODE: 03 SIT TO STAND: SIT TO STAND - STEP 1: Does the patient complete the activity by him/herself with no assistance (physical, verbal/nonverbal cueing, setup/clean-up)? No. SIT TO STAND - STEP 2: Does the patient need only setup/clean-up assistance from one helper? No. SIT TO STAND - STEP 3: Does the patient need only verbal/nonverbal cueing or touching/steadying/contact guard assistance fro m one helper? No. SIT TO STAND - STEP 4: Does the patient need physical assistance - for example lifting or trunk support from one helper - wi th the helper providing less than half of the effort? Yes. 1. [id number] ADMISSION PERFORMANCE: Partial/moderate assistance CODE: 03 TRANSFERS: BED, CHAIR: CHAIR/[id number] TRANSFER - STEP 1: Does the patient complete the activity by him/herself with no assistance (physical, verbal/nonverbal cueing, setup/clean-up)? No. CHAIR/[id number] TRANSFER - STEP 2: Does the patient need only setup/clean-up assistance from one helper? No. CHAIR/[id number] TRANSFER - STEP 3: Does the patient need only verbal/nonverbal cueing or touching/steadying/contact guard assistance fro m one helper? No. CHAIR/[id number] TRANSFER - STEP 4: Does the patient need physical assistance - for example lifting or trunk support from one helper - wi th the helper providing less than half of the effort? Yes. 1. [id number] ADMISSION PERFORMANCE: Partial/moderate assistance CODE: 03 TRANSFER TOILET: TOILET TRANSFER - STEP 1: Does the patient complete the activity by him/herself with no assistance (physical, verbal/nonverbal cueing, setup/clean-up)? No. TOILET TRANSFER - STEP 2: Does the patient need only setup/clean-up assistance from one helper? No. TOILET TRANSFER - STEP 3: Does the patient need only verbal/nonverbal cueing or touching/steadying/contact guard assistance fro m one helper? No. TOILET TRANSFER - STEP 4: Does the patient need physical assistance - for example lifting or trunk support from one helper - wi th the helper providing less than half of the effort? Yes. 1. [id number] ADMISSION PERFORMANCE: Partial/moderate assistance CODE: 03 TRANSFERS: CAR: Not attempted due to environmental limitations (e.g., lack of equipment, weather constraints) CODE: 10 WALK 10 FEET: WALK 10 FEET - STEP 1: Does the patient complete the activity by him/herself with no assistance (physical, verbal/nonverbal cueing, setup/clean-up)? No. WALK 10 FEET - STEP 2: Does the patient need only setup/clean-up assistance from one helper? No. WALK 10 FEET - STEP 3: Does the patient need only verbal/nonverbal cueing or touching/steadying/contact guard assistance fro m one helper? Yes. 1. [id number] ADMISSION PERFORMANCE: Supervision or touching assistance CODE: 04 WALK 50 FEET: WALK 50 FEET - STEP 1: Does the patient complete the activity by him/herself with no assistance (physical, verbal/nonverbal cueing, setup/clean-up)? No. WALK 50 FEET - STEP 2: Does the patient need only setup/clean-up assistance from one helper? No. WALK 50 FEET - STEP 3: Does the patient need only verbal/nonverbal cueing or touching/steadying/contact guard assistance fro m one helper? Yes. 1. [id number] ADMISSION PERFORMANCE: Supervision or touching assistance CODE: 04 WALK 150 FEET: Not attempted due to medical condition or safety concerns CODE: 88 WALK 10 FEET UNEVEN: Not attempted due to medical condition or safety concerns CODE: 88 1 STEP (CURB): Not attempted due to medical condition or safety concerns CODE: 88 PICKING UP OBJECT: Not attempted due to medical condition or safety concerns CODE: 88 DOES THE PATIENT USE A WHEELCHAIR/SCOOTER? Q1. DOES THE PATIENT USE A WHEELCHAIR/SCOOTER?: No CODE: 0 INDICATE THE TYPE OF WHEELCHAIR/SCOOTER USED: CODE: EXPR INDICATE THE TYPE OF WHEELCHAIR/SCOOTER USED: CODE: EXPR BLADDER AND BOWEL: CODE: EXPR CODE: EXPR SIGNATURE PANEL: The following modified sections: 1. [id number] Admission Performance, 1. [id number] Admission Performance, 1. [id number] Admission Performance, 1. [id number] Admission Performance, 1. [id number] Admission Performance, 1. [id number] Admission Performance, 1. [id number] Admission Performance, 1. [id number] Admission Performance , 1. [id number] Admission Performance, Q1. Does the patient use a wheelchair/scooter? were [electronical ly] signed by Anderson Saba PT on FriApr 22 2019 14:09:58 T-0500 (Central Daylight Time)
[2019-04-22] MEDS: MELATONIN 3 MG TABLET PO PRN (19:04)
[2019-04-22] MEDS: MIRTAZAPINE 15 MG TAB PO SCH (19:04)
[2019-04-22] MEDS: PROMOD 30 ML DOSE PO SCH (19:05)
[2019-04-23] MEDS: METOPROLOL XL 25 MG TAB PO SCH ×2 (04:43→17:02)
[2019-04-23] MEDS: TRAMADOL HCL 50 MG TAB PO PRN (07:31)
[2019-04-23] MEDS: PANTOPRAZOLE 40MG TABLET PO SCH ×2 (07:31→17:01)
[2019-04-23] MEDS: buPROPion HCl 100 MG TAB PO SCH (07:33)
[2019-04-23] MEDS: FUROSEMIDE 20 MG TABLET PO SCH (07:33)
[2019-04-23] MEDS: PROMOD 30 ML DOSE PO SCH ×2 (07:34→20:53)
[2019-04-23] MEDS: JUVEN PACKET PO SCH ×2 (07:34→20:52)
[2019-04-23] MEDS: PRAMIPEXOLE 0.25 MG TAB PO SCH ×2 (07:34→20:54)
[2019-04-23] MEDS: TAMSULOSIN 0.4 MG SR CAP PO SCH (07:34)
[2019-04-23] MEDS: ENSURE HIGH PROTEIN 237 ML CAN PO SCH ×2 (07:34→20:52)
[2019-04-23] MEDS: APIXABAN 2.5 MG TABLET PO SCH ×2 (07:34→20:51)
[2019-04-23] MEDS: ASPIRIN EC 81 MG TAB PO SCH (07:34)
--- NOTE | 2019-04-23 09:47 | P.RH.PN ---
Estimated Length of Stay: 17 Expected Discharge Date: 05/06/19 Discharge Disposition Plan: Home Family Support: Yes Jail Goal: Mobility, Transfers, Self Care Vital Signs: Last Vital Signs Temp 98.1 F 04/22/19 19:53 Pulse 102 H 04/23/19 07:33 Resp 17 04/23/19 08:31 BP 102/60 04/23/19 07:33 Pulse Ox 94 04/23/19 08:31 Laboratory: Laboratory Last Values WBC 9.1 K/uL (4.3-10.9) 04/21/19 05:50 RBC 3.44 M/uL (4.33-5.43) L 04/21/19 05:50 Hgb 9.7 g/dL (13.6-17.9) L 04/21/19 05:50 Hct 29.2 % (39.6-49.0) L D 04/21/19 05:50 MCV 84.8 fL (80-100) 04/21/19 05:50 MCH 28.1 pg (27.0-35.0) 04/21/19 05:50 MCHC 33.1 g/dL (32.0-36.0) 04/21/19 05:50 RDW 14.7 % (12.1-15.2) 04/21/19 05:50 Plt Count 286 K/uL (152-406) 04/21/19 05:50 MPV 8.5 fL (7.6-11.3) 04/21/19 05:50 Neutrophils % 66.4 % (41.7-73.7) 04/21/19 05:50 Lymphocytes % 16.9 % (15.3-44.8) 04/21/19 05:50 Monocytes % 13.0 % (3.3-12.3) H 04/21/19 05:50 Eosinophils % 2.9 % (0-4.4) 04/21/19 05:50 Basophils % 0.8 % (0-1.3) 04/21/19 05:50 Absolute Neutrophils 6.0 K/uL (1.8-8.0) 04/21/19 05:50 Absolute Lymphocytes 1.5 K/uL (0.7-4.9) 04/21/19 05:50 Absolute Monocytes 1.2 K/uL (0.1-1.3) 04/21/19 05:50 Absolute Eosinophils 0.3 K/uL (0-0.5) 04/21/19 05:50 Absolute Basophils 0.1 K/uL (0-0.5) 04/21/19 05:50 Sodium 142 mmol/L (136-145) 04/21/19 05:50 Potassium 3.8 mmol/L (3.5-5.1) 04/21/19 05:50 Chloride 107 mmol/L (98-107) 04/21/19 05:50 Carbon Dioxide 30 mmol/L (21-32) 04/21/19 05:50 BUN 23 mg/dL (7-18) H 04/21/19 05:50 Creatinine 1.18 mg/dL (0.55-1.3) 04/21/19 05:50 Estimated GFR 59 mL/min (=/>90) L 04/21/19 05:50 Glucose 97 mg/dL (74-106) 04/21/19 05:50 Calcium 8.6 mg/dL (8.5-10.1) 04/21/19 05:50 Magnesium 2.0 mg/dL (1.8-2.4) 04/21/19 05:50 Albumin 2.0 g/dL (3.4-5.0) L 04/21/19 05:50 Prealbumin 10.9 mg/dL (20-40) L 04/21/19 05:50 Urine Color Yellow 04/21/19 04:05 Urine Appearance Clear 04/21/19 04:05 Urine pH 6.5 (5.0-7.0) 04/21/19 04:05 Ur Specific [place] 1.025 (1.005-1.030) 04/21/19 04:05 Urine Ketones Negative (NEG) 04/21/19 04:05 Urine Blood Negative (NEG) 04/21/19 04:05 Urine Nitrite Negative (NEG) 04/21/19 04:05 Urine Bilirubin Negative (NEG) 04/21/19 04:05 Urine Urobilinogen 1.0 mg/dL (0.2-1.0) 04/21/19 04:05 Ur Leukocyte Esterase Negative (NEG) 04/21/19 04:05 Urine RBC None seen /HPF (NONE SEEN) 04/21/19 04:05 Urine WBC <5 /HPF (<5) 04/21/19 04:05 Ur Squamous Epith Cells <5 /HPF (NONE SEEN) 04/21/19 04:05 Urine Bacteria <20 /HPF (NONE SEEN) 04/21/19 04:05 Urine Culture Reflexed Not needed 04/21/19 04:05 Urine Glucose Negative (NEG) 04/21/19 04:05 Urine Total Protein Negative (NEG) 04/21/19 04:05 Weight: 205 lb Wound Present: No Closed Surgical Incision Present: Yes Negative Pressure Wound Therapy Present: No Physician Update: Labs reveiwed. Hgb and prealbumin are mildly low. He is on Hemocyte plus and prealbumin. He is doing fair but is somewhat limited by Parkinson's disease. He walked 50' with contact guard. Need partial assistance for sit to stand. He required verbal ques to follow commands for hand placement when using the walker. Medical Issues: Patient is incontinent with bladder and always continent with bowel. Functional Improvement: pt participates well in therapy sessions. He is confused and requires frequent reinforcement of technique for safety. pt has improved ambulation tolerance and ability to perform transfers. Skilled PT services remain essential for enhancement of functional mobility and safety. Summary: Patient's care plan and group home goals have been reviewed and revised as necessary. Please see the Rehabilitation Signature page for all necessary signatures.
--- NOTE | 2019-04-23 11:03 | EKG ---
Test Date: 2019-04-22 Test Time: 20:20:28 Music Copyist: RT MEASUREMENT RESULTS: Intervals: Rate: 114 SD: 146 QRSD: 84 QT: 328 QTc: 452 [place]: P: 55 SD: 146 QRS: 30 T: 13 INTERPRETIVE STATEMENTS: Sinus tachycardia Otherwise normal ECG Compared to ECG 04/09/2019 19:13:10 Sinus rhythm no longer present T-wave abnormality no longer present Electronically Signed On 04-23-19 11:02:54 CDT by Jayesh Leblanc
[2019-04-23] MEDS: FERROUS SULFATE 325 MG TAB PO SCH (12:30)
[2019-04-23] MEDS: FE SULF/FA/VIT B COMP & C TAB PO SCH (12:30)
--- NOTE | 2019-04-23 14:26 | FAST ---
ENCOUNTER DATE AND TIME: 04/23/2019 08:00 (CDT) NAME MARCE BRAND DATE OF : 1935 DATE OF ADMISSION: 04/20/2019 17:25 (CDT) PHONE: AGE: 84 SSN# [id number] GENDER: Male ENCOUNTER PHYSICIAN: Dr. Alex Ribeiro M.D. ADMISSION DIAGNOSIS: - Orthopaedic Disorders 08 - Unilateral Hip Fracture (08.11) Unspecified intracapsular fracture of left femur, initial encounter for closed fracture (S72.012A). EATING: Not assessed/no information CODE: - ORAL HYGIENE: Not assessed/no information CODE: - TOILETING HYGIENE: TOILETING HYGIENE - STEP 1: Does the patient complete the activity by him/herself with no assistance (physical, verbal/nonverbal cueing, setup/clean-up)? No. TOILETING HYGIENE - STEP 2: Does the patient need only setup/clean-up assistance from one helper? No. TOILETING HYGIENE - STEP 3: Does the patient need only verbal/nonverbal cueing or touching/steadying/contact guard assistance fro m one helper? No. TOILETING HYGIENE - STEP 4: Does the patient need physical assistance - for example lifting or trunk support from one helper - wi th the helper providing less than half of the effort? No. TOILETING HYGIENE - STEP 5: Does the patient need physical assistance - for example lifting or trunk support from one helper - wi th the helper providing more than half of the effort? Yes. 1. [id number] ADMISSION PERFORMANCE: Substantial/maximal assistance CODE: 02 BATHING: Not attempted due to medical condition or safety concerns CODE: 88 DRESSING - UPPER BODY: Not attempted due to medical condition or safety concerns CODE: 88 DRESSING - LOWER BODY: DRESSING - LOWER BODY - STEP 1: Does the patient complete the activity by him/herself with no assistance (physical, verbal/nonverbal cueing, setup/clean-up)? No. DRESSING - LOWER BODY - STEP 2: Does the patient need only setup/clean-up assistance from one helper? No. DRESSING - LOWER BODY - STEP 3: Does the patient need only verbal/nonverbal cueing or touching/steadying/contact guard assistance fro m one helper? No. DRESSING - LOWER BODY - STEP 4: Does the patient need physical assistance - for example lifting or trunk support from one helper - wi th the helper providing less than half of the effort? No. DRESSING - LOWER BODY - STEP 5: Does the patient need physical assistance - for example lifting or trunk support from one helper - wi th the helper providing more than half of the effort? Yes. 1. [id number] ADMISSION PERFORMANCE: Substantial/maximal assistance CODE: 02 PUTTING ON/TAKING OFF FOOTWEAR: FOOTWEAR - STEP 1: Does the patient complete the activity by him/herself with no assistance (physical, verbal/nonverbal cueing, setup/clean-up)? No. FOOTWEAR - STEP 2: Does the patient need only setup/clean-up assistance from one helper? No. FOOTWEAR - STEP 3: Does the patient need only verbal/nonverbal cueing or touching/steadying/contact guard assistance fro m one helper? No. FOOTWEAR - STEP 4: Does the patient need physical assistance - for example lifting or trunk support from one helper - wi th the helper providing less than half of the effort? No. FOOTWEAR - STEP 5: Does the patient need physical assistance - for example lifting or trunk support from one helper - wi th the helper providing more than half of the effort? No. FOOTWEAR - STEP 6: Does the helper provide all of the effort? OR Is the assistance of two or more helpers required to co mplete the activity? Yes. 1. [id number] ADMISSION PERFORMANCE: Dependent CODE: 01 DOES THE PATIENT USE A WHEELCHAIR/SCOOTER? CODE: EXPR INDICATE THE TYPE OF WHEELCHAIR/SCOOTER USED: CODE: EXPR INDICATE THE TYPE OF WHEELCHAIR/SCOOTER USED: CODE: EXPR BLADDER AND BOWEL: CODE: EXPR CODE: EXPR SIGNATURE PANEL: The following modified sections: 1. [id number] Admission Performance, 1. [id number] Admission Performance, 1. [id number] Admission Performance, 1. [id number] Admission Performance were [electronically] signed by January Ken OT on FriApr 23 2019 14:25:44 GMT-0500 (Central Daylight Time)
[2019-04-23] MEDS ORDERED: METOPROLOL XL 25 MG TAB PO SCH (18:00)
[2019-04-23] MEDS: NYSTATIN PWDR 100000 UNIT/GM TOP SCH (20:00)
[2019-04-23] MEDS: MEMANTINE HCL 10 MG TABLET PO SCH (20:50)
[2019-04-23] MEDS: MIRTAZAPINE 15 MG TAB PO SCH (20:51)
--- NOTE | 2019-04-24 02:06 | FAST ---
SHIFT START DATE/TIME: 04/23/2019 19:00 (CDT) SHIFT END DATE/TIME: 04/24/2019 07:00 (CDT) NAME MARCE BRAND DATE OF : 1935 DATE OF ADMISSION: 04/20/2019 17:25 (CDT) PHONE: AGE: 84 SSN# [id number] GENDER: Male ENCOUNTER PHYSICIAN: Dr. Alex Ribeiro M.D. ADMISSION DIAGNOSIS: - Orthopaedic Disorders 08 - Unilateral Hip Fracture (08.11) Unspecified intracapsular fracture of left femur, initial encounter for closed fracture (S72.012A). EATING: Not assessed/no information CODE: - ORAL HYGIENE: Not assessed/no information CODE: - TOILETING HYGIENE: TOILETING HYGIENE - STEP 1: Does the patient complete the activity by him/herself with no assistance (physical, verbal/nonverbal cueing, setup/clean-up)? No. TOILETING HYGIENE - STEP 2: Does the patient need only setup/clean-up assistance from one helper? No. TOILETING HYGIENE - STEP 3: Does the patient need only verbal/nonverbal cueing or touching/steadying/contact guard assistance fro m one helper? No. TOILETING HYGIENE - STEP 4: Does the patient need physical assistance - for example lifting or trunk support from one helper - wi th the helper providing less than half of the effort? No. TOILETING HYGIENE - STEP 5: Does the patient need physical assistance - for example lifting or trunk support from one helper - wi th the helper providing more than half of the effort? Yes. 1. [id number] ADMISSION PERFORMANCE: Substantial/maximal assistance CODE: 02 BATHING: Not assessed/no information CODE: - DRESSING - UPPER BODY: Not assessed/no information CODE: - DRESSING - LOWER BODY: Not assessed/no information CODE: - PUTTING ON/TAKING OFF FOOTWEAR: Not assessed/no information CODE: - TRANSFERS: CAR: Not assessed/no information CODE: - WALK 10 FEET: Not assessed/no information CODE: - 1 STEP (CURB): Not assessed/no information CODE: - PICKING UP OBJECT: Not assessed/no information CODE: - DOES THE PATIENT USE A WHEELCHAIR/SCOOTER? CODE: EXPR WHEEL 50 FEET WITH TWO TURNS: Not assessed/no information CODE: - INDICATE THE TYPE OF WHEELCHAIR/SCOOTER USED: CODE: EXPR WHEEL 150 FEET: Not assessed/no information CODE: - INDICATE THE TYPE OF WHEELCHAIR/SCOOTER USED: CODE: EXPR BLADDER AND BOWEL: H350. BLADDER CONTINENCE (3-DAY ASSESSMENT PERIOD): Incontinent daily (at least once a day) CODE: 3 H400. BOWEL CONTINENCE (3-DAY ASSESSMENT PERIOD): Frequently incontinent (2 or more episodes of bowel incontinence, but at least one continent bowel mo vement) CODE: 2
[2019-04-24] MEDS: METOPROLOL XL 25 MG TAB PO SCH ×2 (05:04→16:59)
[2019-04-24] MEDS: PANTOPRAZOLE 40MG TABLET PO SCH ×2 (08:09→16:57)
[2019-04-24] MEDS: TRAMADOL HCL 50 MG TAB PO PRN (08:10)
[2019-04-24] MEDS: PRAMIPEXOLE 0.25 MG TAB PO SCH ×2 (08:12→20:08)
[2019-04-24] MEDS: TAMSULOSIN 0.4 MG SR CAP PO SCH (08:12)
[2019-04-24] MEDS: ASPIRIN EC 81 MG TAB PO SCH (08:12)
[2019-04-24] MEDS: buPROPion HCl 100 MG TAB PO SCH (08:12)
[2019-04-24] MEDS: APIXABAN 2.5 MG TABLET PO SCH ×2 (08:13→20:09)
[2019-04-24] MEDS: FERROUS SULFATE 325 MG TAB PO SCH (08:13)
[2019-04-24] MEDS: FLUDROCORTISONE 0.1 MG TAB PO SCH (08:13)
[2019-04-24] MEDS: ENSURE HIGH PROTEIN 237 ML CAN PO SCH ×2 (08:13→20:08)
[2019-04-24] MEDS: MEMANTINE HCL 10 MG TABLET PO SCH ×2 (08:13→20:09)
[2019-04-24] MEDS: FE SULF/FA/VIT B COMP & C TAB PO SCH (08:14)
[2019-04-24] MEDS: FUROSEMIDE 20 MG TABLET PO SCH (08:14)
[2019-04-24] MEDS: JUVEN PACKET PO SCH ×2 (08:14→20:08)
[2019-04-24] MEDS: MEGESTROL 40 MG TAB PO SCH (08:14)
[2019-04-24] MEDS: PROMOD 30 ML DOSE PO SCH ×2 (08:15→20:08)
[2019-04-24] MEDS: NYSTATIN PWDR 100000 UNIT/GM TOP SCH ×2 (09:45→20:11)
--- NOTE | 2019-04-24 09:51 | FAST ---
SHIFT START DATE/TIME: 04/24/2019 07:00 (CDT) SHIFT END DATE/TIME: 04/24/2019 19:00 (CDT) NAME MARCE BRAND DATE OF : 1935 DATE OF ADMISSION: 04/20/2019 17:25 (CDT) PHONE: AGE: 84 SSN# [id number] GENDER: Male ENCOUNTER PHYSICIAN: Dr. Alex Ribeiro M.D. ADMISSION DIAGNOSIS: - Orthopaedic Disorders 08 - Unilateral Hip Fracture (08.11) Unspecified intracapsular fracture of left femur, initial encounter for closed fracture (S72.012A). EATING: EATING - STEP 1: Does the patient complete the activity by him/herself with no assistance (physical, verbal/nonverbal cueing, setup/clean-up)? No. EATING - STEP 2: Does the patient need only setup/clean-up assistance from one helper? Yes. 1. [id number] ADMISSION PERFORMANCE: Setup or clean-up assistance CODE: 05 ORAL HYGIENE: ORAL HYGIENE - STEP 1: Does the patient complete the activity by him/herself with no assistance (physical, verbal/nonverbal cueing, setup/clean-up)? No. ORAL HYGIENE - STEP 2: Does the patient need only setup/clean-up assistance from one helper? Yes. 1. [id number] ADMISSION PERFORMANCE: Setup or clean-up assistance CODE: 05 TOILETING HYGIENE: TOILETING HYGIENE - STEP 1: Does the patient complete the activity by him/herself with no assistance (physical, verbal/nonverbal cueing, setup/clean-up)? No. TOILETING HYGIENE - STEP 2: Does the patient need only setup/clean-up assistance from one helper? No. TOILETING HYGIENE - STEP 3: Does the patient need only verbal/nonverbal cueing or touching/steadying/contact guard assistance fro m one helper? No. TOILETING HYGIENE - STEP 4: Does the patient need physical assistance - for example lifting or trunk support from one helper - wi th the helper providing less than half of the effort? Yes. 1. [id number] ADMISSION PERFORMANCE: Partial/moderate assistance CODE: 03 BATHING: Not assessed/no information CODE: - DRESSING - UPPER BODY: Not assessed/no information CODE: - DRESSING - LOWER BODY: Not assessed/no information CODE: - PUTTING ON/TAKING OFF FOOTWEAR: Not assessed/no information CODE: - ROLL LEFT AND RIGHT: Not assessed/no information CODE: - SIT TO LYING: Not assessed/no information CODE: - LYING TO SITTING: Not assessed/no information CODE: - SIT TO STAND: Not assessed/no information CODE: - TRANSFERS: BED, CHAIR: Not assessed/no information CODE: - TRANSFER TOILET: Not assessed/no information CODE: - TRANSFERS: CAR: Not assessed/no information CODE: - WALK 10 FEET: Not assessed/no information CODE: - 1 STEP (CURB): Not assessed/no information CODE: - PICKING UP OBJECT: Not assessed/no information CODE: - DOES THE PATIENT USE A WHEELCHAIR/SCOOTER? CODE: EXPR WHEEL 50 FEET WITH TWO TURNS: Not assessed/no information CODE: - INDICATE THE TYPE OF WHEELCHAIR/SCOOTER USED: CODE: EXPR WHEEL 150 FEET: Not assessed/no information CODE: - INDICATE THE TYPE OF WHEELCHAIR/SCOOTER USED: CODE: EXPR BLADDER AND BOWEL: H350. BLADDER CONTINENCE (3-DAY ASSESSMENT PERIOD): Always incontinent CODE: 4 H400. BOWEL CONTINENCE (3-DAY ASSESSMENT PERIOD): Frequently incontinent (2 or more episodes of bowel incontinence, but at least one continent bowel mo vement) CODE: 2 SIGNATURE PANEL: The following modified sections: 1. [id number] Admission Performance, 1. [id number] Admission Performance, 1. [id number] Admission Performance, Code, H350. Bladder Continence (3-day assessment period), H400. [place] el Continence (3-day assessment period), H400. Bowel Continence (3-day assessment period), H400. [place] l Continence (3-day assessment period) were [electronically] signed by Herman Mendes on Sat Apr 24 2019 09:49:51 GMT-0500 (Central Daylight Time)
[2019-04-24] MEDS: MIRTAZAPINE 15 MG TAB PO SCH (20:08)
[2019-04-24] MEDS: MELATONIN 3 MG TABLET PO PRN (20:10)
[2019-04-24] MEDS: LORAZEPAM 0.5 MG TABLET PO PRN (20:58)
[2019-04-25] MEDS: METOPROLOL XL 25 MG TAB PO SCH ×2 (05:12→16:43)
[2019-04-25] MEDS: FUROSEMIDE 20 MG TABLET PO SCH (08:05)
[2019-04-25] MEDS: APIXABAN 2.5 MG TABLET PO SCH ×2 (08:05→19:18)
[2019-04-25] MEDS: PANTOPRAZOLE 40MG TABLET PO SCH ×2 (08:06→16:43)
[2019-04-25] MEDS: buPROPion HCl 100 MG TAB PO SCH (08:06)
[2019-04-25] MEDS: TAMSULOSIN 0.4 MG SR CAP PO SCH (08:06)
[2019-04-25] MEDS: FE SULF/FA/VIT B COMP & C TAB PO SCH (08:06)
[2019-04-25] MEDS: FERROUS SULFATE 325 MG TAB PO SCH (08:06)
[2019-04-25] MEDS: FLUDROCORTISONE 0.1 MG TAB PO SCH (08:06)
[2019-04-25] MEDS: MEGESTROL 40 MG TAB PO SCH (08:06)
[2019-04-25] MEDS: JUVEN PACKET PO SCH ×2 (08:07→19:20)
[2019-04-25] MEDS: MEMANTINE HCL 10 MG TABLET PO SCH ×2 (08:07→19:17)
[2019-04-25] MEDS: ASPIRIN EC 81 MG TAB PO SCH (08:07)
[2019-04-25] MEDS: PRAMIPEXOLE 0.25 MG TAB PO SCH ×2 (08:07→19:17)
[2019-04-25] MEDS: ENSURE HIGH PROTEIN 237 ML CAN PO SCH ×2 (08:07→19:20)
[2019-04-25] MEDS: PROMOD 30 ML DOSE PO SCH ×2 (08:08→19:23)
[2019-04-25] MEDS: NYSTATIN PWDR 100000 UNIT/GM TOP SCH ×2 (08:53→19:21)
[2019-04-25] MEDS: TRAMADOL HCL 50 MG TAB PO PRN (14:48)
[2019-04-25] MEDS: DOCUSATE NA/SENNA CONC 1 TAB PO PRN (19:17)
[2019-04-25] MEDS: MELATONIN 3 MG TABLET PO PRN (19:17)
[2019-04-25] MEDS: MIRTAZAPINE 15 MG TAB PO SCH (19:17)
[2019-04-25] MEDS: LORAZEPAM 0.5 MG TABLET PO PRN (20:41)
[2019-04-26] MEDS: METOPROLOL XL 25 MG TAB PO SCH ×2 (05:19→17:09)
[2019-04-26] MEDS: MEMANTINE HCL 10 MG TABLET PO SCH ×2 (07:33→20:07)
[2019-04-26] MEDS: PANTOPRAZOLE 40MG TABLET PO SCH ×2 (07:33→17:09)
[2019-04-26] MEDS: FE SULF/FA/VIT B COMP & C TAB PO SCH (07:33)
[2019-04-26] MEDS: TRAMADOL HCL 50 MG TAB PO PRN ×2 (07:34→12:29)
[2019-04-26] MEDS: ASPIRIN EC 81 MG TAB PO SCH (07:35)
[2019-04-26] MEDS: buPROPion HCl 100 MG TAB PO SCH (07:35)
[2019-04-26] MEDS: MEGESTROL 40 MG TAB PO SCH (07:35)
[2019-04-26] MEDS: FUROSEMIDE 20 MG TABLET PO SCH (07:35)
[2019-04-26] MEDS: FERROUS SULFATE 325 MG TAB PO SCH (07:35)
[2019-04-26] MEDS: TAMSULOSIN 0.4 MG SR CAP PO SCH (07:35)
[2019-04-26] MEDS: JUVEN PACKET PO SCH ×2 (07:36→20:08)
[2019-04-26] MEDS: ENSURE HIGH PROTEIN 237 ML CAN PO SCH ×2 (07:36→20:08)
[2019-04-26] MEDS: APIXABAN 2.5 MG TABLET PO SCH ×2 (07:36→20:07)
[2019-04-26] MEDS: FLUDROCORTISONE 0.1 MG TAB PO SCH (07:36)
[2019-04-26] MEDS: PRAMIPEXOLE 0.25 MG TAB PO SCH ×2 (07:36→20:07)
[2019-04-26] MEDS: PROMOD 30 ML DOSE PO SCH ×2 (07:37→20:08)
[2019-04-26] MEDS: NYSTATIN PWDR 100000 UNIT/GM TOP SCH ×2 (10:13→20:00)
--- NOTE | 2019-04-26 13:36 | FAST ---
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 Alex Ribiero M.D. ADMISSION DIAGNOSIS: - Orthopaedic Disorders 08 - Unilateral Hip Fracture (08.11) Unspecified intracapsular fracture of left femur, initial encounter for closed fracture (S72.012A). EATING: Not assessed/no information CODE: - ORAL HYGIENE: Not assessed/no information CODE: - TOILETING HYGIENE: Not assessed/no information CODE: - BATHING: SHOWER/BATHE SELF - STEP 1: Does the patient complete the activity by him/herself with no assistance (physical, verbal/nonverbal cueing, setup/clean-up)? No. SHOWER/BATHE SELF - STEP 2: Does the patient need only setup/clean-up assistance from one helper? No. SHOWER/BATHE SELF - STEP 3: Does the patient need only verbal/nonverbal cueing or touching/steadying/contact guard assistance fro m one helper? No. SHOWER/BATHE SELF - STEP 4: Does the patient need physical assistance - for example lifting or trunk support from one helper - wi th the helper providing less than half of the effort? Yes. 1. [id number] ADMISSION PERFORMANCE: Partial/moderate assistance CODE: 03 DRESSING - UPPER BODY: DRESSING - UPPER BODY - STEP 1: Does the patient complete the activity by him/herself with no assistance (physical, verbal/nonverbal cueing, setup/clean-up)? No. DRESSING - UPPER BODY - STEP 2: Does the patient need only setup/clean-up assistance from one helper? Yes. 1. [id number] ADMISSION PERFORMANCE: Setup or clean-up assistance CODE: 05 DRESSING - LOWER BODY: DRESSING - LOWER BODY - STEP 1: Does the patient complete the activity by him/herself with no assistance (physical, verbal/nonverbal cueing, setup/clean-up)? No. DRESSING - LOWER BODY - STEP 2: Does the patient need only setup/clean-up assistance from one helper? No. DRESSING - LOWER BODY - STEP 3: Does the patient need only verbal/nonverbal cueing or touching/steadying/contact guard assistance fro m one helper? No. DRESSING - LOWER BODY - STEP 4: Does the patient need physical assistance - for example lifting or trunk support from one helper - wi th the helper providing less than half of the effort? Yes. 1. [id number] ADMISSION PERFORMANCE: Partial/moderate assistance CODE: 03 PUTTING ON/TAKING OFF FOOTWEAR: FOOTWEAR - STEP 1: Does the patient complete the activity by him/herself with no assistance (physical, verbal/nonverbal cueing, setup/clean-up)? No. FOOTWEAR - STEP 2: Does the patient need only setup/clean-up assistance from one helper? No. FOOTWEAR - STEP 3: Does the patient need only verbal/nonverbal cueing or touching/steadying/contact guard assistance fro m one helper? No. FOOTWEAR - STEP 4: Does the patient need physical assistance - for example lifting or trunk support from one helper - wi th the helper providing less than half of the effort? Yes. 1. [id number] ADMISSION PERFORMANCE: Partial/moderate assistance CODE: 03 DOES THE PATIENT USE A WHEELCHAIR/SCOOTER? CODE: EXPR INDICATE THE TYPE OF WHEELCHAIR/SCOOTER USED: CODE: EXPR INDICATE THE TYPE OF WHEELCHAIR/SCOOTER USED: CODE: EXPR BLADDER AND BOWEL: CODE: EXPR CODE: EXPR SIGNATURE PANEL: The following modified sections: 1. [id number] Admission Performance, 1. [id number] Admission Performance, 1. [id number] Admission Performance, 1. [id number] Admission Performance, 1. [id number] Admission Performance were [electronically] signed by Lorraine Ken OT on FriApr 26 2019 13:35:18 GMT-0600 ([facility] tra Standard Time)
--- NOTE | 2019-04-26 14:58 | FAST ---
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 Alex Ribeiro M.D. ADMISSION DIAGNOSIS: - Orthopaedic Disorders 08 - Unilateral Hip Fracture (08.11) Unspecified intracapsular fracture of left femur, initial encounter for closed fracture (S72.012A). EATING: EATING - STEP 1: Does the patient complete the activity by him/herself with no assistance (physical, verbal/nonverbal cueing, setup/clean-up)? No. EATING - STEP 2: Does the patient need only setup/clean-up assistance from one helper? No. EATING - STEP 3: Does the patient need only verbal/nonverbal cueing or touching/steadying/contact guard assistance fro m one helper? Yes. 1. [id number] ADMISSION PERFORMANCE: Supervision or touching assistance CODE: 04 ORAL HYGIENE: ORAL HYGIENE - STEP 1: Does the patient complete the activity by him/herself with no assistance (physical, verbal/nonverbal cueing, setup/clean-up)? No. ORAL HYGIENE - STEP 2: Does the patient need only setup/clean-up assistance from one helper? Yes. 1. [id number] ADMISSION PERFORMANCE: Setup or clean-up assistance CODE: 05 TOILETING HYGIENE: TOILETING HYGIENE - STEP 1: Does the patient complete the activity by him/herself with no assistance (physical, verbal/nonverbal cueing, setup/clean-up)? No. TOILETING HYGIENE - STEP 2: Does the patient need only setup/clean-up assistance from one helper? Yes. 1. [id number] ADMISSION PERFORMANCE: Setup or clean-up assistance CODE: 05 BATHING: Not assessed/no information CODE: - DRESSING - UPPER BODY: DRESSING - UPPER BODY - STEP 1: Does the patient complete the activity by him/herself with no assistance (physical, verbal/nonverbal cueing, setup/clean-up)? No. DRESSING - UPPER BODY - STEP 2: Does the patient need only setup/clean-up assistance from one helper? No. DRESSING - UPPER BODY - STEP 3: Does the patient need only verbal/nonverbal cueing or touching/steadying/contact guard assistance fro m one helper? No. DRESSING - UPPER BODY - STEP 4: Does the patient need physical assistance - for example lifting or trunk support from one helper - wi th the helper providing less than half of the effort? No. DRESSING - UPPER BODY - STEP 5: Does the patient need physical assistance - for example lifting or trunk support from one helper - wi th the helper providing more than half of the effort? Yes. 1. [id number] ADMISSION PERFORMANCE: Substantial/maximal assistance CODE: 02 DRESSING - LOWER BODY: DRESSING - LOWER BODY - STEP 1: Does the patient complete the activity by him/herself with no assistance (physical, verbal/nonverbal cueing, setup/clean-up)? No. DRESSING - LOWER BODY - STEP 2: Does the patient need only setup/clean-up assistance from one helper? No. DRESSING - LOWER BODY - STEP 3: Does the patient need only verbal/nonverbal cueing or touching/steadying/contact guard assistance fro m one helper? No. DRESSING - LOWER BODY - STEP 4: Does the patient need physical assistance - for example lifting or trunk support from one helper - wi th the helper providing less than half of the effort? No. DRESSING - LOWER BODY - STEP 5: Does the patient need physical assistance - for example lifting or trunk support from one helper - wi th the helper providing more than half of the effort? Yes. 1. [id number] ADMISSION PERFORMANCE: Substantial/maximal assistance CODE: 02 PUTTING ON/TAKING OFF FOOTWEAR: Not assessed/no information CODE: - ROLL LEFT AND RIGHT: ROLL LEFT AND RIGHT - STEP 1: Does the patient complete the activity by him/herself with no assistance (physical, verbal/nonverbal cueing, setup/clean-up)? No. ROLL LEFT AND RIGHT - STEP 2: Does the patient need only setup/clean-up assistance from one helper? No. ROLL LEFT AND RIGHT - STEP 3: Does the patient need only verbal/nonverbal cueing or touching/steadying/contact guard assistance fro m one helper? No. ROLL LEFT AND RIGHT - STEP 4: Does the patient need physical assistance - for example lifting or trunk support from one helper - wi th the helper providing less than half of the effort? Yes. 1. [id number] ADMISSION PERFORMANCE: Partial/moderate assistance CODE: 03 SIT TO LYING: SIT TO LYING - STEP 1: Does the patient complete the activity by him/herself with no assistance (physical, verbal/nonverbal cueing, setup/clean-up)? No. SIT TO LYING - STEP 2: Does the patient need only setup/clean-up assistance from one helper? No. SIT TO LYING - STEP 3: Does the patient need only verbal/nonverbal cueing or touching/steadying/contact guard assistance fro m one helper? No. SIT TO LYING - STEP 4: Does the patient need physical assistance - for example lifting or trunk support from one helper - wi th the helper providing less than half of the effort? Yes. 1. [id number] ADMISSION PERFORMANCE: Partial/moderate assistance CODE: 03 LYING TO SITTING: LYING TO SITTING ON SIDE OF BED - STEP 1: Does the patient complete the activity by him/herself with no assistance (physical, verbal/nonverbal cueing, setup/clean-up)? No. LYING TO SITTING ON SIDE OF BED - STEP 2: Does the patient need only setup/clean-up assistance from one helper? No. LYING TO SITTING ON SIDE OF BED - STEP 3: Does the patient need only verbal/nonverbal cueing or touching/steadying/contact guard assistance fro m one helper? No. LYING TO SITTING ON SIDE OF BED - STEP 4: Does the patient need physical assistance - for example lifting or trunk support from one helper - wi th the helper providing less than half of the effort? Yes. 1. [id number] ADMISSION PERFORMANCE: Partial/moderate assistance CODE: 03 SIT TO STAND: SIT TO STAND - STEP 1: Does the patient complete the activity by him/herself with no assistance (physical, verbal/nonverbal cueing, setup/clean-up)? No. SIT TO STAND - STEP 2: Does the patient need only setup/clean-up assistance from one helper? No. SIT TO STAND - STEP 3: Does the patient need only verbal/nonverbal cueing or touching/steadying/contact guard assistance fro m one helper? No. SIT TO STAND - STEP 4: Does the patient need physical assistance - for example lifting or trunk support from one helper - wi th the helper providing less than half of the effort? Yes. 1. [id number] ADMISSION PERFORMANCE: Partial/moderate assistance CODE: 03 TRANSFERS: BED, CHAIR: CHAIR/[id number] TRANSFER - STEP 1: Does the patient complete the activity by him/herself with no assistance (physical, verbal/nonverbal cueing, setup/clean-up)? No. CHAIR/CAB-AF-GMLIA TRANSFER - STEP 2: Does the patient need only setup/clean-up assistance from one helper? No. CHAIR/[id number] TRANSFER - STEP 3: Does the patient need only verbal/nonverbal cueing or touching/steadying/contact guard assistance fro m one helper? No. CHAIR/[id number] TRANSFER - STEP 4: Does the patient need physical assistance - for example lifting or trunk support from one helper - wi th the helper providing less than half of the effort? Yes. 1. [id number] ADMISSION PERFORMANCE: Partial/moderate assistance CODE: 03 TRANSFER TOILET: TOILET TRANSFER - STEP 1: Does the patient complete the activity by him/herself with no assistance (physical, verbal/nonverbal cueing, setup/clean-up)? No. TOILET TRANSFER - STEP 2: Does the patient need only setup/clean-up assistance from one helper? No. TOILET TRANSFER - STEP 3: Does the patient need only verbal/nonverbal cueing or touching/steadying/contact guard assistance fro m one helper? No. TOILET TRANSFER - STEP 4: Does the patient need physical assistance - for example lifting or trunk support from one helper - wi th the helper providing less than half of the effort? Yes. 1. [id number] ADMISSION PERFORMANCE: Partial/moderate assistance CODE: 03 TRANSFERS: CAR: Not assessed/no information CODE: - WALK 10 FEET: Not assessed/no information CODE: - 1 STEP (CURB): Not assessed/no information CODE: - PICKING UP OBJECT: Not assessed/no information CODE: - DOES THE PATIENT USE A WHEELCHAIR/SCOOTER? Q1. DOES THE PATIENT USE A WHEELCHAIR/SCOOTER?: Yes CODE: 1 WHEEL 50 FEET WITH TWO TURNS: WHEEL 50 FEET WITH TWO TURNS - STEP 1: Does the patient complete the activity by him/herself with no assistance (physical, verbal/nonverbal cueing, setup/clean-up)? No. WHEEL 50 FEET WITH TWO TURNS - STEP 2: Does the patient need only setup/clean-up assistance from one helper? No. WHEEL 50 FEET WITH TWO TURNS - STEP 3: Does the patient need only verbal/nonverbal cueing or touching/steadying/contact guard assistance fro m one helper? No. WHEEL 50 FEET WITH TWO TURNS - STEP 4: Does the patient need physical assistance - for example lifting or trunk support from one helper - wi th the helper providing less than half of the effort? Yes. 1. [id number] ADMISSION PERFORMANCE: Partial/moderate assistance CODE: 03 INDICATE THE TYPE OF WHEELCHAIR/SCOOTER USED: RR1. INDICATE THE TYPE OF WHEELCHAIR/SCOOTER USED.: Manual CODE: 1 WHEEL 150 FEET: Not assessed/no information CODE: - INDICATE THE TYPE OF WHEELCHAIR/SCOOTER USED: SS1. INDICATE THE TYPE OF WHEELCHAIR/SCOOTER USED.: Manual CODE: 1 BLADDER AND BOWEL: H350. BLADDER CONTINENCE (3-DAY ASSESSMENT PERIOD): Incontinent daily (at least once a day) CODE: 3 H400. BOWEL CONTINENCE (3-DAY ASSESSMENT PERIOD): Always continent CODE: 0 SIGNATURE PANEL: The following modified sections: 1. [id number] Admission Performance, 1. [id number] Admission Performance, 1. [id number] Admission Performance, 1. [id number] Admission Performance, 1. SK5146a Admission Performance, 1. [id number] Admission Performance, 1. [id number] Admission Performance, 1. [id number] Admission Performance , 1. [id number] Admission Performance, 1. [id number] Admission Performance, 1. [id number] Admission Performanc e, 1. LL5943N Admission Performance, 1. [id number] Admission Performance, 1. [id number] Admission Performan ce, 1. TC1103P Admission Performance, Q1. Does the patient use a wheelchair/scooter?, 1. [id number] Admi ssion Performance, 1. [id number] Admission Performance, RR1. Indicate the type of wheelchair/scooter use d., Code, SS1. Indicate the type of wheelchair/scooter used., H350. Bladder Continence (3-day assessm ent period), H400. Bowel Continence (3-day assessment period) were [electronically] signed by Marysol Conley C.N.A. on FriApr 26 2019 14:57:24 GMT-0600 (Central Standard Time)
--- NOTE | 2019-04-26 19:13 | R.PN ---
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 Pt denied any depression. Labs reviewed and are stable. Pain is well managed. He is doing fairly well with physical and occupat ional therapy. VITAL SIGNS Temperature: 97.6 F SBP/DBP: 124/74 Pulse: 97 Resp: 16 MEDICATION ALLERGIES: No Known Drug Allergies (NKDA) ENVIRONMENTAL ALLERGIES: - Substance Allergies None Known - Other Allergies None Known NURSING: - Shower allowing shower - Skin care per protocol PRECAUTIONS: - Posterior Hip Precaution No adduction across midline No external rotation No hip flexion >90 degrees No internal rotation No wheel chair propulsion - Weight Bearing Precaution WBAT left LE ACTIVITIES OOB only with supervision THERAPIES: - Dietary and Nutrition Adequate Nutrition. Nutritional Education. Nutritional Supplements. PHYSICAL EXAM - Gen Alert and awake Lying in bed No apparent distress Oriented to: person, time, and place - Skin No breakdown Normacephalic - Eyes No abnormalities - ENMT No abnormalities - Neck No abnormalities - CVS RRR - Chest No abnormalities - Abd + bowel sounds - GI Soft Deferred - No abnormalities - Ext Left hip surgical site has good hemostasis. - MSK 4+/5 weakness in left lower extremity - Neuro 4/5 strength left lower extremity. - Psych No abnormalities ASSESSMENT: Pt. is a 84 yo Right-handed white male.On 04/09/2019 he was admitted to [facility] emergency surgery for Unspecified intracapsular fracture of left femur, initial encounter for close d fracture (S72.012A) (Unilateral Hip Fracture) by Daily De Jesus.Pre-morbidly, Pt. was independent/ mod-I in Locomotion and Self-Care; and he had good Safety Awareness and Sphincter Control.Currently, he has deficits of Endurance, Locomotion, Balance, Self-Care, Safety Awareness, Ambulation, pain limi ting function, Safety Awareness and Self-Care, and Social Cognition.Pt. is now referred to [facility] for acute in-patient rehabilitation in order to maximize patient's functional independence in activities of daily living, strength, ROM, and mobility.- Rehab Goal Patient has realistic goal of being discharged at assistance level 6-Cathy to reside at Home with Fam samantha/Relatives. MDM/PLAN: - Physical Therapy Decreased range of motion - to improve, our physical therapists will perform initial evaluation of p t's status upon admission and devise an individualized program for increasing patient's Range of Kenn on. Gait dysfunction - to improve, our physical therapists will perform initial evaluation of pt's statu s upon admission and devise an individualized program for Gait Training, and Wheel Chair mobility Need for home safety evaluation - to improve, our physical therapists will perform initial evaluatio n of pt's status upon admission and devise an individualized program for Home Evaluation Need in caregiver upon discharge - to improve, our physical therapists will perform initial evaluati on of pt's status upon admission and devise an individualized program for Caregiver Training New precaution - to improve, our physical therapists will perform initial evaluation of pt's status upon admission and devise an individualized program for Patient precaution education Poor balance - to improve, our physical therapists will perform initial evaluation of pt's status up on admission and devise an individualized program for Balance Training Poor endurance - to improve, our physical therapists will perform initial evaluation of pt's status upon admission and devise an individualized program for Endurance Training Weakness - to improve, our physical therapists will perform initial evaluation of pt's status upon a dmission and devise an individualized program for Aquatic Therapy, Neuromuscular Reeducation, and Str engthening Achieving independence - to improve, our physical therapists will perform initial evaluation of pt's status upon admission and devise an individualized program for Community Reintegration Activities - Occupational Therapy ADL deficits - to improve, our occupation therapists will perform initial evaluation of pt's status upon admission and devise an individualized program for Bathing, Bed mobility, Community Reintegratio n, Cooking, Dressing, Eating, Fine Motor Skills, Grooming, Homemaking, Kitchen Mobility, Laundry, Pat ient Education, Safety Awareness, Splinting - Positioning, Transfers(Toilet, Tub, Shower), and Wheel Chair Management Cognitive deficits - to improve, our occupation therapists will perform initial evaluation of pt's s tatus upon admission and devise an individualized program for Cognition - orientation Need for group care worker - to improve, our occupation therapists will perform initial evaluation of pt's status upon admission and devise an individualized program for Caregiver Training Weakness - to improve, our occupation therapists will perform initial evaluation of pt's status upon admission and devise an individualized program for Aquatic Therapy, Balance, Endurance, UE ROM, and UE strengthening - Other See attached MAR (Medication Administration Record) - Anterior Hip Precaution No abduction No active extension No adduction across midline No external rotation No hip flexion >90 degrees No internal rotation - Diet - Liquid Texture Continue Regular - Tube Feed Continue N/A - Diet Type Continue Regular - Posterior Hip Precaution No adduction across midline No external rotation No hip flexion >90 degrees No internal rotation No wheel chair propulsion - Weight Bearing Precaution WBAT left LE - Skin care per protocol - Diet - Solid Texture Continue Regular - Shower allowing shower FUNCTIONAL STATUS: UPDATED AT WEEKLY TEAM CONFERENCE - Bladder Same accident frequency: 7-Ind - No accidents in the past 7 days - Bowel Same accident frequency: 7-Ind - No accidents in the past 7 days - Walking Same score based on distance walked: 1(<=50ft) - Wheelchair Same score based on distance traveled: 1(<=50ft) FUNCTIONAL STATUS: - Self-Care A. Eating Ind B. Grooming sup C. Bathing modA D. Dressing - Upper modA E. Dressing - Lower modA F. Toileting modA - Sphincter Control G. Bladder control sup H. Bowel control sup - Transfers Control I. Bed/Chair/Wheelchair modA J. Toilet modA K. Tub/Shower modA - Locomotion L. Walk/Wheelchair (W) modA M. Stairs maxA - Communication N. Comprehension (A) Ind O. Expression (B) Ind - Social Cognition P. Social Interaction sup Q. Problem Solving sup R. Memory sup - Endurance Good - Balance Good - Safety Awareness Good QI SCORES: - Self-Care A. Eating 05-Setup or clean-up assistance B. Oral hygiene 05-Setup or clean-up assistance C. Toileting hygiene 03-Partial/moderate assistance E. Shower/bathe self 01-Dependent F. Upper body dressing 04-Supervision or touching assistance G. Lower body dressing 01-Dependent H. Putting on/taking off footwear 88-Not attempted due to medical condition or safety concerns - Mobility A. Roll left and right 02-Substantial/maximal assistance B. Sit to lying 02-Substantial/maximal assistance C. Lying to sitting on side of bed 02-Substantial/maximal assistance D. Sit to stand 02-Substantial/maximal assistance E. Chair/uiw-mc-pveyl transfer 02-Substantial/maximal assistance F. Toilet transfer 02-Substantial/maximal assistance G. Car transfer 88-Not attempted due to medical condition or safety concerns I. Walk 10 feet 01-Dependent J. Walk 50 feet with two turns 88-Not attempted due to medical condition or safety concerns K. Walk 150 feet 88-Not attempted due to medical condition or safety concerns L. Walking 10 feet on uneven surfaces 88-Not attempted due to medical condition or safety concerns M. 1 step (curb) 88-Not attempted due to medical condition or safety concerns N. 4 steps 02-Substantial/maximal assistance O. 12 steps 88-Not attempted due to medical condition or safety concerns P. Picking up object 88-Not attempted due to medical condition or safety concerns R. Wheel 50 feet with two turns 88-Not attempted due to medical condition or safety concerns S. Wheel 150 feet 88-Not attempted due to medical condition or safety concerns - Bladder and Bowel Bladder continence 0-Always continent Bowel continence 0-Always continent [facility] DEFICITS: Endurance, Locomotion, Balance, Self-Care, Safety Awareness, Ambulation, pain limiting function, Safe ty Awareness and Self-Care, and Social Cognition SIGNATURE PANEL: (PET CARETAKER)
[2019-04-26] MEDS: MIRTAZAPINE 15 MG TAB PO SCH (20:07)
[2019-04-26] MEDS: ACETAMINOPHEN 325 MG TABLET PO PRN (20:07)
[2019-04-27] MEDS: METOPROLOL XL 25 MG TAB PO SCH ×2 (04:59→17:07)
[2019-04-27] MEDS: NYSTATIN PWDR 100000 UNIT/GM TOP SCH ×2 (08:00→19:32)
[2019-04-27] MEDS: TAMSULOSIN 0.4 MG SR CAP PO SCH (08:00)
[2019-04-27] MEDS: PRAMIPEXOLE 0.25 MG TAB PO SCH ×2 (08:42→19:31)
[2019-04-27] MEDS: buPROPion HCl 100 MG TAB PO SCH (08:42)
[2019-04-27] MEDS: MEMANTINE HCL 10 MG TABLET PO SCH ×2 (08:42→19:31)
[2019-04-27] MEDS: FE SULF/FA/VIT B COMP & C TAB PO SCH (08:42)
[2019-04-27] MEDS: FERROUS SULFATE 325 MG TAB PO SCH (08:43)
[2019-04-27] MEDS: APIXABAN 2.5 MG TABLET PO SCH ×2 (08:43→19:31)
[2019-04-27] MEDS: FLUDROCORTISONE 0.1 MG TAB PO SCH (08:43)
[2019-04-27] MEDS: MEGESTROL 40 MG TAB PO SCH (08:43)
[2019-04-27] MEDS: ASPIRIN EC 81 MG TAB PO SCH (08:43)
[2019-04-27] MEDS: PANTOPRAZOLE 40MG TABLET PO SCH ×2 (08:44→16:33)
[2019-04-27] MEDS: FUROSEMIDE 20 MG TABLET PO SCH (08:44)
[2019-04-27] MEDS: ENSURE HIGH PROTEIN 237 ML CAN PO SCH ×2 (08:44→19:32)
[2019-04-27] MEDS: JUVEN PACKET PO SCH ×2 (08:45→19:32)
[2019-04-27] MEDS: TRAMADOL HCL 50 MG TAB PO PRN ×3 (08:45→19:31)
[2019-04-27] MEDS: PROMOD 30 ML DOSE PO SCH ×2 (09:33→19:32)
--- NOTE | 2019-04-27 16:48 | FAST ---
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 Alex Ribeiro M.D. ADMISSION DIAGNOSIS: - Orthopaedic Disorders 08 - Unilateral Hip Fracture (08.11) Unspecified intracapsular fracture of left femur, initial encounter for closed fracture (S72.012A). EATING: EATING - STEP 1: Does the patient complete the activity by him/herself with no assistance (physical, verbal/nonverbal cueing, setup/clean-up)? No. EATING - STEP 2: Does the patient need only setup/clean-up assistance from one helper? Yes. 1. [id number] ADMISSION PERFORMANCE: Setup or clean-up assistance CODE: 05 ORAL HYGIENE: ORAL HYGIENE - STEP 1: Does the patient complete the activity by him/herself with no assistance (physical, verbal/nonverbal cueing, setup/clean-up)? No. ORAL HYGIENE - STEP 2: Does the patient need only setup/clean-up assistance from one helper? Yes. 1. [id number] ADMISSION PERFORMANCE: Setup or clean-up assistance CODE: 05 TOILETING HYGIENE: TOILETING HYGIENE - STEP 1: Does the patient complete the activity by him/herself with no assistance (physical, verbal/nonverbal cueing, setup/clean-up)? No. TOILETING HYGIENE - STEP 2: Does the patient need only setup/clean-up assistance from one helper? No. TOILETING HYGIENE - STEP 3: Does the patient need only verbal/nonverbal cueing or touching/steadying/contact guard assistance fro m one helper? Yes. 1. [id number] ADMISSION PERFORMANCE: Supervision or touching assistance CODE: 04 BATHING: Not assessed/no information CODE: - DRESSING - UPPER BODY: DRESSING - UPPER BODY - STEP 1: Does the patient complete the activity by him/herself with no assistance (physical, verbal/nonverbal cueing, setup/clean-up)? No. DRESSING - UPPER BODY - STEP 2: Does the patient need only setup/clean-up assistance from one helper? No. DRESSING - UPPER BODY - STEP 3: Does the patient need only verbal/nonverbal cueing or touching/steadying/contact guard assistance fro m one helper? No. DRESSING - UPPER BODY - STEP 4: Does the patient need physical assistance - for example lifting or trunk support from one helper - wi th the helper providing less than half of the effort? Yes. 1. [id number] ADMISSION PERFORMANCE: Partial/moderate assistance CODE: 03 DRESSING - LOWER BODY: DRESSING - LOWER BODY - STEP 1: Does the patient complete the activity by him/herself with no assistance (physical, verbal/nonverbal cueing, setup/clean-up)? No. DRESSING - LOWER BODY - STEP 2: Does the patient need only setup/clean-up assistance from one helper? No. DRESSING - LOWER BODY - STEP 3: Does the patient need only verbal/nonverbal cueing or touching/steadying/contact guard assistance fro m one helper? No. DRESSING - LOWER BODY - STEP 4: Does the patient need physical assistance - for example lifting or trunk support from one helper - wi th the helper providing less than half of the effort? Yes. 1. [id number] ADMISSION PERFORMANCE: Partial/moderate assistance CODE: 03 PUTTING ON/TAKING OFF FOOTWEAR: FOOTWEAR - STEP 1: Does the patient complete the activity by him/herself with no assistance (physical, verbal/nonverbal cueing, setup/clean-up)? No. FOOTWEAR - STEP 2: Does the patient need only setup/clean-up assistance from one helper? No. FOOTWEAR - STEP 3: Does the patient need only verbal/nonverbal cueing or touching/steadying/contact guard assistance fro m one helper? No. FOOTWEAR - STEP 4: Does the patient need physical assistance - for example lifting or trunk support from one helper - wi th the helper providing less than half of the effort? Yes. 1. [id number] ADMISSION PERFORMANCE: Partial/moderate assistance CODE: 03 ROLL LEFT AND RIGHT: ROLL LEFT AND RIGHT - STEP 1: Does the patient complete the activity by him/herself with no assistance (physical, verbal/nonverbal cueing, setup/clean-up)? No. ROLL LEFT AND RIGHT - STEP 2: Does the patient need only setup/clean-up assistance from one helper? No. ROLL LEFT AND RIGHT - STEP 3: Does the patient need only verbal/nonverbal cueing or touching/steadying/contact guard assistance fro m one helper? No. ROLL LEFT AND RIGHT - STEP 4: Does the patient need physical assistance - for example lifting or trunk support from one helper - wi th the helper providing less than half of the effort? Yes. 1. [id number] ADMISSION PERFORMANCE: Partial/moderate assistance CODE: 03 SIT TO LYING: SIT TO LYING - STEP 1: Does the patient complete the activity by him/herself with no assistance (physical, verbal/nonverbal cueing, setup/clean-up)? No. SIT TO LYING - STEP 2: Does the patient need only setup/clean-up assistance from one helper? No. SIT TO LYING - STEP 3: Does the patient need only verbal/nonverbal cueing or touching/steadying/contact guard assistance fro m one helper? No. SIT TO LYING - STEP 4: Does the patient need physical assistance - for example lifting or trunk support from one helper - wi th the helper providing less than half of the effort? Yes. 1. [id number] ADMISSION PERFORMANCE: Partial/moderate assistance CODE: 03 LYING TO SITTING: LYING TO SITTING ON SIDE OF BED - STEP 1: Does the patient complete the activity by him/herself with no assistance (physical, verbal/nonverbal cueing, setup/clean-up)? No. LYING TO SITTING ON SIDE OF BED - STEP 2: Does the patient need only setup/clean-up assistance from one helper? No. LYING TO SITTING ON SIDE OF BED - STEP 3: Does the patient need only verbal/nonverbal cueing or touching/steadying/contact guard assistance fro m one helper? No. LYING TO SITTING ON SIDE OF BED - STEP 4: Does the patient need physical assistance - for example lifting or trunk support from one helper - wi th the helper providing less than half of the effort? Yes. 1. [id number] ADMISSION PERFORMANCE: Partial/moderate assistance CODE: 03 SIT TO STAND: SIT TO STAND - STEP 1: Does the patient complete the activity by him/herself with no assistance (physical, verbal/nonverbal cueing, setup/clean-up)? No. SIT TO STAND - STEP 2: Does the patient need only setup/clean-up assistance from one helper? No. SIT TO STAND - STEP 3: Does the patient need only verbal/nonverbal cueing or touching/steadying/contact guard assistance fro m one helper? No. SIT TO STAND - STEP 4: Does the patient need physical assistance - for example lifting or trunk support from one helper - wi th the helper providing less than half of the effort? Yes. 1. [id number] ADMISSION PERFORMANCE: Partial/moderate assistance CODE: 03 TRANSFERS: BED, CHAIR: CHAIR/[id number] TRANSFER - STEP 1: Does the patient complete the activity by him/herself with no assistance (physical, verbal/nonverbal cueing, setup/clean-up)? No. CHAIR/[id number] TRANSFER - STEP 2: Does the patient need only setup/clean-up assistance from one helper? No. CHAIR/[id number]-[id number] TRANSFER - STEP 3: Does the patient need only verbal/nonverbal cueing or touching/steadying/contact guard assistance fro m one helper? No. CHAIR/[id number] TRANSFER - STEP 4: Does the patient need physical assistance - for example lifting or trunk support from one helper - wi th the helper providing less than half of the effort? Yes. 1. [id number] ADMISSION PERFORMANCE: Partial/moderate assistance CODE: 03 TRANSFER TOILET: TOILET TRANSFER - STEP 1: Does the patient complete the activity by him/herself with no assistance (physical, verbal/nonverbal cueing, setup/clean-up)? No. TOILET TRANSFER - STEP 2: Does the patient need only setup/clean-up assistance from one helper? No. TOILET TRANSFER - STEP 3: Does the patient need only verbal/nonverbal cueing or touching/steadying/contact guard assistance fro m one helper? No. TOILET TRANSFER - STEP 4: Does the patient need physical assistance - for example lifting or trunk support from one helper - wi th the helper providing less than half of the effort? Yes. 1. [id number] ADMISSION PERFORMANCE: Partial/moderate assistance CODE: 03 TRANSFERS: CAR: Not assessed/no information CODE: - WALK 10 FEET: Not assessed/no information CODE: - 1 STEP (CURB): Not assessed/no information CODE: - PICKING UP OBJECT: Not assessed/no information CODE: - DOES THE PATIENT USE A WHEELCHAIR/SCOOTER? Q1. DOES THE PATIENT USE A WHEELCHAIR/SCOOTER?: Yes CODE: 1 WHEEL 50 FEET WITH TWO TURNS: WHEEL 50 FEET WITH TWO TURNS - STEP 1: Does the patient complete the activity by him/herself with no assistance (physical, verbal/nonverbal cueing, setup/clean-up)? No. WHEEL 50 FEET WITH TWO TURNS - STEP 2: Does the patient need only setup/clean-up assistance from one helper? No. WHEEL 50 FEET WITH TWO TURNS - STEP 3: Does the patient need only verbal/nonverbal cueing or touching/steadying/contact guard assistance fro m one helper? Yes. 1. [id number] ADMISSION PERFORMANCE: Supervision or touching assistance CODE: 04 INDICATE THE TYPE OF WHEELCHAIR/SCOOTER USED: RR1. INDICATE THE TYPE OF WHEELCHAIR/SCOOTER USED.: Manual CODE: 1 WHEEL 150 FEET: WHEEL 150 FEET - STEP 1: Does the patient complete the activity by him/herself with no assistance (physical, verbal/nonverbal cueing, setup/clean-up)? No. WHEEL 150 FEET - STEP 2: Does the patient need only setup/clean-up assistance from one helper? No. WHEEL 150 FEET - STEP 3: Does the patient need only verbal/nonverbal cueing or touching/steadying/contact guard assistance fro m one helper? Yes. 1. [id number] ADMISSION PERFORMANCE: Supervision or touching assistance CODE: 04 INDICATE THE TYPE OF WHEELCHAIR/SCOOTER USED: SS1. INDICATE THE TYPE OF WHEELCHAIR/SCOOTER USED.: Manual CODE: 1 BLADDER AND BOWEL: H350. BLADDER CONTINENCE (3-DAY ASSESSMENT PERIOD): Incontinent daily (at least once a day) CODE: 3 H400. BOWEL CONTINENCE (3-DAY ASSESSMENT PERIOD): Occasionally incontinent (one episode of bowel incontinence) CODE: 1 SIGNATURE PANEL: The following modified sections: 1. [id number] Admission Performance, 1. PB1333H Admission Performance, 1. [id number] Admission Performance, 1. TM8913L Admission Performance, 1. NR2402L Admission Performance, 1. DU8098B Admission Performance, 1. GR0492j Admission Performance, 1. JL1044n Admission Performance , 1. QM3043e Admission Performance, 1. QU8745f Admission Performance, 1. UD5644b Admission Performanc e, 1. NJ0101Y Admission Performance, 1. DR6614U Admission Performance, 1. VT5093u Admission Performan ce, 1. BH3865r Admission Performance, 1. YN0162u Admission Performance, 1. KP3877i Admission Performa nce, 1. VS1984q Admission Performance, 1. ZS6488i Admission Performance, 1. OI0055p Admission Perform ance, 1. EZ5388z Admission Performance, 1. YL4226Y Admission Performance, 1. KK6148X Admission Perfor juana, 1. NV1613S Admission Performance, 1. WV5071J Admission Performance, 1. JN4585Z Admission Perfo rmance, 1. RG3475O Admission Performance, 1. TX0147D Admission Performance, Q1. Does the patient use a wheelchair/scooter?, 1. AD2670S Admission Performance, 1. KK7345A Admission Performance, RR1. Indic ate the type of wheelchair/scooter used., 1. HB3033H Admission Performance, Code, 1. MC3555D Admissio n Performance, Code, SS1. Indicate the type of wheelchair/scooter used., H350. Bladder Continence (3- day assessment period), H400. Bowel Continence (3-day assessment period) were [electronically] signed by Marysol Crocker C.N.A. on FriApr 27 2019 16:47:43 GMT-0600 (Central Standard Time)
[2019-04-27] MEDS: MIRTAZAPINE 15 MG TAB PO SCH (20:01)
[2019-04-28] MEDS: METOPROLOL XL 25 MG TAB PO SCH ×2 (05:17→17:12)
[2019-04-28] MEDS: NYSTATIN PWDR 100000 UNIT/GM TOP SCH ×2 (08:00→19:06)
[2019-04-28] MEDS: PRAMIPEXOLE 0.25 MG TAB PO SCH ×2 (08:24→19:08)
[2019-04-28] MEDS: TAMSULOSIN 0.4 MG SR CAP PO SCH (08:24)
[2019-04-28] MEDS: buPROPion HCl 100 MG TAB PO SCH (08:24)
[2019-04-28] MEDS: FE SULF/FA/VIT B COMP & C TAB PO SCH (08:24)
[2019-04-28] MEDS: MEGESTROL 40 MG TAB PO SCH (08:24)
[2019-04-28] MEDS: ASPIRIN EC 81 MG TAB PO SCH (08:25)
[2019-04-28] MEDS: MEMANTINE HCL 10 MG TABLET PO SCH ×2 (08:25→19:09)
[2019-04-28] MEDS: PANTOPRAZOLE 40MG TABLET PO SCH ×2 (08:25→17:15)
[2019-04-28] MEDS: FERROUS SULFATE 325 MG TAB PO SCH (08:25)
[2019-04-28] MEDS: APIXABAN 2.5 MG TABLET PO SCH ×2 (08:25→19:08)
[2019-04-28] MEDS: FLUDROCORTISONE 0.1 MG TAB PO SCH (08:25)
[2019-04-28] MEDS: TRAMADOL HCL 50 MG TAB PO PRN ×2 (08:26→12:27)
[2019-04-28] MEDS: FUROSEMIDE 20 MG TABLET PO SCH (08:26)
[2019-04-28] MEDS: PROMOD 30 ML DOSE PO SCH ×2 (08:28→19:10)
[2019-04-28] MEDS: JUVEN PACKET PO SCH ×2 (08:28→19:10)
[2019-04-28] MEDS: ENSURE HIGH PROTEIN 237 ML CAN PO SCH ×2 (08:30→19:10)
--- NOTE | 2019-04-28 15:11 | FAST ---
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 Alex Ribeiro M.D. ADMISSION DIAGNOSIS: - Orthopaedic Disorders 08 - Unilateral Hip Fracture (08.11) Unspecified intracapsular fracture of left femur, initial encounter for closed fracture (S72.012A). EATING: Not assessed/no information CODE: - ORAL HYGIENE: ORAL HYGIENE - STEP 1: Does the patient complete the activity by him/herself with no assistance (physical, verbal/nonverbal cueing, setup/clean-up)? Yes. 1. [id number] ADMISSION PERFORMANCE: Independent CODE: 06 TOILETING HYGIENE: Not assessed/no information CODE: - BATHING: SHOWER/BATHE SELF - STEP 1: Does the patient complete the activity by him/herself with no assistance (physical, verbal/nonverbal cueing, setup/clean-up)? No. SHOWER/BATHE SELF - STEP 2: Does the patient need only setup/clean-up assistance from one helper? No. SHOWER/BATHE SELF - STEP 3: Does the patient need only verbal/nonverbal cueing or touching/steadying/contact guard assistance fro m one helper? No. SHOWER/BATHE SELF - STEP 4: Does the patient need physical assistance - for example lifting or trunk support from one helper - wi th the helper providing less than half of the effort? Yes. 1. [id number] ADMISSION PERFORMANCE: Partial/moderate assistance CODE: 03 DRESSING - UPPER BODY: DRESSING - UPPER BODY - STEP 1: Does the patient complete the activity by him/herself with no assistance (physical, verbal/nonverbal cueing, setup/clean-up)? No. DRESSING - UPPER BODY - STEP 2: Does the patient need only setup/clean-up assistance from one helper? No. DRESSING - UPPER BODY - STEP 3: Does the patient need only verbal/nonverbal cueing or touching/steadying/contact guard assistance fro m one helper? No. DRESSING - UPPER BODY - STEP 4: Does the patient need physical assistance - for example lifting or trunk support from one helper - wi th the helper providing less than half of the effort? Yes. 1. ADMISSION PERFORMANCE: Partial/moderate assistance CODE: 03 DRESSING - LOWER BODY: DRESSING - LOWER BODY - STEP 1: Does the patient complete the activity by him/herself with no assistance (physical, verbal/nonverbal cueing, setup/clean-up)? No. DRESSING - LOWER BODY - STEP 2: Does the patient need only setup/clean-up assistance from one helper? No. DRESSING - LOWER BODY - STEP 3: Does the patient need only verbal/nonverbal cueing or touching/steadying/contact guard assistance fro m one helper? No. DRESSING - LOWER BODY - STEP 4: Does the patient need physical assistance - for example lifting or trunk support from one helper - wi th the helper providing less than half of the effort? Yes. 1. ADMISSION PERFORMANCE: Partial/moderate assistance CODE: 03 PUTTING ON/TAKING OFF FOOTWEAR: FOOTWEAR - STEP 1: Does the patient complete the activity by him/herself with no assistance (physical, verbal/nonverbal cueing, setup/clean-up)? No. FOOTWEAR - STEP 2: Does the patient need only setup/clean-up assistance from one helper? No. FOOTWEAR - STEP 3: Does the patient need only verbal/nonverbal cueing or touching/steadying/contact guard assistance fro m one helper? No. FOOTWEAR - STEP 4: Does the patient need physical assistance - for example lifting or trunk support from one helper - wi th the helper providing less than half of the effort? No. FOOTWEAR - STEP 5: Does the patient need physical assistance - for example lifting or trunk support from one helper - wi th the helper providing more than half of the effort? No. FOOTWEAR - STEP 6: Does the helper provide all of the effort? OR Is the assistance of two or more helpers required to co mplete the activity? Yes. 1. ADMISSION PERFORMANCE: Dependent CODE: 01 DOES THE PATIENT USE A WHEELCHAIR/SCOOTER? CODE: EXPR INDICATE THE TYPE OF WHEELCHAIR/SCOOTER USED: CODE: EXPR INDICATE THE TYPE OF WHEELCHAIR/SCOOTER USED: CODE: EXPR BLADDER AND BOWEL: CODE: EXPR CODE: EXPR SIGNATURE PANEL: The following modified sections: 1. [id number] Admission Performance, 1. KA3676w Admission Performance, 1. TQ3307v Admission Performance, 1. GB9273s Admission Performance, 1. CE7691q Admission Performance, 1. FP9207p Admission Performance, 1. IY4123a Admission Performance were [electronically] signed by Shanna Monroe OT on FriApr 28 2019 15:10:42 GMT-0600 (Central Standard Time)
--- NOTE | 2019-04-28 17:46 | R.PN ---
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 Pt denied any depression. Labs reviewed and are stable. Pain continues to be well managed. He is doing well with physical and o ccupational therapy. VITAL SIGNS Temperature: 97.2 F SBP/DBP: 134/78 Pulse: 87 Resp: 16 MEDICATION ALLERGIES: No Known Drug Allergies (NKDA) ENVIRONMENTAL ALLERGIES: - Substance Allergies None Known - Other Allergies None Known NURSING: - Shower allowing shower - Skin care per protocol PRECAUTIONS: - Posterior Hip Precaution No adduction across midline No external rotation No hip flexion >90 degrees No internal rotation No wheel chair propulsion - Weight Bearing Precaution WBAT left LE ACTIVITIES OOB only with supervision THERAPIES: - Dietary and Nutrition Adequate Nutrition. Nutritional Education. Nutritional Supplements. PHYSICAL EXAM - Gen Alert and awake Lying in bed No apparent distress Oriented to: person, time, and place - Skin No breakdown Normacephalic - Eyes No abnormalities - ENMT No abnormalities - Neck No abnormalities - CVS RRR - Chest No abnormalities - Abd + bowel sounds - GI Soft Deferred - No abnormalities - Ext Left hip surgical site has good hemostasis. - MSK 4+/5 weakness in left lower extremity - Neuro 4/5 strength left lower extremity. - Psych No abnormalities ASSESSMENT: Pt. is a 84 yo Right-handed white male.On 04/09/2019 he was admitted to [facility] emergency surgery for Unspecified intracapsular fracture of left femur, initial encounter for close d fracture (S72.012A) (Unilateral Hip Fracture) by Daily De Jesus.Pre-morbidly, Pt. was independent/ mod-I in Locomotion and Self-Care; and he had good Safety Awareness and Sphincter Control.Currently, he has deficits of Endurance, Locomotion, Balance, Self-Care, Safety Awareness, Ambulation, pain limi ting function, Safety Awareness and Self-Care, and Social Cognition.Pt. is now referred to [facility] for acute in-patient rehabilitation in order to maximize patient's functional independence in activities of daily living, strength, ROM, and mobility.- Rehab Goal Patient has realistic goal of being discharged at assistance level 6-Cathy to reside at Home with Fam samantha/Relatives. MDM/PLAN: - Physical Therapy Decreased range of motion - to improve, our physical therapists will perform initial evaluation of p t's status upon admission and devise an individualized program for increasing patient's Range of Kenn on. Gait dysfunction - to improve, our physical therapists will perform initial evaluation of pt's statu s upon admission and devise an individualized program for Gait Training, and Wheel Chair mobility Need for home safety evaluation - to improve, our physical therapists will perform initial evaluatio n of pt's status upon admission and devise an individualized program for Home Evaluation Need in caregiver upon discharge - to improve, our physical therapists will perform initial evaluati on of pt's status upon admission and devise an individualized program for Caregiver Training New precaution - to improve, our physical therapists will perform initial evaluation of pt's status upon admission and devise an individualized program for Patient precaution education Poor balance - to improve, our physical therapists will perform initial evaluation of pt's status up on admission and devise an individualized program for Balance Training Poor endurance - to improve, our physical therapists will perform initial evaluation of pt's status upon admission and devise an individualized program for Endurance Training Weakness - to improve, our physical therapists will perform initial evaluation of pt's status upon a dmission and devise an individualized program for Aquatic Therapy, Neuromuscular Reeducation, and Str engthening Achieving independence - to improve, our physical therapists will perform initial evaluation of pt's status upon admission and devise an individualized program for Community Reintegration Activities - Occupational Therapy ADL deficits - to improve, our occupation therapists will perform initial evaluation of pt's status upon admission and devise an individualized program for Bathing, Bed mobility, Community Reintegratio n, Cooking, Dressing, Eating, Fine Motor Skills, Grooming, Homemaking, Kitchen Mobility, Laundry, Pat ient Education, Safety Awareness, Splinting - Positioning, Transfers(Toilet, Tub, Shower), and Wheel Chair Management Cognitive deficits - to improve, our occupation therapists will perform initial evaluation of pt's s tatus upon admission and devise an individualized program for Cognition - orientation Need for career coach - to improve, our occupation therapists will perform initial evaluation of pt's status upon admission and devise an individualized program for Caregiver Training Weakness - to improve, our occupation therapists will perform initial evaluation of pt's status upon admission and devise an individualized program for Aquatic Therapy, Balance, Endurance, UE ROM, and UE strengthening - Other See attached MAR (Medication Administration Record) - Anterior Hip Precaution No abduction No active extension No adduction across midline No external rotation No hip flexion >90 degrees No internal rotation - Diet - Liquid Texture Continue Regular - Tube Feed Continue N/A - Diet Type Continue Regular - Posterior Hip Precaution No adduction across midline No external rotation No hip flexion >90 degrees No internal rotation No wheel chair propulsion - Weight Bearing Precaution WBAT left LE - Skin care per protocol - Diet - Solid Texture Continue Regular - Shower allowing shower FUNCTIONAL STATUS: UPDATED AT WEEKLY TEAM CONFERENCE - Bladder Same accident frequency: 7-Ind - No accidents in the past 7 days - Bowel Same accident frequency: 7-Ind - No accidents in the past 7 days - Walking Same score based on distance walked: 1(<=50ft) - Wheelchair Same score based on distance traveled: 1(<=50ft) FUNCTIONAL STATUS: - Self-Care A. Eating Ind B. Grooming sup C. Bathing modA D. Dressing - Upper modA E. Dressing - Lower modA F. Toileting modA - Sphincter Control G. Bladder control sup H. Bowel control sup - Transfers Control I. Bed/Chair/Wheelchair modA J. Toilet modA K. Tub/Shower modA - Locomotion L. Walk/Wheelchair (W) modA M. Stairs maxA - Communication N. Comprehension (A) Ind O. Expression (B) Ind - Social Cognition P. Social Interaction sup Q. Problem Solving sup R. Memory sup - Endurance Good - Balance Good - Safety Awareness Good QI SCORES: - Self-Care A. Eating 05-Setup or clean-up assistance B. Oral hygiene 05-Setup or clean-up assistance C. Toileting hygiene 03-Partial/moderate assistance E. Shower/bathe self 01-Dependent F. Upper body dressing 04-Supervision or touching assistance G. Lower body dressing 01-Dependent H. Putting on/taking off footwear 88-Not attempted due to medical condition or safety concerns - Mobility A. Roll left and right 02-Substantial/maximal assistance B. Sit to lying 02-Substantial/maximal assistance C. Lying to sitting on side of bed 02-Substantial/maximal assistance D. Sit to stand 02-Substantial/maximal assistance E. Chair/bbf-pu-xhjug transfer 02-Substantial/maximal assistance F. Toilet transfer 02-Substantial/maximal assistance G. Car transfer 88-Not attempted due to medical condition or safety concerns I. Walk 10 feet 01-Dependent J. Walk 50 feet with two turns 88-Not attempted due to medical condition or safety concerns K. Walk 150 feet 88-Not attempted due to medical condition or safety concerns L. Walking 10 feet on uneven surfaces 88-Not attempted due to medical condition or safety concerns M. 1 step (curb) 88-Not attempted due to medical condition or safety concerns N. 4 steps 02-Substantial/maximal assistance O. 12 steps 88-Not attempted due to medical condition or safety concerns P. Picking up object 88-Not attempted due to medical condition or safety concerns R. Wheel 50 feet with two turns 88-Not attempted due to medical condition or safety concerns S. Wheel 150 feet 88-Not attempted due to medical condition or safety concerns - Bladder and Bowel Bladder continence 0-Always continent Bowel continence 0-Always continent [facility] 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
[2019-04-28] MEDS: DOCUSATE NA/SENNA CONC 1 TAB PO PRN (19:07)
[2019-04-28] MEDS: MIRTAZAPINE 15 MG TAB PO SCH (19:08)
[2019-04-28] MEDS: MELATONIN 3 MG TABLET PO PRN (19:08)
[2019-04-28] MEDS: LORAZEPAM 0.5 MG TABLET PO PRN (20:05)
[2019-04-29] MEDS: METOPROLOL XL 25 MG TAB PO SCH ×2 (05:16→16:38)
[2019-04-29 06:03] LABS: Absolute Lymphocytes (CBC) 1.5 K/uL (0.7-4.9); Basophils % 0.5 % (0-1.3); Hematocrit 26.4 % (39.6-49.0); MPV 8.3 fL (7.6-11.3); RBC Red Blood Cell Count 3.12 M/uL (4.33-5.43)
[2019-04-29 06:21] LABS: Albumin 2.3 g/dL (3.4-5.0); Magnesium 2.2 mg/dL (1.8-2.4); Potassium 4.1 mmol/L (3.5-5.1); Prealbumin 9.9 mg/dL (20-40)
[2019-04-29] MEDS: NYSTATIN PWDR 100000 UNIT/GM TOP SCH ×2 (08:00→19:19)
[2019-04-29] MEDS: buPROPion HCl 100 MG TAB PO SCH (08:31)
[2019-04-29] MEDS: PANTOPRAZOLE 40MG TABLET PO SCH ×2 (08:32→16:38)
[2019-04-29] MEDS: FERROUS SULFATE 325 MG TAB PO SCH (08:32)
[2019-04-29] MEDS: TAMSULOSIN 0.4 MG SR CAP PO SCH (08:32)
[2019-04-29] MEDS: FE SULF/FA/VIT B COMP & C TAB PO SCH (08:32)
[2019-04-29] MEDS: PRAMIPEXOLE 0.25 MG TAB PO SCH ×2 (08:32→19:14)
[2019-04-29] MEDS: APIXABAN 2.5 MG TABLET PO SCH ×2 (08:32→19:14)
[2019-04-29] MEDS: ASPIRIN EC 81 MG TAB PO SCH (08:32)
[2019-04-29] MEDS: FUROSEMIDE 20 MG TABLET PO SCH (08:32)
[2019-04-29] MEDS: FLUDROCORTISONE 0.1 MG TAB PO SCH (08:33)
[2019-04-29] MEDS: TRAMADOL HCL 50 MG TAB PO PRN ×2 (08:34→12:36)
[2019-04-29] MEDS: MEMANTINE HCL 10 MG TABLET PO SCH ×2 (08:34→19:15)
[2019-04-29] MEDS: LIDOCAINE 4% PATCH TOP SCH (08:34)
[2019-04-29] MEDS: ENSURE HIGH PROTEIN 237 ML CAN PO SCH ×2 (08:34→19:13)
[2019-04-29] MEDS: MEGESTROL 40 MG TAB PO SCH (08:34)
[2019-04-29] MEDS: PROMOD 30 ML DOSE PO SCH ×2 (08:35→19:13)
[2019-04-29] MEDS: JUVEN PACKET PO SCH ×2 (08:35→19:13)
--- NOTE | 2019-04-29 10:57 | FAST ---
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 Alex Riebiro M.D. ADMISSION DIAGNOSIS: - Orthopaedic Disorders 08 - Unilateral Hip Fracture (08.11) Unspecified intracapsular fracture of left femur, initial encounter for closed fracture (S72.012A). EATING: EATING - STEP 1: Does the patient complete the activity by him/herself with no assistance (physical, verbal/nonverbal cueing, setup/clean-up)? No. EATING - STEP 2: Does the patient need only setup/clean-up assistance from one helper? No. EATING - STEP 3: Does the patient need only verbal/nonverbal cueing or touching/steadying/contact guard assistance fro m one helper? Yes. 1. [id number] ADMISSION PERFORMANCE: Supervision or touching assistance CODE: 04 ORAL HYGIENE: ORAL HYGIENE - STEP 1: Does the patient complete the activity by him/herself with no assistance (physical, verbal/nonverbal cueing, setup/clean-up)? No. ORAL HYGIENE - STEP 2: Does the patient need only setup/clean-up assistance from one helper? No. ORAL HYGIENE - STEP 3: Does the patient need only verbal/nonverbal cueing or touching/steadying/contact guard assistance fro m one helper? Yes. 1. [id number] ADMISSION PERFORMANCE: Supervision or touching assistance CODE: 04 TOILETING HYGIENE: TOILETING HYGIENE - STEP 1: Does the patient complete the activity by him/herself with no assistance (physical, verbal/nonverbal cueing, setup/clean-up)? No. TOILETING HYGIENE - STEP 2: Does the patient need only setup/clean-up assistance from one helper? No. TOILETING HYGIENE - STEP 3: Does the patient need only verbal/nonverbal cueing or touching/steadying/contact guard assistance fro m one helper? Yes. 1. [id number] ADMISSION PERFORMANCE: Supervision or touching assistance CODE: 04 BATHING: Not assessed/no information CODE: - DRESSING - UPPER BODY: Not assessed/no information CODE: - DRESSING - LOWER BODY: Not assessed/no information CODE: - PUTTING ON/TAKING OFF FOOTWEAR: Not assessed/no information CODE: - ROLL LEFT AND RIGHT: ROLL LEFT AND RIGHT - STEP 1: Does the patient complete the activity by him/herself with no assistance (physical, verbal/nonverbal cueing, setup/clean-up)? No. ROLL LEFT AND RIGHT - STEP 2: Does the patient need only setup/clean-up assistance from one helper? No. ROLL LEFT AND RIGHT - STEP 3: Does the patient need only verbal/nonverbal cueing or touching/steadying/contact guard assistance fro m one helper? No. ROLL LEFT AND RIGHT - STEP 4: Does the patient need physical assistance - for example lifting or trunk support from one helper - wi th the helper providing less than half of the effort? Yes. 1. [id number] ADMISSION PERFORMANCE: Partial/moderate assistance CODE: 03 SIT TO LYING: Not assessed/no information CODE: - LYING TO SITTING: Not assessed/no information CODE: - SIT TO STAND: SIT TO STAND - STEP 1: Does the patient complete the activity by him/herself with no assistance (physical, verbal/nonverbal cueing, setup/clean-up)? No. SIT TO STAND - STEP 2: Does the patient need only setup/clean-up assistance from one helper? No. SIT TO STAND - STEP 3: Does the patient need only verbal/nonverbal cueing or touching/steadying/contact guard assistance fro m one helper? Yes. 1. [id number] ADMISSION PERFORMANCE: Supervision or touching assistance CODE: 04 TRANSFERS: BED, CHAIR: CHAIR/[id number]-[id number] TRANSFER - STEP 1: Does the patient complete the activity by him/herself with no assistance (physical, verbal/nonverbal cueing, setup/clean-up)? No. CHAIR/[id number] TRANSFER - STEP 2: Does the patient need only setup/clean-up assistance from one helper? No. CHAIR/ICE-[id number] TRANSFER - STEP 3: Does the patient need only verbal/nonverbal cueing or touching/steadying/contact guard assistance fro m one helper? Yes. 1. [id number] ADMISSION PERFORMANCE: Supervision or touching assistance CODE: 04 TRANSFER TOILET: TOILET TRANSFER - STEP 1: Does the patient complete the activity by him/herself with no assistance (physical, verbal/nonverbal cueing, setup/clean-up)? No. TOILET TRANSFER - STEP 2: Does the patient need only setup/clean-up assistance from one helper? No. TOILET TRANSFER - STEP 3: Does the patient need only verbal/nonverbal cueing or touching/steadying/contact guard assistance fro m one helper? Yes. 1. [id number] ADMISSION PERFORMANCE: Supervision or touching assistance CODE: 04 TRANSFERS: CAR: Not assessed/no information CODE: - WALK 10 FEET: Not assessed/no information CODE: - 1 STEP (CURB): Not assessed/no information CODE: - PICKING UP OBJECT: Not assessed/no information CODE: - DOES THE PATIENT USE A WHEELCHAIR/SCOOTER? CODE: EXPR WHEEL 50 FEET WITH TWO TURNS: Not assessed/no information CODE: - INDICATE THE TYPE OF WHEELCHAIR/SCOOTER USED: CODE: EXPR WHEEL 150 FEET: Not assessed/no information CODE: - INDICATE THE TYPE OF WHEELCHAIR/SCOOTER USED: CODE: EXPR BLADDER AND BOWEL: H350. BLADDER CONTINENCE (3-DAY ASSESSMENT PERIOD): Incontinent less than daily (e.g., once or twice during the 3-day assessment period) CODE: 2 H400. BOWEL CONTINENCE (3-DAY ASSESSMENT PERIOD): Occasionally incontinent (one episode of bowel incontinence) CODE: 1 SIGNATURE PANEL: The following modified sections: 1. [id number] Admission Performance, 1. [id number] Admission Performance, 1. [id number] Admission Performance, 1. [id number] Admission Performance, 1. [id number] Admission Performance, 1. [id number] Admission Performance, 1. [id number] Admission Performance, 1. [id number] Admission Performance , Code, H350. Bladder Continence (3-day assessment period), H400. Bowel Continence (3-day assessment period) were [electronically] signed by Herman Mendes on FriApr 29 2019 10:57:24 GMT-0600 ([facility])
--- NOTE | 2019-04-29 14:51 | FAST ---
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 Alex Ribeiro M.D. ADMISSION DIAGNOSIS: - Orthopaedic Disorders 08 - Unilateral Hip Fracture (08.11) Unspecified intracapsular fracture of left femur, initial encounter for closed fracture (S72.012A). ROLL LEFT AND RIGHT: ROLL LEFT AND RIGHT - STEP 1: Does the patient complete the activity by him/herself with no assistance (physical, verbal/nonverbal cueing, setup/clean-up)? No. ROLL LEFT AND RIGHT - STEP 2: Does the patient need only setup/clean-up assistance from one helper? No. ROLL LEFT AND RIGHT - STEP 3: Does the patient need only verbal/nonverbal cueing or touching/steadying/contact guard assistance fro m one helper? No. ROLL LEFT AND RIGHT - STEP 4: Does the patient need physical assistance - for example lifting or trunk support from one helper - wi th the helper providing less than half of the effort? Yes. 1. [id number] ADMISSION PERFORMANCE: Partial/moderate assistance CODE: 03 SIT TO LYING: SIT TO LYING - STEP 1: Does the patient complete the activity by him/herself with no assistance (physical, verbal/nonverbal cueing, setup/clean-up)? No. SIT TO LYING - STEP 2: Does the patient need only setup/clean-up assistance from one helper? No. SIT TO LYING - STEP 3: Does the patient need only verbal/nonverbal cueing or touching/steadying/contact guard assistance fro m one helper? No. SIT TO LYING - STEP 4: Does the patient need physical assistance - for example lifting or trunk support from one helper - wi th the helper providing less than half of the effort? Yes. 1. [id number] ADMISSION PERFORMANCE: Partial/moderate assistance CODE: 03 LYING TO SITTING: LYING TO SITTING ON SIDE OF BED - STEP 1: Does the patient complete the activity by him/herself with no assistance (physical, verbal/nonverbal cueing, setup/clean-up)? No. LYING TO SITTING ON SIDE OF BED - STEP 2: Does the patient need only setup/clean-up assistance from one helper? No. LYING TO SITTING ON SIDE OF BED - STEP 3: Does the patient need only verbal/nonverbal cueing or touching/steadying/contact guard assistance fro m one helper? No. LYING TO SITTING ON SIDE OF BED - STEP 4: Does the patient need physical assistance - for example lifting or trunk support from one helper - wi th the helper providing less than half of the effort? Yes. 1. [id number] ADMISSION PERFORMANCE: Partial/moderate assistance CODE: 03 SIT TO STAND: SIT TO STAND - STEP 1: Does the patient complete the activity by him/herself with no assistance (physical, verbal/nonverbal cueing, setup/clean-up)? No. SIT TO STAND - STEP 2: Does the patient need only setup/clean-up assistance from one helper? No. SIT TO STAND - STEP 3: Does the patient need only verbal/nonverbal cueing or touching/steadying/contact guard assistance fro m one helper? Yes. 1. [id number] ADMISSION PERFORMANCE: Supervision or touching assistance CODE: 04 TRANSFERS: BED, CHAIR: CHAIR/[id number] TRANSFER - STEP 1: Does the patient complete the activity by him/herself with no assistance (physical, verbal/nonverbal cueing, setup/clean-up)? No. CHAIR/VHE-SB-[id number] TRANSFER - STEP 2: Does the patient need only setup/clean-up assistance from one helper? No. CHAIR/PQP-AM-TIDEN TRANSFER - STEP 3: Does the patient need only verbal/nonverbal cueing or touching/steadying/contact guard assistance fro m one helper? Yes. 1. [id number] ADMISSION PERFORMANCE: Supervision or touching assistance CODE: 04 TRANSFER TOILET: Not assessed/no information CODE: - TRANSFERS: CAR: Not assessed/no information CODE: - WALK 10 FEET: WALK 10 FEET - STEP 1: Does the patient complete the activity by him/herself with no assistance (physical, verbal/nonverbal cueing, setup/clean-up)? No. WALK 10 FEET - STEP 2: Does the patient need only setup/clean-up assistance from one helper? No. WALK 10 FEET - STEP 3: Does the patient need only verbal/nonverbal cueing or touching/steadying/contact guard assistance fro m one helper? Yes. 1. [id number] ADMISSION PERFORMANCE: Supervision or touching assistance CODE: 04 WALK 50 FEET: WALK 50 FEET - STEP 1: Does the patient complete the activity by him/herself with no assistance (physical, verbal/nonverbal cueing, setup/clean-up)? No. WALK 50 FEET - STEP 2: Does the patient need only setup/clean-up assistance from one helper? No. WALK 50 FEET - STEP 3: Does the patient need only verbal/nonverbal cueing or touching/steadying/contact guard assistance fro m one helper? Yes. 1. [id number] ADMISSION PERFORMANCE: Supervision or touching assistance CODE: 04 WALK 150 FEET: Not assessed/no information CODE: - WALK 10 FEET UNEVEN: Not assessed/no information CODE: - 1 STEP (CURB): Not assessed/no information CODE: - PICKING UP OBJECT: Not assessed/no information CODE: - DOES THE PATIENT USE A WHEELCHAIR/SCOOTER? Q1. DOES THE PATIENT USE A WHEELCHAIR/SCOOTER?: Yes CODE: 1 WHEEL 50 FEET WITH TWO TURNS: WHEEL 50 FEET WITH TWO TURNS - STEP 1: Does the patient complete the activity by him/herself with no assistance (physical, verbal/nonverbal cueing, setup/clean-up)? No. WHEEL 50 FEET WITH TWO TURNS - STEP 2: Does the patient need only setup/clean-up assistance from one helper? No. WHEEL 50 FEET WITH TWO TURNS - STEP 3: Does the patient need only verbal/nonverbal cueing or touching/steadying/contact guard assistance fro m one helper? Yes. 1. [id number] ADMISSION PERFORMANCE: Supervision or touching assistance CODE: 04 INDICATE THE TYPE OF WHEELCHAIR/SCOOTER USED: RR1. INDICATE THE TYPE OF WHEELCHAIR/SCOOTER USED.: Manual CODE: 1 WHEEL 150 FEET: WHEEL 150 FEET - STEP 1: Does the patient complete the activity by him/herself with no assistance (physical, verbal/nonverbal cueing, setup/clean-up)? No. WHEEL 150 FEET - STEP 2: Does the patient need only setup/clean-up assistance from one helper? No. WHEEL 150 FEET - STEP 3: Does the patient need only verbal/nonverbal cueing or touching/steadying/contact guard assistance fro m one helper? Yes. 1. [id number] ADMISSION PERFORMANCE: Supervision or touching assistance CODE: 04 INDICATE THE TYPE OF WHEELCHAIR/SCOOTER USED: SS1. INDICATE THE TYPE OF WHEELCHAIR/SCOOTER USED.: Manual CODE: 1 BLADDER AND BOWEL: CODE: EXPR CODE: EXPR SIGNATURE PANEL: The following modified sections: 1. [id number] Admission Performance, 1. [id number] Admission Performance, 1. [id number] Admission Performance, 1. [id number] Admission Performance, 1. [id number] Admission Performance, 1. [id number] Admission Performance, 1. [id number] Admission Performance, Q1. Does the patient use a wheel chair/scooter?, 1. [id number] Admission Performance, RR1. Indicate the type of wheelchair/scooter used., 1. [id number] Admission Performance, Code, SS1. Indicate the type of wheelchair/scooter used. were [aj ctronically] signed by Giovanny Ac PTA on FriApr 29 2019 14:50:10 GMT-0600 (Central Standard Time)
--- NOTE | 2019-04-29 18:07 | R.PN ---
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 Pt denied any depression. Labs reviewed and are stable. Pain continues to be well managed. He is doing well with physical and o ccupational therapy. VITAL SIGNS Temperature: 97.0 F SBP/DBP: 95/60 Pulse: 109 Resp: 16 MEDICATION ALLERGIES: No Known Drug Allergies (NKDA) ENVIRONMENTAL ALLERGIES: - Substance Allergies None Known - Other Allergies None Known NURSING: - Shower allowing shower - Skin care per protocol PRECAUTIONS: - Posterior Hip Precaution No adduction across midline No external rotation No hip flexion >90 degrees No internal rotation No wheel chair propulsion - Weight Bearing Precaution WBAT left LE ACTIVITIES OOB only with supervision THERAPIES: - Dietary and Nutrition Adequate Nutrition. Nutritional Education. Nutritional Supplements. PHYSICAL EXAM - Gen Alert and awake Lying in bed No apparent distress Oriented to: person, time, and place - Skin No breakdown Normacephalic - Eyes No abnormalities - ENMT No abnormalities - Neck No abnormalities - CVS RRR - Chest No abnormalities - Abd + bowel sounds - GI Soft Deferred - No abnormalities - Ext Left hip surgical site has good hemostasis. - MSK 4+/5 weakness in left lower extremity - Neuro 4/5 strength left lower extremity. - Psych No abnormalities ASSESSMENT: Pt. is a 84 yo Right-handed white male.On 04/09/2019 he was admitted to [facility] emergency surgery for Unspecified intracapsular fracture of left femur, initial encounter for close d fracture (S72.012A) (Unilateral Hip Fracture) by Daily De Jesus.Pre-morbidly, Pt. was independent/ mod-I in Locomotion and Self-Care; and he had good Safety Awareness and Sphincter Control.Currently, he has deficits of Endurance, Locomotion, Balance, Self-Care, Safety Awareness, Ambulation, pain limi ting function, Safety Awareness and Self-Care, and Social Cognition.Pt. is now referred to [facility] for acute in-patient rehabilitation in order to maximize patient's functional independence in activities of daily living, strength, ROM, and mobility.- Rehab Goal Patient has realistic goal of being discharged at assistance level 6-Cathy to reside at Home with Fam samantha/Relatives. MDM/PLAN: - Physical Therapy Decreased range of motion - to improve, our physical therapists will perform initial evaluation of p t's status upon admission and devise an individualized program for increasing patient's Range of Kenn on. Gait dysfunction - to improve, our physical therapists will perform initial evaluation of pt's statu s upon admission and devise an individualized program for Gait Training, and Wheel Chair mobility Need for home safety evaluation - to improve, our physical therapists will perform initial evaluatio n of pt's status upon admission and devise an individualized program for Home Evaluation Need in caregiver upon discharge - to improve, our physical therapists will perform initial evaluati on of pt's status upon admission and devise an individualized program for Caregiver Training New precaution - to improve, our physical therapists will perform initial evaluation of pt's status upon admission and devise an individualized program for Patient precaution education Poor balance - to improve, our physical therapists will perform initial evaluation of pt's status up on admission and devise an individualized program for Balance Training Poor endurance - to improve, our physical therapists will perform initial evaluation of pt's status upon admission and devise an individualized program for Endurance Training Weakness - to improve, our physical therapists will perform initial evaluation of pt's status upon a dmission and devise an individualized program for Aquatic Therapy, Neuromuscular Reeducation, and Str engthening Achieving independence - to improve, our physical therapists will perform initial evaluation of pt's status upon admission and devise an individualized program for Community Reintegration Activities - Occupational Therapy ADL deficits - to improve, our occupation therapists will perform initial evaluation of pt's status upon admission and devise an individualized program for Bathing, Bed mobility, Community Reintegratio n, Cooking, Dressing, Eating, Fine Motor Skills, Grooming, Homemaking, Kitchen Mobility, Laundry, Pat ient Education, Safety Awareness, Splinting - Positioning, Transfers(Toilet, Tub, Shower), and Wheel Chair Management Cognitive deficits - to improve, our occupation therapists will perform initial evaluation of pt's s tatus upon admission and devise an individualized program for Cognition - orientation Need for care center manager - to improve, our occupation therapists will perform initial evaluation of pt's status upon admission and devise an individualized program for Caregiver Training Weakness - to improve, our occupation therapists will perform initial evaluation of pt's status upon admission and devise an individualized program for Aquatic Therapy, Balance, Endurance, UE ROM, and UE strengthening - Other See attached MAR (Medication Administration Record) - Anterior Hip Precaution No abduction No active extension No adduction across midline No external rotation No hip flexion >90 degrees No internal rotation - Diet - Liquid Texture Continue Regular - Tube Feed Continue N/A - Diet Type Continue Regular - Posterior Hip Precaution No adduction across midline No external rotation No hip flexion >90 degrees No internal rotation No wheel chair propulsion - Weight Bearing Precaution WBAT left LE - Skin care per protocol - Diet - Solid Texture Continue Regular - Shower allowing shower FUNCTIONAL STATUS: UPDATED AT WEEKLY TEAM CONFERENCE - Bladder Same accident frequency: 7-Ind - No accidents in the past 7 days - Bowel Same accident frequency: 7-Ind - No accidents in the past 7 days - Walking Same score based on distance walked: 1(<=50ft) - Wheelchair Same score based on distance traveled: 1(<=50ft) FUNCTIONAL STATUS: - Self-Care A. Eating Ind B. Grooming sup C. Bathing modA D. Dressing - Upper modA E. Dressing - Lower modA F. Toileting modA - Sphincter Control G. Bladder control sup H. Bowel control sup - Transfers Control I. Bed/Chair/Wheelchair modA J. Toilet modA K. Tub/Shower modA - Locomotion L. Walk/Wheelchair (W) modA M. Stairs maxA - Communication N. Comprehension (A) Ind O. Expression (B) Ind - Social Cognition P. Social Interaction sup Q. Problem Solving sup R. Memory sup - Endurance Good - Balance Good - Safety Awareness Good QI SCORES: - Self-Care A. Eating 05-Setup or clean-up assistance B. Oral hygiene 05-Setup or clean-up assistance C. Toileting hygiene 03-Partial/moderate assistance E. Shower/bathe self 01-Dependent F. Upper body dressing 04-Supervision or touching assistance G. Lower body dressing 01-Dependent H. Putting on/taking off footwear 88-Not attempted due to medical condition or safety concerns - Mobility A. Roll left and right 02-Substantial/maximal assistance B. Sit to lying 02-Substantial/maximal assistance C. Lying to sitting on side of bed 02-Substantial/maximal assistance D. Sit to stand 02-Substantial/maximal assistance E. Chair/uyq-ca-ehrci transfer 02-Substantial/maximal assistance F. Toilet transfer 02-Substantial/maximal assistance G. Car transfer 88-Not attempted due to medical condition or safety concerns I. Walk 10 feet 01-Dependent J. Walk 50 feet with two turns 88-Not attempted due to medical condition or safety concerns K. Walk 150 feet 88-Not attempted due to medical condition or safety concerns L. Walking 10 feet on uneven surfaces 88-Not attempted due to medical condition or safety concerns M. 1 step (curb) 88-Not attempted due to medical condition or safety concerns N. 4 steps 02-Substantial/maximal assistance O. 12 steps 88-Not attempted due to medical condition or safety concerns P. Picking up object 88-Not attempted due to medical condition or safety concerns R. Wheel 50 feet with two turns 88-Not attempted due to medical condition or safety concerns S. Wheel 150 feet 88-Not attempted due to medical condition or safety concerns - Bladder and Bowel Bladder continence 0-Always continent Bowel continence 0-Always continent [facility] DEFICITS: Endurance, Locomotion, Balance, Self-Care, Safety Awareness, Ambulation, pain limiting function, Safe ty Awareness and Self-Care, and Social Cognition SIGNATURE PANEL: (QUILL REAMER)
[2019-04-29] MEDS: MIRTAZAPINE 15 MG TAB PO SCH (19:15)
[2019-04-29] MEDS: MELATONIN 3 MG TABLET PO PRN (19:15)
[2019-04-29] MEDS: LORAZEPAM 0.5 MG TABLET PO PRN (20:23)
[2019-04-30] MEDS: METOPROLOL XL 25 MG TAB PO SCH ×2 (04:56→17:40)
[2019-04-30] MEDS: PANTOPRAZOLE 40MG TABLET PO SCH ×2 (07:18→17:40)
[2019-04-30] MEDS: buPROPion HCl 100 MG TAB PO SCH (07:19)
[2019-04-30] MEDS: MEMANTINE HCL 10 MG TABLET PO SCH ×2 (07:19→20:22)
[2019-04-30] MEDS: MEGESTROL 40 MG TAB PO SCH (07:19)
[2019-04-30] MEDS: TAMSULOSIN 0.4 MG SR CAP PO SCH (07:19)
[2019-04-30] MEDS: FUROSEMIDE 20 MG TABLET PO SCH (07:19)
[2019-04-30] MEDS: PRAMIPEXOLE 0.25 MG TAB PO SCH ×2 (07:19→20:22)
[2019-04-30] MEDS: ASPIRIN EC 81 MG TAB PO SCH (07:19)
[2019-04-30] MEDS: APIXABAN 2.5 MG TABLET PO SCH ×2 (07:19→20:24)
[2019-04-30] MEDS: FLUDROCORTISONE 0.1 MG TAB PO SCH (07:19)
[2019-04-30] MEDS: ENSURE HIGH PROTEIN 237 ML CAN PO SCH ×2 (07:20→20:21)
[2019-04-30] MEDS: JUVEN PACKET PO SCH ×2 (07:20→20:22)
[2019-04-30] MEDS: FE SULF/FA/VIT B COMP & C TAB PO SCH (07:20)
[2019-04-30] MEDS: FERROUS SULFATE 325 MG TAB PO SCH (07:20)
[2019-04-30] MEDS: LIDOCAINE 4% PATCH TOP SCH (07:20)
[2019-04-30] MEDS: PROMOD 30 ML DOSE PO SCH ×2 (07:21→20:21)
[2019-04-30] MEDS: NYSTATIN PWDR 100000 UNIT/GM TOP SCH ×2 (07:21→20:23)
--- NOTE | 2019-04-30 09:53 | P.RH.PN ---
Estimated Length of Stay: 17 Expected Discharge Date: 05/06/19 Discharge Disposition Plan: Home Family Support: Yes Prison Goal: Mobility, Transfers, Self Care Vital Signs: Last Vital Signs Temp 96.8 F 04/30/19 06:54 Pulse 101 H 04/30/19 07:19 Resp 16 04/30/19 06:54 BP 115/66 04/30/19 07:19 Pulse Ox 97 04/30/19 06:54 Laboratory: Laboratory Last Values WBC 9.0 K/uL (4.3-10.9) 04/29/19 05:36 RBC 3.12 M/uL (4.33-5.43) L 04/29/19 05:36 Hgb 9.1 g/dL (13.6-17.9) L 04/29/19 05:36 Hct 26.4 % (39.6-49.0) L 04/29/19 05:36 MCV 84.6 fL (80-100) 04/29/19 05:36 MCH 29.1 pg (27.0-35.0) 04/29/19 05:36 MCHC 34.4 g/dL (32.0-36.0) 04/29/19 05:36 RDW 14.7 % (12.1-15.2) 04/29/19 05:36 Plt Count 385 K/uL (152-406) D 04/29/19 05:36 MPV 8.3 fL (7.6-11.3) 04/29/19 05:36 Neutrophils % 65.4 % (41.7-73.7) 04/29/19 05:36 Lymphocytes % 17.0 % (15.3-44.8) 04/29/19 05:36 Monocytes % 14.7 % (3.3-12.3) H 04/29/19 05:36 Eosinophils % 2.4 % (0-4.4) 04/29/19 05:36 Basophils % 0.5 % (0-1.3) 04/29/19 05:36 Absolute Neutrophils 5.9 K/uL (1.8-8.0) 04/29/19 05:36 Absolute Lymphocytes 1.5 K/uL (0.7-4.9) 04/29/19 05:36 Absolute Monocytes 1.3 K/uL (0.1-1.3) 04/29/19 05:36 Absolute Eosinophils 0.2 K/uL (0-0.5) 04/29/19 05:36 Absolute Basophils 0.0 K/uL (0-0.5) 04/29/19 05:36 Sodium 141 mmol/L (136-145) 04/29/19 05:36 Potassium 4.1 mmol/L (3.5-5.1) 04/29/19 05:36 Chloride 107 mmol/L (98-107) 04/29/19 05:36 Carbon Dioxide 28 mmol/L (21-32) 04/29/19 05:36 BUN 25 mg/dL (7-18) H 04/29/19 05:36 Creatinine 1.22 mg/dL (0.55-1.3) 04/29/19 05:36 Estimated GFR 57 mL/min (=/>90) L 04/29/19 05:36 Glucose 97 mg/dL (74-106) 04/29/19 05:36 Calcium 8.9 mg/dL (8.5-10.1) 04/29/19 05:36 Magnesium 2.2 mg/dL (1.8-2.4) 04/29/19 05:36 Albumin 2.3 g/dL (3.4-5.0) L 04/29/19 05:36 Prealbumin 9.9 mg/dL (20-40) L 04/29/19 05:36 Urine Color Yellow 04/21/19 04:05 Urine Appearance Clear 04/21/19 04:05 Urine pH 6.5 (5.0-7.0) 04/21/19 04:05 Ur Specific [place] 1.025 (1.005-1.030) 04/21/19 04:05 Urine Ketones Negative (NEG) 04/21/19 04:05 Urine Blood Negative (NEG) 04/21/19 04:05 Urine Nitrite Negative (NEG) 04/21/19 04:05 Urine Bilirubin Negative (NEG) 04/21/19 04:05 Urine Urobilinogen 1.0 mg/dL (0.2-1.0) 04/21/19 04:05 Ur Leukocyte Esterase Negative (NEG) 04/21/19 04:05 Urine RBC None seen /HPF (NONE SEEN) 04/21/19 04:05 Urine WBC <5 /HPF (<5) 04/21/19 04:05 Ur Squamous Epith Cells <5 /HPF (NONE SEEN) 04/21/19 04:05 Urine Bacteria <20 /HPF (NONE SEEN) 04/21/19 04:05 Urine Culture Reflexed Not needed 04/21/19 04:05 Urine Glucose Negative (NEG) 04/21/19 04:05 Urine Total Protein Negative (NEG) 04/21/19 04:05 Weight: 199 lb 8 oz Wound Present: No Closed Surgical Incision Present: Yes Negative Pressure Wound Therapy Present: No Physician Update: Labs reviewed. His prealbumin has decreased to 9.9 from 10.9, 8 days ago. He is on promod and megace. He shows variable effort. He can use a product marketing intern but requires help with lower body dressing. His has a pain patch on the left hip and thigh. He has difficulty recalling hip precautions. He is walking 50' contact guard. He has difficulty placing his hands on the walker. Has difficulty learing new information. He appears to have flash backs due to PTSD. Medical Issues: Patient is incontinent daily with bladder and occasional incontinent with bowel. Functional Improvement: Patient continues to work toward meeting transfer and gait goals, however quickly becomes fatigued and confused during therapy. Patient requires frequent and multiple VC for completion of task. Functional Improvement Occupational Therapy: Pt continues to demonstrate limited function in adls due to decreased activity tolerance, memory and issues with pain and PTSD. Pt is cooperative but difficulty with recalling or incorporating hip precautions. Introduced to adaptive equipment but will require max repetition for new learning. Continue as per OT POC. Speech Therapy Update: Patient had made slow, gradual progress on his overall cognitive-linguistic goals. Mostly, due to PTSD impacting his ability to focus and participate. However, patient has demonstrated improved ability to focus, answer questions, and perform divided attention and functional memory tasks in the last two sessions. Patient will require constant supv upon d/c home for safety. SCREEN ROOM OPERATOR recommends psych consult/treatment for PTSD. 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 Please see the Rehabilitation Signature page for all necessary signatures.
[2019-04-30] MEDS: ACETAMINOPHEN 325 MG TABLET PO PRN (11:48)
--- NOTE | 2019-04-30 13:06 | FAST ---
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 Alex Ribeiro M.D. ADMISSION DIAGNOSIS: - Orthopaedic Disorders 08 - Unilateral Hip Fracture (08.11) Unspecified intracapsular fracture of left femur, initial encounter for closed fracture (S72.012A). EATING: Not assessed/no information CODE: - ORAL HYGIENE: Not assessed/no information CODE: - TOILETING HYGIENE: TOILETING HYGIENE - STEP 1: Does the patient complete the activity by him/herself with no assistance (physical, verbal/nonverbal cueing, setup/clean-up)? No. TOILETING HYGIENE - STEP 2: Does the patient need only setup/clean-up assistance from one helper? No. TOILETING HYGIENE - STEP 3: Does the patient need only verbal/nonverbal cueing or touching/steadying/contact guard assistance fro m one helper? No. TOILETING HYGIENE - STEP 4: Does the patient need physical assistance - for example lifting or trunk support from one helper - wi th the helper providing less than half of the effort? Yes. 1. [id number] ADMISSION PERFORMANCE: Partial/moderate assistance CODE: 03 BATHING: SHOWER/BATHE SELF - STEP 1: Does the patient complete the activity by him/herself with no assistance (physical, verbal/nonverbal cueing, setup/clean-up)? No. SHOWER/BATHE SELF - STEP 2: Does the patient need only setup/clean-up assistance from one helper? No. SHOWER/BATHE SELF - STEP 3: Does the patient need only verbal/nonverbal cueing or touching/steadying/contact guard assistance fro m one helper? No. SHOWER/BATHE SELF - STEP 4: Does the patient need physical assistance - for example lifting or trunk support from one helper - wi th the helper providing less than half of the effort? Yes. 1. [id number] ADMISSION PERFORMANCE: Partial/moderate assistance CODE: 03 DRESSING - UPPER BODY: DRESSING - UPPER BODY - STEP 1: Does the patient complete the activity by him/herself with no assistance (physical, verbal/nonverbal cueing, setup/clean-up)? No. DRESSING - UPPER BODY - STEP 2: Does the patient need only setup/clean-up assistance from one helper? No. DRESSING - UPPER BODY - STEP 3: Does the patient need only verbal/nonverbal cueing or touching/steadying/contact guard assistance fro m one helper? Yes. 1. [id number] ADMISSION PERFORMANCE: Supervision or touching assistance CODE: 04 DRESSING - LOWER BODY: DRESSING - LOWER BODY - STEP 1: Does the patient complete the activity by him/herself with no assistance (physical, verbal/nonverbal cueing, setup/clean-up)? No. DRESSING - LOWER BODY - STEP 2: Does the patient need only setup/clean-up assistance from one helper? No. DRESSING - LOWER BODY - STEP 3: Does the patient need only verbal/nonverbal cueing or touching/steadying/contact guard assistance fro m one helper? No. DRESSING - LOWER BODY - STEP 4: Does the patient need physical assistance - for example lifting or trunk support from one helper - wi th the helper providing less than half of the effort? Yes. 1. [id number] ADMISSION PERFORMANCE: Partial/moderate assistance CODE: 03 PUTTING ON/TAKING OFF FOOTWEAR: FOOTWEAR - STEP 1: Does the patient complete the activity by him/herself with no assistance (physical, verbal/nonverbal cueing, setup/clean-up)? No. FOOTWEAR - STEP 2: Does the patient need only setup/clean-up assistance from one helper? No. FOOTWEAR - STEP 3: Does the patient need only verbal/nonverbal cueing or touching/steadying/contact guard assistance fro m one helper? No. FOOTWEAR - STEP 4: Does the patient need physical assistance - for example lifting or trunk support from one helper - wi th the helper providing less than half of the effort? No. FOOTWEAR - STEP 5: Does the patient need physical assistance - for example lifting or trunk support from one helper - wi th the helper providing more than half of the effort? Yes. 1. [id number] ADMISSION PERFORMANCE: Substantial/maximal assistance CODE: 02 DOES THE PATIENT USE A WHEELCHAIR/SCOOTER? CODE: EXPR INDICATE THE TYPE OF WHEELCHAIR/SCOOTER USED: CODE: EXPR INDICATE THE TYPE OF WHEELCHAIR/SCOOTER USED: CODE: EXPR BLADDER AND BOWEL: CODE: EXPR CODE: EXPR SIGNATURE PANEL: The following modified sections: 1. [id number] Admission Performance, 1. [id number] Admission Performance, 1. [id number] Admission Performance, 1. [id number] Admission Performance, 1. [id number] Admission Performance, 1. [id number] Admission Performance, 1. [id number] Admission Performance were [electronically] signed by Hernan Ken OT on FriApr 30 2019 13:05:11 GMT-0600 (Central Standard Time)
--- NOTE | 2019-04-30 15:41 | FAST ---
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 Alex Ribeiro M.D. ADMISSION DIAGNOSIS: - Orthopaedic Disorders 08 - Unilateral Hip Fracture (08.11) Unspecified intracapsular fracture of left femur, initial encounter for closed fracture (S72.012A). EATING: EATING - STEP 1: Does the patient complete the activity by him/herself with no assistance (physical, verbal/nonverbal cueing, setup/clean-up)? No. EATING - STEP 2: Does the patient need only setup/clean-up assistance from one helper? No. EATING - STEP 3: Does the patient need only verbal/nonverbal cueing or touching/steadying/contact guard assistance fro m one helper? Yes. 1. [id number] ADMISSION PERFORMANCE: Supervision or touching assistance CODE: 04 ORAL HYGIENE: ORAL HYGIENE - STEP 1: Does the patient complete the activity by him/herself with no assistance (physical, verbal/nonverbal cueing, setup/clean-up)? No. ORAL HYGIENE - STEP 2: Does the patient need only setup/clean-up assistance from one helper? Yes. 1. [id number] ADMISSION PERFORMANCE: Setup or clean-up assistance CODE: 05 TOILETING HYGIENE: TOILETING HYGIENE - STEP 1: Does the patient complete the activity by him/herself with no assistance (physical, verbal/nonverbal cueing, setup/clean-up)? No. TOILETING HYGIENE - STEP 2: Does the patient need only setup/clean-up assistance from one helper? No. TOILETING HYGIENE - STEP 3: Does the patient need only verbal/nonverbal cueing or touching/steadying/contact guard assistance fro m one helper? Yes. 1. [id number] ADMISSION PERFORMANCE: Supervision or touching assistance CODE: 04 BATHING: Not assessed/no information CODE: - DRESSING - UPPER BODY: DRESSING - UPPER BODY - STEP 1: Does the patient complete the activity by him/herself with no assistance (physical, verbal/nonverbal cueing, setup/clean-up)? No. DRESSING - UPPER BODY - STEP 2: Does the patient need only setup/clean-up assistance from one helper? No. DRESSING - UPPER BODY - STEP 3: Does the patient need only verbal/nonverbal cueing or touching/steadying/contact guard assistance fro m one helper? Yes. 1. [id number] ADMISSION PERFORMANCE: Supervision or touching assistance CODE: 04 DRESSING - LOWER BODY: DRESSING - LOWER BODY - STEP 1: Does the patient complete the activity by him/herself with no assistance (physical, verbal/nonverbal cueing, setup/clean-up)? No. DRESSING - LOWER BODY - STEP 2: Does the patient need only setup/clean-up assistance from one helper? No. DRESSING - LOWER BODY - STEP 3: Does the patient need only verbal/nonverbal cueing or touching/steadying/contact guard assistance fro m one helper? No. DRESSING - LOWER BODY - STEP 4: Does the patient need physical assistance - for example lifting or trunk support from one helper - wi th the helper providing less than half of the effort? Yes. 1. [id number] ADMISSION PERFORMANCE: Partial/moderate assistance CODE: 03 PUTTING ON/TAKING OFF FOOTWEAR: FOOTWEAR - STEP 1: Does the patient complete the activity by him/herself with no assistance (physical, verbal/nonverbal cueing, setup/clean-up)? No. FOOTWEAR - STEP 2: Does the patient need only setup/clean-up assistance from one helper? No. FOOTWEAR - STEP 3: Does the patient need only verbal/nonverbal cueing or touching/steadying/contact guard assistance fro m one helper? No. FOOTWEAR - STEP 4: Does the patient need physical assistance - for example lifting or trunk support from one helper - wi th the helper providing less than half of the effort? No. FOOTWEAR - STEP 5: Does the patient need physical assistance - for example lifting or trunk support from one helper - wi th the helper providing more than half of the effort? No. FOOTWEAR - STEP 6: Does the helper provide all of the effort? OR Is the assistance of two or more helpers required to co mplete the activity? Yes. 1. [id number] ADMISSION PERFORMANCE: Dependent CODE: 01 ROLL LEFT AND RIGHT: ROLL LEFT AND RIGHT - STEP 1: Does the patient complete the activity by him/herself with no assistance (physical, verbal/nonverbal cueing, setup/clean-up)? No. ROLL LEFT AND RIGHT - STEP 2: Does the patient need only setup/clean-up assistance from one helper? No. ROLL LEFT AND RIGHT - STEP 3: Does the patient need only verbal/nonverbal cueing or touching/steadying/contact guard assistance fro m one helper? No. ROLL LEFT AND RIGHT - STEP 4: Does the patient need physical assistance - for example lifting or trunk support from one helper - wi th the helper providing less than half of the effort? Yes. 1. [id number] ADMISSION PERFORMANCE: Partial/moderate assistance CODE: 03 SIT TO LYING: SIT TO LYING - STEP 1: Does the patient complete the activity by him/herself with no assistance (physical, verbal/nonverbal cueing, setup/clean-up)? No. SIT TO LYING - STEP 2: Does the patient need only setup/clean-up assistance from one helper? No. SIT TO LYING - STEP 3: Does the patient need only verbal/nonverbal cueing or touching/steadying/contact guard assistance fro m one helper? No. SIT TO LYING - STEP 4: Does the patient need physical assistance - for example lifting or trunk support from one helper - wi th the helper providing less than half of the effort? Yes. 1. [id number] ADMISSION PERFORMANCE: Partial/moderate assistance CODE: 03 LYING TO SITTING: LYING TO SITTING ON SIDE OF BED - STEP 1: Does the patient complete the activity by him/herself with no assistance (physical, verbal/nonverbal cueing, setup/clean-up)? No. LYING TO SITTING ON SIDE OF BED - STEP 2: Does the patient need only setup/clean-up assistance from one helper? No. LYING TO SITTING ON SIDE OF BED - STEP 3: Does the patient need only verbal/nonverbal cueing or touching/steadying/contact guard assistance fro m one helper? No. LYING TO SITTING ON SIDE OF BED - STEP 4: Does the patient need physical assistance - for example lifting or trunk support from one helper - wi th the helper providing less than half of the effort? Yes. 1. [id number] ADMISSION PERFORMANCE: Partial/moderate assistance CODE: 03 SIT TO STAND: SIT TO STAND - STEP 1: Does the patient complete the activity by him/herself with no assistance (physical, verbal/nonverbal cueing, setup/clean-up)? No. SIT TO STAND - STEP 2: Does the patient need only setup/clean-up assistance from one helper? No. SIT TO STAND - STEP 3: Does the patient need only verbal/nonverbal cueing or touching/steadying/contact guard assistance fro m one helper? Yes. 1. [id number] ADMISSION PERFORMANCE: Supervision or touching assistance CODE: 04 TRANSFERS: BED, CHAIR: [id number]/[id number] TRANSFER - STEP 1: Does the patient complete the activity by him/herself with no assistance (physical, verbal/nonverbal cueing, setup/clean-up)? No. CHAIR/[id number] TRANSFER - STEP 2: Does the patient need only setup/clean-up assistance from one helper? No. CHAIR/[id number] TRANSFER - STEP 3: Does the patient need only verbal/nonverbal cueing or touching/steadying/contact guard assistance fro m one helper? Yes. 1. [id number] ADMISSION PERFORMANCE: Supervision or touching assistance CODE: 04 TRANSFER TOILET: TOILET TRANSFER - STEP 1: Does the patient complete the activity by him/herself with no assistance (physical, verbal/nonverbal cueing, setup/clean-up)? No. TOILET TRANSFER - STEP 2: Does the patient need only setup/clean-up assistance from one helper? No. TOILET TRANSFER - STEP 3: Does the patient need only verbal/nonverbal cueing or touching/steadying/contact guard assistance fro m one helper? Yes. 1. [id number] ADMISSION PERFORMANCE: Supervision or touching assistance CODE: 04 TRANSFERS: CAR: Not assessed/no information CODE: - WALK 10 FEET: Not assessed/no information CODE: - 1 STEP (CURB): Not assessed/no information CODE: - PICKING UP OBJECT: Not assessed/no information CODE: - DOES THE PATIENT USE A WHEELCHAIR/SCOOTER? Q1. DOES THE PATIENT USE A WHEELCHAIR/SCOOTER?: Yes CODE: 1 WHEEL 50 FEET WITH TWO TURNS: WHEEL 50 FEET WITH TWO TURNS - STEP 1: Does the patient complete the activity by him/herself with no assistance (physical, verbal/nonverbal cueing, setup/clean-up)? No. WHEEL 50 FEET WITH TWO TURNS - STEP 2: Does the patient need only setup/clean-up assistance from one helper? No. WHEEL 50 FEET WITH TWO TURNS - STEP 3: Does the patient need only verbal/nonverbal cueing or touching/steadying/contact guard assistance fro m one helper? Yes. 1. [id number] ADMISSION PERFORMANCE: Supervision or touching assistance CODE: 04 INDICATE THE TYPE OF WHEELCHAIR/SCOOTER USED: RR1. INDICATE THE TYPE OF WHEELCHAIR/SCOOTER USED.: Manual CODE: 1 WHEEL 150 FEET: WHEEL 150 FEET - STEP 1: Does the patient complete the activity by him/herself with no assistance (physical, verbal/nonverbal cueing, setup/clean-up)? No. WHEEL 150 FEET - STEP 2: Does the patient need only setup/clean-up assistance from one helper? No. WHEEL 150 FEET - STEP 3: Does the patient need only verbal/nonverbal cueing or touching/steadying/contact guard assistance fro m one helper? Yes. 1. [id number] ADMISSION PERFORMANCE: Supervision or touching assistance CODE: 04 INDICATE THE TYPE OF WHEELCHAIR/SCOOTER USED: SS1. INDICATE THE TYPE OF WHEELCHAIR/SCOOTER USED.: Manual CODE: 1 BLADDER AND BOWEL: H350. BLADDER CONTINENCE (3-DAY ASSESSMENT PERIOD): Always continent (no documented incontinence) CODE: 0 H400. BOWEL CONTINENCE (3-DAY ASSESSMENT PERIOD): Always continent CODE: 0 SIGNATURE PANEL: The following modified sections: 1. [id number] Admission Performance, 1. [id number] Admission Performance, 1. [id number] Admission Performance, 1. [id number] Admission Performance, 1. EU8024w Admission Performance, 1. OA9325s Admission Performance, 1. ES3060h Admission Performance, 1. SQ2237h Admission Performance , 1. [id number] Admission Performance, 1. SE9154P Admission Performance, 1. PI5700A Admission Performanc e, 1. [id number] Admission Performance, 1. LR7744P Admission Performance, 1. LW1974Q Admission Performan ce, Q1. Does the patient use a wheelchair/scooter?, 1. HT6583D Admission Performance, 1. [id number] Admi ssion Performance, RR1. Indicate the type of wheelchair/scooter used., 1. [id number] Admission Performan ce, 1. [id number] Admission Performance, Code, SS1. Indicate the type of wheelchair/scooter used., H350. Bladder Continence (3-day assessment period), H400. Bowel Continence (3-day assessment period) were [electronically] signed by Marysol Crocker C.N.A. on FriApr 30 2019 15:40:57 T-0600 (Central Standar d Time)
[2019-04-30] MEDS: LORAZEPAM 0.5 MG TABLET PO PRN (17:55)
--- NOTE | 2019-04-30 19:16 | RAD REPORT ---
EXAM DESCRIPTION: RAD - Chest Single View - 04/30/2019 7:05 pm CLINICAL HISTORY: shortness of breath Chest pain. COMPARISON: Chest Single View dated 04/09/2019; Chest Pa And Lat (2 Views) dated 11/10/2017Chest Sing le View dated 04/09/2019; Chest Pa And Lat (2 Views) dated 11/10/2017 FINDINGS: Portable technique limits examination quality. Complete opacification of the left hemithorax is likely related to a large left pleural effusion. The right lung is grossly clear. The heart is normal in size. No displaced fractures. IMPRESSION: Large left pleural effusion.
[2019-04-30] MEDS: MIRTAZAPINE 15 MG TAB PO SCH (20:23)
[2019-04-30] MEDS: MELATONIN 3 MG TABLET PO PRN (23:58)
[2019-05-01] MEDS: ALBUTEROL 2.5 MG/3 ML NEB SOL NEB SCH ×4 (02:00→20:00)
[2019-05-01] MEDS: METOPROLOL TAR 25 MG TAB PO SCH ×2 (05:12→16:41)
[2019-05-01 05:38] VITALS: BMI 29.2
[2019-05-01] MEDS ORDERED: METOPROLOL TAR 25 MG TAB PO SCH (06:00)
[2019-05-01] MEDS ORDERED: METOPROLOL XL 25 MG TAB PO SCH (06:00)
[2019-05-01] MEDS: PANTOPRAZOLE 40MG TABLET PO SCH ×2 (07:05→16:41)
[2019-05-01] MEDS: LIDOCAINE 4% PATCH TOP SCH (07:05)
[2019-05-01] MEDS: TRAMADOL HCL 50 MG TAB PO PRN (08:04)
[2019-05-01] MEDS: FERROUS SULFATE 325 MG TAB PO SCH (08:05)
[2019-05-01] MEDS: PRAMIPEXOLE 0.25 MG TAB PO SCH ×2 (08:05→18:56)
[2019-05-01] MEDS: buPROPion HCl 100 MG TAB PO SCH (08:06)
[2019-05-01] MEDS: APIXABAN 2.5 MG TABLET PO SCH (08:06)
[2019-05-01] MEDS: FE SULF/FA/VIT B COMP & C TAB PO SCH (08:06)
[2019-05-01] MEDS: TAMSULOSIN 0.4 MG SR CAP PO SCH (08:06)
[2019-05-01] MEDS: ENSURE HIGH PROTEIN 237 ML CAN PO SCH ×2 (08:06→18:56)
[2019-05-01] MEDS: FUROSEMIDE 20 MG TABLET PO SCH (08:06)
[2019-05-01] MEDS: ASPIRIN EC 81 MG TAB PO SCH (08:08)
[2019-05-01] MEDS: FLUDROCORTISONE 0.1 MG TAB PO SCH (08:08)
[2019-05-01] MEDS: JUVEN PACKET PO SCH ×2 (08:08→18:56)
[2019-05-01] MEDS: MEGESTROL 40 MG TAB PO SCH (08:08)
[2019-05-01] MEDS: PROMOD 30 ML DOSE PO SCH ×2 (08:09→18:57)
[2019-05-01] MEDS: MEMANTINE HCL 10 MG TABLET PO SCH ×2 (08:11→18:57)
[2019-05-01] MEDS: NYSTATIN PWDR 100000 UNIT/GM TOP SCH ×2 (08:49→19:12)
[2019-05-01] MEDS ORDERED: ONDANSETRON 4 MG (ODT) TAB PO PRN (14:41)
--- NOTE | 2019-05-01 15:08 | P.CNS ---
Date of Consult: 05/01/19 Reason for Consult: Massive left-sided pleural effusion Chief Complaint: Shortness of breath History of Present Illness: Patient is 84 years of age was transfer from [facility] facility he had repair of his left hip and was found to have a left-sided pleural effusion patient did undergo a left-sided thoracentesis has some suspicious cells in the pleural fluid and the time of admission it was the lower 3rd now a he has complete opacification of the left ruben thorax the denies any chest pain call pleural fluid data shows so negative adenosine DM and is test on the pleural fluid is no prior history of smoking Allergies carbidopa Allergy (Unknown, Verified 04/21/19 13:02) shake hydrocodone Allergy (Unknown, Verified 04/21/19 13:02) Rash ibuprofen Allergy (Unknown, Verified 04/21/19 13:02) Rash levodopa Allergy (Unknown, Verified 04/21/19 13:02) shake Penicillins Allergy (Unknown, Verified 04/21/19 13:02) Rash Home Medications: Acetaminophen [8Hr Arthritis Pain Relief] 650 mg PO Q6HP PRN 11/08/17 Metoprolol Tartrate 12.5 mg PO BID 11/08/17 Mirtazapine 7.5 mg PO BEDTIME 11/08/17 buPROPion HCl [Wellbutrin*] 200 mg PO DAILY 11/08/17 Aspirin [Aspirin EC 81 MG] 81 mg PO DAILY 04/20/19 Furosemide [Lasix*] 40 mg PO DAILY 04/20/19 LORazepam [Ativan*] 0.5 mg PO Q6H PRN 04/20/19 Omeprazole 20 mg PO BIDAC 04/20/19 Pramipexole [Mirapex*] 0.25 mg PO DAILY 04/20/19 Tamsulosin [Flomax*] 0.4 mg PO DAILY 04/20/19 - Past Medical/Surgical History Diabetic: No -: depression -: ckd stage 3 -: chronic ptsd -: essential htn -: gerd -: hyperlipidemia -: parkinson's dse -: pleural effusion -: left knee tka 1993 -: left periprosthetic distal femur fracture 10/11/2017 - Family History Mother Medical History: Heart disease Father Medical History: Heart disease - Social History Alcohol use: No CD- Drugs: No Caffeine use: Yes Place of Residence: Home Review of Systems General: Weakness Respiratory: Shortness of Breath Physical Examination Temp Pulse Resp BP Pulse Ox 97.6 F 18 L 18 105/56 L 94 05/01/19 08:00 05/01/19 08:06 05/01/19 08:55 05/01/19 08:06 05/01/19 08:55 General: Alert, Oriented x3, Mild distress Neck: Supple Respiratory: Diminished (Diminished air) Cardiovascular: No edema, Normal S1 S2 Gastrointestinal: Normal bowel sounds, Soft and benign - Problems (1) Pleural effusion Current Visit: Yes Status: Acute Plan: Patient is 84 years of age transferred here for rehab off her his surgical hip repair of the left side he was found to have pleural effusion on the left side status post thoracentesis at [facility] no evidence of sepsis ED day have the typical suspicious cells chest x-ray showed worsening of his pleural effusion on the left side with complete opacification of the left ruben thorax possibility of malignant pleural effusion although he has never smoked is no history of cancer before I think he will benefit from a PleurX catheter I have Consul did [facility] labs ordered Ilya Morgan as scheduled to have a PleurX catheter on Friday discuss with family members he has some mild shortness of breath I of order some oxygen and continuous pulse ox
[2019-05-01] MEDS: MELATONIN 3 MG TABLET PO PRN (18:57)
[2019-05-01] MEDS: MIRTAZAPINE 15 MG TAB PO SCH (18:57)
[2019-05-01] MEDS: LORAZEPAM 0.5 MG TABLET PO PRN (19:59)
[2019-05-02] MEDS: ALBUTEROL 2.5 MG/3 ML NEB SOL NEB SCH ×2 (02:00→07:20)
[2019-05-02] MEDS: METOPROLOL TAR 25 MG TAB PO SCH ×2 (05:05→17:12)
[2019-05-02] MEDS: LIDOCAINE 4% PATCH TOP SCH (07:24)
[2019-05-02] MEDS: PANTOPRAZOLE 40MG TABLET PO SCH ×2 (07:25→16:37)
[2019-05-02] MEDS: JUVEN PACKET PO SCH ×2 (08:12→18:42)
[2019-05-02] MEDS: ENSURE HIGH PROTEIN 237 ML CAN PO SCH ×2 (08:12→18:42)
[2019-05-02] MEDS: PROMOD 30 ML DOSE PO SCH ×2 (08:12→18:43)
[2019-05-02] MEDS: NYSTATIN PWDR 100000 UNIT/GM TOP SCH ×2 (08:14→18:42)
[2019-05-02] MEDS: TAMSULOSIN 0.4 MG SR CAP PO SCH (08:15)
[2019-05-02] MEDS: FE SULF/FA/VIT B COMP & C TAB PO SCH (08:15)
[2019-05-02] MEDS: PRAMIPEXOLE 0.25 MG TAB PO SCH ×2 (08:15→18:42)
[2019-05-02] MEDS: buPROPion HCl 100 MG TAB PO SCH (08:16)
[2019-05-02] MEDS: MEGESTROL 40 MG TAB PO SCH (08:16)
[2019-05-02] MEDS: MEMANTINE HCL 10 MG TABLET PO SCH ×2 (08:16→18:43)
[2019-05-02] MEDS: FLUDROCORTISONE 0.1 MG TAB PO SCH (08:16)
[2019-05-02] MEDS: FERROUS SULFATE 325 MG TAB PO SCH (08:16)
[2019-05-02] MEDS: LEVALBUTEROL 0.63 MG/3 ML NEB NEB SCH ×2 (13:20→20:00)
--- NOTE | 2019-05-02 14:55 | FAST ---
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 Alex Ribeiro M.D. ADMISSION DIAGNOSIS: - Orthopaedic Disorders 08 - Unilateral Hip Fracture (08.11) Unspecified intracapsular fracture of left femur, initial encounter for closed fracture (S72.012A). EATING: EATING - STEP 1: Does the patient complete the activity by him/herself with no assistance (physical, verbal/nonverbal cueing, setup/clean-up)? No. EATING - STEP 2: Does the patient need only setup/clean-up assistance from one helper? No. EATING - STEP 3: Does the patient need only verbal/nonverbal cueing or touching/steadying/contact guard assistance fro m one helper? Yes. 1. [id number] ADMISSION PERFORMANCE: Supervision or touching assistance CODE: 04 ORAL HYGIENE: ORAL HYGIENE - STEP 1: Does the patient complete the activity by him/herself with no assistance (physical, verbal/nonverbal cueing, setup/clean-up)? No. ORAL HYGIENE - STEP 2: Does the patient need only setup/clean-up assistance from one helper? No. ORAL HYGIENE - STEP 3: Does the patient need only verbal/nonverbal cueing or touching/steadying/contact guard assistance fro m one helper? No. ORAL HYGIENE - STEP 4: Does the patient need physical assistance - for example lifting or trunk support from one helper - wi th the helper providing less than half of the effort? Yes. 1. [id number] ADMISSION PERFORMANCE: Partial/moderate assistance CODE: 03 TOILETING HYGIENE: TOILETING HYGIENE - STEP 1: Does the patient complete the activity by him/herself with no assistance (physical, verbal/nonverbal cueing, setup/clean-up)? No. TOILETING HYGIENE - STEP 2: Does the patient need only setup/clean-up assistance from one helper? No. TOILETING HYGIENE - STEP 3: Does the patient need only verbal/nonverbal cueing or touching/steadying/contact guard assistance fro m one helper? No. TOILETING HYGIENE - STEP 4: Does the patient need physical assistance - for example lifting or trunk support from one helper - wi th the helper providing less than half of the effort? Yes. 1. [id number] ADMISSION PERFORMANCE: Partial/moderate assistance CODE: 03 BATHING: Not assessed/no information CODE: - DRESSING - UPPER BODY: DRESSING - UPPER BODY - STEP 1: Does the patient complete the activity by him/herself with no assistance (physical, verbal/nonverbal cueing, setup/clean-up)? No. DRESSING - UPPER BODY - STEP 2: Does the patient need only setup/clean-up assistance from one helper? No. DRESSING - UPPER BODY - STEP 3: Does the patient need only verbal/nonverbal cueing or touching/steadying/contact guard assistance fro m one helper? No. DRESSING - UPPER BODY - STEP 4: Does the patient need physical assistance - for example lifting or trunk support from one helper - wi th the helper providing less than half of the effort? Yes. 1. [id number] ADMISSION PERFORMANCE: Partial/moderate assistance CODE: 03 DRESSING - LOWER BODY: DRESSING - LOWER BODY - STEP 1: Does the patient complete the activity by him/herself with no assistance (physical, verbal/nonverbal cueing, setup/clean-up)? No. DRESSING - LOWER BODY - STEP 2: Does the patient need only setup/clean-up assistance from one helper? No. DRESSING - LOWER BODY - STEP 3: Does the patient need only verbal/nonverbal cueing or touching/steadying/contact guard assistance fro m one helper? No. DRESSING - LOWER BODY - STEP 4: Does the patient need physical assistance - for example lifting or trunk support from one helper - wi th the helper providing less than half of the effort? Yes. 1. [id number] ADMISSION PERFORMANCE: Partial/moderate assistance CODE: 03 PUTTING ON/TAKING OFF FOOTWEAR: FOOTWEAR - STEP 1: Does the patient complete the activity by him/herself with no assistance (physical, verbal/nonverbal cueing, setup/clean-up)? No. FOOTWEAR - STEP 2: Does the patient need only setup/clean-up assistance from one helper? No. FOOTWEAR - STEP 3: Does the patient need only verbal/nonverbal cueing or touching/steadying/contact guard assistance fro m one helper? No. FOOTWEAR - STEP 4: Does the patient need physical assistance - for example lifting or trunk support from one helper - wi th the helper providing less than half of the effort? Yes. 1. [id number] ADMISSION PERFORMANCE: Partial/moderate assistance CODE: 03 ROLL LEFT AND RIGHT: ROLL LEFT AND RIGHT - STEP 1: Does the patient complete the activity by him/herself with no assistance (physical, verbal/nonverbal cueing, setup/clean-up)? No. ROLL LEFT AND RIGHT - STEP 2: Does the patient need only setup/clean-up assistance from one helper? No. ROLL LEFT AND RIGHT - STEP 3: Does the patient need only verbal/nonverbal cueing or touching/steadying/contact guard assistance fro m one helper? No. ROLL LEFT AND RIGHT - STEP 4: Does the patient need physical assistance - for example lifting or trunk support from one helper - wi th the helper providing less than half of the effort? No. ROLL LEFT AND RIGHT - STEP 5: Does the patient need physical assistance - for example lifting or trunk support from one helper - wi th the helper providing more than half of the effort? Yes. 1. [id number] ADMISSION PERFORMANCE: Substantial/maximal assistance CODE: 02 SIT TO LYING: SIT TO LYING - STEP 1: Does the patient complete the activity by him/herself with no assistance (physical, verbal/nonverbal cueing, setup/clean-up)? No. SIT TO LYING - STEP 2: Does the patient need only setup/clean-up assistance from one helper? No. SIT TO LYING - STEP 3: Does the patient need only verbal/nonverbal cueing or touching/steadying/contact guard assistance fro m one helper? Yes. 1. [id number] ADMISSION PERFORMANCE: Supervision or touching assistance CODE: 04 LYING TO SITTING: LYING TO SITTING ON SIDE OF BED - STEP 1: Does the patient complete the activity by him/herself with no assistance (physical, verbal/nonverbal cueing, setup/clean-up)? No. LYING TO SITTING ON SIDE OF BED - STEP 2: Does the patient need only setup/clean-up assistance from one helper? No. LYING TO SITTING ON SIDE OF BED - STEP 3: Does the patient need only verbal/nonverbal cueing or touching/steadying/contact guard assistance fro m one helper? Yes. 1. [id number] ADMISSION PERFORMANCE: Supervision or touching assistance CODE: 04 SIT TO STAND: SIT TO STAND - STEP 1: Does the patient complete the activity by him/herself with no assistance (physical, verbal/nonverbal cueing, setup/clean-up)? No. SIT TO STAND - STEP 2: Does the patient need only setup/clean-up assistance from one helper? No. SIT TO STAND - STEP 3: Does the patient need only verbal/nonverbal cueing or touching/steadying/contact guard assistance fro m one helper? Yes. 1. [id number] ADMISSION PERFORMANCE: Supervision or touching assistance CODE: 04 TRANSFERS: BED, CHAIR: CHAIR/[id number] TRANSFER - STEP 1: Does the patient complete the activity by him/herself with no assistance (physical, verbal/nonverbal cueing, setup/clean-up)? No. CHAIR/[id number] TRANSFER - STEP 2: Does the patient need only setup/clean-up assistance from one helper? No. CHAIR/[id number] TRANSFER - STEP 3: Does the patient need only verbal/nonverbal cueing or touching/steadying/contact guard assistance fro m one helper? Yes. 1. [id number] ADMISSION PERFORMANCE: Supervision or touching assistance CODE: 04 TRANSFER TOILET: TOILET TRANSFER - STEP 1: Does the patient complete the activity by him/herself with no assistance (physical, verbal/nonverbal cueing, setup/clean-up)? Yes. TOILET TRANSFER - STEP 2: Does the patient need only setup/clean-up assistance from one helper? Yes. 1. [id number] ADMISSION PERFORMANCE: Setup or clean-up assistance CODE: 05 TRANSFERS: CAR: Not assessed/no information CODE: - WALK 10 FEET: Not assessed/no information CODE: - 1 STEP (CURB): Not assessed/no information CODE: - PICKING UP OBJECT: Not assessed/no information CODE: - DOES THE PATIENT USE A WHEELCHAIR/SCOOTER? Q1. DOES THE PATIENT USE A WHEELCHAIR/SCOOTER?: Yes CODE: 1 WHEEL 50 FEET WITH TWO TURNS: WHEEL 50 FEET WITH TWO TURNS - STEP 1: Does the patient complete the activity by him/herself with no assistance (physical, verbal/nonverbal cueing, setup/clean-up)? No. WHEEL 50 FEET WITH TWO TURNS - STEP 2: Does the patient need only setup/clean-up assistance from one helper? No. WHEEL 50 FEET WITH TWO TURNS - STEP 3: Does the patient need only verbal/nonverbal cueing or touching/steadying/contact guard assistance fro m one helper? No. WHEEL 50 FEET WITH TWO TURNS - STEP 4: Does the patient need physical assistance - for example lifting or trunk support from one helper - wi th the helper providing less than half of the effort? Yes. 1. [id number] ADMISSION PERFORMANCE: Partial/moderate assistance CODE: 03 INDICATE THE TYPE OF WHEELCHAIR/SCOOTER USED: RR1. INDICATE THE TYPE OF WHEELCHAIR/SCOOTER USED.: Manual CODE: 1 WHEEL 150 FEET: WHEEL 150 FEET - STEP 1: Does the patient complete the activity by him/herself with no assistance (physical, verbal/nonverbal cueing, setup/clean-up)? No. WHEEL 150 FEET - STEP 2: Does the patient need only setup/clean-up assistance from one helper? No. WHEEL 150 FEET - STEP 3: Does the patient need only verbal/nonverbal cueing or touching/steadying/contact guard assistance fro m one helper? No. WHEEL 150 FEET - STEP 4: Does the patient need physical assistance - for example lifting or trunk support from one helper - wi th the helper providing less than half of the effort? Yes. 1. [id number] ADMISSION PERFORMANCE: Partial/moderate assistance CODE: 03 INDICATE THE TYPE OF WHEELCHAIR/SCOOTER USED: SS1. INDICATE THE TYPE OF WHEELCHAIR/SCOOTER USED.: Manual CODE: 1 BLADDER AND BOWEL: H350. BLADDER CONTINENCE (3-DAY ASSESSMENT PERIOD): Incontinent daily (at least once a day) CODE: 3 H400. BOWEL CONTINENCE (3-DAY ASSESSMENT PERIOD): Occasionally incontinent (one episode of bowel incontinence) CODE: 1 H0400 - COMMENTS: CathyTX SIGNATURE PANEL: The following modified sections: 1. [id number] Admission Performance, 1. [id number] Admission Performance, 1. [id number] Admission Performance, 1. [id number] Admission Performance, 1. CK7979e Admission Performance, 1. [id number] Admission Performance, 1. [id number] Admission Performance, 1. [id number] Admission Performance , 1. [id number] Admission Performance, 1. [id number] Admission Performance, 1. [id number] Admission Performanc e, 1. [id number] Admission Performance, 1. AF4815W Admission Performance, 1. [id number] Admission Performan ce, 1. [id number] Admission Performance, 1. [id number] Admission Performance, 1. NF7781C Admission Performa nce, 1. [id number] Admission Performance, Q1. Does the patient use a wheelchair/scooter?, 1. [id number] Adm ission Performance, 1. [id number] Admission Performance, 1. DH1494J Admission Performance, RR1. Indicate the type of wheelchair/scooter used., 1. [id number] Admission Performance, Code, 1. [id number] Admission P erformance, Code, SS1. Indicate the type of wheelchair/scooter used., H350. Bladder Continence (3-day assessment period), H400. Bowel Continence (3-day assessment period), H0400 - Comments: were [electr onically] signed by Marysol Crocker C.N.A. on FriMay 02 2019 14:53:52 T-0600 (Central Standard Time)
--- OUTSIDE RECORDS SUMMARY | 2019-05-02 15:42 | XMS REPORT ---
:1935 [facility] Address [address] [place] [address] Dr. Chen [address] [place] [address] Care Team Providers Name Role Phone EVETTE COONEY Unavailable Unavailable RHONDA MCDONALD Unavailable Unavailable Problems This patient has no known problems. Allergies, Adverse Reactions, Alerts This patient has no known allergies or adverse reactions. Medications This patient has no known medications. Results Test Description Test Time Test Comments Text Results Atomic Results Result Comments TISSUE EXAM 2019-04-27 09:25:00 Surgical Pathology Report Case: [id number] Authorizing Provider: Shahid Gallego, Collected: 04/14/2019 Shahid ELIZONDO Ordering Location: [facility] OR Received: 04/15/2019 08 Perioperative Services Pathologist: Natividad Wilder MD Specimen: Femoral Head,Left Hip A. FEMORAL HEAD, LEFT, ARTHROPLASTY: - DEGENERATIVE CHANGES CONSISTENT WITH OSTEOARTHRITIS - SYNOVIUM WITH REACTIVE CHANGES. Signing Pathologist Direct Phone Line: [phone] signed by Natividad Wilder MD on 04/27/2019 at 9:25 [id number], [id number] fracture of neck of left femurLeft hipReceived fresh labeled with the patient's name, accession number and "left hip, femoral head" is a 5.0 x 5.3 x 3.6 cm femoral head with a jagged, focally hemorrhagic surgical margin. The articular surface is smooth to finely granular. The cut surface is hanson-yellow, trabeculated and firm with cortical bone measuring up to 0.2 cm thick. No discrete lesions are grossly appreciated. Nursing Care Partner sections are submitted as follows: Section code: A1, bone margin following decalcification; A2, sales representative consultant femoral head following decalcification; A3, sales representative consultant soft tissue. PA/plperformedB[facility], Department of [facility]ology, [address] [place] [phone], [facility], Department of Pathology, [address] [place] [phone], [facility], [facility], [address] [place] [address], BASIC METABOLIC PANEL 2019-04-19 07:01:00 Test Item Value Reference Range Comments SODIUM (BEAKER) (test nxmh=039) 142 meq/L 136-145 POTASSIUM (BEAKER) (test 3.8 meq/L 3.5-5.1 Specimen slightly hemolyzed huih=493) CHLORIDE (BEAKER) (test 106 meq/L 98-107 dtps=268) CO2 (BEAKER) (test nvcq=358) 28 meq/L 22-29 BLOOD UREA NITROGEN (BEAKER) 14 mg/dL 7-21 (test ocqz=828) CREATININE (BEAKER) (test 0.96 mg/dL 0.57-1.25 Specimen slightly hemolyzed irdb=762) GLUCOSE RANDOM (BEAKER) (test 81 mg/dL 70-105 vxkm=906) CALCIUM (BEAKER) (test 8.4 mg/dL 8.4-10.2 zuue=863) EGFR (BEAKER) (test awom=7999) INSUFFICIENT CLINICAL DATA TO CALCULATE ESTIMATED GFR. HEMOGLOBIN AND [id number] 06:47:00 Test Item Value Reference Range Comments HEMOGLOBIN (BEAKER) (test jbbk=871) 10.8 GM/DL 13.7-17.5 HEMATOCRIT (BEAKER) (test ohkr=097) 34.3 % 40.1-51.0 BASIC METABOLIC [id number] 03:57:00 Test Item Value Reference Range Comments SODIUM (BEAKER) (test 138 meq/L 136-145 umij=995) POTASSIUM (BEAKER) (test 4.1 meq/L 3.5-5.1 qqkf=388) CHLORIDE (BEAKER) (test 103 meq/L 98-107 gjvi=161) CO2 (BEAKER) (test xusb=823) 28 meq/L 22-29 BLOOD UREA NITROGEN (BEAKER) 15 mg/dL 7-21 (test hxge=204) CREATININE (BEAKER) (test 0.83 mg/dL 0.57-1.25 ugqo=858) GLUCOSE RANDOM (BEAKER) 102 mg/dL 70-105 (test uzmx=438) CALCIUM (BEAKER) (test 8.3 mg/dL 8.4-10.2 csim=023) EGFR (BEAKER) (test INSUFFICIENT CLINICAL DATA TO pwin=6698) CALCULATE ESTIMATED GFR. HEMOGLOBIN AND [id number] 03:56:00 Test Item Value Reference Range Comments HEMOGLOBIN (BEAKER) (test dsjv=921) 9.8 GM/DL 13.7-17.5 HEMATOCRIT (BEAKER) (test uhnh=538) 30.8 % 40.1-51.0 BASIC METABOLIC [id number] 06:04:00 Test Item Value Reference Range Comments SODIUM (BEAKER) (test 141 meq/L 136-145 duuz=962) POTASSIUM (BEAKER) (test 4.1 meq/L 3.5-5.1 ssvr=076) CHLORIDE (BEAKER) (test 106 meq/L 98-107 hyyr=610) CO2 (BEAKER) (test besk=486) 28 meq/L 22-29 BLOOD UREA NITROGEN (BEAKER) 12 mg/dL 7-21 (test nuaa=279) CREATININE (BEAKER) (test 1.10 mg/dL 0.57-1.25 zsob=686) GLUCOSE RANDOM (BEAKER) 97 mg/dL 70-105 (test alxe=444) CALCIUM (BEAKER) (test 8.3 mg/dL 8.4-10.2 jyzo=395) EGFR (BEAKER) (test INSUFFICIENT CLINICAL DATA TO bsmx=2689) CALCULATE ESTIMATED GFR. HEMOGLOBIN AND [id number] 05:41:00 Test Item Value Reference Range Comments HEMOGLOBIN (BEAKER) (test zdbl=024) 9.9 GM/DL 13.7-17.5 HEMATOCRIT (BEAKER) (test wqwi=015) 31.7 % 40.1-51.0 RAD, PELVIS, 1 OR 2 [id number] 11:02:00Reason for exam:->postopShould this be performed at the bedside?->YesFINAL REPORT PELVIS - 2 Image(s) HISTORY: Postop COMPARISON: Pelvic radiograph April 14, 2019. FINDINGS:Overlying artifacts. Bones:Some of the osseous structures are partially obscured by stool and overlying bowel gas.Diffusely decreased mineralization of the osseous structures further limits bone detail.Partially visualized left femoral diaphyseal lateral plate and screw construct. Joints:Status post left hip hemiarthroplasty, alignment appears anatomic. Soft tissues:Multiple pelvic phleboliths. IMPRESSION: 1.Status post left hip hemiarthroplasty.2.Diffuse osseous demineralization, recommend correlation with bone densitometry. Signed: Seb Clarke MDReport Verified Date/ Time: 04/15/2019 11:02:21 Reading Location: [facility] Reading Room [address] [place] [address] HEMOGLOBIN AND [id number] 06:41:00 Test Item Value Reference Range Comments HEMOGLOBIN (BEAKER) (test zijp=334) 11.1 GM/DL 13.7-17.5 HEMATOCRIT (BEAKER) (test rjet=738) 35.3 % 40.1-51.0 BASIC METABOLIC [id number] 06:17:00 Test Item Value Reference Range Comments SODIUM (BEAKER) (test 140 meq/L 136-145 hkhp=785) POTASSIUM (BEAKER) (test 4.3 meq/L 3.5-5.1 Specimen slightly hemolyzed iunc=775) CHLORIDE (BEAKER) (test 106 meq/L 98-107 wzvc=857) CO2 (BEAKER) (test neej=071) 28 meq/L 22-29 BLOOD UREA NITROGEN (BEAKER) 15 mg/dL 7-21 (test iepo=663) CREATININE (BEAKER) (test 1.04 mg/dL 0.57-1.25 Specimen slightly hemolyzed nhgu=799) GLUCOSE RANDOM (BEAKER) 140 mg/dL 70-105 (test hxff=238) CALCIUM (BEAKER) (test 7.8 mg/dL 8.4-10.2 bnjk=861) EGFR (BEAKER) (test INSUFFICIENT CLINICAL DATA TO nano=0608) CALCULATE ESTIMATED GFR. RAD, CHEST, 1 VIEW, NON [id number] 22:12:00Reason for exam:->postop, pleural effusionShould this be performed at the bedside?->YesFINAL REPORT CLINICAL INDICATION: Postop, pleural effusion Comparison : 04/11/2019 The cardiomediastinal contours are stable. The lung volumes remain low and there is stable elevation of the left hemidiaphragm. A small to moderate left pleural effusion appears similar to previous. Bibasilar opacities , left greater than right, may reflect atelectasis or scarring. Pneumonitis should be excluded clinically. There is no pneumothorax. Signed: Mikey Arellano MDReport Verified Date/Time: 04/14/2019 22:12:10 RAD, PELVIS, 1 OR 2 [id number] 15:35:00Reason for exam:->left subcapital fracture of femurdone PRE- OPFINAL REPORT Exam: AP pelvis one view History: Fracture of the femur Comparison: None. Findings: Subacute transverse fracture of the left femoral neck with osseous resorption and heterotopic ossification. Mild degenerative change of the hip joints. Multiple pelvic phlebolithsImpression: Subacute transverse fracture of the left femoral neck Signed: Vance Valenzuela MDReport Verified Date/Time: 04/14/2019 15:35:04 BASIC METABOLIC [id number] 06:23:00 Test Item Value Reference Range Comments SODIUM (BEAKER) (test 137 meq/L 136-145 dmgu=115) POTASSIUM (BEAKER) (test 4.2 meq/L 3.5-5.1 kadj=673) CHLORIDE (BEAKER) (test 102 meq/L 98-107 yupf=741) CO2 (BEAKER) (test vmtp=966) 29 meq/L 22-29 BLOOD UREA NITROGEN (BEAKER) 17 mg/dL 7-21 (test jpyb=729) CREATININE (BEAKER) (test 1.26 mg/dL 0.57-1.25 ahlv=032) GLUCOSE RANDOM (BEAKER) 91 mg/dL 70-105 (test kyie=312) CALCIUM (BEAKER) (test 9.4 mg/dL 8.4-10.2 ujnl=454) EGFR (BEAKER) (test INSUFFICIENT CLINICAL DATA TO yoyn=0037) CALCULATE ESTIMATED GFR. CBC W/PLT COUNT & AUTO [id number] 04:51:00 Test Item Value Reference Range Comments WHITE BLOOD CELL COUNT (BEAKER) (test rqta=280) 7.6 K/ L 3.5-10.5 RED BLOOD CELL COUNT (BEAKER) (test lhhg=009) 4.36 M/ L 4.63-6.08 HEMOGLOBIN (BEAKER) (test jnoz=876) 11.8 GM/DL 13.7-17.5 HEMATOCRIT (BEAKER) (test ncju=324) 38.8 % 40.1-51.0 MEAN CORPUSCULAR VOLUME (BEAKER) (test vnuh=742) 89.0 fL 79.0-92.2 MEAN CORPUSCULAR HEMOGLOBIN (BEAKER) (test 27.1 pg 25.7-32.2 iwgk=700) MEAN CORPUSCULAR HEMOGLOBIN CONC (BEAKER) (test 30.4 GM/DL 32.3-36.5 khbx=235) RED CELL DISTRIBUTION WIDTH (BEAKER) (test 13.6 % 11.6-14.4 wgpl=500) PLATELET COUNT (BEAKER) (test hjgp=964) 285 K/CU MM 150-450 MEAN PLATELET VOLUME (BEAKER) (test tatd=065) 10.8 fL 9.4-12.4 NUCLEATED RED BLOOD CELLS (BEAKER) (test 0 /100 WBC 0-0 rqhm=407) NEUTROPHILS RELATIVE PERCENT (BEAKER) (test 60 % sogc=705) LYMPHOCYTES RELATIVE PERCENT (BEAKER) (test 20 % wois=999) MONOCYTES RELATIVE PERCENT (BEAKER) (test 15 % xzsm=033) EOSINOPHILS RELATIVE PERCENT (BEAKER) (test 4 % vnod=092) BASOPHILS RELATIVE PERCENT (BEAKER) (test 1 % gycx=116) NEUTROPHILS ABSOLUTE COUNT (BEAKER) (test 4.58 K/ L 1.78-5.38 rrfq=670) LYMPHOCYTES ABSOLUTE COUNT (BEAKER) (test 1.54 K/ L 1.32-3.57 dkjk=691) MONOCYTES ABSOLUTE COUNT (BEAKER) (test 1.12 K/ L 0.30-0.82 fnro=524) EOSINOPHILS ABSOLUTE COUNT (BEAKER) (test 0.27 K/ L 0.04-0.54 rnsu=630) BASOPHILS ABSOLUTE COUNT (BEAKER) (test 0.05 K/ L 0.01-0.08 tccl=866) IMMATURE GRANULOCYTES-RELATIVE PERCENT (BEAKER) 1 % 0-1 (test yjpa=2521) [id number] 17:14:00Medical Cytology Report Case: [id number] Authorizing Provider: Ashlie Ignacio MD Collected: 04/11/2019 1836 Ordering Location: [address] Received: 04/12/2019 0907 Service Pathologist: Ward Del Rio MD Specimen: Pleural, Left LEFT PLEURAL FLUID (CYTOSPINS): - ATYPICAL CELLS PRESENT SUSPICIOUS FOR MALIGNANCY (SEE COMMENT) - Acute inflammation present Signing Pathologist Direct Phone Line: Few atypical cells suspicious for malignancy are seen. However the paucity of material precludes immunohistochemical studies. If the fluid re accumulates, submissionof a larger volume of fluid for cytology examination is recommended. Clinical correlation to excludea lung primary is also recommended.[id number], HLD , hx unknown arrythmia on metop, parkinson's, non-obstructive nephrolithiasis, undergoing evaluation for L femoral fracture by orthopedic surgery. Incidentally found to have a large left pleural effusionLEFT PLEURAL FLUIDReceived 4 ml dark yellow fluidPrepared 4 cytospinsCollected: [id number]: [id number] [facility], Department of Pathology, [address] [place] [address], [facility], Department of Pathology, [address] [place] [address], [facility], Department of [facility], [address] [place] [address], MF, CHEST, WITHOUT [id number] 09:44:00Reason for exam:->evaluate left pleural effusionFINAL REPORT TECHNIQUE: CT of the chest WITHOUT intravenous contrast. Dose modulation, iterative reconstruction, and/or weight- based adjustment of the mA/kV was utilized to reduce the radiation dose to as low as reasonably achievable. INDICATION: 83-year-old man with left pleural effusion. COMPARISON: Chest CT 04/10/2019. FINDINGS: ABSENCE OF INTRAVENOUS CONTRAST DECREASES SENSITIVITY FOR DETECTION OF FOCAL LESIONS AND VASCULAR PATHOLOGY. LINES/TUBES: None. LUNGS AND AIRWAYS: Central airways are patent. Consolidative and groundglass opacities throughout the left lung associated with volume loss. Unchanged subcentimeter nodules/nodular opacities in the right lower lobe measure up to 5 mm (axial lung window series image 39). Subcentimeter calcified granulomas in the left lower lobe. PLEURA: Decreased small-moderate left pleural effusion. Trace left pneumothorax. HEART AND MEDIASTINUM: The visualized thyroid gland is normal. No significant mediastinal , hilar, or axillary lymphadenopathy. Unchanged calcified mediastinal lymph nodes, likely related to prior granulomatous disease. The heart and pericardium are within normal limits. Atherosclerotic calcifications in the thoracic aorta and coronary arteries. SOFT TISSUES AND BONES: Osteopenia. Degenerative changes of the visualized spine. Pettibone in the left humeral head. Soft tissues are unremarkable. UPPER ABDOMEN: Unchanged subcentimeter cysts in the left hepatic lobe. Unchanged 0.3 cm nonobstructing calculi in the rightkidney. IMPRESSION: Decreased small-moderate left pleural effusion. Trace left pneumothorax, likely related to recent thoracentesis. Consolidative and groundglass opacities in the left lung, likely atelectasis. Superimposed pneumonia cannot be excluded. Unchanged subcentimeter nodules/nodular opacities in the right lower lobe measure up to 5 mm. Differential considerations include infectious/inflammatory process and pulmonary nodules. If patient is at high risk for lung neoplasm, then optional follow-up chest CT may be obtained in 12 months. Otherwise, no routine follow-up imaging recommended. Signed: Madai Vasquez MDReport Verified Date/Time: 04/12/2019 09:44:48 Reading Location: [facility] Diagnostic Imaging Reading Room - [place] [id number] BASIC METABOLIC [id number] 06:15:00 Test Item Value Reference Range Comments SODIUM (BEAKER) (test 141 meq/L 136-145 ynas=636) POTASSIUM (BEAKER) (test 4.2 meq/L 3.5-5.1 hadu=548) CHLORIDE (BEAKER) (test 104 meq/L 98-107 yfql=091) CO2 (BEAKER) (test qqxj=992) 30 meq/L 22-29 BLOOD UREA NITROGEN (BEAKER) 16 mg/dL 7-21 (test xmxm=099) CREATININE (BEAKER) (test 1.26 mg/dL 0.57-1.25 ftxt=393) GLUCOSE RANDOM (BEAKER) 96 mg/dL 70-105 (test vqsf=138) CALCIUM (BEAKER) (test 9.3 mg/dL 8.4-10.2 quzp=957) EGFR (BEAKER) (test INSUFFICIENT CLINICAL DATA TO godd=8989) CALCULATE ESTIMATED GFR. [id number] 06:12:00 Test Item Value Reference Range Comments MAGNESIUM (BEAKER) (test vkpa=670) 1.9 mg/dL 1.6-2.6 CBC W/PLT COUNT & AUTO [id number] 05:37:00 Test Item Value Reference Range Comments WHITE BLOOD CELL COUNT (BEAKER) (test jrex=528) 7.6 K/ L 3.5-10.5 RED BLOOD CELL COUNT (BEAKER) (test jrji=039) 4.09 M/ L 4.63-6.08 HEMOGLOBIN (BEAKER) (test odis=694) 11.2 GM/DL 13.7-17.5 HEMATOCRIT (BEAKER) (test jqfn=492) 36.3 % 40.1-51.0 MEAN CORPUSCULAR VOLUME (BEAKER) (test ypwf=900) 88.8 fL 79.0-92.2 MEAN CORPUSCULAR HEMOGLOBIN (BEAKER) (test 27.4 pg 25.7-32.2 flvq=649) MEAN CORPUSCULAR HEMOGLOBIN CONC (BEAKER) (test 30.9 GM/DL 32.3-36.5 hgtt=770) RED CELL DISTRIBUTION WIDTH (BEAKER) (test 13.8 % 11.6-14.4 ueuf=320) PLATELET COUNT (BEAKER) (test wwmn=514) 278 K/CU MM 150-450 MEAN PLATELET VOLUME (BEAKER) (test wimg=653) 10.3 fL 9.4-12.4 NUCLEATED RED BLOOD CELLS (BEAKER) (test 0 /100 WBC 0-0 tjhe=453) NEUTROPHILS RELATIVE PERCENT (BEAKER) (test 58 % wdbz=303) LYMPHOCYTES RELATIVE PERCENT (BEAKER) (test 25 % twrt=829) MONOCYTES RELATIVE PERCENT (BEAKER) (test 13 % ksxp=196) EOSINOPHILS RELATIVE PERCENT (BEAKER) (test 3 % bpvy=343) BASOPHILS RELATIVE PERCENT (BEAKER) (test 1 % pabr=186) NEUTROPHILS ABSOLUTE COUNT (BEAKER) (test 4.38 K/ L 1.78-5.38 rhpe=793) LYMPHOCYTES ABSOLUTE COUNT (BEAKER) (test 1.88 K/ L 1.32-3.57 nsvc=799) MONOCYTES ABSOLUTE COUNT (BEAKER) (test 0.98 K/ L 0.30-0.82 uawp=961) EOSINOPHILS ABSOLUTE COUNT (BEAKER) (test 0.23 K/ L 0.04-0.54 gcip=572) BASOPHILS ABSOLUTE COUNT (BEAKER) (test 0.05 K/ L 0.01-0.08 bxxe=639) IMMATURE GRANULOCYTES-RELATIVE PERCENT (BEAKER) 1 % 0-1 (test slrd=3766) LACTATE DEHYDROGENASE (LDH)2019-04-11 19:45:00 Test Item Value Reference Range Comments LACTATE DEHYDROGENASE (BEAKER) (test gger=188) 195 U/L 125-220 RAD, CHEST, 1 VIEW, NON [id number] 19:01:00Reason for exam:->left chest painShould this be performed at the bedside?->YesFINAL REPORT INDICATION: left chest pain TECHNIQUE: Chest radiograph, single view, portable technique. FINDINGS / IMPRESSION: Comparison to April 11 at 3:56 PM.Moderate left pleural effusion is unchanged in size.No pneumothorax is demonstrated.Right lung is clear. Signed: Real Okeefe MDReport Verified Date/Time: 04/11/2019 19:01:33 Reading Location: [facility] B1 C013Y CT BodyReading Room 07: 01 PMHEPATIC FUNCTION [id number] 18:38:00 Test Item Value Reference Range Comments TOTAL PROTEIN (BEAKER) (test jbft=195) 5.8 gm/dL 6.0-8.3 ALBUMIN (BEAKER) (test yndn=2733) 3.0 g/dL 3.5-5.0 BILIRUBIN TOTAL (BEAKER) (test isac=773) 0.2 mg/dL 0.2-1.2 BILIRUBIN DIRECT (BEAKER) (test axqh=718) 0.2 mg/dL 0.1-0.5 ALKALINE PHOSPHATASE (BEAKER) (test dsiw=467) 65 U/L 40-150 AST (SGOT) (BEAKER) (test iuls=599) 19 U/L 5-34 ALT (SGPT) (BEAKER) (test zufb=626) 18 U/L 6-55 RAD, CHEST, 1 VIEW, NON [id number] 17:21:00pls stat post thoracentesis. thanksReason for exam:->post thoracentesisShould this be performed at the bedside?->YesFINAL REPORT INDICATION: post thoracentesis TECHNIQUE: Chest radiograph, single view, portable technique. FINDINGS / IMPRESSION: Comparison to April 10.Left pleural effusion isdecreased in size after thoracentesis with improved aeration of the left upper lung. No pneumothoraxis demonstrated. Right lung remains clear. Signed: Real Okeefe MDReport Verified Date/Time: 04/11/2019 17:21:48 Reading Location: [facility] C013Y CT Body Reading Room PROTEIN, BODY [id number] 16:16: 00 Test Item Value Reference Range Comments PROTEIN FLUID (BEAKER) (test 3.9 g/dL Light's criteria identifies mkmw=180) effusions if one or more are pre Absence of reference range indicates that normals have not been defined.Assay performance has not been validated for this type of specimen.TRIGLYCERIDES, BODY [id number] 16:16:00 Test Item Value Reference Range Comments TRIGLYCERIDES FLUID (BEAKER) (test fufu=655) 33 mg/dL Reference Range: No Normals Assay performance has not been validated for this type of specimen.PH, BODY [id number] 16:12:00 Test Item Value Reference Range Comments PH, BODY FLUID (BEAKER) (test wqqc=3024) 7.69 U/S, [id number] 16:07:00Patient needs thoracentesis before he can go to surgery and have anesthesia inductionLaterality?->LeftReason for exam:- >symptomaticLabs to be Ordered:->Body Fluid Culture (w/Gram Stain, C\\T\\S) Labs to be Ordered:->CytologyLabs to be Ordered:->Fungal CultureLabs to be Ordered:->Glucose+LDH+ProteinFINAL REPORT Indication: Left pleural effusion. Technique: Ultrasound guided left thoracentesis. Findings:Preliminary ultrasound confirms pleural effusion. A safe window was identified. The procedure was explained to the patient and informed consent was signed. The skin was marked and prepped in standard sterile fashion. Lidocaine was used for local anesthesia. A 4 Kazakh needle catheter system was advanced into the pleural space. 1700 cc yesenia-colored clear fluid was taken off. Patient tolerated the procedure well. Chest radiograph has been ordered. Impression: Ultrasound guided left thoracentesis. Signed: Real Okeefeeport Verified Date/Time: 04/11/2019 16:07:47 Reading Location: [place] [address]Y CT Body Reading Room HEMOGLOBIN [id number] 09: 18:00 Test Item Value Reference Range Comments HEMOGLOBIN A1C (BEAKER) (test jhjj=864) 5.6 % 4.3-6.1 BASIC METABOLIC [id number] 04:55:00 Test Item Value Reference Range Comments SODIUM (BEAKER) (test 140 meq/L 136-145 emst=192) POTASSIUM (BEAKER) (test 4.4 meq/L 3.5-5.1 hwon=159) CHLORIDE (BEAKER) (test 104 meq/L 98-107 phhl=594) CO2 (BEAKER) (test jnnv=941) 30 meq/L 22-29 BLOOD UREA NITROGEN (BEAKER) 18 mg/dL 7-21 (test jvoa=958) CREATININE (BEAKER) (test 1.28 mg/dL 0.57-1.25 pruu=956) GLUCOSE RANDOM (BEAKER) 111 mg/dL 70-105 (test lydl=587) CALCIUM (BEAKER) (test 9.0 mg/dL 8.4-10.2 ctim=467) EGFR (BEAKER) (test INSUFFICIENT CLINICAL DATA TO dcgy=1718) CALCULATE ESTIMATED GFR. [id number] 04:53:00 Test Item Value Reference Range Comments MAGNESIUM (BEAKER) (test deus=248) 1.9 mg/dL 1.6-2.6 LIPID [id number] 04:53:00 Test Item Value Reference Range Comments TRIGLYCERIDES (BEAKER) (test rapw=377) 93 mg/dL CHOLESTEROL (BEAKER) (test giqt=003) 167 mg/dL HDL CHOLESTEROL (BEAKER) (test qwzg=137) 40 mg/dL LDL CHOLESTEROL CALCULATED (BEAKER) (test 108 mg/dL mzis=220) Triglyceride Reference Range: Low Risk <150 Borderline 150- 199 High Risk 200-499 Very High Risk >=500Cholesterol Reference Range: Low Risk <200 Borderline 200-239 High Risk > 240HDL Cholesterol Reference Range: Low Risk >=60 High Risk <40LDL Cholesterol Reference Range: Optimal <100 Near Optimal 100-129 Borderline 130-159 High 160-189 Very High >=190CBC W/PLT COUNT & AUTO [id number] 04:37:00 Test Item Value Reference Range Comments WHITE BLOOD CELL COUNT (BEAKER) (test fwib=790) 7.2 K/ L 3.5-10.5 RED BLOOD CELL COUNT (BEAKER) (test lycz=540) 3.74 M/ L 4.63-6.08 HEMOGLOBIN (BEAKER) (test vfwn=361) 10.2 GM/DL 13.7-17.5 HEMATOCRIT (BEAKER) (test leuk=762) 33.5 % 40.1-51.0 MEAN CORPUSCULAR VOLUME (BEAKER) (test cbru=034) 89.6 fL 79.0-92.2 MEAN CORPUSCULAR HEMOGLOBIN (BEAKER) (test 27.3 pg 25.7-32.2 lfys=463) MEAN CORPUSCULAR HEMOGLOBIN CONC (BEAKER) (test 30.4 GM/DL 32.3-36.5 bfam=012) RED CELL DISTRIBUTION WIDTH (BEAKER) (test 14.0 % 11.6-14.4 pxze=860) PLATELET COUNT (BEAKER) (test dttb=409) 268 K/CU MM 150-450 MEAN PLATELET VOLUME (BEAKER) (test onfx=149) 10.6 fL 9.4-12.4 NUCLEATED RED BLOOD CELLS (BEAKER) (test 0 /100 WBC 0-0 kttu=706) NEUTROPHILS RELATIVE PERCENT (BEAKER) (test 61 % wvfv=578) LYMPHOCYTES RELATIVE PERCENT (BEAKER) (test 21 % dpxv=363) MONOCYTES RELATIVE PERCENT (BEAKER) (test 14 % fqpz=552) EOSINOPHILS RELATIVE PERCENT (BEAKER) (test 3 % aail=105) BASOPHILS RELATIVE PERCENT (BEAKER) (test 1 % nhgg=826) NEUTROPHILS ABSOLUTE COUNT (BEAKER) (test 4.41 K/ L 1.78-5.38 qbuu=977) LYMPHOCYTES ABSOLUTE COUNT (BEAKER) (test 1.48 K/ L 1.32-3.57 uzpn=503) MONOCYTES ABSOLUTE COUNT (BEAKER) (test 1.04 K/ L 0.30-0.82 wqob=107) EOSINOPHILS ABSOLUTE COUNT (BEAKER) (test 0.21 K/ L 0.04-0.54 cvgc=151) BASOPHILS ABSOLUTE COUNT (BEAKER) (test 0.04 K/ L 0.01-0.08 hvpm=813) IMMATURE GRANULOCYTES-RELATIVE PERCENT (BEAKER) 1 % 0-1 (test xuqx=2148) RAD, KNEE, 3 VIEWS, [id number] 16:03:00Reason for exam:->PAIN.FINAL REPORT Left knee, three views History: Left knee pain Comparison: None Findings:There is a chronic, healed fracture involving the distal diaphysis of the left femur. There is a partially imaged lateral sideplate and screws which traverse the fracture site. The patient is status post left total knee arthroplasty. No complication within the visualized hardware. No additional significant bone or joint space abnormality. Impression : 1. No acute findings in the left knee.2. Chronic, healed fracture of the left distal femoral diaphysis.3. Visualized internal fixation hardwaretraversing the fracture site and left total knee constrained arthroplasty, without apparent hardwarecomplication. Signed: Adrian Shrestha MDReport Verified Date/Time: 16:03:51 Reading Location: [facility] B1 [id number] Ortho Consult Reading Room CT, CHEST, WITHOUT [id number] 15:51:00Reason for exam:->Large left pleural effusionFINAL REPORT INDICATION: Left pleural effusion. COMPARISON:Chest radiograph April 10, 2019 TECHNIQUE: Chest CT exam WITHOUT intravenous contrast. The exam was performed according to our department dose- optimization protocol, which includes automated exposure control, adjustments of mA and kV according to patient size. Iterative reconstructions are also sometimes employed. FINDINGS:There is a large left pleural effusion with collapse of the lingula and left lower lobe and compressive atelectasis of the upper lobe. Right lung is clear. Central airways are clear. No supraclavicular, mediastinal, or hilar lymphadenopathy is demonstrated. Coarsely calcified precarinal lymph node is noted. Heart is normal in size and there is no pericardial effusion. Coronary artery calcification and calcified plaque of the thoracic aorta. Thoracic aorta and main artery are normal in caliber. Thyroid gland, esophagus, and upper abdomen unremarkable. Osseous structures unremarkable. IMPRESSION: Large left pleural effusion. Signed: Real [place] Verified Date/Time: 04/10/2019 15:51:24 Reading Location: [address] Body Reading Room B-TYPE NATRIURETIC FACTOR (BNP)2019-04-10 10:50:00 Test Item Value Reference Range Comments B-TYPE NATRIURETIC PEPTIDE (BEAKER) (test yhgw=422) 74 pg/mL 0-100 RAD, CHEST, 1 VIEW, NON [id number] 09:59:00Reason for exam:->left pleural effusionFINAL REPORT INDICATION: left pleural effusion TECHNIQUE: Chest radiograph, single view, portable technique. FINDINGS / IMPRESSION: There is a large left pleural effusion.Right lung is clear. No pneumothorax demonstrated.Osseous structures unremarkable. Signed: Real [place] Verified Date/Time: 04/10/2019 09:59:09 Reading Location: [address] Body Reading Room [id number] 05:54:00 Test Item Value Reference Range Comments MAGNESIUM (BEAKER) (test ewgk=507) 1.9 mg/dL 1.6-2.6 HEPATIC FUNCTION [id number] 05:54:00 Test Item Value Reference Range Comments TOTAL PROTEIN (BEAKER) (test zzyb=316) 6.1 gm/dL 6.0-8.3 ALBUMIN (BEAKER) (test akfx=1860) 3.1 g/dL 3.5-5.0 BILIRUBIN TOTAL (BEAKER) (test qgoe=123) 0.4 mg/dL 0.2-1.2 BILIRUBIN DIRECT (BEAKER) (test iykv=767) 0.3 mg/dL 0.1-0.5 ALKALINE PHOSPHATASE (BEAKER) (test obwm=615) 69 U/L 40-150 AST (SGOT) (BEAKER) (test letq=581) 18 U/L 5-34 ALT (SGPT) (BEAKER) (test hcqh=458) 14 U/L 6-55 BASIC METABOLIC [id number] 05:54:00 Test Item Value Reference Range Comments SODIUM (BEAKER) (test 140 meq/L 136-145 sdsi=613) POTASSIUM (BEAKER) (test 5.1 meq/L 3.5-5.1 feig=047) CHLORIDE (BEAKER) (test 105 meq/L 98-107 buny=452) CO2 (BEAKER) (test ehqj=531) 30 meq/L 22-29 BLOOD UREA NITROGEN (BEAKER) 20 mg/dL 7-21 (test ynqp=922) CREATININE (BEAKER) (test 1.19 mg/dL 0.57-1.25 ukcr=998) GLUCOSE RANDOM (BEAKER) 92 mg/dL 70-105 (test usob=218) CALCIUM (BEAKER) (test 9.3 mg/dL 8.4-10.2 uuyj=923) EGFR (BEAKER) (test INSUFFICIENT CLINICAL DATA TO hzyz=2332) CALCULATE ESTIMATED GFR. PROTHROMBIN [id number] 05:18:00 Test Item Value Reference Range Comments PROTIME (BEAKER) (test pjmr=844) 13.8 seconds 11.9-14.2 INR (BEAKER) (test gpas=544) 1.1 <=5.9 Effective 11/18/2018: PT Reference Range ChangeNew: 11.9-14.2 Previous: 11.7- 14.7RECOMMENDED COUMADIN/WARFARIN INR THERAPY RANGESSTANDARD DOSE: 2.0-3.0 Includes: PROPHYLAXIS for venous thrombosis, systemic embolization; TREATMENT for venous thrombosis and/or pulmonary embolus.HIGH RISK: Target INR is2.5-3.5 for patients wiht mechanical heart valves.CBC W/PLT COUNT & AUTO [id number] 05:10:00 Test Item Value Reference Range Comments WHITE BLOOD CELL COUNT (BEAKER) (test erxk=055) 7.7 K/ L 3.5-10.5 RED BLOOD CELL COUNT (BEAKER) (test ukzn=342) 3.92 M/ L 4.63-6.08 HEMOGLOBIN (BEAKER) (test wpte=562) 10.8 GM/DL 13.7-17.5 HEMATOCRIT (BEAKER) (test dnju=347) 34.8 % 40.1-51.0 MEAN CORPUSCULAR VOLUME (BEAKER) (test ztws=187) 88.8 fL 79.0-92.2 MEAN CORPUSCULAR HEMOGLOBIN (BEAKER) (test 27.6 pg 25.7-32.2 ttzo=101) MEAN CORPUSCULAR HEMOGLOBIN CONC (BEAKER) (test 31.0 GM/DL 32.3-36.5 ssdd=096) RED CELL DISTRIBUTION WIDTH (BEAKER) (test 14.3 % 11.6-14.4 rhna=579) PLATELET COUNT (BEAKER) (test aoro=790) 271 K/CU MM 150-450 MEAN PLATELET VOLUME (BEAKER) (test qckg=961) 10.5 fL 9.4-12.4 NUCLEATED RED BLOOD CELLS (BEAKER) (test 0 /100 WBC 0-0 quxx=576) NEUTROPHILS RELATIVE PERCENT (BEAKER) (test 59 % aiye=945) LYMPHOCYTES RELATIVE PERCENT (BEAKER) (test 22 % yqpb=896) MONOCYTES RELATIVE PERCENT (BEAKER) (test 15 % xqhj=266) EOSINOPHILS RELATIVE PERCENT (BEAKER) (test 3 % gduz=661) BASOPHILS RELATIVE PERCENT (BEAKER) (test 1 % coua=081) NEUTROPHILS ABSOLUTE COUNT (BEAKER) (test 4.52 K/ L 1.78-5.38 shyv=078) LYMPHOCYTES ABSOLUTE COUNT (BEAKER) (test 1.67 K/ L 1.32-3.57 pmnf=315) MONOCYTES ABSOLUTE COUNT (BEAKER) (test 1.15 K/ L 0.30-0.82 ivex=799) EOSINOPHILS ABSOLUTE COUNT (BEAKER) (test 0.23 K/ L 0.04-0.54 ocbd=801) BASOPHILS ABSOLUTE COUNT (BEAKER) (test 0.04 K/ L 0.01-0.08 anlr=308) IMMATURE GRANULOCYTES-RELATIVE PERCENT (BEAKER) 1 % 0-1 (test amxx=3563) BASIC METABOLIC [id number] 06:48:00 Test Item Value Reference Range Comments SODIUM (BEAKER) (test 141 meq/L 136-145 fnea=392) POTASSIUM (BEAKER) (test 4.3 meq/L 3.5-5.1 ajbo=947) CHLORIDE (BEAKER) (test 108 meq/L 98-107 dlxf=164) CO2 (BEAKER) (test 26 meq/L 22-29 rsih=381) BLOOD UREA NITROGEN 15 mg/dL 7-21 (BEAKER) (test yujs=686) CREATININE (BEAKER) (test 1.15 mg/dL 0.57-1.25 vjbr=377) GLUCOSE RANDOM (BEAKER) 96 mg/dL 70-105 (test hskp=979) CALCIUM (BEAKER) (test 9.1 mg/dL 8.4-10.2 dotv=285) EGFR (BEAKER) (test mL/min/1.73 sq m INSUFFICIENT CLINICAL DATA qczo=0765) TO CALCULATE ESTIMATED GFR. CBC W/PLT COUNT & AUTO [id number] 05:49:00 Test Item Value Reference Range Comments WHITE BLOOD CELL COUNT (BEAKER) (test ygfd=161) 6.5 K/ L 3.5-10.5 RED BLOOD CELL COUNT (BEAKER) (test ytad=032) 3.99 M/ L 4.63-6.08 HEMOGLOBIN (BEAKER) (test toir=710) 10.9 GM/DL 13.7-17.5 HEMATOCRIT (BEAKER) (test yvqd=794) 35.5 % 40.1-51.0 MEAN CORPUSCULAR VOLUME (BEAKER) (test hcqy=873) 89.0 fL 79.0-92.2 MEAN CORPUSCULAR HEMOGLOBIN (BEAKER) (test 27.3 pg 25.7-32.2 xiny=525) MEAN CORPUSCULAR HEMOGLOBIN CONC (BEAKER) (test 30.7 GM/DL 32.3-36.5 tthk=466) RED CELL DISTRIBUTION WIDTH (BEAKER) (test 13.8 % 11.6-14.4 mcrx=927) PLATELET COUNT (BEAKER) (test zgwr=641) 163 K/CU MM 150-450 MEAN PLATELET VOLUME (BEAKER) (test pvad=747) 10.9 fL 9.4-12.4 NUCLEATED RED BLOOD CELLS (BEAKER) (test 0 /100 WBC 0-0 pcwr=872) NEUTROPHILS RELATIVE PERCENT (BEAKER) (test 53 % dvkv=985) LYMPHOCYTES RELATIVE PERCENT (BEAKER) (test 28 % fcmb=919) MONOCYTES RELATIVE PERCENT (BEAKER) (test 13 % bczk=874) EOSINOPHILS RELATIVE PERCENT (BEAKER) (test 5 % htni=898) BASOPHILS RELATIVE PERCENT (BEAKER) (test 1 % cdbe=808) NEUTROPHILS ABSOLUTE COUNT (BEAKER) (test 3.43 K/ L 1.78-5.38 pcsl=903) LYMPHOCYTES ABSOLUTE COUNT (BEAKER) (test 1.83 K/ L 1.32-3.57 jnpt=098) MONOCYTES ABSOLUTE COUNT (BEAKER) (test 0.86 K/ L 0.30-0.82 fekj=057) EOSINOPHILS ABSOLUTE COUNT (BEAKER) (test 0.31 K/ L 0.04-0.54 csrg=702) BASOPHILS ABSOLUTE COUNT (BEAKER) (test 0.04 K/ L 0.01-0.08 lgji=445) IMMATURE GRANULOCYTES-RELATIVE PERCENT (BEAKER) 1 % 0-1 (test ejgi=6450) URINALYSIS W/ [id number] 03:38:00 Test Item Value Reference Range Comments COLOR (BEAKER) (test wrst=220) Yellow CLARITY (BEAKER) (test hkhx=985) Hazy SPECIFIC GRAVITY UA (BEAKER) (test 1.027 1.001-1.035 dnug=569) PH UA (BEAKER) (test ajpi=026) 6.0 5.0-8.0 PROTEIN UA (BEAKER) (test rikv=960) Negative Negative GLUCOSE UA (BEAKER) (test uhqk=135) Negative Negative KETONES UA (BEAKER) (test fash=022) Negative Negative BILIRUBIN UA (BEAKER) (test fmhq=479) Negative Negative BLOOD UA (BEAKER) (test loxq=609) Large Negative NITRITE UA (BEAKER) (test ncmz=543) Negative Negative LEUKOCYTE ESTERASE UA (BEAKER) (test Negative Negative usya=989) UROBILINOGEN UA (BEAKER) (test hghg=968) 0.2 mg/dL 0.2-1.0 RBC UA (BEAKER) (test ggky=047) 59 /HPF WBC UA (BEAKER) (test ganf=956) 1 /HPF SOURCE(BEAKER) (test mypf=2219) Urine, Clean Catch
--- NOTE | 2019-05-02 18:18 | CON ---
Date of Consultation: 05/02/2019 Brief History Of Present Illness: Patient is an 84-year-old male, transferred from [facility] after repair of his left hip and was found to have a left-sided pleural effusio n. He had a left-sided thoracentesis with some suspicious cells in the pleural fluid at the time of admission and he has essentially complete opacification of the left hemithorax at this point. He den ies chest pain or significant shortness of breath and he has no history of smoking by report. Past Medical History: Significant for depression, CKD stage 3, chronic PTSD, essential hypertension, GERD, hyperlipidemia, Parkinson's, pleural effusion on the left. Past Surgical History: Left knee TKA 1993, left periprosthetic distal femur fracture on 10/11/2017. Allergies: CARBIDOPA, NORCO, IBUPROFEN, LEVODOPA. Home Medications: Include acetaminophen, metoprolol, mirtazapine, bupropion, aspirin, Lasix, Ativan, omeprazole, Mirapex, Flomax, as well as Eliquis. Family History: Significant for heart disease in father and mother. Social History: Denies smoking, alcohol, or recreational drug use. Review of Systems: 10 point review of systems: He has weakness and some minimal shortness of breath intermittently, but not currently. Physical Examination: VITAL SIGNS: At the time of my examination, BMI is 29.1, blood pressure 99/63, pulse 96, respiratory rate 16, temperature is 97.4. GENERAL: He is awake, alert, and conversive, but somewhat poor insight, poor historian into his prev ious medical situation. He is conversive however and is reasonably oriented. HEENT: Otherwise normocephalic. Sclerae are icteric. Mucous membranes are moist. Oropharynx is cl ear. Neck: Supple. No JVD. CHEST: He has decreased breath sounds, essentially absent breath sounds on the left, and normal dalila th sounds on the right. ABDOMEN: Soft, nontender. EXTREMITIES: No clubbing, cyanosis, or edema. SKIN: Warm and dry. Laboratory Data: Last performed on 04/29 and was reviewed at that time. He had chest x-ray, which s howed complete opacification of the left hemithorax on 04/30/2019. Assessment And Plan: This is an 84-year-old male who has complete opacification of the left hemithor ax. Dr. Vivas has held his anticoagulation in anticipation of placement of a PleurX catheter for M onday. I have explained the risks, benefits, alternatives of the above stated plan with the patient and his family in the room. They agreed to proceed as indicated. We will anticipate placement of Pl eurX catheter at that time. KEISHA/SUZY Voice ID: [id number] Report ID: [id number]
[2019-05-02] MEDS: LORAZEPAM 0.5 MG TABLET PO PRN (18:42)
[2019-05-02] MEDS: MIRTAZAPINE 15 MG TAB PO SCH (18:43)
[2019-05-02] MEDS: MELATONIN 3 MG TABLET PO PRN (19:59)
[2019-05-03] MEDS: LEVALBUTEROL 0.63 MG/3 ML NEB NEB SCH ×2 (02:00→08:18)
[2019-05-03] MEDS: METOPROLOL TAR 25 MG TAB PO SCH (04:09)
[2019-05-03 06:07] LABS: Hematocrit 25.5 % (39.6-49.0); MPV 8.2 fL (7.6-11.3); RBC Red Blood Cell Count 3.02 M/uL (4.33-5.43)
[2019-05-03 06:09] LABS: Protime INR 1.27
[2019-05-03] MEDS: PANTOPRAZOLE 40MG TABLET PO SCH (07:30)
[2019-05-03] MEDS: PRAMIPEXOLE 0.25 MG TAB PO SCH (08:00)
[2019-05-03] MEDS: MEMANTINE HCL 10 MG TABLET PO SCH (08:00)
[2019-05-03] MEDS: MEGESTROL 40 MG TAB PO SCH (08:00)
[2019-05-03] MEDS: PROMOD 30 ML DOSE PO SCH (08:00)
[2019-05-03] MEDS: FERROUS SULFATE 325 MG TAB PO SCH (08:00)
[2019-05-03] MEDS: FLUDROCORTISONE 0.1 MG TAB PO SCH (08:00)
[2019-05-03] MEDS: NYSTATIN PWDR 100000 UNIT/GM TOP SCH (08:00)
[2019-05-03] MEDS: JUVEN PACKET PO SCH (08:00)
[2019-05-03] MEDS: buPROPion HCl 100 MG TAB PO SCH (08:00)
[2019-05-03] MEDS: LIDOCAINE 4% PATCH TOP SCH (08:00)
[2019-05-03] MEDS: TAMSULOSIN 0.4 MG SR CAP PO SCH (08:00)
[2019-05-03] MEDS: FE SULF/FA/VIT B COMP & C TAB PO SCH (08:00)
[2019-05-03] MEDS: ENSURE HIGH PROTEIN 237 ML CAN PO SCH (08:00)
[2019-05-03 08:51] VITALS: BP 116/66; TEMP 97.5
[2019-05-03 10:24] VITALS: O2SAT 99
--- NOTE | 2019-05-03 12:29 | P.OP ---
Preoperative diagnosis: LEFT Pleural Effusion Postoperative diagnosis: LEFT Pleural Effusion Primary procedure: Placement of Pleur-X Thoracic Catheter Anesthesia: Local 1% Lidocaine used Estimated blood loss: <2cc Specimen: Pleural Fluid sent Findings: dark red pleural fluid returned Complications: None Drain(s): Other (PleurX Catheter) Transferred to: Recovery Room Condition: Good
--- NOTE | 2019-05-03 18:28 | R.PN ---
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 Pt denied any depression. A chest x-ray done last week showed a large recurrent pleural effusion which returned over two weeks following tapping in [place]. While the pathology results of the effusion is not yet available, his d aughter was told he may have lung cancer. The patient is now followed by pulmonology and surgery. He will be discharged today for pleural fluid removal and placement of a permanent chest drain. He will follow-up in [place]. VITAL SIGNS Temperature: 97.2 F SBP/DBP: 105/76 Pulse: 98 Resp: 16 MEDICATION ALLERGIES: No Known Drug Allergies (NKDA) ENVIRONMENTAL ALLERGIES: - Substance Allergies None Known - Other Allergies None Known NURSING: - Shower allowing shower - Skin care per protocol PRECAUTIONS: - Posterior Hip Precaution No adduction across midline No external rotation No hip flexion >90 degrees No internal rotation No wheel chair propulsion - Weight Bearing Precaution WBAT left LE ACTIVITIES OOB only with supervision THERAPIES: - Dietary and Nutrition Adequate Nutrition. Nutritional Education. Nutritional Supplements. PHYSICAL EXAM - Gen Alert and awake Lying in bed No apparent distress Oriented to: person, time, and place - Skin No breakdown Normacephalic - Eyes No abnormalities - ENMT No abnormalities - Neck No abnormalities - CVS RRR - Chest No abnormalities - Abd + bowel sounds - GI Soft Deferred - No abnormalities - Ext Left hip surgical site has good hemostasis. - MSK 4+/5 weakness in left lower extremity - Neuro 4/5 strength left lower extremity. - Psych No abnormalities ASSESSMENT: Pt. is a 84 yo Right-handed white male.On 04/09/2019 he was admitted to [facility] emergency surgery for Unspecified intracapsular fracture of left femur, initial encounter for close d fracture (S72.012A) (Unilateral Hip Fracture) by Daily De Jesus.Pre-morbidly, Pt. was independent/ mod-I in Locomotion and Self-Care; and he had good Safety Awareness and Sphincter Control.Currently, he has deficits of Endurance, Locomotion, Balance, Self-Care, Safety Awareness, Ambulation, pain limi ting function, Safety Awareness and Self-Care, and Social Cognition.Pt. is now referred to [facility] for acute in-patient rehabilitation in order to maximize patient's functional independence in activities of daily living, strength, ROM, and mobility.- Rehab Goal Patient has realistic goal of being discharged at assistance level 6-Cathy to reside at Home with Fam samantha/Relatives. MDM/PLAN: - Physical Therapy Decreased range of motion - to improve, our physical therapists will perform initial evaluation of p t's status upon admission and devise an individualized program for increasing patient's Range of [place] on. Gait dysfunction - to improve, our physical therapists will perform initial evaluation of pt's statu s upon admission and devise an individualized program for Gait Training, and Wheel Chair mobility Need for home safety evaluation - to improve, our physical therapists will perform initial evaluatio n of pt's status upon admission and devise an individualized program for Home Evaluation Need in caregiver upon discharge - to improve, our physical therapists will perform initial evaluati on of pt's status upon admission and devise an individualized program for Caregiver Training New precaution - to improve, our physical therapists will perform initial evaluation of pt's status upon admission and devise an individualized program for Patient precaution education Poor balance - to improve, our physical therapists will perform initial evaluation of pt's status up on admission and devise an individualized program for Balance Training Poor endurance - to improve, our physical therapists will perform initial evaluation of pt's status upon admission and devise an individualized program for Endurance Training Weakness - to improve, our physical therapists will perform initial evaluation of pt's status upon a dmission and devise an individualized program for Aquatic Therapy, Neuromuscular Reeducation, and Str engthening Achieving independence - to improve, our physical therapists will perform initial evaluation of pt's status upon admission and devise an individualized program for Community Reintegration Activities - Occupational Therapy ADL deficits - to improve, our occupation therapists will perform initial evaluation of pt's status upon admission and devise an individualized program for Bathing, Bed mobility, Community Reintegratio n, Cooking, Dressing, Eating, Fine Motor Skills, Grooming, Homemaking, Kitchen Mobility, Laundry, Pat ient Education, Safety Awareness, Splinting - Positioning, Transfers(Toilet, Tub, Shower), and Wheel Chair Management Cognitive deficits - to improve, our occupation therapists will perform initial evaluation of pt's s tatus upon admission and devise an individualized program for Cognition - orientation Need for respiratory care technician - to improve, our occupation therapists will perform initial evaluation of pt's status upon admission and devise an individualized program for Caregiver Training Weakness - to improve, our occupation therapists will perform initial evaluation of pt's status upon admission and devise an individualized program for Aquatic Therapy, Balance, Endurance, UE ROM, and UE strengthening - Other See attached MAR (Medication Administration Record) - Anterior Hip Precaution No abduction No active extension No adduction across midline No external rotation No hip flexion >90 degrees No internal rotation - Diet - Liquid Texture Continue Regular - Tube Feed Continue N/A - Diet Type Continue Regular - Posterior Hip Precaution No adduction across midline No external rotation No hip flexion >90 degrees No internal rotation No wheel chair propulsion - Weight Bearing Precaution WBAT left LE - Skin care per protocol - Diet - Solid Texture Continue Regular - Shower allowing shower FUNCTIONAL STATUS: UPDATED AT WEEKLY TEAM CONFERENCE - Bladder Same accident frequency: 7-Ind - No accidents in the past 7 days - Bowel Same accident frequency: 7-Ind - No accidents in the past 7 days - Walking Same score based on distance walked: 1(<=50ft) - Wheelchair Same score based on distance traveled: 1(<=50ft) FUNCTIONAL STATUS: - Self-Care A. Eating Ind B. Grooming sup C. Bathing modA D. Dressing - Upper modA E. Dressing - Lower modA F. Toileting modA - Sphincter Control G. Bladder control sup H. Bowel control sup - Transfers Control I. Bed/Chair/Wheelchair modA J. Toilet modA K. Tub/Shower modA - Locomotion L. Walk/Wheelchair (W) modA M. Stairs maxA - Communication N. Comprehension (A) Ind O. Expression (B) Ind - Social Cognition P. Social Interaction sup Q. Problem Solving sup R. Memory sup - Endurance Good - Balance Good - Safety Awareness Good QI SCORES: - Self-Care A. Eating 05-Setup or clean-up assistance B. Oral hygiene 05-Setup or clean-up assistance C. Toileting hygiene 03-Partial/moderate assistance E. Shower/bathe self 01-Dependent F. Upper body dressing 04-Supervision or touching assistance G. Lower body dressing 01-Dependent H. Putting on/taking off footwear 88-Not attempted due to medical condition or safety concerns - Mobility A. Roll left and right 02-Substantial/maximal assistance B. Sit to lying 02-Substantial/maximal assistance C. Lying to sitting on side of bed 02-Substantial/maximal assistance D. Sit to stand 02-Substantial/maximal assistance E. Chair/tca-ee-iqowk transfer 02-Substantial/maximal assistance F. Toilet transfer 02-Substantial/maximal assistance G. Car transfer 88-Not attempted due to medical condition or safety concerns I. Walk 10 feet 01-Dependent J. Walk 50 feet with two turns 88-Not attempted due to medical condition or safety concerns K. Walk 150 feet 88-Not attempted due to medical condition or safety concerns L. Walking 10 feet on uneven surfaces 88-Not attempted due to medical condition or safety concerns M. 1 step (curb) 88-Not attempted due to medical condition or safety concerns N. 4 steps 02-Substantial/maximal assistance O. 12 steps 88-Not attempted due to medical condition or safety concerns P. Picking up object 88-Not attempted due to medical condition or safety concerns R. Wheel 50 feet with two turns 88-Not attempted due to medical condition or safety concerns S. Wheel 150 feet 88-Not attempted due to medical condition or safety concerns - Bladder and Bowel Bladder continence 0-Always continent Bowel continence 0-Always continent [facility] 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
--- NOTE | 2019-05-04 00:52 | OP ---
Date of Procedure: 05/03/2019 Surgeon: Rene Pearson MD, Preoperative Diagnosis: Left pleural effusion. Postoperative Diagnosis: Left pleural effusion. Procedure Performed: Placement of a PleurX left thoracic catheter. Anesthesia: Local 1% lidocaine used. Estimated Blood Loss: Less than 2 cc. Specimens: Pleural fluid sent for analysis. Findings: Dark red pleural fluid returned. Complications: None. Drains: PleurX catheter. Disposition: Transferred to recovery room in good condition. Procedure In Detail: After informed consent was obtained, patient was brought to the preop area, pre pped and draped in the usual sterile fashion after adequate anesthesia was achieved. I made a linear incision over the sixth intercostal space at the left midaxillary line. After making the incision, I anesthetized the tract inferiorly from this area and then used a finder needle to go over the rib a nd enter the thoracic space. Upon entry to the thoracic space, dark red colored fluid was returned. I pulled the needle out and advanced the wire at this point, the sheath was then removed and I then tunneled the catheter from distal site after making an incision approximately 3 cm to 4 cm away from the insertion site. The catheter was prepared for insertion and I sequentially dilated up the tract using sequential dilators using Seldinger technique. I then placed an introducer sheath and placed t he catheter through the introducer sheath after removing the inner cannula. The introducer sheath wa s then removed after the catheter was placed. Dark red colored pleural fluid was returned and the ar ea was cleansed and the skin was then closed at the insertion site using a 2-0 nylon suture in an int errupted fashion and the catheter was then secured to the skin additionally with the same said 2-0 ny frida suture and the area was cleansed with sterile dressing placed over top and the catheter was attac hed to the PleurX Pneumovax evacuation system and dark red colored fluid was emanating immediately. The patient tolerated the procedure well with no evidence of complication. Remained in the PACU in g ood condition. All counts were correct at the end of the case. KEISHA/SUZY Voice ID: [id number] Report ID: [id number]
--- NOTE | 2019-05-05 18:20 | R.DS ---
FACILITY [facility] MR# [id number] NAME MARCE BRAND ADDRESS [address] [place] [address] [address] [id number] PHONE DATE OF 1935 AGE 84 SSN# [id number] GENDER Male DEXTERITY Right-handed MARITAL STATUS Unknown RACE White ENCOUNTER PHYSICIAN Dr. Alex Ribeiro M.D. REFERRING DOCTOR Daily De Jesus REFERRING FACILITY [facility] DISCHARGE DIAGNOSIS: - Orthopaedic Disorders 08 - Unilateral Hip Fracture (08.11) Unspecified intracapsular fracture of left femur, initial encounter for closed fracture (S72.012A). DISCHARGE COMORBIDITIES: - Tier 3 Pleural effusion, not elsewhere classified (J90) - Non-Tiered Presence of aortocoronary bypass graft (Z95.1) Atherosclerotic heart disease of [place] coronary artery without angina pectoris (I25.10) Chronic kidney disease, stage 3 (moderate) (N18.3) Personal history of other diseases of the circulatory system (Z86.79) Parkinson's disease (G20) Essential (primary) hypertension (I10) DATE OF ADMISSION 04/20/2019 17:25 (CDT) MEDICATION ALLERGIES: No Known Drug Allergies (NKDA) ENVIRONMENTAL ALLERGIES: - Substance Allergies None Known - Other Allergies None Known DISCHARGE MEDICATIONS: Other- ContinueSee attached MAR (Medication Administration Record). NURSING: - Shower allowing shower - Skin care per protocol PRECAUTIONS: - Posterior Hip Precaution No adduction across midline No external rotation No hip flexion >90 degrees No internal rotation No wheel chair propulsion - Weight Bearing Precaution WBAT left LE ACTIVITIES OOB only with supervision THERAPIES: - Dietary and Nutrition Adequate Nutrition Nutritional Education Nutritional Supplements HISTORY OF PRESENT ILLNESS: Pt. is a 84 yo Right-handed white male.On 04/09/2019 he was admitted to [facility] emergency surgery for Unspecified intracapsular fracture of left femur, initial encounter for close d fracture (S72.012A) (Unilateral Hip Fracture) by Daily De Jesus.Pre-morbidly, Pt. was independent/ mod-I in Locomotion and Self-Care; and he had good Safety Awareness and Sphincter Control.Currently, he has deficits of Endurance, Locomotion, Balance, Self-Care, Safety Awareness, Ambulation, pain limi ting function, Safety Awareness and Self-Care, and Social Cognition.Pt. is now referred to [facility] for acute in-patient rehabilitation in order to maximize patient's functional independence in activities of daily living, strength, ROM, and mobility.- Rehab Goal Patient has realistic goal of being discharged at assistance level 6-Cathy to reside at Home with Fam samantha/Relatives. ANTERIOR HIP PRECAUTION: On 04/21/2019 the following precautions were added for the patient: Anterior Hip Precaution - No abd uction, Anterior Hip Precaution - No active extension, Anterior Hip Precaution - No adduction acros s midline, Anterior Hip Precaution - No external rotation, Anterior Hip Precaution - No hip flexion >90 degrees, and Anterior Hip Precaution - No internal rotation. On 04/26/2019 the following precautions were removed for the patient: Anterior Hip Precaution - No a bduction, Anterior Hip Precaution - No active extension, Anterior Hip Precaution - No adduction acr oss midline, Anterior Hip Precaution - No external rotation, Anterior Hip Precaution - No hip flexi on >90 degrees, and Anterior Hip Precaution - No internal rotation. The following precautions were added for the patient: Anterior Hip Precaution - No abduction, Anterio r Hip Precaution - No active extension, Anterior Hip Precaution - No adduction across midline, Anteri or Hip Precaution - No external rotation, Anterior Hip Precaution - No hip flexion >90 degrees, and A nterior Hip Precaution - No internal rotation. On 04/28/2019 the following precautions were removed for the patient: Anterior Hip Precaution - No ab duction, Anterior Hip Precaution - No active extension, Anterior Hip Precaution - No adduction across midline, Anterior Hip Precaution - No external rotation, Anterior Hip Precaution - No hip flexion >9 0 degrees, and Anterior Hip Precaution - No internal rotation. The following precautions were added for the patient: Anterior Hip Precaution - No abduction, Anteri or Hip Precaution - No active extension, Anterior Hip Precaution - No adduction across midline, Ant erior Hip Precaution - No external rotation, Anterior Hip Precaution - No hip flexion >90 degrees, and Anterior Hip Precaution - No internal rotation. The following precautions were removed for the patient: Anterior Hip Precaution - No abduction, Ante rior Hip Precaution - No active extension, Anterior Hip Precaution - No adduction across midline, A nterior Hip Precaution - No external rotation, Anterior Hip Precaution - No hip flexion >90 degrees , and Anterior Hip Precaution - No internal rotation. On 04/20/2019 the following precautions were added for the patient: Posterior Hip Precaution - No whe el chair propulsion, Posterior Hip Precaution - No external rotation, Posterior Hip Precaution - No i nternal rotation, Posterior Hip Precaution - No adduction across midline, and Posterior Hip Precautio n - No hip flexion >90 degrees. On 04/26/2019 the following precautions were added for the patient: Posterior Hip Precaution - No ad duction across midline, Posterior Hip Precaution - No external rotation, Posterior Hip Precaution - No hip flexion >90 degrees, Posterior Hip Precaution - No internal rotation, and Posterior Hip Prec aution - No wheel chair propulsion. The following precautions were removed for the patient: Posterior Hip Precaution - No adduction acros s midline, Posterior Hip Precaution - No external rotation, Posterior Hip Precaution - No hip flexion >90 degrees, Posterior Hip Precaution - No internal rotation, Posterior Hip Precaution - No wheel ch air propulsion, Posterior Hip Precaution - No adduction across midline, Posterior Hip Precaution - No external rotation, Posterior Hip Precaution - No hip flexion >90 degrees, Posterior Hip Precautio n - No internal rotation, and Posterior Hip Precaution - No wheel chair propulsion. On 04/20/2019 the following precautions were added for the patient: Weight Bearing Precaution - WBAT left LE. On 04/21/2019 the following precautions were added for the patient: Weight Bearing Precaution - WBAT left LE. On 04/26/2019 the following precautions were removed for the patient: Weight Bearing Precaution - WB AT left LE. On 04/28/2019 the following precautions were added for the patient: Weight Bearing Precaution - WBAT left LE. DIET - LIQUID TEXTURE: On 04/20/2019 Pt was upgraded to Regular Diet - Liquid Texture. DIET - SOLID TEXTURE: On 04/20/2019 Pt was upgraded to Regular Diet - Solid Texture. DIET TYPE: On 04/20/2019 Pt was upgraded to Regular Diet Type. POSTERIOR HIP PRECAUTION: TUBE FEED: On 04/20/2019 Pt was changed to N/A Tube Feed. WEIGHT BEARING PRECAUTION: DISCHARGE PHYSICAL EXAM - Gen Alert and awake Lying in bed No apparent distress Oriented to: person, time, and place - Skin No breakdown Normacephalic - Eyes No abnormalities - ENMT No abnormalities - Neck No abnormalities - CVS RRR - Chest No abnormalities - Abd + bowel sounds - GI Soft Deferred - No abnormalities - Ext Left hip surgical site has good hemostasis. - MSK 4+/5 weakness in left lower extremity - Neuro 4/5 strength left lower extremity. - Psych No abnormalities FUNCTIONAL STATUS: - Self-Care A. Eating 7-Ind B. Grooming 5-sup C. Bathing 3-modA D. Dressing - Upper 3-modA E. Dressing - Lower 3-modA F. Toileting 3-modA - Sphincter Control G. Bladder control 5-sup H. Bowel control 5-sup - Transfers Control I. Bed/Chair/Wheelchair 3-modA J. Toilet 3-modA K. Tub/Shower 3-modA - Locomotion L. Walk/Wheelchair (W) 3-modA M. Stairs 2-maxA - Communication N. Comprehension (A) 7-Ind O. Expression (B) 7-Ind - Social Cognition P. Social Interaction 5-sup Q. Problem Solving 5-sup R. Memory 5-sup - Endurance Good - Balance Good - Safety Awareness Good QI SCORES: - Self-Care A. Eating 05-Setup or clean-up assistance B. Oral hygiene 05-Setup or clean-up assistance C. Toileting hygiene 03-Partial/moderate assistance E. Shower/bathe self 01-Dependent F. Upper body dressing 04-Supervision or touching assistance G. Lower body dressing 01-Dependent H. Putting on/taking off footwear 88-Not attempted due to medical condition or safety concerns - Mobility A. Roll left and right 02-Substantial/maximal assistance B. Sit to lying 02-Substantial/maximal assistance C. Lying to sitting on side of bed 02-Substantial/maximal assistance D. Sit to stand 02-Substantial/maximal assistance E. Chair/[id number] transfer 02-Substantial/maximal assistance F. Toilet transfer 02-Substantial/maximal assistance G. Car transfer 88-Not attempted due to medical condition or safety concerns I. Walk 10 feet 01-Dependent J. Walk 50 feet with two turns 88-Not attempted due to medical condition or safety concerns K. Walk 150 feet 88-Not attempted due to medical condition or safety concerns L. Walking 10 feet on uneven surfaces 88-Not attempted due to medical condition or safety concerns M. 1 step (curb) 88-Not attempted due to medical condition or safety concerns N. 4 steps 02-Substantial/maximal assistance O. 12 steps 88-Not attempted due to medical condition or safety concerns P. Picking up object 88-Not attempted due to medical condition or safety concerns R. Wheel 50 feet with two turns 88-Not attempted due to medical condition or safety concerns S. Wheel 150 feet 88-Not attempted due to medical condition or safety concerns - Bladder and Bowel Bladder continence 0-Always continent Bowel continence 0-Always continent DISCHARGE INSTRUCTIONS: - N/A Eliquis 2.5 mg twice daily. DISCHARGE PLAN, FOLLOW UP CARE PROVISIONS: - Estimated Length of Stay (days) 14. - Consensus on plan Discharge plan has been discussed with primary caregiver. Patient/Family is in agreement with the jose n. Primary caregiver is in agreement with the plan. - Patient/Family Goals Return home with assistance. - Planned Living Setting Upon Discharge Home, to live with Family/Relatives. - N/A Mr. Brand was discharge to the acute care floor after he developed worsening shortness of breath an d a chest x-ray revealed a large right pleural effusion. The pulmonary and surgical services are foll owing the patient with a plan to place a chest drain. The effusion recurred two weeks after it was dr siegel, prior to his admission to the rehab unit. He will return to [place] for further work up to rul e out malignancy. 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
== END 2019-05-03 12:30 | disposition short-term general hospital (02) | DRG 560 ==
LOC: 5TH 17:25
PROVIDERS: ADMIT Psychiatry & Neurology Neurology with Special Qualifications in Child Neurology; ATTEND Psychiatry & Neurology Neurology with Special Qualifications in Child Neurology
PROC: 0W9B30Z Drainage of Left Pleural Cavity with Drainage Device, Percutaneous Approach (ICD-10-PCS; principal; 2019-05-03)
DX: S72.8X2D Other fracture of left femur, subsequent encounter for closed fracture with routine healing (principal); J90 Pleural effusion, not elsewhere classified; F32.9 Major depressive disorder, single episode, unspecified; I12.9 Hypertensive chronic kidney disease with stage 1 through stage 4 chronic kidney disease, or unspecified chronic kidney disease; N18.3 Chronic kidney disease, stage 3 (moderate); F43.10 Post-traumatic stress disorder, unspecified; K21.9 Gastro-esophageal reflux disease without esophagitis; E78.5 Hyperlipidemia, unspecified; G20 Parkinson's disease
CPT/HCPCS: 36415; 71045; 80048; 81001; 82040; 83735; 84134; 85025; 85027; 85610; 92507; 92523; 93005; 94640; 94760; 97110; 97116; 97124; 97127; 97161; 97530; 97542

== ENCOUNTER 2019-05-03 10:55 | Inpatient (IN) | payer OTHER ==
--- OUTSIDE RECORDS SUMMARY | 2019-05-03 10:59 | XMS REPORT ---
:1935 [facility] Darron Chen [address] [place] [id number] Care Team Providers Name Role Phone BARBMINH BARLOWBrian Kelly Unavailable Unavailable RHONDA MCDONALD Unavailable Unavailable Problems This patient has no known problems. Allergies, Adverse Reactions, Alerts This patient has no known allergies or adverse reactions. Medications This patient has no known medications. Results Test Description Test Time Test Comments Text Results Atomic Results Result Comments TISSUE EXAM 2019-04-27 09:25:00 Surgical Pathology Report Case: [id number] Authorizing Provider: Shahid Gallego, Collected: 04/14/2019 Shahid ELIZONDO Ordering Location: [facility] OR Received: 04/15/2019 08 Perioperative Services Pathologist: Natividad Wilder MD Specimen: Femoral Head,Left Hip A. FEMORAL HEAD, LEFT, ARTHROPLASTY: - DEGENERATIVE CHANGES CONSISTENT WITH OSTEOARTHRITIS - SYNOVIUM WITH REACTIVE CHANGES. Signing Pathologist Direct Phone Line: [phone] signed by Natividad Wilder MD on 04/27/2019 at 9:25 [id number], [id number] fracture of neck of left femurLeft hipReceived [...] thick. No discrete lesions are grossly appreciated. Cloud Security Architect sections are submitted as follows: Section code: A1, bone margin following decalcification; A2, telephone services sales representative femoral head following decalcification; A3, telephone services sales representative soft tissue. PA/plperformedB[facility], [facility] of Pathology, [address] [place] [address], [place] [address], [facility]lnn[facility], Department of Pathology, [address] [place] [address], [facility], [facility] of [facility], [address] [place] [address], BASIC METABOLIC PANEL 2019-04-19 07:01:00 Test Item Value Reference Range Comments SODIUM (BEAKER) (test abjc=812) 142 meq/L 136-145 POTASSIUM (BEAKER) (test 3.8 meq/L 3.5-5.1 Specimen slightly hemolyzed oltl=207) CHLORIDE (BEAKER) (test 106 meq/L 98-107 tdjt=322) CO2 (BEAKER) (test aros=519) 28 meq/L 22-29 BLOOD UREA NITROGEN (BEAKER) 14 mg/dL 7-21 (test bltb=549) CREATININE (BEAKER) (test 0.96 mg/dL 0.57-1.25 Specimen slightly hemolyzed jeee=092) GLUCOSE RANDOM (BEAKER) (test 81 mg/dL 70-105 fjsv=646) CALCIUM (BEAKER) (test 8.4 mg/dL 8.4-10.2 fpiv=129) EGFR (BEAKER) (test vmng=2200) INSUFFICIENT CLINICAL DATA TO CALCULATE ESTIMATED GFR. HEMOGLOBIN AND [id number] 06:47:00 Test Item Value Reference Range Comments HEMOGLOBIN (BEAKER) (test syvi=360) 10.8 GM/DL 13.7-17.5 HEMATOCRIT (BEAKER) (test pobd=972) 34.3 % 40.1-51.0 BASIC METABOLIC [id number] 03:57:00 Test Item Value Reference Range Comments SODIUM (BEAKER) (test 138 meq/L 136-145 gwzw=825) POTASSIUM (BEAKER) (test 4.1 meq/L 3.5-5.1 hvav=081) CHLORIDE (BEAKER) (test 103 meq/L 98-107 rqzb=715) CO2 (BEAKER) (test xqhh=212) 28 meq/L 22-29 BLOOD UREA NITROGEN (BEAKER) 15 mg/dL 7-21 (test gqmr=039) CREATININE (BEAKER) (test 0.83 mg/dL 0.57-1.25 avrq=163) GLUCOSE RANDOM (BEAKER) 102 mg/dL 70-105 (test idxa=516) CALCIUM (BEAKER) (test 8.3 mg/dL 8.4-10.2 fazo=823) EGFR (BEAKER) (test INSUFFICIENT CLINICAL DATA TO dkoc=1100) CALCULATE ESTIMATED GFR. HEMOGLOBIN AND [id number] 03:56:00 Test Item Value Reference Range Comments HEMOGLOBIN (BEAKER) (test lcri=826) 9.8 GM/DL 13.7-17.5 HEMATOCRIT (BEAKER) (test ydfk=653) 30.8 % 40.1-51.0 BASIC METABOLIC [id number] 06:04:00 Test Item Value Reference Range Comments SODIUM (BEAKER) (test 141 meq/L 136-145 jcpb=190) POTASSIUM (BEAKER) (test 4.1 meq/L 3.5-5.1 znui=169) CHLORIDE (BEAKER) (test 106 meq/L 98-107 eevs=783) CO2 (BEAKER) (test nlfk=865) 28 meq/L 22-29 BLOOD UREA NITROGEN (BEAKER) 12 mg/dL 7-21 (test oixp=973) CREATININE (BEAKER) (test 1.10 mg/dL 0.57-1.25 jfon=481) GLUCOSE RANDOM (BEAKER) 97 mg/dL 70-105 (test jnal=928) CALCIUM (BEAKER) (test 8.3 mg/dL 8.4-10.2 mnuy=985) EGFR (BEAKER) (test INSUFFICIENT CLINICAL DATA TO grdb=3594) CALCULATE ESTIMATED GFR. HEMOGLOBIN AND [id number] 05:41:00 Test Item Value Reference Range Comments HEMOGLOBIN (BEAKER) (test lsni=592) 9.9 GM/DL 13.7-17.5 HEMATOCRIT (BEAKER) (test vdqr=408) 31.7 % 40.1-51.0 RAD, PELVIS, 1 OR 2 [id number] 11:02:00Reason for exam:->postopShould this be performed at [...] Verified Date/ Time: 04/15/2019 11:02:21 Reading Location: [facility] Reading Room [address] [place] [address] HEMOGLOBIN AND [id number] 06:41:00 Test Item Value Reference Range Comments HEMOGLOBIN (BEAKER) (test nenc=031) 11.1 GM/DL 13.7-17.5 HEMATOCRIT (BEAKER) (test ulsn=773) 35.3 % 40.1-51.0 BASIC METABOLIC [id number] 06:17:00 Test Item Value Reference Range Comments SODIUM (BEAKER) (test 140 meq/L 136-145 bwyy=550) POTASSIUM (BEAKER) (test 4.3 meq/L 3.5-5.1 Specimen slightly hemolyzed jxcv=802) CHLORIDE (BEAKER) (test 106 meq/L 98-107 tcpf=913) CO2 (BEAKER) (test ikkh=466) 28 meq/L 22-29 BLOOD UREA NITROGEN (BEAKER) 15 mg/dL 7-21 (test dczs=015) CREATININE (BEAKER) (test 1.04 mg/dL 0.57-1.25 Specimen slightly hemolyzed ixel=531) GLUCOSE RANDOM (BEAKER) 140 mg/dL 70-105 (test ggfo=271) CALCIUM (BEAKER) (test 7.8 mg/dL 8.4-10.2 lzzt=496) EGFR (BEAKER) (test INSUFFICIENT CLINICAL DATA TO vpbt=8850) CALCULATE ESTIMATED GFR. RAD, CHEST, 1 VIEW, NON [id number] 22:12:00Reason for exam:->postop, pleural effusionShould this be [...] 04/14/2019 22:12:10 RAD, PELVIS, 1 OR 2 [id number] 15:35:00Reason for exam:->left subcapital fracture of [...] MDReport Verified Date/Time: 04/14/2019 15:35:04 BASIC METABOLIC [id number] 06:23:00 Test Item Value Reference Range Comments SODIUM (BEAKER) (test 137 meq/L 136-145 zryv=837) POTASSIUM (BEAKER) (test 4.2 meq/L 3.5-5.1 nyqg=289) CHLORIDE (BEAKER) (test 102 meq/L 98-107 azty=154) CO2 (BEAKER) (test xggw=330) 29 meq/L 22-29 BLOOD UREA NITROGEN (BEAKER) 17 mg/dL 7-21 (test mief=535) CREATININE (BEAKER) (test 1.26 mg/dL 0.57-1.25 qaiq=830) GLUCOSE RANDOM (BEAKER) 91 mg/dL 70-105 (test cpoy=647) CALCIUM (BEAKER) (test 9.4 mg/dL 8.4-10.2 yzaz=904) EGFR (BEAKER) (test INSUFFICIENT CLINICAL DATA TO qpej=9945) CALCULATE ESTIMATED GFR. CBC W/PLT COUNT & AUTO [id number] 04:51:00 Test Item Value Reference Range Comments WHITE BLOOD CELL COUNT (BEAKER) (test pkin=913) 7.6 K/ L 3.5-10.5 RED BLOOD CELL COUNT (BEAKER) (test tigm=499) 4.36 M/ L 4.63-6.08 HEMOGLOBIN (BEAKER) (test emkw=205) 11.8 GM/DL 13.7-17.5 HEMATOCRIT (BEAKER) (test kayp=994) 38.8 % 40.1-51.0 MEAN CORPUSCULAR VOLUME (BEAKER) (test esuf=008) 89.0 fL 79.0-92.2 MEAN CORPUSCULAR HEMOGLOBIN (BEAKER) (test 27.1 pg 25.7-32.2 vgrx=347) MEAN CORPUSCULAR HEMOGLOBIN CONC (BEAKER) (test 30.4 GM/DL 32.3-36.5 gwrh=425) RED CELL DISTRIBUTION WIDTH (BEAKER) (test 13.6 % 11.6-14.4 bkuf=508) PLATELET COUNT (BEAKER) (test gqrl=116) 285 K/CU MM 150-450 MEAN PLATELET VOLUME (BEAKER) (test ckbn=574) 10.8 fL 9.4-12.4 NUCLEATED RED BLOOD CELLS (BEAKER) (test 0 /100 WBC 0-0 btuz=175) NEUTROPHILS RELATIVE PERCENT (BEAKER) (test 60 % arim=963) LYMPHOCYTES RELATIVE PERCENT (BEAKER) (test 20 % pwui=662) MONOCYTES RELATIVE PERCENT (BEAKER) (test 15 % epby=424) EOSINOPHILS RELATIVE PERCENT (BEAKER) (test 4 % bnmq=720) BASOPHILS RELATIVE PERCENT (BEAKER) (test 1 % zqdi=859) NEUTROPHILS ABSOLUTE COUNT (BEAKER) (test 4.58 K/ L 1.78-5.38 fdxu=024) LYMPHOCYTES ABSOLUTE COUNT (BEAKER) (test 1.54 K/ L 1.32-3.57 bksr=450) MONOCYTES ABSOLUTE COUNT (BEAKER) (test 1.12 K/ L 0.30-0.82 nwal=851) EOSINOPHILS ABSOLUTE COUNT (BEAKER) (test 0.27 K/ L 0.04-0.54 fqta=044) BASOPHILS ABSOLUTE COUNT (BEAKER) (test 0.05 K/ L 0.01-0.08 qdvg=005) IMMATURE GRANULOCYTES-RELATIVE PERCENT (BEAKER) 1 % 0-1 (test qhqx=9047) [id number] 17:14:00Medical Cytology Report Case: [id number] Authorizing Provider: Ashlie Ignacio MD Collected: 04/11/2019 1836 Ordering Location: [address] Received: 04/12/2019 0907 Service Pathologist: Ward [...] correlation to excludea lung primary is also recommended.[id number], HLD , hx unknown arrythmia on metop, parkinson's, non-obstructive nephrolithiasis, undergoing evaluation for L femoral fracture by orthopedic surgery. Incidentally found to have a large left pleural effusionLEFT PLEURAL FLUIDReceived 4 ml dark yellow fluidPrepared 4 cytospinsCollected: [id number]: [id number] [facility], Department of Pathology, [address] [place] [address], [facility], [facility] of [facility], [address] [place] [address], [facility], Department of Pathology, [address] [place] [address], SX, CHEST, WITHOUT [id number] 09:44:00Reason for exam:->evaluate left pleural effusionFINAL REPORT [...] Osteopenia. Degenerative changes of the visualized spine. [place] in the left humeral head. Soft tissues [...] MDReport Verified Date/Time: 04/12/2019 09:44:48 Reading Location: [facility] Diagnostic Imaging Reading Room - [place] [address] BASIC METABOLIC [id number] 06:15:00 Test Item Value Reference Range Comments SODIUM (BEAKER) (test 141 meq/L 136-145 cikk=759) POTASSIUM (BEAKER) (test 4.2 meq/L 3.5-5.1 cljo=093) CHLORIDE (BEAKER) (test 104 meq/L 98-107 wfof=312) CO2 (BEAKER) (test sluz=287) 30 meq/L 22-29 BLOOD UREA NITROGEN (BEAKER) 16 mg/dL 7-21 (test pkjp=987) CREATININE (BEAKER) (test 1.26 mg/dL 0.57-1.25 ppun=398) GLUCOSE RANDOM (BEAKER) 96 mg/dL 70-105 (test wdqg=612) CALCIUM (BEAKER) (test 9.3 mg/dL 8.4-10.2 vzgj=564) EGFR (BEAKER) (test INSUFFICIENT CLINICAL DATA TO xiho=0000) CALCULATE ESTIMATED GFR. [id number] 06:12:00 Test Item Value Reference Range Comments MAGNESIUM (BEAKER) (test yixe=371) 1.9 mg/dL 1.6-2.6 CBC W/PLT COUNT & AUTO [id number] 05:37:00 Test Item Value Reference Range Comments WHITE BLOOD CELL COUNT (BEAKER) (test mwrp=439) 7.6 K/ L 3.5-10.5 RED BLOOD CELL COUNT (BEAKER) (test qqyz=799) 4.09 M/ L 4.63-6.08 HEMOGLOBIN (BEAKER) (test azjf=434) 11.2 GM/DL 13.7-17.5 HEMATOCRIT (BEAKER) (test xzgg=890) 36.3 % 40.1-51.0 MEAN CORPUSCULAR VOLUME (BEAKER) (test ahyh=217) 88.8 fL 79.0-92.2 MEAN CORPUSCULAR HEMOGLOBIN (BEAKER) (test 27.4 pg 25.7-32.2 gmdu=016) MEAN CORPUSCULAR HEMOGLOBIN CONC (BEAKER) (test 30.9 GM/DL 32.3-36.5 bxrz=778) RED CELL DISTRIBUTION WIDTH (BEAKER) (test 13.8 % 11.6-14.4 djkr=622) PLATELET COUNT (BEAKER) (test bioo=680) 278 K/CU MM 150-450 MEAN PLATELET VOLUME (BEAKER) (test avip=987) 10.3 fL 9.4-12.4 NUCLEATED RED BLOOD CELLS (BEAKER) (test 0 /100 WBC 0-0 skwp=078) NEUTROPHILS RELATIVE PERCENT (BEAKER) (test 58 % jgko=941) LYMPHOCYTES RELATIVE PERCENT (BEAKER) (test 25 % hbju=237) MONOCYTES RELATIVE PERCENT (BEAKER) (test 13 % njby=247) EOSINOPHILS RELATIVE PERCENT (BEAKER) (test 3 % rhqw=764) BASOPHILS RELATIVE PERCENT (BEAKER) (test 1 % etki=377) NEUTROPHILS ABSOLUTE COUNT (BEAKER) (test 4.38 K/ L 1.78-5.38 poqe=273) LYMPHOCYTES ABSOLUTE COUNT (BEAKER) (test 1.88 K/ L 1.32-3.57 rppy=975) MONOCYTES ABSOLUTE COUNT (BEAKER) (test 0.98 K/ L 0.30-0.82 rjne=771) EOSINOPHILS ABSOLUTE COUNT (BEAKER) (test 0.23 K/ L 0.04-0.54 pjro=941) BASOPHILS ABSOLUTE COUNT (BEAKER) (test 0.05 K/ L 0.01-0.08 qfts=376) IMMATURE GRANULOCYTES-RELATIVE PERCENT (BEAKER) 1 % 0-1 (test zyij=0499) LACTATE DEHYDROGENASE (LDH)2019-04-11 19:45:00 Test Item Value Reference Range Comments LACTATE DEHYDROGENASE (BEAKER) (test sbwb=136) 195 U/L 125-220 RAD, CHEST, 1 VIEW, NON [id number] 19:01:00Reason for exam:->left chest painShould this be performed at the bedside?->YesFINAL REPORT INDICATION: left chest pain TECHNIQUE: Chest radiograph, single view, portable technique. FINDINGS / IMPRESSION: Comparison to April 11 at 3:56 PM.Moderate left pleural effusion is unchanged in size.No pneumothorax is demonstrated.Right lung is clear. Signed: Real Okeefe MDReport Verified Date/Time: 04/11/2019 19:01:33 Reading Location: [facility] C013Y CT BodyReading Room 07: 01 PMHEPATIC FUNCTION [id number] 18:38:00 Test Item Value Reference Range Comments TOTAL PROTEIN (BEAKER) (test bwxm=633) 5.8 gm/dL 6.0-8.3 ALBUMIN (BEAKER) (test tcam=1214) 3.0 g/dL 3.5-5.0 BILIRUBIN TOTAL (BEAKER) (test sjqw=483) 0.2 mg/dL 0.2-1.2 BILIRUBIN DIRECT (BEAKER) (test yhox=975) 0.2 mg/dL 0.1-0.5 ALKALINE PHOSPHATASE (BEAKER) (test jejm=425) 65 U/L 40-150 AST (SGOT) (BEAKER) (test npyi=060) 19 U/L 5-34 ALT (SGPT) (BEAKER) (test udhh=778) 18 U/L 6-55 RAD, CHEST, 1 VIEW, NON [id number] 17:21:00pls stat post thoracentesis. thanksReason for exam:->post [...] MDReport Verified Date/Time: 04/11/2019 17:21:48 Reading Location: [facility] C013Y CT Body Reading Room PROTEIN, BODY [id number] 16:16: 00 Test Item Value Reference Range Comments PROTEIN FLUID (BEAKER) (test 3.9 g/dL Light's criteria identifies jvxw=024) effusions if one or more are pre Absence of reference range indicates that normals have not been defined.Assay performance has not been validated for this type of specimen.TRIGLYCERIDES, BODY [id number] 16:16:00 Test Item Value Reference Range Comments TRIGLYCERIDES FLUID (BEAKER) (test dfnc=305) 33 mg/dL Reference Range: No Normals Assay performance has not been validated for this type of specimen.PH, BODY [id number] 16:12:00 Test Item Value Reference Range Comments PH, BODY FLUID (BEAKER) (test utuw=4215) 7.69 U/S, [id number] 16:07:00Patient needs thoracentesis before he can go [...] was used for local anesthesia. A 4 Korean needle catheter system was advanced into the pleural space. 1700 cc yesenia-colored clear fluid was taken off. Patient tolerated the procedure well. Chest radiograph has been ordered. Impression: Ultrasound guided left thoracentesis. Signed: Real Okeefe MDReport Verified Date/Time: 04/11/2019 16:07:47 Reading Location: [address] Body Reading Room HEMOGLOBIN [id number] 09: 18:00 Test Item Value Reference Range Comments HEMOGLOBIN A1C (BEAKER) (test gckf=045) 5.6 % 4.3-6.1 BASIC METABOLIC [id number] 04:55:00 Test Item Value Reference Range Comments SODIUM (BEAKER) (test 140 meq/L 136-145 intx=562) POTASSIUM (BEAKER) (test 4.4 meq/L 3.5-5.1 gsgm=494) CHLORIDE (BEAKER) (test 104 meq/L 98-107 hcxy=218) CO2 (BEAKER) (test cbxf=200) 30 meq/L 22-29 BLOOD UREA NITROGEN (BEAKER) 18 mg/dL 7-21 (test nezb=551) CREATININE (BEAKER) (test 1.28 mg/dL 0.57-1.25 yluk=826) GLUCOSE RANDOM (BEAKER) 111 mg/dL 70-105 (test hkov=622) CALCIUM (BEAKER) (test 9.0 mg/dL 8.4-10.2 qera=829) EGFR (BEAKER) (test INSUFFICIENT CLINICAL DATA TO tyza=9151) CALCULATE ESTIMATED GFR. [id number] 04:53:00 Test Item Value Reference Range Comments MAGNESIUM (BEAKER) (test hdix=002) 1.9 mg/dL 1.6-2.6 LIPID [id number] 04:53:00 Test Item Value Reference Range Comments TRIGLYCERIDES (BEAKER) (test ocrl=702) 93 mg/dL CHOLESTEROL (BEAKER) (test sejx=049) 167 mg/dL HDL CHOLESTEROL (BEAKER) (test aqja=044) 40 mg/dL LDL CHOLESTEROL CALCULATED (BEAKER) (test 108 mg/dL rroh=737) Triglyceride Reference Range: Low Risk <150 Borderline 150- 199 High Risk 200-499 Very High Risk >=500Cholesterol Reference Range: Low Risk <200 Borderline 200-239 High Risk > 240HDL Cholesterol Reference Range: Low Risk >=60 High Risk <40LDL Cholesterol Reference Range: Optimal <100 Near Optimal 100-129 Borderline 130-159 High 160-189 Very High >=190CBC W/PLT COUNT & AUTO [id number] 04:37:00 Test Item Value Reference Range Comments WHITE BLOOD CELL COUNT (BEAKER) (test edzv=808) 7.2 K/ L 3.5-10.5 RED BLOOD CELL COUNT (BEAKER) (test vubr=696) 3.74 M/ L 4.63-6.08 HEMOGLOBIN (BEAKER) (test iuse=257) 10.2 GM/DL 13.7-17.5 HEMATOCRIT (BEAKER) (test ylxf=586) 33.5 % 40.1-51.0 MEAN CORPUSCULAR VOLUME (BEAKER) (test jfnr=620) 89.6 fL 79.0-92.2 MEAN CORPUSCULAR HEMOGLOBIN (BEAKER) (test 27.3 pg 25.7-32.2 pkyn=429) MEAN CORPUSCULAR HEMOGLOBIN CONC (BEAKER) (test 30.4 GM/DL 32.3-36.5 epsj=885) RED CELL DISTRIBUTION WIDTH (BEAKER) (test 14.0 % 11.6-14.4 yfbb=506) PLATELET COUNT (BEAKER) (test fgvc=838) 268 K/CU MM 150-450 MEAN PLATELET VOLUME (BEAKER) (test yokf=331) 10.6 fL 9.4-12.4 NUCLEATED RED BLOOD CELLS (BEAKER) (test 0 /100 WBC 0-0 savu=466) NEUTROPHILS RELATIVE PERCENT (BEAKER) (test 61 % vznb=194) LYMPHOCYTES RELATIVE PERCENT (BEAKER) (test 21 % dcne=929) MONOCYTES RELATIVE PERCENT (BEAKER) (test 14 % htvm=893) EOSINOPHILS RELATIVE PERCENT (BEAKER) (test 3 % xfua=159) BASOPHILS RELATIVE PERCENT (BEAKER) (test 1 % zpkt=627) NEUTROPHILS ABSOLUTE COUNT (BEAKER) (test 4.41 K/ L 1.78-5.38 bcbz=893) LYMPHOCYTES ABSOLUTE COUNT (BEAKER) (test 1.48 K/ L 1.32-3.57 mvrb=410) MONOCYTES ABSOLUTE COUNT (BEAKER) (test 1.04 K/ L 0.30-0.82 mlgj=005) EOSINOPHILS ABSOLUTE COUNT (BEAKER) (test 0.21 K/ L 0.04-0.54 zdij=603) BASOPHILS ABSOLUTE COUNT (BEAKER) (test 0.04 K/ L 0.01-0.08 kyrh=090) IMMATURE GRANULOCYTES-RELATIVE PERCENT (BEAKER) 1 % 0-1 (test hipr=9639) RAD, KNEE, 3 VIEWS, [id number] 16:03:00Reason for exam:->PAIN.FINAL REPORT Left knee, three [...] Shrestha MDReport Verified Date/Time: 16:03:51 Reading Location: [facility] B1 C013X Ortho Consult Reading Room CT, CHEST, WITHOUT [id number] 15:51:00Reason for exam:->Large left pleural effusionFINAL REPORT [...] IMPRESSION: Large left pleural effusion. Signed: Real Okeefe Verified Date/Time: 04/10/2019 15:51:24 Reading Location: [address] Body Reading Room B-TYPE NATRIURETIC FACTOR (BNP)2019-04-10 10:50:00 Test Item Value Reference Range Comments B-TYPE NATRIURETIC PEPTIDE (BEAKER) (test vkpc=074) 74 pg/mL 0-100 RAD, CHEST, 1 VIEW, NON [id number] 09:59:00Reason for exam:->left pleural effusionFINAL REPORT INDICATION: left pleural effusion TECHNIQUE: Chest radiograph, single view, portable technique. FINDINGS / IMPRESSION: There is a large left pleural effusion.Right lung is clear. No pneumothorax demonstrated.Osseous structures unremarkable. Signed: Real Okeefe Verified Date/Time: 04/10/2019 09:59:09 Reading Location: [address] Body Reading Room [id number] 05:54:00 Test Item Value Reference Range Comments MAGNESIUM (BEAKER) (test ojjj=764) 1.9 mg/dL 1.6-2.6 HEPATIC FUNCTION [id number] 05:54:00 Test Item Value Reference Range Comments TOTAL PROTEIN (BEAKER) (test qsks=570) 6.1 gm/dL 6.0-8.3 ALBUMIN (BEAKER) (test rmzo=4775) 3.1 g/dL 3.5-5.0 BILIRUBIN TOTAL (BEAKER) (test aiqb=859) 0.4 mg/dL 0.2-1.2 BILIRUBIN DIRECT (BEAKER) (test qtyu=062) 0.3 mg/dL 0.1-0.5 ALKALINE PHOSPHATASE (BEAKER) (test wnrh=710) 69 U/L 40-150 AST (SGOT) (BEAKER) (test jmkh=436) 18 U/L 5-34 ALT (SGPT) (BEAKER) (test nyzp=308) 14 U/L 6-55 BASIC METABOLIC [id number] 05:54:00 Test Item Value Reference Range Comments SODIUM (BEAKER) (test 140 meq/L 136-145 wikg=778) POTASSIUM (BEAKER) (test 5.1 meq/L 3.5-5.1 bmoj=581) CHLORIDE (BEAKER) (test 105 meq/L 98-107 rwnn=945) CO2 (BEAKER) (test yqlb=507) 30 meq/L 22-29 BLOOD UREA NITROGEN (BEAKER) 20 mg/dL 7-21 (test lsfl=386) CREATININE (BEAKER) (test 1.19 mg/dL 0.57-1.25 itut=411) GLUCOSE RANDOM (BEAKER) 92 mg/dL 70-105 (test ujdz=428) CALCIUM (BEAKER) (test 9.3 mg/dL 8.4-10.2 jlux=931) EGFR (BEAKER) (test INSUFFICIENT CLINICAL DATA TO ljok=4860) CALCULATE ESTIMATED GFR. PROTHROMBIN [id number] 05:18:00 Test Item Value Reference Range Comments PROTIME (BEAKER) (test dbzw=064) 13.8 seconds 11.9-14.2 INR (BEAKER) (test vtbn=449) 1.1 <=5.9 Effective 11/18/2018: PT Reference Range ChangeNew: 11.9-14.2 Previous: 11.7- 14.7RECOMMENDED COUMADIN/WARFARIN INR THERAPY RANGESSTANDARD DOSE: 2.0-3.0 Includes: PROPHYLAXIS for venous thrombosis, systemic embolization; TREATMENT for venous thrombosis and/or pulmonary embolus.HIGH RISK: Target INR is2.5-3.5 for patients wiht mechanical heart valves.CBC W/PLT COUNT & AUTO [id number] 05:10:00 Test Item Value Reference Range Comments WHITE BLOOD CELL COUNT (BEAKER) (test jyia=749) 7.7 K/ L 3.5-10.5 RED BLOOD CELL COUNT (BEAKER) (test kstx=127) 3.92 M/ L 4.63-6.08 HEMOGLOBIN (BEAKER) (test tatp=513) 10.8 GM/DL 13.7-17.5 HEMATOCRIT (BEAKER) (test cznu=793) 34.8 % 40.1-51.0 MEAN CORPUSCULAR VOLUME (BEAKER) (test inot=053) 88.8 fL 79.0-92.2 MEAN CORPUSCULAR HEMOGLOBIN (BEAKER) (test 27.6 pg 25.7-32.2 nqeq=230) MEAN CORPUSCULAR HEMOGLOBIN CONC (BEAKER) (test 31.0 GM/DL 32.3-36.5 bovm=997) RED CELL DISTRIBUTION WIDTH (BEAKER) (test 14.3 % 11.6-14.4 gpho=815) PLATELET COUNT (BEAKER) (test xfof=640) 271 K/CU MM 150-450 MEAN PLATELET VOLUME (BEAKER) (test yikj=224) 10.5 fL 9.4-12.4 NUCLEATED RED BLOOD CELLS (BEAKER) (test 0 /100 WBC 0-0 uxfs=427) NEUTROPHILS RELATIVE PERCENT (BEAKER) (test 59 % mvio=743) LYMPHOCYTES RELATIVE PERCENT (BEAKER) (test 22 % zkeb=071) MONOCYTES RELATIVE PERCENT (BEAKER) (test 15 % fubf=530) EOSINOPHILS RELATIVE PERCENT (BEAKER) (test 3 % ojrl=723) BASOPHILS RELATIVE PERCENT (BEAKER) (test 1 % uiwp=004) NEUTROPHILS ABSOLUTE COUNT (BEAKER) (test 4.52 K/ L 1.78-5.38 fcyl=042) LYMPHOCYTES ABSOLUTE COUNT (BEAKER) (test 1.67 K/ L 1.32-3.57 ahjr=428) MONOCYTES ABSOLUTE COUNT (BEAKER) (test 1.15 K/ L 0.30-0.82 qkkf=717) EOSINOPHILS ABSOLUTE COUNT (BEAKER) (test 0.23 K/ L 0.04-0.54 avrn=561) BASOPHILS ABSOLUTE COUNT (BEAKER) (test 0.04 K/ L 0.01-0.08 pjgn=035) IMMATURE GRANULOCYTES-RELATIVE PERCENT (BEAKER) 1 % 0-1 (test pkba=5843) BASIC METABOLIC [id number] 06:48:00 Test Item Value Reference Range Comments SODIUM (BEAKER) (test 141 meq/L 136-145 jdpm=428) POTASSIUM (BEAKER) (test 4.3 meq/L 3.5-5.1 pxlr=365) CHLORIDE (BEAKER) (test 108 meq/L 98-107 wehn=375) CO2 (BEAKER) (test 26 meq/L 22-29 cnge=316) BLOOD UREA NITROGEN 15 mg/dL 7-21 (BEAKER) (test umsw=700) CREATININE (BEAKER) (test 1.15 mg/dL 0.57-1.25 usxm=167) GLUCOSE RANDOM (BEAKER) 96 mg/dL 70-105 (test ywpm=750) CALCIUM (BEAKER) (test 9.1 mg/dL 8.4-10.2 qdab=967) EGFR (BEAKER) (test mL/min/1.73 sq m INSUFFICIENT CLINICAL DATA laac=1193) TO CALCULATE ESTIMATED GFR. CBC W/PLT COUNT & AUTO [id number] 05:49:00 Test Item Value Reference Range Comments WHITE BLOOD CELL COUNT (BEAKER) (test fvll=791) 6.5 K/ L 3.5-10.5 RED BLOOD CELL COUNT (BEAKER) (test borb=292) 3.99 M/ L 4.63-6.08 HEMOGLOBIN (BEAKER) (test bqeg=492) 10.9 GM/DL 13.7-17.5 HEMATOCRIT (BEAKER) (test jbot=802) 35.5 % 40.1-51.0 MEAN CORPUSCULAR VOLUME (BEAKER) (test ivmx=777) 89.0 fL 79.0-92.2 MEAN CORPUSCULAR HEMOGLOBIN (BEAKER) (test 27.3 pg 25.7-32.2 lgqy=306) MEAN CORPUSCULAR HEMOGLOBIN CONC (BEAKER) (test 30.7 GM/DL 32.3-36.5 wjfd=599) RED CELL DISTRIBUTION WIDTH (BEAKER) (test 13.8 % 11.6-14.4 kgla=850) PLATELET COUNT (BEAKER) (test gkwa=027) 163 K/CU MM 150-450 MEAN PLATELET VOLUME (BEAKER) (test incr=853) 10.9 fL 9.4-12.4 NUCLEATED RED BLOOD CELLS (BEAKER) (test 0 /100 WBC 0-0 wkol=922) NEUTROPHILS RELATIVE PERCENT (BEAKER) (test 53 % rixb=644) LYMPHOCYTES RELATIVE PERCENT (BEAKER) (test 28 % ujsw=490) MONOCYTES RELATIVE PERCENT (BEAKER) (test 13 % gccj=678) EOSINOPHILS RELATIVE PERCENT (BEAKER) (test 5 % ihah=863) BASOPHILS RELATIVE PERCENT (BEAKER) (test 1 % qofq=590) NEUTROPHILS ABSOLUTE COUNT (BEAKER) (test 3.43 K/ L 1.78-5.38 pbfz=674) LYMPHOCYTES ABSOLUTE COUNT (BEAKER) (test 1.83 K/ L 1.32-3.57 xvxl=185) MONOCYTES ABSOLUTE COUNT (BEAKER) (test 0.86 K/ L 0.30-0.82 gqce=492) EOSINOPHILS ABSOLUTE COUNT (BEAKER) (test 0.31 K/ L 0.04-0.54 helf=043) BASOPHILS ABSOLUTE COUNT (BEAKER) (test 0.04 K/ L 0.01-0.08 hmcx=072) IMMATURE GRANULOCYTES-RELATIVE PERCENT (BEAKER) 1 % 0-1 (test ihoa=8915) URINALYSIS W/ [id number] 03:38:00 Test Item Value Reference Range Comments COLOR (BEAKER) (test peub=263) Yellow CLARITY (BEAKER) (test tifd=501) Hazy SPECIFIC GRAVITY UA (BEAKER) (test 1.027 1.001-1.035 jpud=868) PH UA (BEAKER) (test orog=067) 6.0 5.0-8.0 PROTEIN UA (BEAKER) (test psln=598) Negative Negative GLUCOSE UA (BEAKER) (test pfiq=293) Negative Negative KETONES UA (BEAKER) (test odbn=912) Negative Negative BILIRUBIN UA (BEAKER) (test iujr=324) Negative Negative BLOOD UA (BEAKER) (test rkmf=967) Large Negative NITRITE UA (BEAKER) (test nozp=130) Negative Negative LEUKOCYTE ESTERASE UA (BEAKER) (test Negative Negative fyci=718) UROBILINOGEN UA (BEAKER) (test etdr=928) 0.2 mg/dL 0.2-1.0 RBC UA (BEAKER) (test mdin=010) 59 /HPF WBC UA (BEAKER) (test vyja=433) 1 /HPF SOURCE(BEAKER) (test uacw=2032) Urine, Clean Catch
[2019-05-03] MEDS ORDERED: ONDANSETRON 4 MG/2 ML VIAL IV PRN (11:25)
[2019-05-03 13:09] LABS: Absolute Lymphocytes (CBC) 1.3 K/uL (0.7-4.9); Basophils % 1.4 % (0-1.3); Hematocrit 26.3 % (39.6-49.0); Lymphocytes % 14.9 % (15.3-44.8); MPV 8.4 fL (7.6-11.3); RBC Red Blood Cell Count 3.13 M/uL (4.33-5.43)
--- NOTE | 2019-05-03 13:09 | RAD REPORT ---
EXAM DESCRIPTION: RAD - Chest Single View - 05/03/2019 1:04 pm CLINICAL HISTORY: POST PLEURX CATH PLACEMENT Chest pain. COMPARISON: Chest Single View dated 04/30/2019; Chest Single View dated 04/09/2019; Chest Pa And Lat (2 Views) dated 11/10/2017 FINDINGS: Portable technique limits examination quality. A left chest tube has been placed. Opacification of the left hemithorax remains unchanged since prior study. Mild mass effect on the cardiomediastinal structures to the right is seen. The right lung vita ears grossly clear. Heart size cannot be accurately assessed.
[2019-05-03 13:22] LABS: Albumin 2.2 g/dL (3.4-5.0); Bilirubin Total 0.4 mg/dL (0.2-1.0); Potassium 4.2 mmol/L (3.5-5.1); Protein, Total 6.4 g/dL (6.4-8.2)
--- NOTE | 2019-05-03 14:55 | RAD REPORT ---
EXAM DESCRIPTION: CT - Thorax Wo Con CLINICAL HISTORY: Chest pain chest tube placed COMPARISON: Chest Single View dated 05/03/2019 FINDINGS: A left-sided chest tube has been placed. The chest tube enters between the lateral left fi fth and sixth ribs and coils along the inferomedial aspect of the left hemithorax. The distal aspect of the tube appears coiled adjacent to atelectatic lung. Small right pleural effusion is noted. Small volume of aerated left upper lobe is present. The visualized aerated right lung is clear except for minimal atelectasis in the right lung base. Calcified mediastinal lymph nodes seen. No concerning bony finding. Included upper abdominal contents demonstrates small right renal calculi. Small cyst in the liver also suspected. All CT scans are performed using dose optimization technique as appropriate and may include automated exposure control or mA/KV adjustment according to patient size. IMPRESSION: A large loculated left pleural effusion is noted with a left-sided chest tube in place.T he distal aspect the tube appears coiled in the inferomedial aspect of the left hemithorax adjacent t o atelectatic lung.
[2019-05-03 15:35] VITALS: BMI 29.1
[2019-05-03] MEDS ORDERED: LORazepam 2 MG/ML VIAL IV PRN (17:16)
[2019-05-03] MEDS ORDERED: LORAZEPAM 0.5 MG TABLET PO PRN (17:32)
[2019-05-03] MEDS: LORAZEPAM 0.5 MG TABLET PO PRN (18:25)
[2019-05-03] MEDS: ACETAMINOPHEN 500 MG TAB PO PRN (19:13)
[2019-05-03] MEDS ORDERED: MELATONIN 3 MG TABLET PO ONE (20:10)
[2019-05-03] MEDS: METOPROLOL TAR 25 MG TAB PO SCH (20:24)
[2019-05-03] MEDS ORDERED: MIRTAZAPINE 15 MG TAB PO SCH (21:00)
[2019-05-03] MEDS ORDERED: MELATONIN 2 MG PO SCH (21:00)
[2019-05-03 22:38] VITALS: O2SAT 98
[2019-05-04] MEDS: LORAZEPAM 0.5 MG TABLET PO PRN ×2 (01:30→13:36)
[2019-05-04] MEDS: ACETAMINOPHEN 500 MG TAB PO PRN ×2 (01:30→17:13)
--- NOTE | 2019-05-04 02:47 | HP ---
Date of Admission: 05/03/2019 Primary Care Physician: Dr. Cohen. Consultants: Dr. Pearson with General Surgery and Dr. Angelo with Pulmonology. Chief Complaint: Shortness of breath, pleural effusion. Code Status: Full. History Of Present Illness: The patient is an 84-year-old male with past medical history of Parkinso n disease, coronary artery disease status post CABG, chronic kidney disease stage III, peripheral vas cular disease, hypertension, recent left femur fracture as well as pleural effusion, which was treate d at [facility] prior to admission to rehab, where he was found to have some abnormal cells on cytology. Patient has been in rehab since April 21, however, had worsening shortness of breath an d on x-ray was found to have pleural effusion with complete whiteout of the left side of his lung, th erefore the patient was admitted to the hospital. Patient went down for a PleurX catheter placement by Dr. Pearson with minimal drainage around 200 mL of dark red fluid. Fluid was sent off for studies . CT scan of the chest was done, which showed large loculated left pleural effusion with chest tube in place and atelectatic lung. When the patient was seen in the recovery room, he was awake, alert, oriented x3, in some mild distress. The patient's symptoms are constant, moderate, progressively wor sening, worse with exertion. Past Medical History: Coronary artery disease status post CABG; chronic kidney disease, stage III; p eripheral vascular disease; Parkinson disease; essential hypertension; recent left femur fracture sta tus post ORIF. Past Surgical History: Left femur ORIF, chest tube recently with 2 L drained, coronary artery bypass graft. Allergies: NO KNOWN DRUG ALLERGIES. Medications: List reviewed. Family History: Noncontributory in this 84-year-old male. Social History: The patient denies any tobacco use or alcohol use. No illicit drug use. The patien t is , has a daughter. Good social support, was currently in inpatient rehab. Review of Systems: Ten-point system reviewed, negative except as per HPI. Physical Examination: Vital Signs: Temperature 98.4, heart rate 99, blood pressure 118/56, respirations 18, O2 99% on 2 L via nasal cannula. General: Awake, alert, and oriented x3, elderly male, in some mild respiratory distress, ill-appeari ng elderly male. HEENT: Normocephalic, atraumatic PERRLA. EOMI. Moist mucous membranes. Oropharynx is clear. Poor dentition. Conjunctivae are anicteric. Neck: Supple. No JVD. Trachea midline. CV: S1, S2. Regular rate and rhythm. Peripheral pulses weak. Respiratory: Diminished breath sounds on the left. Absent breath sounds except at the apices. Righ t lung moving air well. No wheezing or stridor. Gastrointestinal: Abdomen is soft, nontender, nondistended. Positive bowel sounds. Extremities: No clubbing or cyanosis. The patient has lower extremity edema. No calf tenderness. Neuro: Cranial nerves 2 through 12 intact grossly. No focal neurological deficits. Speech is leona l. Psych: Mood is okay. Affect is flat. Insight and judgment are fair. Laboratory Data: Sodium 141, potassium 4.2, chloride 108, CO2 27, BUN 21, creatinine 1.14, glucose 8 4, calcium 8.9, AST 39, ALT 22, alkaline phosphatase 77, albumin 2.2. WBC 8.8, H and H 8.8 and 26.3, platelets 407, neutrophils 67%. Pleural fluid cultures are pending. Imaging Studies: CT scan of the chest shows large loculated left pleural effusion noted with a left- sided chest tube in place. Distal aspect of the tube appears coiled in the inferior medial aspect of the left hemithorax adjacent to the atelectatic lung. Chest x-ray shows left chest tube replaced, o pacification in the left hemithorax remains unchanged since prior study, mild mass effect of the card iomediastinal structures to the right is seen, right lung appears grossly clear. Heart size cannot b e accurately assessed. Assessment: An 84-year-old male with, 1.Acute respiratory distress. Patient is currently on 2 L via nasal cannula secondary to loculated pleural effusion on the left with complete whiteout of the lung and atelectasis. 2.Severe left pleural effusion, loculated. Patient has had a chest tube placed by Dr. Pearson with minimal drainage, less than 300 mL with dark red fluid. We will send out for analysis. Pulmonology has been consulted. Cultures have been sent off, possibility of lung malignancy. Patient apparently had atypical cells on cytology study at an outside facility when he had occurrence of pleural effusi on and 2 L have been drained by Dr. Strong at [facility]. Patient's Eliquis has been held. 3.Coronary artery disease, status post coronary artery bypass graft, sitka artery, sitka heart wit hout angina. 4.Severe protein-calorie malnutrition, albumin is 2.2. 5.Normocytic normochromic anemia likely anemia of chronic disease. 6.Peripheral vascular disease. 7.Chronic kidney disease stage 3. Creatinine is currently at baseline. We will continue to monitor . Avoid NSAIDs and nephrotoxins. 8.Parkinson disease. We will resume home medications as appropriate. 9.Essential hypertension, stable. Resume home medications. 10.Recent left femur fracture status post open reduction and internal fixation. Plan: Admit the patient to Med-Surg, place as inpatient. We will continue to monitor output from th e chest tube since it is loculated, patient may require CT surgery VATS versus thoracotomy. We will discuss further with Pulmonology. Dr. Angelo at this time feels the patient may benefit from strep tokinase to break up loculations, wants to observe the patient for at least 24 hours prior to any tra nsfer at this time. Family has been updated. Daughter is the main decision maker. Length of stay g reater than 2 midnights. SHERON Voice ID: [id number]
[2019-05-04 04:41] LABS: Absolute Lymphocytes (CBC) 1.3 K/uL (0.7-4.9); Basophils % 0.8 % (0-1.3); Hematocrit 27.9 % (39.6-49.0); Lymphocytes % 14.2 % (15.3-44.8); MPV 8.8 fL (7.6-11.3); RBC Red Blood Cell Count 3.32 M/uL (4.33-5.43)
[2019-05-04 04:56] LABS: Albumin 2.1 g/dL (3.4-5.0); Bilirubin Total 0.3 mg/dL (0.2-1.0); Potassium 4.3 mmol/L (3.5-5.1); Protein, Total 6.2 g/dL (6.4-8.2)
--- NOTE | 2019-05-04 07:21 | RAD REPORT ---
EXAM DESCRIPTION: RAD - Chest Single View - 05/04/2019 7:03 am CLINICAL HISTORY: Pleural effusion COMPARISON: CT chest May 03, portable chest May 03 TECHNIQUE: AP portable chest image was obtained [id number] hours . FINDINGS: Chest tube is in place at the left lung base, difficult to visualize on plain film. Comple te or near complete opacification of the left hemithorax remains. Heart is obscured. Right lung field is clear. No pneumothorax. No acute bony abnormality seen. No acute aortic findings suspected. IMPRESSION: Complete or near complete opacification of the left hemithorax from known large loculate d pleural effusion. No measurable reduction in pleural fluid volume on plain film. Chest tube is present in the left base .
--- NOTE | 2019-05-04 07:59 | P.PN ---
Subjective Date of Service: 05/04/19 Chief Complaint: Massive pleural effusion Patient is status post thorax catheter with no significant drainage was likely he has loculated pleural effusion his left lung is still opacified Review of Systems General: Weakness Respiratory: Shortness of Breath Physical Examination - Vital Signs Temperature: 97.8 F Blood Pressure: 118/58 Pulse: 95 Respirations: 20 Pulse Ox (%): 97 - Physical Exam General: Alert, In no apparent distress Respiratory: Clear to auscultation bilaterally, Diminished (Diminished air entry on the left side) - Studies Laboratory Data (last 24 hrs) 05/04/19 03:57: Sodium 141, Potassium 4.3, BUN 26 H, Creatinine 1.12, Glucose 130 H, Total Bilirubin 0.3, AST 18, ALT 23, Alkaline Phosphatase 82 05/04/19 03:57: WBC 9.0, Hgb 9.1 L, Hct 27.9 L, Plt Count 394 05/03/19 12:52: Sodium 141, Potassium 4.2, BUN 21 H, Creatinine 1.14, Glucose 84 , Total Bilirubin 0.4, AST 39 H, ALT 22, Alkaline Phosphatase 77 05/03/19 12:52: WBC 8.8, Hgb 8.8 L, Hct 26.3 L, Plt Count 407 H Assessment & Plan - Problems (Diagnosis) (1) Pleural effusion Current Visit: No Status: Acute Plan: Patient is 84 years of age has a significant pleural effusion on the left side did not respond to thorax catheter insertion only drained about 500 cc chest x- ray today shows complete opacification he will need to be transferred to a tertiary care center for a possible vats of early has loculated effusions vital sign is stable stable for transfer industries in the pleural fluid are pending
[2019-05-04] MEDS: PANTOPRAZOLE 40MG TABLET PO SCH ×2 (08:49→17:20)
[2019-05-04] MEDS: METOPROLOL TAR 25 MG TAB PO SCH (08:50)
[2019-05-04] MEDS ORDERED: FUROSEMIDE 20 MG TABLET PO SCH (09:00)
[2019-05-04] MEDS ORDERED: PRAMIPEXOLE 0.25 MG TAB PO SCH (09:00)
[2019-05-04] MEDS ORDERED: buPROPion HCL 100 MG TAB PO SCH (09:00)
[2019-05-04] MEDS ORDERED: TAMSULOSIN 0.4 MG SR CAP PO SCH (09:00)
--- NOTE | 2019-05-04 14:36 | P.PN ---
Subjective Date of Service: 05/04/19 Chief Complaint: Massive pleural effusion Subjective: No new changes (Patient confused today, and pulled on chest tube yesterday, but no acute issues) Physical Examination - Vital Signs Temperature: 98.2 F Blood Pressure: 100/59 Pulse: 85 Respirations: 20 Pulse Ox (%): 98 - Physical Exam General: Confused Respiratory: Diminished (Left chest is dull, minimal breath sounds, chest tube in place) - Studies Laboratory Data (last 24 hrs) 05/04/19 03:57: Sodium 141, Potassium 4.3, BUN 26 H, Creatinine 1.12, Glucose 130 H, Total Bilirubin 0.3, AST 18, ALT 23, Alkaline Phosphatase 82 05/04/19 03:57: WBC 9.0, Hgb 9.1 L, Hct 27.9 L, Plt Count 394 Microbiology Data (last 24 hrs): 05/03/19 13:00 Body Fluid - Left Pleura Gram Stain - Final Assessment And Plan - Current Problems (Diagnosis) (1) Pleural effusion Current Visit: No Status: Acute Plan: Pleural effusion - LEFT chest tube in place, functional, but minimal output - Recommend VATS, evacuation, decortication - keep chest tube for now
[2019-05-04 16:44] VITALS: BP 111/60; TEMP 98.4
--- NOTE | 2019-05-05 04:15 | DS ---
Date of Discharge: 05/04/2019 Consultants: Dr. Angelo with Pulmonology. Discharge Diagnoses: 1.Acute respiratory distress with hypoxia. 2.Severe left pleural effusion, loculated. 3.Coronary artery disease [place] artery, [place] heart, status post coronary artery bypass graft with out angina. 4.Severe protein-calorie malnutrition. 5.Normocytic normochromic anemia likely anemia of chronic disease. 6.Peripheral vascular disease. 7.Chronic kidney disease stage 3, stable. 8.Parkinson disease, stable. 9.Essential hypertension, stable. 10.Recent left femur fracture, status post open reduction and internal fixation. Hospital Course: Patient is an 84-year-old male, who was recently admitted to the inpatient rehab fa [facility] at our facility on April 21; however, from outside hospital after a left femur fracture an d ORIF. The patient, of note, did have chest tube placement at that facility for removal of fluid fr om pleural effusion, was found to have some atypical cells. Further workup was pending the hip surge ry. Patient has been in rehab; however, had continued to get short of breath on x-ray was found to h ave pleural effusion with whiteout of the left side of the lung. Therefore, patient was admitted to the inpatient hospital side. Patient had a PleurX catheter placed by Dr. Pearson and drained about 2 00-300 mL of dark red fluid, cytology and other studies were sent off. Dr. Angelo with Pulmonology was also consulted. Patient's repeat CT chest after the chest tube showed loculated pleural effusio n, which was large, therefore need for CT surgery and VATS was recommended by Pulmonology and Surgery , therefore transfer was initiated. Patient was on antibiotics as well. Since the patient had recen t procedure at [facility] by CT surgeon, Dr. Strong over there, he will be transferred back to [facility] for continuity of care. There were no antibiotics as the patient's white count was normal. He was afebrile. The patient was then accepted by the CT surgeon, Dr. Rivero to be admitted under hospitalist service. He was then t ransferred to [facility] for higher level of care due to CT surgery and VATS procedure not available at our facility. Physical Examination: General: Awake, alert, and oriented x3 elderly male, slightly ill-appearing, in some mild respirator y distress. CV: S1, S2. Respiratory: Diminished breath sounds. No significant air movement on the left. Gastrointestinal: Abdomen is soft, nontender, nondistended. Positive bowel sounds. Extremities: No clubbing, cyanosis, or edema. Neurologic: Nonfocal. Total time spent transferring the patient was 45 minutes. /SUZY Voice ID: [id number] Report ID: [id number]
--- NOTE | 2019-06-07 12:54 | OP ---
Date of Procedure: 05/03/2019 Surgeon: Rene Pearson MD, History Of Present Illness: Patient has a large left pleural effusion. A chest tube was requested. The patient had some decreased breath sounds on the left and increased shortness of breath. Preoperative Diagnosis: Large left persistent pleural effusion. Postoperative Diagnosis: Large left persistent pleural effusion. Procedure: Placement of left chest thoracostomy tube. Anesthesia: 1% lidocaine without epinephrine used. Complications: None. Specimen: Fluid sent for cytology. Estimated Blood Loss: Less than 1 mL. Complications: None. Procedure In Detail: After informed was obtained, patient was brought to the operating room, prepped and draped in the usual sterile fashion after adequate anesthesia was achieved, the area of the left chest was prepped. A small finder needle was used going over the rib at the sixth intercostal space midaxillary line, I entered the thoracic space after appropriately anesthetizing the area. Dark red colored fluid was returned immediately. A small derik incision was made after passing the guidewire into the chest cavity enlarging this area. Sequential dilatation was performed using Seldinger techn ique and then ultimately the Thal chest tube was placed at the lung base area where the preponderance of the fluid was dark red colored fluid was returned immediately approximately 300 to 400 cc. The c hest tube was then secured to the chest wall and hooked up the pneumo VAC system on suction. The pat ient tolerated the procedure well without evidence of complication, remained in the PACU in good condition throughout the procedure. All counts were corre ct at the end of the case. KEISHA/SUZY Voice ID: [id number] Report ID: [id number]
== END 2019-05-04 18:00 | disposition short-term general hospital (02) | DRG 186 ==
LOC: 4TH 10:55
PROVIDERS: ADMIT Family Medicine; ATTEND Family Medicine
PROC: 0W9B30Z Drainage of Left Pleural Cavity with Drainage Device, Percutaneous Approach (ICD-10-PCS; principal; 2019-05-03 11:45)
DX: J90 Pleural effusion, not elsewhere classified (principal); E43 Unspecified severe protein-calorie malnutrition; R06.03 Acute respiratory distress; I25.10 Atherosclerotic heart disease of native coronary artery without angina pectoris; Z68.29 Body mass index [BMI] 29.0-29.9, adult; I12.9 Hypertensive chronic kidney disease with stage 1 through stage 4 chronic kidney disease, or unspecified chronic kidney disease; N18.3 Chronic kidney disease, stage 3 (moderate); I73.9 Peripheral vascular disease, unspecified; G20 Parkinson's disease; D64.9 Anemia, unspecified; R09.02 Hypoxemia; Z98.890 Other specified postprocedural states; Z95.1 Presence of aortocoronary bypass graft
CPT/HCPCS: 32551; 36415; 71045; 71250; 80053; 85025; 87015; 87070; 87102; 87116; 87206; 88108; 88305; 94760